=== PATIENT | female | born 1985 | race Caucasian/White ===

== ENCOUNTER → 2019-04-14 | Outpatient (CLI) | payer OTHER ==
[~2019-04-14] VITALS: Ht 162.6 cm; Wt 75.0 kg
[~2019-04-14] MED LIST: LIDOCAINE 1% INJ 20 ML 20 ML VIAL INJ ONE
--- NOTE | 2019-04-14 11:23 | Diagnostic Imaging Report ---
INDICATION: Left thyroid nodule. TECHNIQUE AND FINDINGS: After explaining the risks, benefits and alternatives of the procedure to the patient written consent was obtained. A preliminary ultrasound was obtained for localization purposes. Patient's neck was prepped and draped utilizing maximal sterile barrier technique. Local anesthesia was obtained with 2% lidocaine. 4 fine-needle aspirates were obtained of the left thyroid nodule. Following the procedure the needle was removed and adequate hemostasis was obtained. Patient tolerated the procedure well and left the department in stable condition. IMPRESSION: Successful left thyroid biopsy as described. Dictated by: Dictated on workstation # [id number]
--- NOTE | 2019-04-14 11:25 | Diagnostic Imaging Report ---
INDICATION: Right thyroid nodule. TECHNIQUE AND FINDINGS: A preliminary ultrasound was obtained for localization purposes. Patients neck was prepped and draped utilizing maximal sterile barrier technique. Local anesthesia was obtained with 2% lidocaine. 3 fine-needle aspirates were obtained of the right thyroid nodule. Following the procedure the needle was removed and adequate hemostasis was obtained. Patient tolerated the procedure well and left the department in stable condition. IMPRESSION: Successful ultrasound-guided thyroid biopsy of right thyroid nodule as described. Dictated by: Dictated on workstation # [id number]
== END ==
LOC: RAD 08:28
PROVIDERS: ATTEND Otolaryngology Otolaryngology/Facial Plastic Surgery
DX: E04.2 Nontoxic multinodular goiter (principal)

== ENCOUNTER → 2020-10-19 | Day surgery (SDC) | payer OTHER ==
--- OUTSIDE RECORDS SUMMARY | 2020-10-19 10:43 | XMS REPORT | Clinical Summary ---
Author Author Admin, Isabeal Mancera Organization [facility] [place] Address Unknown Phone Unavailable Allergies, Adverse Reactions, Alerts Allergy Name Reaction Description Start Date Severity Status Pr ovider No Known Allergies Lubnamaricruz Vizcaino PMHNP-BC Conditions or Problems Problem Name Problem Code Onset Date Status Entry Date Provider Comment Standard Description Annotate ANXIETY DISORDER 300.00 Resolved Romario Alan MD Anxiety state, unspecified DEPRESSION 311 Resolved Romario Alan MD Depressive disorder, not elsewhere classified FH DIABETES V18.0 Resolved Romario Alan MD Family history of diabetes mellitus FH BREAST CANCER V16.3 Resolved Romario Alan MD Family history of malignant neoplasm of breast KNEE PAIN, LEFT 719.46 Resolved Romario Jorge Pain in joint involving lower leg KNEE PAIN, LEFT 719.46 Resolved Romario Jorge Pain in joint involving lower leg WELL WOMAN EXAMINATION V72.31 Active Lori leyva MD Routine gynecological examination Procreative counseling and advice using natural family plann ing V26.41 Resolved Romario Alan MD Procreati ve counseling and advice using natural family planning CONTRACEPTIVE MANAGEMENT V25.09 Active Kadeem Wall MD Encounter for other general counseling a nd advice on contraceptive management Fourth degree hemorrhoids Resolved Romario Alan MD Fatigue and malaise 780.79 Resolved Romario sanchez MD Other malaise and fatigue Generalized anxiety disorder 300.02 Active Mari Monroy EQUITY DIRECTOR-C Generalized anxiety disorder 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 Resolved Allison Alan MD Insomnia, unspecified Therapeutic drug monitoring V58.83 Resolved Romario Alan MD Encounter for therapeutic drug monitorin g Diet problems V69.1 Resolved Romario Alan MD Inappropriate diet and eating habits Wellness examination, routine medical V70.0 Active Mari Monroy APRN-C Routine general medical examination at a health care facility Medication refill V68.1 Resolved Romario Alan MD Issue of repeat prescriptions Migraine, common w/o intractable migraine 346.10 Activ e Mari Monroy EQUITY DIRECTOR-C Migraine without aura, witho ut mention of intractable migraine, without mention of status migrainosus BMI 29-29.9 Refinement Mari Monroy EQUITY DIRECTOR-C Body Mass Index 29.0-29.9, adult BMI 26-26.9 Refinement Romario Alan MD Body Mass Index 29.0-29.9, adult BMI 29-29.9 Refinement Mari Porfirio EQUITY DIRECTOR-C Body Mass Index 29.0-29.9, adult BMI 30-30.9 Refinement Mari Porfirio EQUITY DIRECTOR-C Body Mass Index 29.0-29.9, adult BMI 29-29.9 Refinement Mari Monroy EQUITY DIRECTOR-C Body Mass Index 29.0-29.9, adult BMI 30-30.9 Active Mari Porfirio EQUITY DIRECTOR-C Body Mass Index 29.0-29.9, adult Overweight (BMI 25-29.9) Refinement Mari Porfirio EQUITY DIRECTOR-C Overweight Obesity Class I (BMI 30-34.9) Refinement 06/26 Mari Monroy EQUITY DIRECTOR-C Overweight Overweight (BMI 25-29.9) Refinement Mari Monroy EQUITY DIRECTOR-C Overweight Obesity Class I (BMI 30-34.9) Active 5 Mari Monroy APRN-C Overweight Enlarged thyroid 240.9 Resolved Romario Alan MD Goiter, unspecified Thyroid nodule 241.0 Resolved Romario Alan MD Nontoxic uninodular goiter Fatigue, chronic 780.79 Active Mari Monroy APRN-C Other malaise and fatigue Multinodular thyroid goiter 241.1 Resolved Romario Alan MD Nontoxic multinodular goiter Vitamin B12 deficiency 266.2 Active Mari Monroy APRN-C Other B-complex deficiencies Contact dermatitis 692.9 Resolved Romario nieves MD Contact dermatitis and other eczema, unspecified cause Complete thyroidectomy V45.89 Active Tita mancera MA Other postsurgical status Family history of breast ca V16.3 Active Mari Monroy APRN-C Family history of malignant neoplasm of breast Screening exam for breast cancer V76.10 Resolved 202 Romario Alan MD Breast screening, unspecified Lymphadenopathy 785.6 Resolved Romario Jorge Enlargement of lymph nodes Hypocalcemia 275.41 Active Mari Monroy APRN-C Hypocalcemia Abdominal pain, right lower quadrant 789.03 Active Romario Alan MD Abdominal pain, right lower quadrant Other fdc (current) drug therapy V58.69 Active Mari Monroy APRN-C Long-term (current) use of other medicat ions Exposure to COVID-19 coronavirus V01.79 Active 202 Betsy Willard LPN Contact with or exposure to other viral diseases Polycystic ovary syndrome Active Raquel Estrada ew LRT Other abnormal blood chemistry 790.6 Active 04/11 Mari Porfirio EQUITY DIRECTOR-C Other abnormal blood chemistry Hypocalcemia 275.41 Active Bakari Paz, FARIDEH Hypocalcemia Adenocarcinoma, thyroid gland 193 Active Eliane Zarcowell Malignant neoplasm of thyroid gland Pain in right arm 729.5 Active Marijudah Monroy EQUITY DIRECTOR- C Pain in limb Hyperglycemia 790.29 Active Marijudah Monroy EQUITY DIRECTOR-C Other abnormal glucose Contusion of right forearm, initial encounter 923.10 Active Mari Monroy EQUITY DIRECTOR-C Contusion of forearm Chest pain, acute 786.50 Active Mari Monroy APRN- C Unspecified chest pain Headache, mixed 784.0 Active Mari Monroy EQUITY DIRECTOR-C Headache Cervicalgia 723.1 Active Marijudah Monroy APRN-C Cervicalgia Scapulalgia, left 733.90 Active Mari Monroy APRN- C Disorder of bone and cartilage, unspecified Dyspnea 786.09 Active Mari Monroy APRN-C Other dyspnea and respiratory abnormality Cervical radiculopathy 723.4 Active Mari Monroy APRN-C Brachial neuritis or radiculitis NOS Hx of migraines V13.8 Active Mari Monroy EQUITY DIRECTOR-C Personal history of other specified diseases Foot pain, right 729.5 Active Shona Gorman, RMA Pain in limb Unspecified injury of right foot, initial encounter 20 14/08/06 Active Kadeem Wall MD Major depressive disorder, recurrent, mild 296.30 Acti ve Mari Monroy APRN-C Major depressive disorder, r ecurrent episode, unspecified degree OTHER MIXED ANXIETY DISORDERS 300.02 Active 08/07 Mari Monroy EQUITY DIRECTOR-C Generalized anxiety disorder Major depressive disorder, recurrent episode, moderate 296.32 Active Lubna Vizcaino PMHNP-BC Major depressive disorder, recurrent episode, moderate degree Generalized anxiety disorder 300.02 Active Lubna Vizcaino PMHNP-BC Generalized anxiety disorder Elevated Blood Pressure Active Lubna villa PMHNP-BC Elevated blood pressure reading without diagnosis of hypertension Cervical lymphadenopathy, anterior, right 785.6 Activ e Mari Monroy EQUITY DIRECTOR-C Enlargement of lymph nodes Lymphadenopathy 785.6 Active Mari Monroy EQUITY DIRECTOR-C Enlargement of lymph nodes ANXIETY DISORDER ICD-300.00 Inactive Romario Alan MD DEPRESSION ICD-311 Inactive Romario Alan MD FH DIABETES ICD-V18.0 Inactive Romario Alan MD 202 FH BREAST CANCER ICD-V16.3 Inactive Romario Jorge KNEE PAIN, LEFT ICD-719.46 Inactive Romario Eastman MD KNEE PAIN, LEFT ICD-719.46 Inactive Romario Eastman MD Procreative counseling and advice using natural family plann ing ICD-V26.41 Inactive Romario Alan MD Fourth degree hemorrhoids Inactive Weston Alan MD Fatigue and malaise ICD-780.79 Inactive Allison Alan MD Other organic insomnia ICD-780.52 Inactive Weston Alan MD Therapeutic drug monitoring ICD-V58.83 Inactive Romario Alan MD Diet problems ICD-V69.1 Inactive Romario nieves MD Medication refill ICD-V68.1 Inactive Romario marie MD Enlarged thyroid ICD-240.9 Inactive Romario Eastman MD Thyroid nodule ICD-241.0 Inactive Romario sanchez MD Multinodular thyroid goiter ICD-241.1 Inactive Romario Alan MD Contact dermatitis ICD-692.9 Inactive Romario Alan MD Screening exam for breast cancer ICD-V76.10 [place] ctive Romario Alan MD Lymphadenopathy ICD-785.6 Inactive Romario patel MD Medication List Medication Instructions Start Date Stop Date Generic Name NDC Status Provider Patient Instruction CEFUROXIME AXETIL 250 MG ORAL TABLET 1 po BID x 10 days CEFUROXIME AXETIL 64672694414 Active Mari Monroy APRN-C Active MEDROL 4 MG ORAL TABLET THERAPY PACK take as directed METHYLPREDNISOLONE 95474023944 No Longer Active Mrai Monroy APRN-C Active METHOCARBAMOL 500 MG ORAL TABLET 0.5-1 tab every 8 luis rs as needed for tension headaches METHOCARBAMOL 73197239134 Active Mari Monroy EQUITY DIRECTOR-C Active ZOFRAN 4 MG ORAL TABLET 1 every 6 hours PRN nausea ( MAY CAUSE CONSTIPATION) use sparingly ONDANSETRON HCL 27222041088 Active Mari Monroy EQUITY DIRECTOR -C Active BUSPIRONE HCL 5 MG ORAL TABLET Take 1 tab PO BID for anxiety 08/29 BUSPIRONE HCL 09250169096 Active Lubna Vizcaino PMHNP-BC Acti ve CYANOCOBALAMIN 1000MCG/ML INJECTION SOLUTION INJECT 1M L SUBCUTANEOUSLY EVERY WEEK FOR 4 DOSES THEN EVERY 2 WEEKS CYANOCOBALAMIN 001 96454164 Active Mari Monroy APRN-C Active WELLBUTRIN XL 150 MG ORAL TABLET EXTENDED RELEASE 24 H OUR 1 po daily for depression/anxiety BUPROPION HCL 99100009511 Active Er judah Monroy APRN-C Active TOPAMAX 25 MG ORAL TABLET 1 po BID for migraine prevention TOPIRAMATE 02833234576 Active Mari Monroy APRN-C Active AMITRIPTYLINE HCL 25 MG ORAL TABLET 1 PO at HS for migraines AMITRIPTYLINE HCL 90796857065 No Longer Active Bakari Paz RN Active IMITREX 6 MG/0.5ML SUBCUTANEOUS SOLUTION with onset of POWELL may repeat in 1 hour if needed, do not exceed 12mg in 1 day S UMATRIPTAN SUCCINATE 42474301149 No Longer Active Bakari Paz RN Active FIORICET 50-300-40 MG ORAL CAPSULE 1-2 tabs po every 6 hours as needed for headaches, max 6 tabs per day [id number] 03879271998 Active Mari Monroy APRN-C Active TIZANIDINE HCL 4 MG ORAL TABLET 1/2-1 tab every 8 hour s as needed for muscle spasms TIZANIDINE HCL 85790738721 Active Mari Monroy APRN-C Active VITAMIN D (ERGOCALCIFEROL) 1.25 MG (69791 UT) ORAL CAPSULE ERGOCALCIFEROL 06389632823 No Longer Active Mari Monroy APRN-C Active LEVOTHYROXINE SODIUM 112MCG ORAL TABLET TAKE ONE TABLE T BY MOUTH ONE TIME DAILY 30 MINUTES BEFORE BREAKFAST LEVOTHYROXINE SODIUM 01812 145817 Active Cyrus Neumann APRN Active VITAMIN D (ERGOCALCIFEROL) 1.25 MG(18422 UT) ORAL CAPS ULE TAKE ONE CAPSULE BY MOUTH EVERY WEEK ERGOCALCIFEROL 56399849910 Active Miriam Monroy APRN-C Active CYANOCOBALAMIN 1000 MCG/ML INJECTION SOLUTION 1ml week IM every 2 weeks x4 doses then back to monthly CYANOCOBALAMIN 76315977823 No Lo nger Active Romario Alan MD Active VYVANSE 50 MG ORAL CAPSULE 1 po daily L ISDEXAMFETAMINE DIMESYLATE 05173469358 No Longer Active Romario Alan MD Activ e DIFLUCAN 100 MG ORAL TABLET 1 tablet by mouth daily re peat in 3 days if no improvement FLUCONAZOLE 56133997090 No Longer Active Mari Monroy EQUITY DIRECTOR-C Active ALPRAZOLAM 0.5 MG ORAL TABLET 1 tab by mouth 3 times daily PRN 2018 ALPRAZOLAM 28768028792 Active Marijudah Monroy APRN-C Active CIPRO 500 MG ORAL TABLET 1 tab BID CIPROFLOXAC IN HCL 06094910603 No Longer Active Mari Monroy EQUITY DIRECTOR-C Active AMOXICILLIN 500 MG ORAL TABLET 1 po BID x10 days 12/03 AMOXICILLIN 12899569176 No Longer Active Marijudah Monroy APRN-C Active ZOLOFT 100 MG ORAL TABLET SERTRALINE H CL 26965074692 No Longer Active Ayaan Castellanos MD Active 1 30-0.975-200 MG ORAL CAPSULE 1 qDay 2 MV-MIN-FE FUM-FA-DHA 46208119929 No Longer Active Ayaan Castellanos MD Active ALPRAZOLAM 0.25 MG ORAL TABLET 1 TAB PO Q 6 HRS PRN 08/19 ALPRAZOLAM 24814633490 No Longer Active Kadeem Wall MD Active ALPRAZOLAM 0.25 MG ORAL TABLET 1 TAB PO Q 6 HRS PRN 20 10/08/25 ALPRAZOLAM 0.25 MG ORAL TABLET 316130 ALPRAZOLAM Inactive 1 30-0.975-200 MG ORAL CAPSULE 1 qDay 2 1 30-0.975-200 MG ORAL CAPSULE MV-MIN-FE FUM-FA-DHA I nactive ZOLOFT 100 MG ORAL TABLET ZOLOFT 100 MG ORAL TABLET 805735 SERTRALINE HCL Inactive AMOXICILLIN 500 MG ORAL TABLET 1 po BID x10 days 12/03 AMOXICILLIN 500 MG ORAL TABLET 334146 AMOXICILLIN Inactive CIPRO 500 MG ORAL TABLET 1 tab BID CIP RO 500 MG ORAL TABLET 081783 CIPROFLOXACIN HCL Inactive DIFLUCAN 100 MG ORAL TABLET 1 tablet by mouth daily re peat in 3 days if no improvement DIFLUCAN 100 MG ORAL TABLET 525812 FLUCONAZOLE Inactive VYVANSE 50 MG ORAL CAPSULE 1 po daily V YVANSE 50 MG ORAL CAPSULE LISDEXAMFETAMINE DIMESYLATE Inactive CYANOCOBALAMIN 1000 MCG/ML INJECTION SOLUTION 1ml week IM every 2 weeks x4 doses then back to monthly CYANOCOBALAMIN 1000 MCG/ML INJECTION SOLUTION 411144 CYANOCOBALAMIN Inactive VITAMIN D (ERGOCALCIFEROL) 1.25 MG (11264 UT) ORAL CAPSULE VITAMIN D (ERGOCALCIFEROL) 1.25 MG (31067 UT) ORAL CAPSULE 1 688718 ERGOCALCIFEROL Inactive IMITREX 6 MG/0.5ML SUBCUTANEOUS SOLUTION with onset of POWELL may repeat in 1 hour if needed, do not exceed 12mg in 1 day I MITREX 6 MG/0.5ML SUBCUTANEOUS SOLUTION 742234 SUMATRIPTAN SUCCINATE Inactive AMITRIPTYLINE HCL 25 MG ORAL TABLET 1 PO at HS for migraines AMITRIPTYLINE HCL 25 MG ORAL TABLET 519341 AMITRIPTYLIN E HCL Inactive MEDROL 4 MG ORAL TABLET THERAPY PACK take as directed MEDROL 4 MG ORAL TABLET THERAPY PACK 496457 METHYLPREDNISOLONE Rox ctive Advance Directives Directive Description Start Date PERMISSION TO SHARE Immunizations Vaccine Administration Date Value Standard Shawn cription influenza immunization (Flu Vax) has been administered 12/15 Flulaval Quadrivalent (Flu) 10Pk Syringe IM influenza virus vaccine, unspecified formulation influenza immunization (Flu Vax) has been administered 11/26 Flulaval Quadrivalent (Flu) 10Pk Syringe IM influenza virus vaccine, unspecified formulation TB-PPD (tuberculin purified protein derivative), intra dermal administration Tubersol TB-PPD (tuberculin purified protein derivative), intra dermal administration Tubersol Seasonal influenza vaccine, injectable, containing preservative, for > 3 years old (Afluria, FluLaval, Fluzone, Fluvirin, Fluarix, Agriflu(>= 18 yo)) Fluzone (>3 yrs.) [[id number]] Influenza, seasonal, inject able Vital Signs Date Name Value Unit Range Description blood pressure, diastolic, repeated by physician 85 BP martin blood pressure, diastolic 85 mm[Hg] BP martin blood pressure, systolic, repeated by physician 142 BP sys blood pressure, systolic 142 mm[Hg] BP sys pulse rate 77 /min Heart rate blood pressure, diastolic, repeated by physician 83 BP martin blood pressure, diastolic 83 mm[Hg] BP martin blood pressure, systolic, repeated by physician 124 BP sys blood pressure, systolic 124 mm[Hg] BP sys height E&M 64 [in_us] Bdy height pulse rate 70 /min Heart rate temperature E&M 99.6 [degF] Body temp erature blood pressure, diastolic, repeated by physician 60 BP martin blood pressure, diastolic 60 mm[Hg] BP martin blood pressure, systolic, repeated by physician 108 BP sys blood pressure, systolic 108 mm[Hg] BP sys height E&M 64 [in_us] Bdy height pulse rate 60 /min Heart rate respiratory rate E&M 16 /min Resp rate weight E&M 174 [lb_av] Weight Measure d blood pressure, diastolic, repeated by physician 88 BP martin blood pressure, diastolic 88 mm[Hg] BP martin blood pressure, systolic, repeated by physician 119 BP sys blood pressure, systolic 119 mm[Hg] BP sys pulse rate 81 /min Heart rate temperature E&M 98.3 [degF] Body temp erature weight E&M 178 [lb_av] Weight Measure d blood pressure, diastolic, repeated by physician 83 BP martin blood pressure, diastolic 83 mm[Hg] BP martin blood pressure, systolic, repeated by physician 129 BP sys blood pressure, systolic 129 mm[Hg] BP sys height E&M 64 [in_us] Bdy height pulse rate 73 /min Heart rate temperature E&M 98.3 [degF] Body temp erature weight E&M 170 [lb_av] Weight Measure d height E&M 64 [in_us] Bdy height weight E&M 155 [lb_av] Weight Measure d blood pressure, diastolic, repeated by physician 85 BP martin blood pressure, diastolic 85 mm[Hg] BP martin blood pressure, systolic, repeated by physician 125 BP sys blood pressure, systolic 125 mm[Hg] BP sys height E&M 64 [in_us] Bdy height pulse rate 90 /min Heart rate temperature E&M 99.4 [degF] Body temp erature weight E&M 155 [lb_av] Weight Measure d Diagnostic Results Date Name Value Unit Range Description Lab Report: CBC W/DIFF, Comp. Metabolic Panel, Erythrocyte Sed Rate, Thy ... - Chemistry sodium, serum 140 mmol/L 069-037 2816/08/05 carbon dioxide, venous blood 23.8 mmol/L 21.0-32 .0 potassium, serum 4.1 mmol/L 3.5-5.2 chloride, serum 104 mmol/L 98-107 blood glucose 114 mg/dL 65-95 urea nitrogen, blood 15 mg/dL 7-18 creatinine, serum 0.88 mg/dL 0.60-1.30 Estimated Glomerular Filtration Rate (calc) 77 (?) mL/min/1.73m2 = OR > 60 mL/min alanine aminotransferase (SGPT), serum 11 U/L 12-78 aspartate aminotransferase (SGOT), serum 19 U/L 19-43 calcium, serum 8.7 mg/dL 8.5-10.1 bilirubin, serum, total 0.50 mg/dL 0.00-1.00 TSH 4.01 m[iU]/mL 0.36-3.74 thyroxine, serum, free 1.29 ng/dL 0.59-1.17 Lab Report: CBC W/DIFF, Comp. Metabolic Panel, Erythrocyte Sed Rate, Thy ... - Hematology leukocyte count, blood 6.4 10^3/MM^3 10*3/mm3 4.6-10.2 neutrophils as percent of blood leukocytes 54.1 % 42.2-75.2 monocytes as percent of blood leukocytes 6.7 % 1.7-9.3 lymphocytes as percent of blood leukocytes 35.4 % 20.5-51.1 erythrocyte (RBC) count 5.35 10^6/MM^3 10*6/mm3 3.80-5.8 0 hemoglobin, blood 15.4 g/dL 12.0-16.0 hematocrit, blood 46.1 % 37.0-47.0 mean corpuscular volume, RBC 86 fL 80-97 mean corpuscular hemoglobin, RBC 28.7 pg 27. 0-31.2 mean corpuscular hemoglobin concentration, RBC 33.3 G/DL % 31.8-35.4 red blood cell distribution width 10.5 % 11 .6-14.8 platelet count 279 10^3/MM^3 10*3/mm3 142-424 Lab Report: CBC W/DIFF, Comp. Metabolic Panel, Erythrocyte Sed Rate, Thy ... - Lab Alkaline phosphatase 56 50-136 Lab Report: CBC W/DIFF, Comp. Metabolic Panel, Magnesium - Chemistry sodium, serum 141 mmol/L 711-150 1951/05/03 carbon dioxide, venous blood 25.1 mmol/L 21.0-32 .0 potassium, serum 4.1 mmol/L 3.5-5.2 chloride, serum 106 mmol/L 98-107 blood glucose 123 mg/dL 65-95 urea nitrogen, blood 16 mg/dL 7-18 creatinine, serum 0.77 mg/dL 0.60-1.30 Estimated Glomerular Filtration Rate (calc) 90 (?) mL/min/1.73m2 = OR > 60 mL/min alanine aminotransferase (SGPT), serum 12 U/L 12-78 aspartate aminotransferase (SGOT), serum 19 U/L 19-43 calcium, serum 8.7 mg/dL 8.5-10.1 bilirubin, serum, total 0.30 mg/dL 0.00-1.00 Lab Report: CBC W/DIFF, Comp. Metabolic Panel, Magnesium - Hematology leukocyte count, blood 6.4 10^3/MM^3 10*3/mm3 4.6-10.2 neutrophils as percent of blood leukocytes 46.4 % 42.2-75.2 monocytes as percent of blood leukocytes 7.7 % 1.7-9.3 lymphocytes as percent of blood leukocytes 42.5 % 20.5-51.1 erythrocyte (RBC) count 5.40 10^6/MM^3 10*6/mm3 3.80-5.8 0 hemoglobin, blood 15.7 g/dL 12.0-16.0 hematocrit, blood 47.5 % 37.0-47.0 mean corpuscular volume, RBC 88 fL 80-97 mean corpuscular hemoglobin, RBC 29.1 pg 27. 0-31.2 mean corpuscular hemoglobin concentration, RBC 33.1 G/DL % 31.8-35.4 red blood cell distribution width 11.0 % 11 .6-14.8 platelet count 275 10^3/MM^3 10*3/mm3 142-424 Lab Report: CBC W/DIFF, Comp. Metabolic Panel, Magnesium - Lab Alkaline phosphatase 62 50-136 Lab Report: CBC W/DIFF, Comp. Metabolic Panel, UADIP W/MICRO, AUTO, [facility] - Chemistry sodium, serum 140 mmol/L 313-137 5544/10/14 carbon dioxide, venous blood 24.7 mmol/L 21.0-32 .0 potassium, serum 4.3 mmol/L 3.5-5.2 chloride, serum 107 mmol/L 98-107 blood glucose 104 mg/dL 65-95 urea nitrogen, blood 14 mg/dL 7-18 creatinine, serum 0.82 mg/dL 0.60-1.30 Estimated Glomerular Filtration Rate (calc) 84 (?) mL/min/1.73m2 = OR > 60 mL/min alanine aminotransferase (SGPT), serum 10 U/L 12-78 aspartate aminotransferase (SGOT), serum 24 U/L 19-43 calcium, serum 8.5 mg/dL 8.5-10.1 bilirubin, serum, total 1.00 mg/dL 0.00-1.00 protein, total urine random Negative mg/dL Negative RBC, urine, dipstick Negative Negative human chorionic gonadotropin , urine, qualitative (urine test) Negative Negative Lab Report: CBC W/DIFF, Comp. Metabolic Panel, UADIP W/MICRO, AUTO, [facility] - Hematology leukocyte count, blood 14.8 10^3/MM^3 10*3/mm3 4.6-10.2 neutrophils as percent of blood leukocytes 77.1 % 42.2-75.2 monocytes as percent of blood leukocytes 6.3 % 1.7-9.3 lymphocytes as percent of blood leukocytes 14.3 % 20.5-51.1 erythrocyte (RBC) count 5.38 10^6/MM^3 10*6/mm3 3.80-5.8 0 hemoglobin, blood 15.8 g/dL 12.0-16.0 hematocrit, blood 47.3 % 37.0-47.0 mean corpuscular volume, RBC 88 fL 80-97 mean corpuscular hemoglobin, RBC 29.4 pg 27. 0-31.2 mean corpuscular hemoglobin concentration, RBC 33.4 G/DL % 31.8-35.4 red blood cell distribution width 10.8 % 11 .6-14.8 platelet count 306 10^3/MM^3 10*3/mm3 142-424 Lab Report: CBC W/DIFF, Comp. Metabolic Panel, UADIP W/MICRO, AUTO, [facility] - Lab Alkaline phosphatase 67 50-136 Lab Report: CBC W/DIFF, Comp. Metabolic Panel, UADIP W/MICRO, AUTO, [facility] - Urinalysis urobilinogen, urine, semiquantitative (dipstick) 0.2 E .U./dL Normal leukocyte esterase, urine, by dipstick Negative Negative nitrite, urine, semiquantitative Negative Neg ative glucose, urine, semiquantitative Negative Neg ative ketones, urine, by test strip Negative Negati ve bilirubin, urine Negative Negative urine color Yellow Colorless;Lightyellow;St raw;Yellow appearance, urine Clear Clear specific gravity, urine >=1.030 1.000-1.030 pH, urine, semiquantitative 7.0 5.0-8.5 Lab Report: Comp. Metabolic Panel - Chem istry calcium, serum 8.4 mg/dL 8.5-10.1 bilirubin, serum, total 0.40 mg/dL 0.00-1.00 sodium, serum 140 mmol/L 852-586 5160/02/22 carbon dioxide, venous blood 27.1 mmol/L 21.0-32 .0 potassium, serum 4.5 mmol/L 3.5-5.2 chloride, serum 105 mmol/L 98-107 blood glucose 94 mg/dL 65-95 urea nitrogen, blood 11 mg/dL 7-18 creatinine, serum 0.77 mg/dL 0.60-1.30 Estimated Glomerular Filtration Rate (calc) 90 (?) mL/min/1.73m2 = OR > 60 mL/min alanine aminotransferase (SGPT), serum 11 U/L 12-78 aspartate aminotransferase (SGOT), serum 20 U/L 19-43 Lab Report: Comp. Metabolic Panel - Lab Alkaline phosphatase 56 50-136 Lab Report: Comp. Metabolic Panel, HGBA1 C - Chemistry calcium, serum 8.8 mg/dL 8.5-10.1 bilirubin, serum, total 0.50 mg/dL 0.00-1.00 hemoglobin A1C, blood, as % of total hemoglobin 5.3 % 4.3-6.0 sodium, serum 140 mmol/L 121-392 6507/04/12 carbon dioxide, venous blood 27.5 mmol/L 21.0-32 .0 potassium, serum 4.0 mmol/L 3.5-5.2 chloride, serum 104 mmol/L 98-107 blood glucose 98 mg/dL 65-95 urea nitrogen, blood 14 mg/dL 7-18 creatinine, serum 0.80 mg/dL 0.60-1.30 Estimated Glomerular Filtration Rate (calc) 86 (?) mL/min/1.73m2 = OR > 60 mL/min alanine aminotransferase (SGPT), serum 13 U/L 12-78 aspartate aminotransferase (SGOT), serum 20 U/L 19-43 Lab Report: Comp. Metabolic Panel, HGBA1 C - Lab Alkaline phosphatase 63 50-136 Lab Report: Erythrocyte Sed Rate, Thyroi d Stimulating Hormone (L) - Chemistry TSH 2.11 m[iU]/mL 0.36-3.74 Lab Report: Free Thyroxine (L) - [employer] Consultant ry thyroxine, serum, free 1.20 ng/dL 0.59-1.17 thyroxine, serum, free 1.37 ng/dL 0.59-1.17 Lab Report: Free Thyroxine (L), Isabela simon Vitamin B12 - Chemistry thyroxine, serum, free 1.44 ng/dL 0.59-1.17 Lab Report: Free Thyroxine (L), CBC - Ch emistry thyroxine, serum, free 1.13 ng/dL 0.59-1.17 Lab Report: Free Thyroxine (L), CBC - He matology leukocyte count, blood 5.0 10^3/MM^3 10*3/mm3 4.6-10.2 erythrocyte (RBC) count 5.10 10^6/MM^3 10*6/mm3 3.80-5.8 0 hemoglobin, blood 14.7 g/dL 12.0-16.0 hematocrit, blood 43.1 % 37.0-47.0 mean corpuscular volume, RBC 85 fL 80-97 mean corpuscular hemoglobin, RBC 28.9 pg 27. 0-31.2 mean corpuscular hemoglobin concentration, RBC 34.2 G/DL % 31.8-35.4 red blood cell distribution width 11.4 % 11 .6-14.8 platelet count 272 10^3/MM^3 10*3/mm3 142-424 Lab Report: Thyroid Stimulating Hormone (L) - Chemistry TSH 2.66 m[iU]/mL 0.36-3.74 TSH 3.80 m[iU]/mL 0.36-3.74 Lab Report: Thyroid Stimulating Hormone (L), Free Thyroxine (L) - Chemistry TSH 1.68 m[iU]/mL 0.36-3.74 thyroxine, serum, free 1.35 ng/dL 0.59-1.17 TSH 0.23 m[iU]/mL 0.36-3.74 thyroxine, serum, free 1.44 ng/dL 0.59-1.17 Office Visit: diana pain RM 302 - Basic LDL target level 160 mg/dL Office Visit: diana pain RM 302 - Chemistr y HDL cholesterol, serum, target level 40 mg/dL cholesterol, target level 200 mg/dL triglyceride, target level 150 mg/dL Encounters Code Encounter Date Provider Facility CPT-65498 Level 5 Est. Patient 14:22:47 CDT Lubna Huerta PMHNP-[facility] CPT-15035 [id number] Vst-Est Level III 16:54:40 CDT Kadeem Wall MD [facility] CPT-98452 13447-Clv Vst-Est Level IV 06:01:21 CDT Miriam Monroy APRN-C [facility] CPT-95216 [id number] Vst-Est Level III 16:13:06 CDT Dariel Monroy APRN-C [facility] CPT-38915 Level 3 New Patient 16:14:48 CDT Ayaan Castellanos MD [facility] CPT-76461 Level 4 Est. Patient 08:48:05 CDT Romario Alan MD [facility] CPT-46068 Level 3 Est. Patient 07:30:03 DOUGH MOLDER [facility] CPT-71266 Level 4 Est. Patient 08:02:04 DOUGH MOLDER [facility] CPT-70433 Level 3 Est. Patient 09:56:14 CDT Kadeem jenkins MD [facility] CPT-63805 Level 3 Est. Patient 11:07:45 CDT Ang HILLIARD [facility] Procedures Code Procedure Name Date Entry Date Standard Desc ription CPT-56519 MOD COVID19 mRNA 100mcg/0.5mL 1st Dose 2 18:35:21 CDT CPT-29103 Sono Soft Tissue Head and Neck - XRAY US E ONLY 10:50:20 CDT CPT-38720 Venipuncture Draw Fee 10:24:46 CDT CPT-TMV TMV 05:09:41 CDT CPT-66282 Foot, right, comp min 3V - XRAY USE ONLY 16:15:36 CDT CPT-J1885 Toradol 30 mg (Ketorolac) 06:01:21 CDT 2020 CPT-94838 EKG Trac and Interp - XRAY USE ONLY 1 8:04:25 CDT CPT-99407 Chest, 2 views 17:02:15 CDT CPT-J1885 Toradol 30 mg (Ketorolac) 16:44:24 CDT 2020 CPT-08469 Abx/Therapy Injection 16:44:24 CDT CPT-60768 Venipuncture Draw Fee 16:11:55 CDT CPT-L3908 Cockup Splint 16:13:07 CDT CPT-87536 Venipuncture Draw Fee 12:12:02 CDT CPT-50243 Forearm, right, AP and Lat - XRAY USE ONLY 05/26 14:27:36 CDT CPT-17423 Elbow, right, Comp Min 3V - XRAY USE ONLY 05/26 14:27:35 CDT CPT-44934 Venipuncture Draw Fee 11:28:13 CDT CPT-65929 Venipuncture Draw Fee 08:03:55 DOUGH MOLDER CPT-57232 Venipuncture Draw Fee 16:21:43 DOUGH MOLDER CPT-65282 61131 - Immun Admin 1 vac 13:37:32 CDT 2019 CPT-84901 Flulaval (Flu) 10PK Syringe IM 13:37:32 CDT CPT-02971 Venipuncture Draw Fee 10:41:23 CDT CPT-70529 Venipuncture Draw Fee 08:57:35 CDT CPT-J1885 Toradol 30 mg (Ketorolac) 18:38:26 CDT 2019 CPT-J2550 Phenergan 25 mg (Promethazine) 18:38:26 CDT CPT-J1020 Depo Medrol 60 mg (Methyl Prednisolone A cetate) 18:38:26 CDT CPT-J1100 Decadron 6mg (Dexamethasone) 18:38:26 CDT 2 CPT-99933 Abx/Therapy Injection 18:38:25 CDT CPT-40382 Venipuncture Draw Fee 08:18:31 CDT CPT-49026 Venipuncture Draw Fee 09:11:08 CDT CPT-42513 Venipuncture Draw Fee 15:19:08 CDT CPT-98826 IM or SQ Injection 13:11:03 CDT CPT-J1100 Decadron 4mg (Dexamethasone) 13:11:03 CDT 2 CPT-J1030 Depo Medrol 40 mg (Methyl Prednisolone A cetate) 13:11:02 CDT CPT-76024 Venipuncture Draw Fee 10:49:05 CDT CPT-25103 Sono Soft Tissue Head and Neck - XRAY US E ONLY 14:27:21 DOUGH MOLDER CPT-CB9199B (4274F) Influenza immunization administe red or previously received 13:43:59 DOUGH MOLDER CPT-J2550 Phenergan 25 mg (Promethazine) 17:57:23 DOUGH MOLDER CPT-J1885 Toradol 30 mg (Ketorolac) 17:57:23 DOUGH MOLDER 2018 CPT-07433 Prv Med Est Pt 18-39yrs 08:02:04 DOUGH MOLDER 0/10 CPT-89497 75358 - Immun Admin 1 vac 09:24:27 CDT 2018 CPT-83355 Flulaval Quadrivalent (Flu) 10Pk Syringe IM 2018 09:24:27 CDT CPT-46673 First Vx - Ix admin via ID I M or jet injects without counseling by physician 16:30:31 CDT CPT-43166 Fluzone Quadrivalent Intramuscular Suspe nsion 0.5 ML 16:30:31 CDT CPT-42841 Nexplanon Removal 09:56:14 CDT CPT-OV Office Visit 10:17:55 CDT CPT-64026 TB Tubersol 16:11:35 DOUGH MOLDER CPT-85788 Administration single or combination vac cine inc oral 14:18:51 DOUGH MOLDER CPT-22025 TB Tubersol 14:18:51 DOUGH MOLDER CPT-54735 Influenza split virus > age 3 14:18:51 DOUGH MOLDER CPT-69566 Knee 3V 11:04:40 CDT
--- OUTSIDE RECORDS SUMMARY | 2020-10-19 10:43 | XMS REPORT | Clinical Summary ---
Author Author [facility] Organization [facility] Address Unknown Phone Unavailable Care Team Providers Care Repairer Maintenance Building Name Role Phone Mari Monroy VASCULAR ULTRASOUND TECHNOLOGIST PCP Source Comments Some departments are not documenting in the electronic medical record. If you d o not see the information that you expected, contact Release of Information in [facility] Information Management department at [phone] for further assistan ce in locating additional records.[facility] Allergies No Known Active Allergies Medications End Date Status Medication Sig Dispensed Refills Start Date Active ALPRAZolam (XANAX) 0.25 0.5 mg. 0 mg tablet 1 Active acetaminophen (TYLENOL 8 Take by 0 HOUR PO) mouth as Needed. Active levothyroxine (SYNTHROID) Take one 90 tablet 1 112 mcg tablet tablet by 0 mouth daily 30 minutes before breakfast. Active ergocalciferol (VITAMIN Take 1 0 D-2) 1,250 mcg (50,000 capsule by unit) capsule mouth every 7 days. Active cyanocobalamin(DIL) Inject into 0 (VITAMIN B-12) 100 mcg/mL the muscle. Active cyanocobalamin (RUBRAMIN) Inject 1 mL 0 1,000 mcg/mL injection into the muscle every 14 days. Active CALCIUM PO Take 650 mg 0 by mouth daily. chewable Active vitamins, w/iron Take 1 tablet 0 & folate 27-1 mg tablet by mouth daily. Has 150mg calcium Active Problems Problem Noted Date Postoperative hypothyroidism 04/25/2020 H/O thyroidectomy 02/10/2020 Papillary thyroid carcinoma 07/29/2019 Neck tightness 06/17/2019 Thyroid mass 06/10/2019 Surgical History Surgery Date Site/Laterality Comments BUNIONECTOMY 02/25/2012 - Left 02/23/2013 HEMORRHOIDECTOMY 02/24/2017 - 02/23/2018 THYROIDECTOMY 07/21/2019 Neck/N/A THYROIDECTOMY T OTAL performed by Rigoberto Colon MD at [facility] OR ELECTROMYOGRAPHY 07/21/2019 Neck/Bilateral NEEDLE ELECTR OMYOGRAPHY - LARYNX performed by Rigoberto Colon MD at [facility] OR LARYNGOSCOPY 07/21/2019 Throat/N/A DIRECT LARYNGOS COPY DIAGNOSTIC performed by Rigoberto Colon MD at [facility] OR LARYNGOSCOPY 07/21/2019 Throat/N/A FLEXIBLE LARYNG OSCOPY DIAGNOSTIC performed by Rigoberto Colon MD at [facility] OR HX APPENDECTOMY Medical History Medical History Date Comments Vitamin D deficiency Vitamin B 12 deficiency Hypothyroid postoperative Thyroid cancer (HCC) Social History Date Tobacco Use Types Packs/Day Years Used Never Smoker Smokeless Tobacco: Never Used Comments Alcohol Use Standard Drinks/Week Yes 0 (1 standard drink = 0.6 o z pure alcohol) Sex Assigned at Date Recorded Female 05/31/2019 4:25 PM CDT Last Filed Vital Signs Reading Time Taken Comments Vital Sign 115/70 07/26/2019 4:12 PM CDT unable to obtain Blood Pressure 86 07/26/2019 4:12 PM CDT Pulse 36.5 C (97.7 F) 07/26/2019 4:12 PM CDT Unable to obtain Temperature - - Respiratory Rate 98% 07/26/2019 4:12 PM CDT Oxygen Saturation - - Inhaled Oxygen Concentration 72.6 kg (160 lb) 02/10/2020 9:13 AM DIVIDEND CLERK Weight 162.6 cm (5' 4") 02/10/2020 9:13 AM DIVIDEND CLERK Height 27.46 02/10/2020 9:13 AM DIVIDEND CLERK Body Mass Index Plan of Treatment Health Maintenance Due Date Last Done Comments HIV SCREENING 08/08/1999 DTAP/TDAP VACCINES (1 - 2002 Tdap) HEPATITIS C SCREENING 2002 PHYSICAL (COMPREHENSIVE) 2002 EXAM CERVICAL CANCER SCREENING 2005 INFLUENZA VACCINE 11/24/2020 Implants Device Identifier Shelf Expiration Date Model / Serial / L ot Implanted Type Area Manufactur er Other Other Left: Foot Results Not on filefrom Last 3 Months Insurance Type Payer Benefit Subscriber ID Effective Phone Address Plan / Dates [facility] [id number] 2017-P SERVICES resent [id number] Advance Directives 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 necessary based on Dx
--- OUTSIDE RECORDS SUMMARY | 2020-10-19 10:44 | XMS REPORT | Clinical Summary ---
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 [...] intractable migraine 346.10 Activ e Mari Monroy APRN-C Migraine without aura, witho ut mention of intractable migraine, without mention of status migrainosus BMI 29-29.9 Refinement Mari Monroy PHOTOGRAPHIC INTELLIGENCE OFFICER-C Body Mass Index 29.0-29.9, adult BMI 26-26.9 Refinement Romario Alan MD Body Mass Index 29.0-29.9, adult BMI 29-29.9 Refinement Mari Porfirio PHOTOGRAPHIC INTELLIGENCE OFFICER-C Body Mass Index 29.0-29.9, adult BMI 30-30.9 Refinement Mari Porfirio PHOTOGRAPHIC INTELLIGENCE OFFICER-C Body Mass Index 29.0-29.9, adult BMI 29-29.9 Refinement Mari Monroy PHOTOGRAPHIC INTELLIGENCE OFFICER-C Body Mass Index 29.0-29.9, adult BMI 30-30.9 Active Mari Porfirio PHOTOGRAPHIC INTELLIGENCE OFFICER-C Body Mass Index 29.0-29.9, adult Overweight (BMI 25-29.9) Refinement Mari Monroy PHOTOGRAPHIC INTELLIGENCE OFFICER-C Overweight Obesity Class I (BMI 30-34.9) Refinement 06/26 Mari Monroy PHOTOGRAPHIC INTELLIGENCE OFFICER-C Overweight Overweight (BMI 25-29.9) Refinement Mari Monroy PHOTOGRAPHIC INTELLIGENCE OFFICER-C Overweight Obesity Class I (BMI 30-34.9) Active 5 Mari Monroy APRN-C Overweight Enlarged thyroid 240.9 Resolved Romario Alan MD Goiter, unspecified Thyroid nodule 241.0 Resolved Romario Alan MD Nontoxic uninodular goiter Fatigue, chronic 780.79 Active Mari GOMEZC Other malaise and fatigue Multinodular thyroid goiter [...] MD Abdominal pain, right lower quadrant Other fci (current) drug therapy V58.69 Active Mari Monroy APRN-C Long-term (current) use of other medicat ions Exposure to COVID-19 coronavirus V01.79 Active 202 Betsy Willard LPN Contact with or exposure to other viral diseases Polycystic ovary syndrome Active Raquel Estrada ew LRT Other abnormal blood chemistry 790.6 Active 04/11 Mari Porfirio PHOTOGRAPHIC INTELLIGENCE OFFICER-C Other abnormal blood chemistry Hypocalcemia 275.41 Active Bakari Paz, RN Hypocalcemia Adenocarcinoma, thyroid gland 193 Active Eliane Morales Malignant neoplasm of thyroid gland Pain in right arm 729.5 Active Marijudah Monroy PHOTOGRAPHIC INTELLIGENCE OFFICER- C Pain in limb Hyperglycemia 790.29 Active Mari Porfirio PHOTOGRAPHIC INTELLIGENCE OFFICER-C Other abnormal glucose Contusion of right forearm, initial encounter 923.10 Active Marijudah Monroy PHOTOGRAPHIC INTELLIGENCE OFFICER-C Contusion of forearm Chest pain, acute 786.50 Active Marijudah Monroy APRN- C Unspecified chest pain Headache, mixed 784.0 Active Mari Monroy PHOTOGRAPHIC INTELLIGENCE OFFICER-C Headache Cervicalgia 723.1 Active Marijudah Monroy PHOTOGRAPHIC INTELLIGENCE OFFICER-C Cervicalgia Scapulalgia, left 733.90 Active Mari Monroy APRN- C Disorder of bone and cartilage, unspecified Dyspnea 786.09 Active Mari Monroy PHOTOGRAPHIC INTELLIGENCE OFFICER-C Other dyspnea and respiratory abnormality Cervical radiculopathy 723.4 Active Mari Monroy APRN-C Brachial neuritis or radiculitis NOS Hx of migraines V13.8 Active Mair Monroy PHOTOGRAPHIC INTELLIGENCE OFFICER-C Personal history of other specified diseases Foot pain, right 729.5 Active Shona Gorman, RMA Pain in limb Unspecified injury of right foot, initial encounter 20 14/08/06 Active Kadeem Wall MD Major depressive disorder, recurrent, mild 296.30 Acti ve Marijudah Monroy PHOTOGRAPHIC INTELLIGENCE OFFICER-C Major depressive disorder, r ecurrent episode, unspecified degree OTHER MIXED ANXIETY DISORDERS 300.02 Active 0 08/07 Mari Monroy PHOTOGRAPHIC INTELLIGENCE OFFICER-C Generalized anxiety disorder Major depressive disorder, recurrent episode, moderate 296.32 Active Lubna Vizcaino PMHNP-BC Major depressive disorder, recurrent episode, moderate degree Generalized anxiety disorder 300.02 Active Lubna Vizcaino PMHNP-BC Generalized anxiety disorder Elevated Blood Pressure Active Lubna bermeoo PMHNP-BC Elevated blood pressure reading without diagnosis of hypertension Cervical lymphadenopathy, anterior, right 785.6 Activ e Mari Monroy PHOTOGRAPHIC INTELLIGENCE OFFICER-C Enlargement of lymph nodes Lymphadenopathy 785.6 Active Mari Monroy PHOTOGRAPHIC INTELLIGENCE OFFICER-C Enlargement of lymph nodes ANXIETY DISORDER ICD-300.00 [...] MD Screening exam for breast cancer ICD-V76.10 Ovid ctive Romario Alan MD Lymphadenopathy ICD-785.6 Inactive Romario patel MD Medication List Medication Instructions Start Date Stop Date Generic Name NDC Status Provider Patient Instruction CEFUROXIME AXETIL 250 MG ORAL TABLET 1 po BID x 10 days CEFUROXIME AXETIL 59009337777 Active Mari Monroy APRN-C Active MEDROL 4 MG ORAL TABLET THERAPY PACK take as directed METHYLPREDNISOLONE 74508259351 No Longer Active Mari Monroy APRN-C Active METHOCARBAMOL 500 MG ORAL TABLET 0.5-1 tab every 8 luis rs as needed for tension headaches METHOCARBAMOL 16658507081 Active Mari Monroy PHOTOGRAPHIC INTELLIGENCE OFFICER-C Active ZOFRAN 4 MG ORAL TABLET 1 every 6 hours PRN nausea ( MAY CAUSE CONSTIPATION) use sparingly ONDANSETRON HCL 72433178357 Active Mari Monroy PHOTOGRAPHIC INTELLIGENCE OFFICER -C Active BUSPIRONE HCL 5 MG ORAL TABLET Take 1 tab PO BID for anxiety 08/29 BUSPIRONE HCL 62816147409 Active Lubna Vizcaino PMHNP-BC Acti ve CYANOCOBALAMIN 1000MCG/ML INJECTION SOLUTION INJECT 1M L SUBCUTANEOUSLY EVERY WEEK FOR 4 DOSES THEN EVERY 2 WEEKS CYANOCOBALAMIN 001 05633458 Active Mari Monroy APRN-C Active WELLBUTRIN XL 150 MG ORAL TABLET EXTENDED RELEASE 24 H OUR 1 po daily for depression/anxiety BUPROPION HCL 03758048374 Active Er judah Monroy APRN-C Active TOPAMAX 25 MG ORAL TABLET 1 po BID for migraine prevention TOPIRAMATE 00747928458 Active Mari Monroy APRN-C Active AMITRIPTYLINE HCL 25 MG ORAL TABLET 1 PO at HS for migraines AMITRIPTYLINE HCL 18291129449 No Longer Active Bakari Paz RN Active IMITREX 6 MG/0.5ML SUBCUTANEOUS SOLUTION with onset of POWELL may repeat in 1 hour if needed, do not exceed 12mg in 1 day S UMATRIPTAN SUCCINATE 70383249568 No Longer Active Bakari Paz RN Active FIORICET 50-300-40 MG ORAL CAPSULE 1-2 tabs po every 6 hours as needed for headaches, max 6 tabs per day [id number] 39693911936 Active Mari Monroy APRN-C Active TIZANIDINE HCL 4 MG ORAL TABLET 1/2-1 tab every 8 hour s as needed for muscle spasms TIZANIDINE HCL 09475339624 Active Mari Monroy APRN-C Active VITAMIN D (ERGOCALCIFEROL) 1.25 MG (98221 UT) ORAL CAPSULE ERGOCALCIFEROL 39177230947 No Longer Active Mari Monroy APRN-C Active LEVOTHYROXINE SODIUM 112MCG ORAL TABLET TAKE ONE TABLE T BY MOUTH ONE TIME DAILY 30 MINUTES BEFORE BREAKFAST LEVOTHYROXINE SODIUM 34461 285098 Active Cyrus Neumann APRN Active VITAMIN D (ERGOCALCIFEROL) 1.25 MG(95519 UT) ORAL CAPS ULE TAKE ONE CAPSULE BY MOUTH EVERY WEEK ERGOCALCIFEROL 33736558942 Active Miriam Monroy APRN-C Active CYANOCOBALAMIN 1000 MCG/ML INJECTION SOLUTION 1ml week IM every 2 weeks x4 doses then back to monthly CYANOCOBALAMIN 87218756076 No Lo nger Active Romario Alan MD Active VYVANSE 50 MG ORAL CAPSULE 1 po daily L ISDEXAMFETAMINE DIMESYLATE 02622529515 No Longer Active Romario Alan MD Activ e DIFLUCAN 100 MG ORAL TABLET 1 tablet by mouth daily re peat in 3 days if no improvement FLUCONAZOLE 85270970959 No Longer Active Mari Monroy PHOTOGRAPHIC INTELLIGENCE OFFICER-C Active ALPRAZOLAM 0.5 MG ORAL TABLET 1 tab by mouth 3 times daily PRN 2018 ALPRAZOLAM 75180963471 Active Marijudah Monroy APRN-C Active CIPRO 500 MG ORAL TABLET 1 tab BID CIPROFLOXAC IN HCL 28332588736 No Longer Active Marijudah Monroy APRN-C Active AMOXICILLIN 500 MG ORAL TABLET 1 po BID x10 days 12/03 AMOXICILLIN 81395471390 No Longer Active Marijudah Monroy APRN-C Active ZOLOFT 100 MG ORAL TABLET SERTRALINE H CL 18253782077 No Longer Active Ayaan Castellanos MD Active 1 30-0.975-200 MG ORAL CAPSULE 1 qDay 2 MV-MIN-FE FUM-FA-DHA 47786104151 No Longer Active Ayaan Castellanos MD Active ALPRAZOLAM 0.25 MG ORAL TABLET 1 TAB PO Q 6 HRS PRN 08/19 ALPRAZOLAM 81747046891 No Longer Active Kadeem Wall MD Active ALPRAZOLAM 0.25 MG ORAL TABLET 1 TAB PO Q 6 HRS PRN 20 10/08/25 ALPRAZOLAM 0.25 MG ORAL TABLET 802281 ALPRAZOLAM Inactive 1 30-0.975-200 MG ORAL CAPSULE 1 qDay 2 1 30-0.975-200 MG ORAL CAPSULE MV-MIN-FE FUM-FA-DHA I nactive ZOLOFT 100 MG ORAL TABLET ZOLOFT 100 MG ORAL TABLET 661393 SERTRALINE HCL Inactive AMOXICILLIN 500 MG ORAL TABLET 1 po BID x10 days 12/03 AMOXICILLIN 500 MG ORAL TABLET 950558 AMOXICILLIN Inactive CIPRO 500 MG ORAL TABLET 1 tab BID CIP RO 500 MG ORAL TABLET 739821 CIPROFLOXACIN HCL Inactive DIFLUCAN 100 MG ORAL TABLET 1 tablet by mouth daily re peat in 3 days if no improvement DIFLUCAN 100 MG ORAL TABLET 703674 FLUCONAZOLE Inactive VYVANSE 50 MG ORAL CAPSULE 1 po daily V YVANSE 50 MG ORAL CAPSULE LISDEXAMFETAMINE DIMESYLATE Inactive CYANOCOBALAMIN 1000 MCG/ML INJECTION SOLUTION 1ml week IM every 2 weeks x4 doses then back to monthly CYANOCOBALAMIN 1000 MCG/ML INJECTION SOLUTION 543900 CYANOCOBALAMIN Inactive VITAMIN D (ERGOCALCIFEROL) 1.25 MG (23052 UT) ORAL CAPSULE VITAMIN D (ERGOCALCIFEROL) 1.25 MG (72832 UT) ORAL CAPSULE 1 814169 ERGOCALCIFEROL Inactive IMITREX 6 MG/0.5ML SUBCUTANEOUS SOLUTION with onset of POWELL may repeat in 1 hour if needed, do not exceed 12mg in 1 day I MITREX 6 MG/0.5ML SUBCUTANEOUS SOLUTION 666118 SUMATRIPTAN SUCCINATE Inactive AMITRIPTYLINE HCL 25 MG ORAL TABLET 1 PO at HS for migraines AMITRIPTYLINE HCL 25 MG ORAL TABLET 972129 AMITRIPTYLIN E HCL Inactive MEDROL 4 MG ORAL TABLET THERAPY PACK take as directed MEDROL 4 MG ORAL TABLET THERAPY PACK 450439 METHYLPREDNISOLONE Rox ctive Advance Directives Directive Description Start Date PERMISSION TO SHARE Immunizations Vaccine Administration Date Value Standard Shawn cription influenza immunization (Flu Vax) has been administered 12/15 Flulaval Quadrivalent (Flu) 10Pk Syringe IM influenza immunization (Flu Vax) has been administered 11/26 Flulaval Quadrivalent (Flu) 10Pk Syringe IM TB-PPD (tuberculin purified protein derivative), intra dermal administration Tubersol TB-PPD (tuberculin purified protein derivative), intra dermal administration Tubersol Seasonal influenza vaccine, injectable, containing preservative, for > 3 years old (Afluria, FluLaval, Fluzone, Fluvirin, Fluarix, Agriflu(>= 18 yo)) Fluzone (>3 yrs.) [[id number]] Diagnostic Results Date Name Value Unit Range Description Lab Report: CBC W/DIFF, Comp. Metabolic Panel, Erythrocyte Sed Rate, Thy ... - Chemistry sodium, serum 140 mmol/L 128-802 9478/08/05 carbon dioxide, venous blood 23.8 mmol/L 21.0-32 [...] W/DIFF, Comp. Metabolic Panel, Magnesium - Chemistry calcium, serum 8.7 mg/dL 8.5-10.1 bilirubin, serum, total 0.30 mg/dL 0.00-1.00 sodium, serum 141 mmol/L 106-490 1152/05/03 carbon dioxide, venous blood 25.1 mmol/L 21.0-32 .0 potassium, serum 4.1 mmol/L 3.5-5.2 chloride, serum 106 mmol/L 98-107 blood glucose 123 mg/dL 65-95 urea nitrogen, blood 16 mg/dL 7-18 creatinine, serum 0.77 mg/dL 0.60-1.30 Estimated Glomerular Filtration Rate (calc) 90 (?) mL/min/1.73m2 = OR > 60 mL/min alanine aminotransferase (SGPT), serum 12 U/L 12-78 aspartate aminotransferase (SGOT), serum 19 U/L 19-43 Lab Report: CBC W/DIFF, Comp. Metabolic Panel, [...] W/DIFF, Comp. Metabolic Panel, UADIP W/MICRO, AUTO, UHCG - Chemistry human chorionic gonadotropin , urine, qualitative (urine test) Negative Negative sodium, serum 140 mmol/L 191-630 4723/10/14 carbon dioxide, venous blood 24.7 mmol/L 21.0-32 [...] mg/dL Negative RBC, urine, dipstick Negative Negative Lab Report: CBC W/DIFF, Comp. Metabolic Panel, UADIP W/MICRO, AUTO, UHCG - Hematology leukocyte count, blood 14.8 10^3/MM^3 [...] W/DIFF, Comp. Metabolic Panel, UADIP W/MICRO, AUTO, UHCG - Lab Alkaline phosphatase 67 50-136 Lab Report: CBC W/DIFF, Comp. Metabolic Panel, UADIP W/MICRO, AUTO, UHCG - Urinalysis urobilinogen, urine, semiquantitative (dipstick) 0.2 [...] Report: Comp. Metabolic Panel - Chem istry sodium, serum 140 mmol/L 492-958 8632/02/22 carbon dioxide, venous blood 27.1 mmol/L 21.0-32 .0 potassium, serum 4.5 mmol/L 3.5-5.2 chloride, serum 105 mmol/L 98-107 blood glucose 94 mg/dL 65-95 urea nitrogen, blood 11 mg/dL 7-18 creatinine, serum 0.77 mg/dL 0.60-1.30 Estimated Glomerular Filtration Rate (calc) 90 (?) mL/min/1.73m2 = OR > 60 mL/min alanine aminotransferase (SGPT), serum 11 U/L 12-78 aspartate aminotransferase (SGOT), serum 20 U/L 19-43 calcium, serum 8.4 mg/dL 8.5-10.1 bilirubin, serum, total 0.40 mg/dL 0.00-1.00 Lab Report: Comp. Metabolic Panel - Lab Alkaline phosphatase 56 50-136 Lab Report: Comp. Metabolic Panel, HGBA1 C - Chemistry sodium, serum 140 mmol/L 209-032 8862/04/12 carbon dioxide, venous blood 27.5 mmol/L 21.0-32 .0 potassium, serum 4.0 mmol/L 3.5-5.2 chloride, serum 104 mmol/L 98-107 blood glucose 98 mg/dL 65-95 urea nitrogen, blood 14 mg/dL 7-18 creatinine, serum 0.80 mg/dL 0.60-1.30 Estimated Glomerular Filtration Rate (calc) 86 (?) mL/min/1.73m2 = OR > 60 mL/min alanine aminotransferase (SGPT), serum 13 U/L 12-78 aspartate aminotransferase (SGOT), serum 20 U/L 19-43 calcium, serum 8.8 mg/dL 8.5-10.1 bilirubin, serum, total 0.50 mg/dL 0.00-1.00 hemoglobin A1C, blood, as % of total hemoglobin 5.3 % 4.3-6.0 Lab Report: Comp. Metabolic Panel, HGBA1 C - Lab Alkaline phosphatase 63 50-136 Lab Report: Erythrocyte Sed Rate, Thyroi d Stimulating Hormone (L) - Chemistry TSH 2.11 m[iU]/mL 0.36-3.74 Lab Report: Free Thyroxine (L) - [place] ry thyroxine, serum, free 1.20 ng/dL 0.59-1.17 thyroxine, serum, free 1.37 ng/dL 0.59-1.17 Lab Report: Free Thyroxine (L), Tino simon Vitamin B12 - Chemistry thyroxine, serum, [...] count 272 10^3/MM^3 10*3/mm3 142-424 Lab Report: Free Thyroxine (L), CBC W/DI FF, Comp. Metabolic Panel - Chemistry thyroxine, serum, free 0.95 ng/dL 0.59-1.17 sodium, serum 138 mmol/L 328-165 9225/08/19 carbon dioxide, venous blood 24.9 mmol/L 21.0-32 .0 potassium, serum 3.8 mmol/L 3.5-5.2 chloride, serum 102 mmol/L 98-107 blood glucose 95 mg/dL 65-95 urea nitrogen, blood 13 mg/dL 7-18 creatinine, serum 0.76 mg/dL 0.60-1.30 Estimated Glomerular Filtration Rate (calc) 92 (?) mL/min/1.73m2 = OR > 60 mL/min alanine aminotransferase (SGPT), serum 8 U/L 12-78 aspartate aminotransferase (SGOT), serum 18 U/L 19-43 calcium, serum 7.9 mg/dL 8.5-10.1 bilirubin, serum, total 0.20 mg/dL 0.00-1.00 Lab Report: Free Thyroxine (L), CBC W/DI FF, Comp. Metabolic Panel - Hematology leukocyte count, blood 6.4 10^3/MM^3 10*3/mm3 4.6-10.2 neutrophils as percent of blood leukocytes 45.5 % 42.2-75.2 monocytes as percent of blood leukocytes 9.1 % 1.7-9.3 lymphocytes as percent of blood leukocytes 40.3 % 20.5-51.1 erythrocyte (RBC) count 4.97 10^6/MM^3 10*6/mm3 3.80-5.8 0 hemoglobin, blood 14.6 g/dL 12.0-16.0 hematocrit, blood 44.0 % 37.0-47.0 mean corpuscular volume, RBC 89 fL 80-97 mean corpuscular hemoglobin, RBC 29.5 pg 27. 0-31.2 mean corpuscular hemoglobin concentration, RBC 33.3 G/DL % 31.8-35.4 red blood cell distribution width 10.9 % 11 .6-14.8 platelet count 262 10^3/MM^3 10*3/mm3 142-424 Lab Report: Free Thyroxine (L), CBC W/DI FF, Comp. Metabolic Panel - Lab Alkaline phosphatase 51 50-136 Lab Report: Thyroid Stimulating Hormone (L) - Chemistry TSH 3.80 m[iU]/mL 0.36-3.74 TSH 2.66 m[iU]/mL 0.36-3.74 Lab Report: Thyroid Stimulating Hormone (L), Free Thyroxine (L) - Chemistry TSH 1.68 m[iU]/mL 0.36-3.74 thyroxine, serum, free 1.35 ng/dL 0.59-1.17 TSH 0.23 m[iU]/mL 0.36-3.74 thyroxine, serum, free 1.44 ng/dL 0.59-1.17 Office Visit: abd pain RM 302 - Basic LDL target level 160 mg/dL Office Visit: abd pain RM 302 - Chemistr y HDL cholesterol, serum, target level 40 mg/dL cholesterol, target level 200 mg/dL triglyceride, target level 150 mg/dL Encounters Code Encounter Date Provider Facility CPT-42941 Level 5 Est. Patient 14:22:47 CDT Lubna Huerta PMHNP-[facility] CPT-43920 [id number] Vst-Est Level III 16:54:40 CDT Kadeem Wall MD [facility] CPT-58224 [id number] Vst-Est Level IV 06:01:21 CDT Miriamflorencio Monroy [facility] CPT-94919 [id number]-Dan Vst-Est Level III 16:13:06 CDT Er judah Monroy [facility] CPT-97091 Level 3 New Patient 16:14:48 CDT Ayaan Castellanos MD [facility] CPT-67776 Level 4 Est. Patient 08:48:05 CDT Romario Alan MD [facility] CPT-47486 Level 3 Est. Patient 07:30:03 ALLIED HEALTH PROFESSIONAL Mari christina [facility] CPT-35497 Level 4 Est. Patient 08:02:04 ALLIED HEALTH PROFESSIONAL Mari christina PHOTOGRAPHIC INTELLIGENCE OFFICER-C [facility] CPT-73304 Level 3 Est. Patient 09:56:14 CDT Kadeem jenkins MD [facility] CPT-11892 Level 3 Est. Patient 11:07:45 CDT Ang HILLIARD [facility] Procedures Code Procedure Name Date Entry Date Standard Desc ription CPT-17972 Sono Soft Tissue Head and Neck - XRAY US E ONLY 10:50:20 CDT CPT-00443 Venipuncture Draw Fee 10:24:46 CDT CPT-TMV TMV 05:09:41 CDT CPT-70070 Foot, right, comp min 3V - XRAY USE ONLY 16:15:36 CDT CPT-J1885 Toradol 30 mg (Ketorolac) 06:01:21 CDT 2020 CPT-34170 EKG Trac and Interp - XRAY USE ONLY 1 8:04:25 CDT CPT-45774 Chest, 2 views 17:02:15 CDT CPT-J1885 Toradol 30 mg (Ketorolac) 16:44:24 CDT 2020 CPT-45214 Abx/Therapy Injection 16:44:24 CDT CPT-13972 Venipuncture Draw Fee 16:11:55 CDT CPT-L3908 Cockup Splint 16:13:07 CDT CPT-69886 Venipuncture Draw Fee 12:12:02 CDT CPT-78174 Forearm, right, AP and Lat - XRAY USE ONLY 05/26 14:27:36 CDT CPT-85406 Elbow, right, Comp Min 3V - XRAY USE ONLY 05/26 14:27:35 CDT CPT-27684 Venipuncture Draw Fee 11:28:13 CDT CPT-64876 Venipuncture Draw Fee 08:03:55 ALLIED HEALTH PROFESSIONAL CPT-19482 Venipuncture Draw Fee 16:21:43 ALLIED HEALTH PROFESSIONAL CPT-05662 54534 - Immun Admin 1 vac 13:37:32 CDT 2019 CPT-11903 Flulaval (Flu) 10PK Syringe IM 13:37:32 CDT CPT-69051 Venipuncture Draw Fee 10:41:23 CDT CPT-37789 Venipuncture Draw Fee 08:57:35 CDT CPT-J1885 Toradol 30 mg (Ketorolac) 18:38:26 CDT 2019 CPT-J2550 Phenergan 25 mg (Promethazine) 18:38:26 CDT CPT-J1020 Depo Medrol 60 mg (Methyl Prednisolone A cetate) 18:38:26 CDT CPT-J1100 Decadron 6mg (Dexamethasone) 18:38:26 CDT 2 CPT-63773 Abx/Therapy Injection 18:38:25 CDT CPT-49122 Venipuncture Draw Fee 08:18:31 CDT CPT-27196 Venipuncture Draw Fee 09:11:08 CDT CPT-31285 Venipuncture Draw Fee 15:19:08 CDT CPT-15474 IM or SQ Injection 13:11:03 CDT CPT-J1100 Decadron 4mg (Dexamethasone) 13:11:03 CDT 2 CPT-J1030 Depo Medrol 40 mg (Methyl Prednisolone A cetate) 13:11:02 CDT CPT-23197 Venipuncture Draw Fee 10:49:05 CDT CPT-83593 Sono Soft Tissue Head and Neck - XRAY US E ONLY 14:27:21 ALLIED HEALTH PROFESSIONAL CPT-ES3783J (4274F) Influenza immunization administe red or previously received 13:43:59 ALLIED HEALTH PROFESSIONAL CPT-J2550 Phenergan 25 mg (Promethazine) 17:57:23 ALLIED HEALTH PROFESSIONAL CPT-J1885 Toradol 30 mg (Ketorolac) 17:57:23 ALLIED HEALTH PROFESSIONAL 2018 CPT-04915 Prv Med Est Pt 18-39yrs 08:02:04 ALLIED HEALTH PROFESSIONAL CPT-79356 45750 - Immun Admin 1 vac 09:24:27 CDT 2018 CPT-09784 Flulaval Quadrivalent (Flu) 10Pk Syringe IM 2018 09:24:27 CDT CPT-47138 First Vx - Ix admin via ID I M or jet injects without counseling by physician 16:30:31 CDT CPT-70815 Fluzone Quadrivalent Intramuscular Suspe nsion 0.5 ML 16:30:31 CDT CPT-19383 Nexplanon Removal 09:56:14 CDT CPT-OV Office Visit 10:17:55 CDT CPT-02989 TB Tubersol 16:11:35 ALLIED HEALTH PROFESSIONAL CPT-01877 Administration single or combination vac cine inc oral 14:18:51 ALLIED HEALTH PROFESSIONAL CPT-37673 TB Tubersol 14:18:51 ALLIED HEALTH PROFESSIONAL CPT-68629 Influenza split virus > age 3 14:18:51 ALLIED HEALTH PROFESSIONAL CPT-07019 Knee 3V 11:04:40 CDT
--- OUTSIDE RECORDS SUMMARY | 2020-10-19 10:44 | XMS REPORT | Clinical Summary ---
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 [...] intractable migraine 346.10 Activ e Mari Monroy [employer]NER BEAD OPERATOR-C Migraine without aura, witho ut mention of intractable migraine, without mention of status migrainosus BMI 29-29.9 Refinement Mari Monroy CORNER BEAD OPERATOR-C Body Mass Index 29.0-29.9, adult BMI 26-26.9 Refinement Romario Alan MD Body Mass Index 29.0-29.9, adult BMI 29-29.9 Refinement Mari Porfirio [employer]NER BEAD OPERATOR-C Body Mass Index 29.0-29.9, adult BMI 30-30.9 Refinement Mari Porfirio CORNER BEAD OPERATOR-C Body Mass Index 29.0-29.9, adult BMI 29-29.9 Refinement Mari Monroy CORNER BEAD OPERATOR-C Body Mass Index 29.0-29.9, adult BMI 30-30.9 Active Mari Porfirio CORNER BEAD OPERATOR-C Body Mass Index 29.0-29.9, adult Overweight (BMI 25-29.9) Refinement Mari Porfirio [employer]NER BEAD OPERATOR-C Overweight Obesity Class I (BMI 30-34.9) Refinement 06/26 Mari Monroy CORNER BEAD OPERATOR-C Overweight Overweight (BMI 25-29.9) Refinement Mari Monroy CORNER BEAD OPERATOR-C Overweight Obesity Class I (BMI 30-34.9) Active [...] MD Abdominal pain, right lower quadrant Other group home (current) drug therapy V58.69 Active Mari Monroy APRN-C Long-term (current) use of other medicat ions Exposure to COVID-19 coronavirus V01.79 Active 202 Betsy Willard LPN Contact with or exposure to other viral diseases Polycystic ovary syndrome Active Raquel Estrada ew LRT Other abnormal blood chemistry 790.6 Active 04/11 Mari Porfirio [employer]NER BEAD OPERATOR-C Other abnormal blood chemistry Hypocalcemia 275.41 Active Bakari Paz, FARIDEH Hypocalcemia Adenocarcinoma, thyroid gland 193 Active Eliane Zarcowell Malignant neoplasm of thyroid gland Pain in right arm 729.5 Active Marijudah Monroy CORNER BEAD OPERATOR- C Pain in limb Hyperglycemia 790.29 Active Marijudah Monroy CORNER BEAD OPERATOR-C Other abnormal glucose Contusion of right forearm, initial encounter 923.10 Active Mari Monroy CORNER BEAD OPERATOR-C Contusion of forearm Chest pain, acute 786.50 Active Mari Monroy APRN- C Unspecified chest pain Headache, mixed 784.0 Active Mari Monroy [employer]NER BEAD OPERATOR-C Headache Cervicalgia 723.1 Active Marijudah Monroy APRN-C Cervicalgia Scapulalgia, left 733.90 Active Mari Monroy APRN- C Disorder of bone and cartilage, unspecified Dyspnea 786.09 Active Mari Monroy APRN-C Other dyspnea and respiratory abnormality Cervical radiculopathy 723.4 Active Mari Monroy APRN-C Brachial neuritis or radiculitis NOS Hx of migraines V13.8 Active Mari Monroy CORNER BEAD OPERATOR-C Personal history of other specified diseases Foot pain, right 729.5 Active Shona Gorman, RMA Pain in limb Unspecified injury of right foot, initial encounter 20 14/08/06 Active Kadeem Wall MD Major depressive disorder, recurrent, mild 296.30 Acti ve Mari Monroy APRN-C Major depressive disorder, r ecurrent episode, unspecified degree OTHER MIXED ANXIETY DISORDERS 300.02 Active 08/07 Mari Monroy [employer]NER BEAD OPERATOR-C Generalized anxiety disorder Major depressive disorder, recurrent episode, moderate 296.32 Active Lubna Vizcaino PMHNP-BC Major depressive disorder, recurrent episode, moderate degree Generalized anxiety disorder 300.02 Active Lubna Vizcaino PMHNP-BC Generalized anxiety disorder Elevated Blood Pressure Active Lubna villa PMHNP-BC Elevated blood pressure reading without diagnosis of hypertension Cervical lymphadenopathy, anterior, right 785.6 Activ e Mari Monroy [employer]NER BEAD OPERATOR-C Enlargement of lymph nodes Lymphadenopathy 785.6 Active Mari Monroy CORNER BEAD OPERATOR-C Enlargement of lymph nodes DEPRESSION ICD-311 Inactive Romario Alan MD DIABETES ICD-V18.0 Inactive Romario Alan MD FH BREAST CANCER ICD-V16.3 Inactive Romario Jorge [...] Medication refill ICD-V68.1 Inactive Romario marie MD ANXIETY DISORDER ICD-300.00 Inactive Romario Alan MD Enlarged thyroid ICD-240.9 Inactive Romario Eastman MD Thyroid nodule ICD-241.0 Inactive Romario sanchez MD Multinodular thyroid goiter ICD-241.1 Inactive Romario Alan MD Contact dermatitis ICD-692.9 Inactive Romario Alan MD Screening exam for breast cancer ICD-V76.10 [place] ctive Romario Alan MD Lymphadenopathy ICD-785.6 Inactive Romario patel MD Medication List Medication Instructions Start Date Stop Date Generic Name NDC Status Provider Patient Instruction CEFUROXIME AXETIL 250 MG ORAL TABLET 1 po BID x 10 days CEFUROXIME AXETIL 58779399580 Active Mari Monroy [employer]NER BEAD OPERATOR-C Active MEDROL 4 MG ORAL TABLET THERAPY PACK take as directed METHYLPREDNISOLONE 51462036379 No Longer Active Mari Monroy CORNER BEAD OPERATOR-C Active METHOCARBAMOL 500 MG ORAL TABLET 0.5-1 tab every 8 luis rs as needed for tension headaches METHOCARBAMOL 47135485007 Active Mari Monroy CORNER BEAD OPERATOR-C Active ZOFRAN 4 MG ORAL TABLET 1 every 6 hours PRN nausea ( MAY CAUSE CONSTIPATION) use sparingly ONDANSETRON HCL 06961589288 Active Mari Monroy CORNER BEAD OPERATOR -C Active BUSPIRONE HCL 5 MG ORAL TABLET Take 1 tab PO BID for anxiety 08/29 BUSPIRONE HCL 45861588421 Active Lubna Vizcaino PMHNP-BC Acti ve CYANOCOBALAMIN 1000MCG/ML INJECTION SOLUTION INJECT 1M L SUBCUTANEOUSLY EVERY WEEK FOR 4 DOSES THEN EVERY 2 WEEKS CYANOCOBALAMIN 001 44252786 Active Mari Monroy APRN-C Active WELLBUTRIN XL 150 MG ORAL TABLET EXTENDED RELEASE 24 H OUR 1 po daily for depression/anxiety BUPROPION HCL 29548187016 Active Er judah Monroy APRN-C Active TOPAMAX 25 MG ORAL TABLET 1 po BID for migraine prevention TOPIRAMATE 50431692393 Active Mari Monroy APRN-C Active AMITRIPTYLINE HCL 25 MG ORAL TABLET 1 PO at HS for migraines AMITRIPTYLINE HCL 13346657944 No Longer Active Bakari Paz RN Active IMITREX 6 MG/0.5ML SUBCUTANEOUS SOLUTION with onset of POWELL may repeat in 1 hour if needed, do not exceed 12mg in 1 day S UMATRIPTAN SUCCINATE 74697826390 No Longer Active Bakari Paz RN Active FIORICET 50-300-40 MG ORAL CAPSULE 1-2 tabs po every 6 hours as needed for headaches, max 6 tabs per day [id number] 24262843598 Active Mari Monroy APRN-C Active TIZANIDINE HCL 4 MG ORAL TABLET 1/2-1 tab every 8 hour s as needed for muscle spasms TIZANIDINE HCL 71664630186 Active Mari Monroy APRN-C Active VITAMIN D (ERGOCALCIFEROL) 1.25 MG (59321 UT) ORAL CAPSULE ERGOCALCIFEROL 18688407393 No Longer Active Mari Monroy APRN-C Active LEVOTHYROXINE SODIUM 112MCG ORAL TABLET TAKE ONE TABLE T BY MOUTH ONE TIME DAILY 30 MINUTES BEFORE BREAKFAST LEVOTHYROXINE SODIUM 69970 185192 Active Cyrus Neumann APRN Active VITAMIN D (ERGOCALCIFEROL) 1.25 MG(77797 UT) ORAL CAPS ULE TAKE ONE CAPSULE BY MOUTH EVERY WEEK ERGOCALCIFEROL 58509454336 Active Miriam Monroy APRN-C Active CYANOCOBALAMIN 1000 MCG/ML INJECTION SOLUTION 1ml week IM every 2 weeks x4 doses then back to monthly CYANOCOBALAMIN 02264893204 No Lo nger Active Romario Alan MD Active VYVANSE 50 MG ORAL CAPSULE 1 po daily L ISDEXAMFETAMINE DIMESYLATE 59113400799 No Longer Active Romario Alan MD Activ e DIFLUCAN 100 MG ORAL TABLET 1 tablet by mouth daily re peat in 3 days if no improvement FLUCONAZOLE 68694700853 No Longer Active Mari Monroy CORNER BEAD OPERATOR-C Active ALPRAZOLAM 0.5 MG ORAL TABLET 1 tab by mouth 3 times daily PRN 2018 ALPRAZOLAM 05745677201 Active Marijudah Monroy APRN-C Active CIPRO 500 MG ORAL TABLET 1 tab BID CIPROFLOXAC IN HCL 50994701361 No Longer Active Mari Monroy CORNER BEAD OPERATOR-C Active AMOXICILLIN 500 MG ORAL TABLET 1 po BID x10 days 12/03 AMOXICILLIN 23281397359 No Longer Active Marijudah Monroy APRN-C Active ZOLOFT 100 MG ORAL TABLET SERTRALINE H CL 06062894176 No Longer Active Ayaan Castellanos MD Active 1 30-0.975-200 MG ORAL CAPSULE 1 qDay 2 MV-MIN-FE FUM-FA-DHA 22401375164 No Longer Active Ayaan Castellanos MD Active ALPRAZOLAM 0.25 MG ORAL TABLET 1 TAB PO Q 6 HRS PRN 08/19 ALPRAZOLAM 66041451644 No Longer Active Kadeem Wall MD Active ALPRAZOLAM 0.25 MG ORAL TABLET 1 TAB PO Q 6 HRS PRN 20 10/08/25 ALPRAZOLAM 0.25 MG ORAL TABLET 720213 ALPRAZOLAM Inactive 1 30-0.975-200 MG ORAL CAPSULE 1 qDay 2 1 30-0.975-200 MG ORAL CAPSULE MV-MIN-FE FUM-FA-DHA I nactive ZOLOFT 100 MG ORAL TABLET ZOLOFT 100 MG ORAL TABLET 900171 SERTRALINE HCL Inactive AMOXICILLIN 500 MG ORAL TABLET 1 po BID x10 days 12/03 AMOXICILLIN 500 MG ORAL TABLET 304213 AMOXICILLIN Inactive CIPRO 500 MG ORAL TABLET 1 tab BID CIP RO 500 MG ORAL TABLET 844449 CIPROFLOXACIN HCL Inactive DIFLUCAN 100 MG ORAL TABLET 1 tablet by mouth daily re peat in 3 days if no improvement DIFLUCAN 100 MG ORAL TABLET 230872 FLUCONAZOLE Inactive VYVANSE 50 MG ORAL CAPSULE 1 po daily V YVANSE 50 MG ORAL CAPSULE LISDEXAMFETAMINE DIMESYLATE Inactive CYANOCOBALAMIN 1000 MCG/ML INJECTION SOLUTION 1ml week IM every 2 weeks x4 doses then back to monthly CYANOCOBALAMIN 1000 MCG/ML INJECTION SOLUTION 453798 CYANOCOBALAMIN Inactive VITAMIN D (ERGOCALCIFEROL) 1.25 MG (95448 UT) ORAL CAPSULE VITAMIN D (ERGOCALCIFEROL) 1.25 MG (16607 UT) ORAL CAPSULE 1 348883 ERGOCALCIFEROL Inactive IMITREX 6 MG/0.5ML SUBCUTANEOUS SOLUTION with onset of POWELL may repeat in 1 hour if needed, do not exceed 12mg in 1 day I MITREX 6 MG/0.5ML SUBCUTANEOUS SOLUTION 104589 SUMATRIPTAN SUCCINATE Inactive AMITRIPTYLINE HCL 25 MG ORAL TABLET 1 PO at HS for migraines AMITRIPTYLINE HCL 25 MG ORAL TABLET 114459 AMITRIPTYLIN E HCL Inactive MEDROL 4 MG ORAL TABLET THERAPY PACK take as directed MEDROL 4 MG ORAL TABLET THERAPY PACK 993571 METHYLPREDNISOLONE Rox ctive Advance Directives Directive Description [...] Fluarix, Agriflu(>= 18 yo)) Fluzone (>3 yrs.) [[id number]] Influenza, seasonal, inject able TB-PPD (tuberculin purified protein derivative), intra dermal administration Tubersol Vital Signs Date Name Value Unit Range [...] ... - Chemistry sodium, serum 140 mmol/L 632-875 9303/08/05 carbon dioxide, venous blood 23.8 mmol/L 21.0-32 [...] 0.30 mg/dL 0.00-1.00 sodium, serum 141 mmol/L 757-153 0567/05/03 carbon dioxide, venous blood 25.1 mmol/L 21.0-32 [...] W/DIFF, Comp. Metabolic Panel, UADIP W/MICRO, AUTO, [facility] - Chemistry human chorionic gonadotropin , urine, qualitative (urine test) Negative Negative sodium, serum 140 mmol/L 094-848 6496/10/14 carbon dioxide, venous blood 24.7 mmol/L 21.0-32 [...] W/DIFF, Comp. Metabolic Panel, UADIP W/MICRO, AUTO, [facility] - Hematology leukocyte count, blood 14.8 10^3/MM^3 [...] W/DIFF, Comp. Metabolic Panel, UADIP W/MICRO, AUTO, [facility] - Lab Alkaline phosphatase 67 50-136 Lab Report: CBC W/DIFF, Comp. Metabolic Panel, UADIP W/MICRO, AUTO, [facility] - Urinalysis urobilinogen, urine, semiquantitative (dipstick) 0.2 [...] 0.40 mg/dL 0.00-1.00 sodium, serum 140 mmol/L 527-383 0677/02/22 carbon dioxide, venous blood 27.1 mmol/L 21.0-32 [...] 5.3 % 4.3-6.0 sodium, serum 140 mmol/L 499-559 7927/04/12 carbon dioxide, venous blood 27.5 mmol/L 21.0-32 [...] 0.36-3.74 Lab Report: Free Thyroxine (L) - Vp Site ry thyroxine, serum, free 1.20 ng/dL 0.59-1.17 [...] W/DI FF, Comp. Metabolic Panel - Chemistry calcium, serum 7.9 mg/dL 8.5-10.1 bilirubin, serum, total 0.20 mg/dL 0.00-1.00 thyroxine, serum, free 0.95 ng/dL 0.59-1.17 sodium, serum 138 mmol/L 996-218 3284/08/19 carbon dioxide, venous blood 24.9 mmol/L 21.0-32 .0 potassium, serum 3.8 mmol/L 3.5-5.2 chloride, serum 102 mmol/L 98-107 blood glucose 95 mg/dL 65-95 urea nitrogen, blood 13 mg/dL 7-18 creatinine, serum 0.76 mg/dL 0.60-1.30 Estimated Glomerular Filtration Rate (calc) 92 (?) mL/min/1.73m2 = OR > 60 mL/min alanine aminotransferase (SGPT), serum 8 U/L 12-78 aspartate aminotransferase (SGOT), serum 18 U/L 19-43 Lab Report: Free Thyroxine (L), CBC W/DI [...] mg/dL Encounters Code Encounter Date Provider Facility CPT-47245 Level 5 Est. Patient 14:22:47 CDT Lubna Huerta PMHNP-BC [facility] CPT-06354 [id number] Vst-Est Level III 16:54:40 CDT Kadeem Wall MD [facility] CPT-60438 23728-Deq Vst-Est Level IV 06:01:21 CDT Miriam Monroy [facility] CPT-37819 41208-Ujz Vst-Est Level III 16:13:06 CDT Er judah Porfirio [facility] CPT-34518 Level 3 New Patient 16:14:48 CDT Ayaan Castellanos MD [facility] CPT-30782 Level 4 Est. Patient 08:48:05 CDT Romario Alan MD [facility] CPT-59284 Level 3 Est. Patient 07:30:03 FOREPART REDUCER Mari Dic sanford [facility] CPT-90582 Level 4 Est. Patient 08:02:04 FOREPART REDUCER Mari Dic sanford [facility] CPT-51679 Level 3 Est. Patient 09:56:14 CDT Kadeem jenkins MD [facility] CPT-68560 Level 3 Est. Patient 11:07:45 CDT Ang HILLIARD [facility] Procedures Code Procedure Name Date Entry Date Standard Desc ription CPT-83744 Sono Soft Tissue Head and Neck - XRAY US E ONLY 10:50:20 CDT CPT-58824 Venipuncture Draw Fee 10:24:46 CDT CPT-TMV TMV 05:09:41 CDT CPT-85804 Foot, right, comp min 3V - XRAY USE ONLY 16:15:36 CDT CPT-J1885 Toradol 30 mg (Ketorolac) 06:01:21 CDT 2020 CPT-31740 EKG Trac and Interp - XRAY USE ONLY 1 8:04:25 CDT CPT-36979 Chest, 2 views 17:02:15 CDT CPT-J1885 Toradol 30 mg (Ketorolac) 16:44:24 CDT 2020 CPT-15492 Abx/Therapy Injection 16:44:24 CDT CPT-84501 Venipuncture Draw Fee 16:11:55 CDT CPT-L3908 Cockup Splint 16:13:07 CDT CPT-01689 Venipuncture Draw Fee 12:12:02 CDT CPT-99336 Forearm, right, AP and Lat - XRAY USE ONLY 05/26 14:27:36 CDT CPT-34193 Elbow, right, Comp Min 3V - XRAY USE ONLY 05/26 14:27:35 CDT CPT-19248 Venipuncture Draw Fee 11:28:13 CDT CPT-79150 Venipuncture Draw Fee 08:03:55 FOREPART REDUCER CPT-67491 Venipuncture Draw Fee 16:21:43 FOREPART REDUCER CPT-19643 82297 - Immun Admin 1 vac 13:37:32 CDT 2019 CPT-07973 Flulaval (Flu) 10PK Syringe IM 13:37:32 CDT CPT-40965 Venipuncture Draw Fee 10:41:23 CDT CPT-04324 Venipuncture Draw Fee 08:57:35 CDT CPT-J1885 Toradol 30 mg (Ketorolac) 18:38:26 CDT 2019 CPT-J2550 Phenergan 25 mg (Promethazine) 18:38:26 CDT CPT-J1020 Depo Medrol 60 mg (Methyl Prednisolone A cetate) 18:38:26 CDT CPT-J1100 Decadron 6mg (Dexamethasone) 18:38:26 CDT 2 CPT-49619 Abx/Therapy Injection 18:38:25 CDT CPT-83096 Venipuncture Draw Fee 08:18:31 CDT CPT-33100 Venipuncture Draw Fee 09:11:08 CDT CPT-57439 Venipuncture Draw Fee 15:19:08 CDT CPT-40443 IM or SQ Injection 13:11:03 CDT CPT-J1100 Decadron 4mg (Dexamethasone) 13:11:03 CDT 2 CPT-J1030 Depo Medrol 40 mg (Methyl Prednisolone A cetate) 13:11:02 CDT CPT-03923 Venipuncture Draw Fee 10:49:05 CDT CPT-20544 Sono Soft Tissue Head and Neck - XRAY US E ONLY 14:27:21 FOREPART REDUCER CPT-TV3055K (4274F) Influenza immunization administe red or previously received 13:43:59 FOREPART REDUCER CPT-J2550 Phenergan 25 mg (Promethazine) 17:57:23 FOREPART REDUCER CPT-J1885 Toradol 30 mg (Ketorolac) 17:57:23 FOREPART REDUCER 2018 CPT-53368 Prv Med Est Pt 18-39yrs 08:02:04 FOREPART REDUCER 010 CPT-91430 26734 - Immun Admin 1 vac 09:24:27 CDT 2018 CPT-82760 Flulaval Quadrivalent (Flu) 10Pk Syringe IM 2018 09:24:27 CDT CPT-23587 First Vx - Ix admin via ID I M or jet injects without counseling by physician 16:30:31 CDT CPT-91487 Fluzone Quadrivalent Intramuscular Suspe nsion 0.5 ML 16:30:31 CDT CPT-68006 Nexplanon Removal 09:56:14 CDT CPT-OV Office Visit 10:17:55 CDT CPT-66059 TB Tubersol 16:11:35 FOREPART REDUCER CPT-08893 Administration single or combination vac cine inc oral 14:18:51 FOREPART REDUCER CPT-23793 TB Tubersol 14:18:51 FOREPART REDUCER CPT-89615 Influenza split virus > age 3 14:18:51 FOREPART REDUCER CPT-61143 Knee 3V 11:04:40 CDT
--- OUTSIDE RECORDS SUMMARY | 2020-10-19 10:44 | XMS REPORT | Clinical Summary ---
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 [...] intractable migraine 346.10 Activ e Mari Monroy COMMERCIAL DESIGNER-C Migraine without aura, witho ut mention of intractable migraine, without mention of status migrainosus BMI 29-29.9 Refinement Mari Monroy COMMERCIAL DESIGNER-C Body Mass Index 29.0-29.9, adult BMI 26-26.9 Refinement Romario Alan MD Body Mass Index 29.0-29.9, adult BMI 29-29.9 Refinement Mari Porfirio COMMERCIAL DESIGNER-C Body Mass Index 29.0-29.9, adult BMI 30-30.9 Refinement Mari Porfirio COMMERCIAL DESIGNER-C Body Mass Index 29.0-29.9, adult BMI 29-29.9 Refinement Mari Monroy COMMERCIAL DESIGNER-C Body Mass Index 29.0-29.9, adult BMI 30-30.9 Active Mari Porfirio COMMERCIAL DESIGNER-C Body Mass Index 29.0-29.9, adult Overweight (BMI 25-29.9) Refinement Mari Porfirio COMMERCIAL DESIGNER-C Overweight Obesity Class I (BMI 30-34.9) Refinement 06/26 Mari Monroy COMMERCIAL DESIGNER-C Overweight Overweight (BMI 25-29.9) Refinement Mari Monroy COMMERCIAL DESIGNER-C Overweight Obesity Class I (BMI 30-34.9) Active [...] MD Abdominal pain, right lower quadrant Other skilled nursing (current) drug therapy V58.69 Active Mari Monroy APRN-C Long-term (current) use of other medicat ions Exposure to COVID-19 coronavirus V01.79 Active 202 Betsy Willard LPN Contact with or exposure to other viral diseases Polycystic ovary syndrome Active Raquel Estrada ew LRT Other abnormal blood chemistry 790.6 Active 04/11 Mari Porfirio COMMERCIAL DESIGNER-C Other abnormal blood chemistry Hypocalcemia 275.41 Active Bakari Paz, FARIDEH Hypocalcemia Adenocarcinoma, thyroid gland 193 Active Eliane Zarcowell Malignant neoplasm of thyroid gland Pain in right arm 729.5 Active Amrijudah Monroy COMMERCIAL DESIGNER- C Pain in limb Hyperglycemia 790.29 Active Marijudha Monroy COMMERCIAL DESIGNER-C Other abnormal glucose Contusion of right forearm, initial encounter 923.10 Active Mari Monroy COMMERCIAL DESIGNER-C Contusion of forearm Chest pain, acute 786.50 Active Mari Monroy APRN- C Unspecified chest pain Headache, mixed 784.0 Active Mari Monroy COMMERCIAL DESIGNER-C Headache Cervicalgia 723.1 Active Marijudah Monroy APRN-C Cervicalgia Scapulalgia, left 733.90 Active Mari Monroy APRN- C Disorder of bone and cartilage, unspecified Dyspnea 786.09 Active Mari Monroy APRN-C Other dyspnea and respiratory abnormality Cervical radiculopathy 723.4 Active Mari Monroy APRN-C Brachial neuritis or radiculitis NOS Hx of migraines V13.8 Active Mari Monroy COMMERCIAL DESIGNER-C Personal history of other specified diseases Foot pain, right 729.5 Active Shona Gorman, RMA Pain in limb Unspecified injury of right foot, initial encounter 20 14/08/06 Active Kadeem Wall MD Major depressive disorder, recurrent, mild 296.30 Acti ve Mari Monroy APRN-C Major depressive disorder, r ecurrent episode, unspecified degree OTHER MIXED ANXIETY DISORDERS 300.02 Active 08/07 Mari Monroy COMMERCIAL DESIGNER-C Generalized anxiety disorder Major depressive disorder, recurrent episode, moderate 296.32 Active Lubna Vizcaino PMHNP-BC Major depressive disorder, recurrent episode, moderate degree Generalized anxiety disorder 300.02 Active Lubna Vizcaino PMHNP-BC Generalized anxiety disorder Elevated Blood Pressure Active Lubna villa PMHNP-BC Elevated blood pressure reading without diagnosis of hypertension Cervical lymphadenopathy, anterior, right 785.6 Activ e Mari Monroy COMMERCIAL DESIGNER-C Enlargement of lymph nodes Lymphadenopathy 785.6 Active Mari Monroy COMMERCIAL DESIGNER-C Enlargement of lymph nodes ANXIETY DISORDER ICD-300.00 [...] MD Screening exam for breast cancer ICD-V76.10 [place] ctive Romario Alan MD Lymphadenopathy ICD-785.6 Inactive Romario patel MD Medication List Medication Instructions Start Date Stop Date Generic Name NDC Status Provider Patient Instruction CEFUROXIME AXETIL 250 MG ORAL TABLET 1 po BID x 10 days CEFUROXIME AXETIL 25399556848 Active Mari Monroy APRN-C Active MEDROL 4 MG ORAL TABLET THERAPY PACK take as directed METHYLPREDNISOLONE 20345038796 No Longer Active Mari Monroy APRN-C Active METHOCARBAMOL 500 MG ORAL TABLET 0.5-1 tab every 8 luis rs as needed for tension headaches METHOCARBAMOL 54668781560 Active Mari Monroy COMMERCIAL DESIGNER-C Active ZOFRAN 4 MG ORAL TABLET 1 every 6 hours PRN nausea ( MAY CAUSE CONSTIPATION) use sparingly ONDANSETRON HCL 65521568358 Active Mari Monroy COMMERCIAL DESIGNER -C Active BUSPIRONE HCL 5 MG ORAL TABLET Take 1 tab PO BID for anxiety 08/29 BUSPIRONE HCL 87395779630 Active Lubna Vizcaino PMHNP-BC Acti ve CYANOCOBALAMIN 1000MCG/ML INJECTION SOLUTION INJECT 1M L SUBCUTANEOUSLY EVERY WEEK FOR 4 DOSES THEN EVERY 2 WEEKS CYANOCOBALAMIN 001 50565010 Active Mari Monroy APRN-C Active WELLBUTRIN XL 150 MG ORAL TABLET EXTENDED RELEASE 24 H OUR 1 po daily for depression/anxiety BUPROPION HCL 17111875301 Active Er judah Monroy APRN-C Active TOPAMAX 25 MG ORAL TABLET 1 po BID for migraine prevention TOPIRAMATE 44332208175 Active Mari Monroy APRN-C Active AMITRIPTYLINE HCL 25 MG ORAL TABLET 1 PO at HS for migraines AMITRIPTYLINE HCL 34510432449 No Longer Active Bakari Paz RN Active IMITREX 6 MG/0.5ML SUBCUTANEOUS SOLUTION with onset of POWELL may repeat in 1 hour if needed, do not exceed 12mg in 1 day S UMATRIPTAN SUCCINATE 80452917001 No Longer Active Bakari Paz RN Active FIORICET 50-300-40 MG ORAL CAPSULE 1-2 tabs po every 6 hours as needed for headaches, max 6 tabs per day [id number] 59812874022 Active Mari Monroy APRN-C Active TIZANIDINE HCL 4 MG ORAL TABLET 1/2-1 tab every 8 hour s as needed for muscle spasms TIZANIDINE HCL 45004688844 Active Mari Monroy APRN-C Active VITAMIN D (ERGOCALCIFEROL) 1.25 MG (74932 UT) ORAL CAPSULE ERGOCALCIFEROL 79490227394 No Longer Active Mari Monroy APRN-C Active LEVOTHYROXINE SODIUM 112MCG ORAL TABLET TAKE ONE TABLE T BY MOUTH ONE TIME DAILY 30 MINUTES BEFORE BREAKFAST LEVOTHYROXINE SODIUM 54785 282417 Active Cyrus Neumann APRN Active VITAMIN D (ERGOCALCIFEROL) 1.25 MG(04063 UT) ORAL CAPS ULE TAKE ONE CAPSULE BY MOUTH EVERY WEEK ERGOCALCIFEROL 78599141577 Active Miriam Monroy APRN-C Active CYANOCOBALAMIN 1000 MCG/ML INJECTION SOLUTION 1ml week IM every 2 weeks x4 doses then back to monthly CYANOCOBALAMIN 78612897403 No Lo nger Active Romario Alan MD Active VYVANSE 50 MG ORAL CAPSULE 1 po daily L ISDEXAMFETAMINE DIMESYLATE 23312706066 No Longer Active Romario Alan MD Activ e DIFLUCAN 100 MG ORAL TABLET 1 tablet by mouth daily re peat in 3 days if no improvement FLUCONAZOLE 90608077585 No Longer Active Mari Monroy COMMERCIAL DESIGNER-C Active ALPRAZOLAM 0.5 MG ORAL TABLET 1 tab by mouth 3 times daily PRN 2018 ALPRAZOLAM 81494019813 Active Marijudah Monroy APRN-C Active CIPRO 500 MG ORAL TABLET 1 tab BID CIPROFLOXAC IN HCL 85105575796 No Longer Active Mari Monroy COMMERCIAL DESIGNER-C Active AMOXICILLIN 500 MG ORAL TABLET 1 po BID x10 days 12/03 AMOXICILLIN 62581228650 No Longer Active Marijudah Monroy APRN-C Active ZOLOFT 100 MG ORAL TABLET SERTRALINE H CL 47904829048 No Longer Active Ayaan Castellanos MD Active 1 30-0.975-200 MG ORAL CAPSULE 1 qDay 2 MV-MIN-FE FUM-FA-DHA 84529002158 No Longer Active Ayaan Castellanos MD Active ALPRAZOLAM 0.25 MG ORAL TABLET 1 TAB PO Q 6 HRS PRN 08/19 ALPRAZOLAM 59049294342 No Longer Active Kadeem Wall MD Active ALPRAZOLAM 0.25 MG ORAL TABLET 1 TAB PO Q 6 HRS PRN 20 10/08/25 ALPRAZOLAM 0.25 MG ORAL TABLET 967974 ALPRAZOLAM Inactive 1 30-0.975-200 MG ORAL CAPSULE 1 qDay 2 1 30-0.975-200 MG ORAL CAPSULE MV-MIN-FE FUM-FA-DHA I nactive ZOLOFT 100 MG ORAL TABLET ZOLOFT 100 MG ORAL TABLET 884298 SERTRALINE HCL Inactive AMOXICILLIN 500 MG ORAL TABLET 1 po BID x10 days 12/03 AMOXICILLIN 500 MG ORAL TABLET 942148 AMOXICILLIN Inactive CIPRO 500 MG ORAL TABLET 1 tab BID CIP RO 500 MG ORAL TABLET 419802 CIPROFLOXACIN HCL Inactive DIFLUCAN 100 MG ORAL TABLET 1 tablet by mouth daily re peat in 3 days if no improvement DIFLUCAN 100 MG ORAL TABLET 700229 FLUCONAZOLE Inactive VYVANSE 50 MG ORAL CAPSULE 1 po daily V YVANSE 50 MG ORAL CAPSULE LISDEXAMFETAMINE DIMESYLATE Inactive CYANOCOBALAMIN 1000 MCG/ML INJECTION SOLUTION 1ml week IM every 2 weeks x4 doses then back to monthly CYANOCOBALAMIN 1000 MCG/ML INJECTION SOLUTION 929823 CYANOCOBALAMIN Inactive VITAMIN D (ERGOCALCIFEROL) 1.25 MG (31903 UT) ORAL CAPSULE VITAMIN D (ERGOCALCIFEROL) 1.25 MG (07158 UT) ORAL CAPSULE 1 937475 ERGOCALCIFEROL Inactive IMITREX 6 MG/0.5ML SUBCUTANEOUS SOLUTION with onset of POWELL may repeat in 1 hour if needed, do not exceed 12mg in 1 day I MITREX 6 MG/0.5ML SUBCUTANEOUS SOLUTION 390466 SUMATRIPTAN SUCCINATE Inactive AMITRIPTYLINE HCL 25 MG ORAL TABLET 1 PO at HS for migraines AMITRIPTYLINE HCL 25 MG ORAL TABLET 689908 AMITRIPTYLIN E HCL Inactive MEDROL 4 MG ORAL TABLET THERAPY PACK take as directed MEDROL 4 MG ORAL TABLET THERAPY PACK 739948 METHYLPREDNISOLONE Rox ctive Advance Directives Directive Description [...] Fluarix, Agriflu(>= 18 yo)) Fluzone (>3 yrs.) [[id number]] TB-PPD (tuberculin purified protein derivative), intra dermal administration Tubersol Diagnostic Results Date Name Value Unit Range Description Lab Report: CBC W/DIFF, Comp. Metabolic Panel, Erythrocyte Sed Rate, Thy ... - Chemistry sodium, serum 140 mmol/L 217-330 5533/08/05 carbon dioxide, venous blood 23.8 mmol/L 21.0-32 [...] 0.30 mg/dL 0.00-1.00 sodium, serum 141 mmol/L 564-346 3003/05/03 carbon dioxide, venous blood 25.1 mmol/L 21.0-32 [...] test) Negative Negative sodium, serum 140 mmol/L 936-008 3494/10/14 carbon dioxide, venous blood 24.7 mmol/L 21.0-32 [...] - Chem istry sodium, serum 140 mmol/L 914-196 4033/02/22 carbon dioxide, venous blood 27.1 mmol/L 21.0-32 [...] 56 50-136 Lab Report: Comp. Metabolic Panel, BA1 C - Chemistry sodium, serum 140 mmol/L 586-085 5197/04/12 carbon dioxide, venous blood 27.5 mmol/L 21.0-32 [...] % 4.3-6.0 Lab Report: Comp. Metabolic Panel, BA1 C - Lab Alkaline phosphatase 63 50-136 Lab Report: Erythrocyte Sed Rate, Thyroi d Stimulating Hormone (L) - Chemistry TSH 2.11 m[iU]/mL 0.36-3.74 Lab Report: Free Thyroxine (L) - Cloth Inspector ry thyroxine, serum, free 1.20 ng/dL 0.59-1.17 [...] 0.95 ng/dL 0.59-1.17 sodium, serum 138 mmol/L 448-959 5289/08/19 carbon dioxide, venous blood 24.9 mmol/L 21.0-32 [...] mg/dL Encounters Code Encounter Date Provider Facility CPT-32753 Level 5 Est. Patient 14:22:47 CDT Lubna Huerta PMHNP-[facility] CPT-90464 90207-Ymh Vst-Est Level III 16:54:40 CDT Kadeem Wall MD [facility] CPT-85538 35257-Bfx Vst-Est Level IV 06:01:21 CDT Miriamflorencio Monroy [facility] CPT-03851 91655-Ixc Vst-Est Level III 16:13:06 CDT Er judah Monroy [facility] CPT-96082 Level 3 New Patient 16:14:48 CDT Ayaan Castellanos MD [facility] CPT-58039 Level 4 Est. Patient 08:48:05 CDT Romario Alan MD [facility] CPT-79147 Level 3 Est. Patient 07:30:03 RESEARCH ASSOCIATE PROFESSOR Mari christina COMMERCIAL DESIGNER-[facility] CPT-04274 Level 4 Est. Patient 08:02:04 RESEARCH ASSOCIATE PROFESSOR Mari christina COMMERCIAL DESIGNER-C [facility] CPT-13778 Level 3 Est. Patient 09:56:14 CDT Kadeem jenkins MD [facility] CPT-33305 Level 3 Est. Patient 11:07:45 CDT Ang HILLIARD [facility] Procedures Code Procedure Name Date Entry Date Standard Desc ription CPT-65430 Sono Soft Tissue Head and Neck - XRAY US E ONLY 10:50:20 CDT CPT-60104 Venipuncture Draw Fee 10:24:46 CDT CPT-TMV TMV 05:09:41 CDT CPT-58143 Foot, right, comp min 3V - XRAY USE ONLY 16:15:36 CDT CPT-J1885 Toradol 30 mg (Ketorolac) 06:01:21 CDT 2020 CPT-28874 EKG Trac and Interp - XRAY USE ONLY 1 8:04:25 CDT CPT-15697 Chest, 2 views 17:02:15 CDT CPT-J1885 Toradol 30 mg (Ketorolac) 16:44:24 CDT 2020 CPT-40692 Abx/Therapy Injection 16:44:24 CDT CPT-18407 Venipuncture Draw Fee 16:11:55 CDT CPT-L3908 Cockup Splint 16:13:07 CDT CPT-12659 Venipuncture Draw Fee 12:12:02 CDT CPT-93600 Forearm, right, AP and Lat - XRAY USE ONLY 05/26 14:27:36 CDT CPT-66389 Elbow, right, Comp Min 3V - XRAY USE ONLY 05/26 14:27:35 CDT CPT-70306 Venipuncture Draw Fee 11:28:13 CDT CPT-33316 Venipuncture Draw Fee 08:03:55 RESEARCH ASSOCIATE PROFESSOR CPT-85945 Venipuncture Draw Fee 16:21:43 RESEARCH ASSOCIATE PROFESSOR CPT-16783 07396 - Immun Admin 1 vac 13:37:32 CDT 2019 CPT-90854 Flulaval (Flu) 10PK Syringe IM 13:37:32 CDT CPT-94653 Venipuncture Draw Fee 10:41:23 CDT CPT-62366 Venipuncture Draw Fee 08:57:35 CDT CPT-J1885 Toradol 30 mg (Ketorolac) 18:38:26 CDT 2019 CPT-J2550 Phenergan 25 mg (Promethazine) 18:38:26 CDT CPT-J1020 Depo Medrol 60 mg (Methyl Prednisolone A cetate) 18:38:26 CDT CPT-J1100 Decadron 6mg (Dexamethasone) 18:38:26 CDT 2 CPT-67906 Abx/Therapy Injection 18:38:25 CDT CPT-42737 Venipuncture Draw Fee 08:18:31 CDT CPT-60350 Venipuncture Draw Fee 09:11:08 CDT CPT-39010 Venipuncture Draw Fee 15:19:08 CDT CPT-63011 IM or SQ Injection 13:11:03 CDT CPT-J1100 Decadron 4mg (Dexamethasone) 13:11:03 CDT 2 CPT-J1030 Depo Medrol 40 mg (Methyl Prednisolone A cetate) 13:11:02 CDT CPT-18893 Venipuncture Draw Fee 10:49:05 CDT CPT-46939 Sono Soft Tissue Head and Neck - XRAY US E ONLY 14:27:21 RESEARCH ASSOCIATE PROFESSOR CPT-PU6793G (4274F) Influenza immunization administe red or previously received 13:43:59 RESEARCH ASSOCIATE PROFESSOR CPT-J2550 Phenergan 25 mg (Promethazine) 17:57:23 RESEARCH ASSOCIATE PROFESSOR CPT-J1885 Toradol 30 mg (Ketorolac) 17:57:23 RESEARCH ASSOCIATE PROFESSOR 2018 CPT-20517 Prv Med Est Pt 18-39yrs 08:02:04 RESEARCH ASSOCIATE PROFESSOR CPT-43691 60823 - Immun Admin 1 vac 09:24:27 CDT 2018 CPT-84249 Flulaval Quadrivalent (Flu) 10Pk Syringe IM 2018 09:24:27 CDT CPT-67595 First Vx - Ix admin via ID I M or jet injects without counseling by physician 16:30:31 CDT CPT-67438 Fluzone Quadrivalent Intramuscular Suspe nsion 0.5 ML 16:30:31 CDT CPT-03982 Nexplanon Removal 09:56:14 CDT CPT-OV Office Visit 10:17:55 CDT CPT-94373 TB Tubersol 16:11:35 RESEARCH ASSOCIATE PROFESSOR CPT-00775 Administration single or combination vac cine inc oral 14:18:51 RESEARCH ASSOCIATE PROFESSOR CPT-94818 TB Tubersol 14:18:51 RESEARCH ASSOCIATE PROFESSOR CPT-94934 Influenza split virus > age 3 14:18:51 RESEARCH ASSOCIATE PROFESSOR CPT-21480 Knee 3V 11:04:40 CDT
--- OUTSIDE RECORDS SUMMARY | 2020-10-19 10:44 | XMS REPORT | Clinical Summary ---
Author Author Admin, Isabela Mancera Organization 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 [...] intractable migraine 346.10 Activ e Mari Monroy CELL POURER-C Migraine without aura, witho ut mention of intractable migraine, without mention of status migrainosus BMI 29-29.9 Refinement Mari Monroy CELL POURER-C Body Mass Index 29.0-29.9, adult BMI 26-26.9 Refinement Romario Alan MD Body Mass Index 29.0-29.9, adult BMI 29-29.9 Refinement Mari Porfirio CELL POURER-C Body Mass Index 29.0-29.9, adult BMI 30-30.9 Refinement Mari Porfirio CELL POURER-C Body Mass Index 29.0-29.9, adult BMI 29-29.9 Refinement Mari Monroy CELL POURER-C Body Mass Index 29.0-29.9, adult BMI 30-30.9 Active Mari Porfirio CELL POURER-C Body Mass Index 29.0-29.9, adult Overweight (BMI 25-29.9) Refinement Mari Porfirio CELL POURER-C Overweight Obesity Class I (BMI 30-34.9) Refinement 06/26 Mari Monroy CELL POURER-C Overweight Overweight (BMI 25-29.9) Refinement Mari Monroy CELL POURER-C Overweight Obesity Class I (BMI 30-34.9) Active [...] MD Abdominal pain, right lower quadrant Other prison (current) drug therapy V58.69 Active Mari Monroy APRN-C Long-term (current) use of other medicat ions Exposure to COVID-19 coronavirus V01.79 Active 202 Betsy Willard LPN Contact with or exposure to other viral diseases Polycystic ovary syndrome Active Raquel Estrada ew LRT Other abnormal blood chemistry 790.6 Active 04/11 Mari Porfirio CELL POURER-C Other abnormal blood chemistry Hypocalcemia 275.41 Active Bakari Paz, FARIDEH Hypocalcemia Adenocarcinoma, thyroid gland 193 Active Eliane Zarcowell Malignant neoplasm of thyroid gland Pain in right arm 729.5 Active Marijudah Monroy CELL POURER- C Pain in limb Hyperglycemia 790.29 Active Marijudah Monroy CELL POURER-C Other abnormal glucose Contusion of right forearm, initial encounter 923.10 Active Mari Monroy CELL POURER-C Contusion of forearm Chest pain, acute 786.50 Active Mari Monroy APRN- C Unspecified chest pain Headache, mixed 784.0 Active Mari Monroy CELL POURER-C Headache Cervicalgia 723.1 Active Marijudah Monroy APRN-C Cervicalgia Scapulalgia, left 733.90 Active Mari Monroy APRN- C Disorder of bone and cartilage, unspecified Dyspnea 786.09 Active Mari Monroy APRN-C Other dyspnea and respiratory abnormality Cervical radiculopathy 723.4 Active Mari Monroy APRN-C Brachial neuritis or radiculitis NOS Hx of migraines V13.8 Active Mari Monroy CELL POURER-C Personal history of other specified diseases Foot pain, right 729.5 Active Shona Gorman, RMA Pain in limb Unspecified injury of right foot, initial encounter 20 14/08/06 Active Kadeem Wall MD Major depressive disorder, recurrent, mild 296.30 Acti ve Mari Monroy APRN-C Major depressive disorder, r ecurrent episode, unspecified degree OTHER MIXED ANXIETY DISORDERS 300.02 Active 08/07 Mari Monroy CELL POURER-C Generalized anxiety disorder Major depressive disorder, recurrent episode, moderate 296.32 Active Lubna Vizcaino PMHNP-BC Major depressive disorder, recurrent episode, moderate degree Generalized anxiety disorder 300.02 Active Lubna Vizcaino PMHNP-BC Generalized anxiety disorder Elevated Blood Pressure Active Lubna villa PMHNP-BC Elevated blood pressure reading without diagnosis of hypertension Cervical lymphadenopathy, anterior, right 785.6 Activ e Mari Monroy CELL POURER-C Enlargement of lymph nodes Lymphadenopathy 785.6 Active Mari Monroy CELL POURER-C Enlargement of lymph nodes ANXIETY DISORDER ICD-300.00 [...] MD Screening exam for breast cancer ICD-V76.10 [place] ctive Romario Alan MD Lymphadenopathy ICD-785.6 Inactive Romario patel MD Medication List Medication Instructions Start Date Stop Date Generic Name NDC Status Provider Patient Instruction CEFUROXIME AXETIL 250 MG ORAL TABLET 1 po BID x 10 days CEFUROXIME AXETIL 81870641940 Active Mari Monroy APRN-C Active MEDROL 4 MG ORAL TABLET THERAPY PACK take as directed METHYLPREDNISOLONE 59282852581 No Longer Active Mari Monroy APRN-C Active METHOCARBAMOL 500 MG ORAL TABLET 0.5-1 tab every 8 luis rs as needed for tension headaches METHOCARBAMOL 93565801208 Active Mari Monroy CELL POURER-C Active ZOFRAN 4 MG ORAL TABLET 1 every 6 hours PRN nausea ( MAY CAUSE CONSTIPATION) use sparingly ONDANSETRON HCL 64474606422 Active Mari Monroy CELL POURER -C Active BUSPIRONE HCL 5 MG ORAL TABLET Take 1 tab PO BID for anxiety 08/29 BUSPIRONE HCL 91523419507 Active Lubna Vizcaino PMHNP-BC Acti ve CYANOCOBALAMIN 1000MCG/ML INJECTION SOLUTION INJECT 1M L SUBCUTANEOUSLY EVERY WEEK FOR 4 DOSES THEN EVERY 2 WEEKS CYANOCOBALAMIN 001 22485799 Active Mari Monroy APRN-C Active WELLBUTRIN XL 150 MG ORAL TABLET EXTENDED RELEASE 24 H OUR 1 po daily for depression/anxiety BUPROPION HCL 81331922488 Active Er judah Monroy APRN-C Active TOPAMAX 25 MG ORAL TABLET 1 po BID for migraine prevention TOPIRAMATE 44760942034 Active Mari Monroy APRN-C Active AMITRIPTYLINE HCL 25 MG ORAL TABLET 1 PO at HS for migraines AMITRIPTYLINE HCL 68923857096 No Longer Active Bakari Paz RN Active IMITREX 6 MG/0.5ML SUBCUTANEOUS SOLUTION with onset of POWELL may repeat in 1 hour if needed, do not exceed 12mg in 1 day S UMATRIPTAN SUCCINATE 00941991061 No Longer Active Bakari Paz RN Active FIORICET 50-300-40 MG ORAL CAPSULE 1-2 tabs po every 6 hours as needed for headaches, max 6 tabs per day [id number] 22410007751 Active Mari Monroy APRN-C Active TIZANIDINE HCL 4 MG ORAL TABLET 1/2-1 tab every 8 hour s as needed for muscle spasms TIZANIDINE HCL 67085936582 Active Mari Monroy APRN-C Active VITAMIN D (ERGOCALCIFEROL) 1.25 MG (11873 UT) ORAL CAPSULE ERGOCALCIFEROL 55691221804 No Longer Active Mari Monroy APRN-C Active LEVOTHYROXINE SODIUM 112MCG ORAL TABLET TAKE ONE TABLE T BY MOUTH ONE TIME DAILY 30 MINUTES BEFORE BREAKFAST LEVOTHYROXINE SODIUM 94330 423046 Active Cyrus Neumann APRN Active VITAMIN D (ERGOCALCIFEROL) 1.25 MG(49774 UT) ORAL CAPS ULE TAKE ONE CAPSULE BY MOUTH EVERY WEEK ERGOCALCIFEROL 77775239856 Active Miriam Monroy APRN-C Active CYANOCOBALAMIN 1000 MCG/ML INJECTION SOLUTION 1ml week IM every 2 weeks x4 doses then back to monthly CYANOCOBALAMIN 74312496110 No Lo nger Active Romario Alan MD Active VYVANSE 50 MG ORAL CAPSULE 1 po daily L ISDEXAMFETAMINE DIMESYLATE 27145900170 No Longer Active Romario Alan MD Activ e DIFLUCAN 100 MG ORAL TABLET 1 tablet by mouth daily re peat in 3 days if no improvement FLUCONAZOLE 39747828179 No Longer Active Mari Monroy CELL POURER-C Active ALPRAZOLAM 0.5 MG ORAL TABLET 1 tab by mouth 3 times daily PRN 2018 ALPRAZOLAM 78047888574 Active Marijudah Monroy APRN-C Active CIPRO 500 MG ORAL TABLET 1 tab BID CIPROFLOXAC IN HCL 86384295512 No Longer Active Mari Monroy CELL POURER-C Active AMOXICILLIN 500 MG ORAL TABLET 1 po BID x10 days 12/03 AMOXICILLIN 85331954976 No Longer Active Marijudah Monroy APRN-C Active ZOLOFT 100 MG ORAL TABLET SERTRALINE H CL 35199839467 No Longer Active Ayaan Castellanos MD Active 1 30-0.975-200 MG ORAL CAPSULE 1 qDay 2 MV-MIN-FE FUM-FA-DHA 16112556176 No Longer Active Ayaan Castellanos MD Active ALPRAZOLAM 0.25 MG ORAL TABLET 1 TAB PO Q 6 HRS PRN 08/19 ALPRAZOLAM 23150586850 No Longer Active Kadeem Wall MD Active ALPRAZOLAM 0.25 MG ORAL TABLET 1 TAB PO Q 6 HRS PRN 20 10/08/25 ALPRAZOLAM 0.25 MG ORAL TABLET 939978 ALPRAZOLAM Inactive 1 30-0.975-200 MG ORAL CAPSULE 1 qDay 2 1 30-0.975-200 MG ORAL CAPSULE MV-MIN-FE FUM-FA-DHA I nactive ZOLOFT 100 MG ORAL TABLET ZOLOFT 100 MG ORAL TABLET 627796 SERTRALINE HCL Inactive AMOXICILLIN 500 MG ORAL TABLET 1 po BID x10 days 12/03 AMOXICILLIN 500 MG ORAL TABLET 268435 AMOXICILLIN Inactive CIPRO 500 MG ORAL TABLET 1 tab BID CIP RO 500 MG ORAL TABLET 358039 CIPROFLOXACIN HCL Inactive DIFLUCAN 100 MG ORAL TABLET 1 tablet by mouth daily re peat in 3 days if no improvement DIFLUCAN 100 MG ORAL TABLET 533778 FLUCONAZOLE Inactive VYVANSE 50 MG ORAL CAPSULE 1 po daily V YVANSE 50 MG ORAL CAPSULE LISDEXAMFETAMINE DIMESYLATE Inactive CYANOCOBALAMIN 1000 MCG/ML INJECTION SOLUTION 1ml week IM every 2 weeks x4 doses then back to monthly CYANOCOBALAMIN 1000 MCG/ML INJECTION SOLUTION 954481 CYANOCOBALAMIN Inactive VITAMIN D (ERGOCALCIFEROL) 1.25 MG (87634 UT) ORAL CAPSULE VITAMIN D (ERGOCALCIFEROL) 1.25 MG (55577 UT) ORAL CAPSULE 1 852026 ERGOCALCIFEROL Inactive IMITREX 6 MG/0.5ML SUBCUTANEOUS SOLUTION with onset of POWELL may repeat in 1 hour if needed, do not exceed 12mg in 1 day I MITREX 6 MG/0.5ML SUBCUTANEOUS SOLUTION 396674 SUMATRIPTAN SUCCINATE Inactive AMITRIPTYLINE HCL 25 MG ORAL TABLET 1 PO at HS for migraines AMITRIPTYLINE HCL 25 MG ORAL TABLET 196062 AMITRIPTYLIN E HCL Inactive MEDROL 4 MG ORAL TABLET THERAPY PACK take as directed MEDROL 4 MG ORAL TABLET THERAPY PACK 877785 METHYLPREDNISOLONE Rox ctive Advance Directives Directive Description [...] Fluarix, Agriflu(>= 18 yo)) Fluzone (>3 yrs.) [[id number]] Influenza, seasonal, inject able TB-PPD (tuberculin purified [...] ... - Chemistry sodium, serum 140 mmol/L 325-322 1652/08/05 carbon dioxide, venous blood 23.8 mmol/L 21.0-32 [...] 0.30 mg/dL 0.00-1.00 sodium, serum 141 mmol/L 497-715 6739/05/03 carbon dioxide, venous blood 25.1 mmol/L 21.0-32 [...] Comp. Metabolic Panel, UADIP W/MICRO, AUTO, [facility] [place] - Chemistry human chorionic gonadotropin , urine, qualitative (urine test) Negative Negative sodium, serum 140 mmol/L 742-798 5459/10/14 carbon dioxide, venous blood 24.7 mmol/L 21.0-32 [...] Comp. Metabolic Panel, UADIP W/MICRO, AUTO, [facility] [place] - Hematology leukocyte count, blood 14.8 10^3/MM^3 [...] Comp. Metabolic Panel, UADIP W/MICRO, AUTO, [facility] [place] - Lab Alkaline phosphatase 67 50-136 Lab Report: CBC W/DIFF, Comp. Metabolic Panel, UADIP W/MICRO, AUTO, [facility] [place] - Urinalysis urobilinogen, urine, semiquantitative (dipstick) 0.2 [...] - Chem istry sodium, serum 140 mmol/L 287-552 4829/02/22 carbon dioxide, venous blood 27.1 mmol/L 21.0-32 [...] C - Chemistry sodium, serum 140 mmol/L 083-385 8167/04/12 carbon dioxide, venous blood 27.5 mmol/L 21.0-32 [...] 0.36-3.74 Lab Report: Free Thyroxine (L) - Clinical Trial Assistant ry thyroxine, serum, free 1.20 ng/dL 0.59-1.17 [...] 0.95 ng/dL 0.59-1.17 sodium, serum 138 mmol/L 641-008 9199/08/19 carbon dioxide, venous blood 24.9 mmol/L 21.0-32 [...] mg/dL Encounters Code Encounter Date Provider Facility CPT-91072 Level 5 Est. Patient 14:22:47 CDT Lubna Huerta PMHNP-BC [facility] CPT-40884 96776-Mon Vst-Est Level III 16:54:40 CDT Kadeem Wall MD [facility] CPT-81941 40544-Wlg Vst-Est Level IV 06:01:21 CDT Miriam Monroy [facility] CPT-67095 76697-Rdv Vst-Est Level III 16:13:06 CDT Er judah Porfiiro [facility] CPT-32367 Level 3 New Patient 16:14:48 CDT Ayaan Castellanos MD [facility] CPT-46432 Level 4 Est. Patient 08:48:05 CDT Romario Alan MD [facility] CPT-89432 Level 3 Est. Patient 07:30:03 LEASING COORDINATOR Mari Dic sanford [facility] CPT-57554 Level 4 Est. Patient 08:02:04 LEASING COORDINATOR Mari Dic sanford [facility] CPT-96083 Level 3 Est. Patient 09:56:14 CDT Kadeem jenkins MD [facility] CPT-13118 Level 3 Est. Patient 11:07:45 CDT Ang HILLIARD [facility] Procedures Code Procedure Name Date Entry Date Standard Desc ription CPT-96668 MOD COVID19 mRNA 100mcg/0.5mL 1st Dose 2 18:35:21 CDT CPT-98357 Sono Soft Tissue Head and Neck - XRAY US E ONLY 10:50:20 CDT CPT-06169 Venipuncture Draw Fee 10:24:46 CDT CPT-TMV TMV 05:09:41 CDT CPT-36762 Foot, right, comp min 3V - XRAY USE ONLY 16:15:36 CDT CPT-J1885 Toradol 30 mg (Ketorolac) 06:01:21 CDT 2020 CPT-02269 EKG Trac and Interp - XRAY USE ONLY 1 8:04:25 CDT CPT-47587 Chest, 2 views 17:02:15 CDT CPT-J1885 Toradol 30 mg (Ketorolac) 16:44:24 CDT 2020 CPT-10742 Abx/Therapy Injection 16:44:24 CDT CPT-23616 Venipuncture Draw Fee 16:11:55 CDT CPT-L3908 Cockup Splint 16:13:07 CDT CPT-25602 Venipuncture Draw Fee 12:12:02 CDT CPT-38868 Forearm, right, AP and Lat - XRAY USE ONLY 05/26 14:27:36 CDT CPT-44973 Elbow, right, Comp Min 3V - XRAY USE ONLY 05/26 14:27:35 CDT CPT-73650 Venipuncture Draw Fee 11:28:13 CDT CPT-63769 Venipuncture Draw Fee 08:03:55 LEASING COORDINATOR CPT-83186 Venipuncture Draw Fee 16:21:43 LEASING COORDINATOR CPT-26568 95968 - Immun Admin 1 vac 13:37:32 CDT 2019 CPT-23037 Flulaval (Flu) 10PK Syringe IM 13:37:32 CDT CPT-54928 Venipuncture Draw Fee 10:41:23 CDT CPT-59974 Venipuncture Draw Fee 08:57:35 CDT CPT-J1885 Toradol 30 mg (Ketorolac) 18:38:26 CDT 2019 CPT-J2550 Phenergan 25 mg (Promethazine) 18:38:26 CDT CPT-J1020 Depo Medrol 60 mg (Methyl Prednisolone A cetate) 18:38:26 CDT CPT-J1100 Decadron 6mg (Dexamethasone) 18:38:26 CDT 2 CPT-65934 Abx/Therapy Injection 18:38:25 CDT CPT-99379 Venipuncture Draw Fee 08:18:31 CDT CPT-70212 Venipuncture Draw Fee 09:11:08 CDT CPT-61910 Venipuncture Draw Fee 15:19:08 CDT CPT-62954 IM or SQ Injection 13:11:03 CDT CPT-J1100 Decadron 4mg (Dexamethasone) 13:11:03 CDT 2 CPT-J1030 Depo Medrol 40 mg (Methyl Prednisolone A cetate) 13:11:02 CDT CPT-60076 Venipuncture Draw Fee 10:49:05 CDT CPT-13349 Sono Soft Tissue Head and Neck - XRAY US E ONLY 14:27:21 LEASING COORDINATOR CPT-MF3841F (4274F) Influenza immunization administe red or previously received 13:43:59 LEASING COORDINATOR CPT-J2550 Phenergan 25 mg (Promethazine) 17:57:23 LEASING COORDINATOR CPT-J1885 Toradol 30 mg (Ketorolac) 17:57:23 LEASING COORDINATOR 2018 CPT-91527 Prv Med Est Pt 18-39yrs 08:02:04 LEASING COORDINATOR 0/10 CPT-84661 81389 - Immun Admin 1 vac 09:24:27 CDT 2018 CPT-19874 Flulaval Quadrivalent (Flu) 10Pk Syringe IM 2018 09:24:27 CDT CPT-51247 First Vx - Ix admin via ID I M or jet injects without counseling by physician 16:30:31 CDT CPT-51542 Fluzone Quadrivalent Intramuscular Suspe nsion 0.5 ML 16:30:31 CDT CPT-48568 Nexplanon Removal 09:56:14 CDT CPT-OV Office Visit 10:17:55 CDT CPT-54805 TB Tubersol 16:11:35 LEASING COORDINATOR CPT-36465 Administration single or combination vac cine inc oral 14:18:51 LEASING COORDINATOR CPT-17681 TB Tubersol 14:18:51 LEASING COORDINATOR CPT-36024 Influenza split virus > age 3 14:18:51 LEASING COORDINATOR CPT-52427 Knee 3V 11:04:40 CDT
--- OUTSIDE RECORDS SUMMARY | 2020-10-19 10:44 | XMS REPORT | Clinical Summary ---
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 [...] intractable migraine 346.10 Activ e Mari Monroy [employer]-C Migraine without aura, witho ut mention of intractable migraine, without mention of status migrainosus BMI 29-29.9 Refinement Mari Monroy [employer]-C Body Mass Index 29.0-29.9, adult BMI 26-26.9 Refinement Romario Alan MD Body Mass Index 29.0-29.9, adult BMI 29-29.9 Refinement Mari Porfirio [employer]-C Body Mass Index 29.0-29.9, adult BMI 30-30.9 Refinement Mari Porfirio [employer]-C Body Mass Index 29.0-29.9, adult BMI 29-29.9 Refinement Mari Monroy [employer]ACHINE [employer]-C Body Mass Index 29.0-29.9, adult BMI 30-30.9 Active Mari Porfirio [employer]-C Body Mass Index 29.0-29.9, adult Overweight (BMI 25-29.9) Refinement Mari Porfirio [employer]-C Overweight Obesity Class I (BMI 30-34.9) Refinement 06/26 Mari Monroy [employer]ACH[employer]-C Overweight Overweight (BMI 25-29.9) Refinement Mari Monroy [employer]ACHINE [employer]-C Overweight Obesity Class I (BMI 30-34.9) Active [...] MD Abdominal pain, right lower quadrant Other alf (current) drug therapy V58.69 Active Mari Monroy APRN-C Long-term (current) use of other medicat ions Exposure to COVID-19 coronavirus V01.79 Active 202 Betsy Willard LPN Contact with or exposure to other viral diseases Polycystic ovary syndrome Active Raquel Estrada ew LRT Other abnormal blood chemistry 790.6 Active 04/11 Mari Porfirio [employer]-C Other abnormal blood chemistry Hypocalcemia 275.41 Active Bakari Paz, FARIDEH Hypocalcemia Adenocarcinoma, thyroid gland 193 Active Eliane Zarcowell Malignant neoplasm of thyroid gland Pain in right arm 729.5 Active Marijudah Monroy MACHINE [employer]- C Pain in limb Hyperglycemia 790.29 Active Marijudah Monroy [employer]ACH[employer]-C Other abnormal glucose Contusion of right forearm, initial encounter 923.10 Active Mari Monroy MACH[employer]-C Contusion of forearm Chest pain, acute 786.50 Active Mari Monroy APRN- C Unspecified chest pain Headache, mixed 784.0 Active Mari Monroy [employer]ACH[employer]-C Headache Cervicalgia 723.1 Active Marijudah Monroy APRN-C Cervicalgia Scapulalgia, left 733.90 Active Mari Monroy APRN- C Disorder of bone and cartilage, unspecified Dyspnea 786.09 Active Mari Monroy APRN-C Other dyspnea and respiratory abnormality Cervical radiculopathy 723.4 Active Mari Monroy APRN-C Brachial neuritis or radiculitis NOS Hx of migraines V13.8 Active Mari Monroy [employer]-C Personal history of other specified diseases Foot pain, right 729.5 Active Shona Gorman, RMA Pain in limb Unspecified injury of right foot, initial encounter 20 14/08/06 Active Kadeem Wall MD Major depressive disorder, recurrent, mild 296.30 Acti ve Mari Monroy APRN-C Major depressive disorder, r ecurrent episode, unspecified degree OTHER MIXED ANXIETY DISORDERS 300.02 Active 08/07 Mari Monroy [employer]-C Generalized anxiety disorder Major depressive disorder, recurrent episode, moderate 296.32 Active Lubna Vizcaino PMHNP-BC Major depressive disorder, recurrent episode, moderate degree Generalized anxiety disorder 300.02 Active Lubna Vizcaino PMHNP-BC Generalized anxiety disorder Elevated Blood Pressure Active Lubna villa PMHNP-BC Elevated blood pressure reading without diagnosis of hypertension Cervical lymphadenopathy, anterior, right 785.6 Activ e Mari Monroy [employer]ACH[employer]-C Enlargement of lymph nodes Lymphadenopathy 785.6 Active Mari Monroy [employer]ACHINE [employer]-C Enlargement of lymph nodes ANXIETY DISORDER ICD-300.00 [...] MD Screening exam for breast cancer ICD-V76.10 [place] ctive Romario Alan MD Lymphadenopathy ICD-785.6 Inactive Romario patel MD Medication List Medication Instructions Start Date Stop Date Generic Name NDC Status Provider Patient Instruction CEFUROXIME AXETIL 250 MG ORAL TABLET 1 po BID x 10 days CEFUROXIME AXETIL 98955310038 Active Mari Monroy APRN-C Active MEDROL 4 MG ORAL TABLET THERAPY PACK take as directed METHYLPREDNISOLONE 96585980914 No Longer Active Mari Monroy APRN-C Active METHOCARBAMOL 500 MG ORAL TABLET 0.5-1 tab every 8 luis rs as needed for tension headaches METHOCARBAMOL 43222548220 Active Mari Monroy [employer]-C Active ZOFRAN 4 MG ORAL TABLET 1 every 6 hours PRN nausea ( MAY CAUSE CONSTIPATION) use sparingly ONDANSETRON HCL 27704170132 Active Mari Monroy [employer] -C Active BUSPIRONE HCL 5 MG ORAL TABLET Take 1 tab PO BID for anxiety 08/29 BUSPIRONE HCL 17562119582 Active Lubna Vizcaino PMHNP-BC Acti ve CYANOCOBALAMIN 1000MCG/ML INJECTION SOLUTION INJECT 1M L SUBCUTANEOUSLY EVERY WEEK FOR 4 DOSES THEN EVERY 2 WEEKS CYANOCOBALAMIN 001 13124154 Active Mari Monroy APRN-C Active WELLBUTRIN XL 150 MG ORAL TABLET EXTENDED RELEASE 24 H OUR 1 po daily for depression/anxiety BUPROPION HCL 88121507655 Active Er judah Monroy APRN-C Active TOPAMAX 25 MG ORAL TABLET 1 po BID for migraine prevention TOPIRAMATE 32692932253 Active Mari Monroy APRN-C Active AMITRIPTYLINE HCL 25 MG ORAL TABLET 1 PO at HS for migraines AMITRIPTYLINE HCL 23124279017 No Longer Active Bakari Paz RN Active IMITREX 6 MG/0.5ML SUBCUTANEOUS SOLUTION with onset of POWELL may repeat in 1 hour if needed, do not exceed 12mg in 1 day S UMATRIPTAN SUCCINATE 44599131114 No Longer Active Bakari Paz RN Active FIORICET 50-300-40 MG ORAL CAPSULE 1-2 tabs po every 6 hours as needed for headaches, max 6 tabs per day [id number] 05228543768 Active Mari Monroy APRN-C Active TIZANIDINE HCL 4 MG ORAL TABLET 1/2-1 tab every 8 hour s as needed for muscle spasms TIZANIDINE HCL 75504758196 Active Mari Monroy APRN-C Active VITAMIN D (ERGOCALCIFEROL) 1.25 MG (22566 UT) ORAL CAPSULE ERGOCALCIFEROL 53208366947 No Longer Active Mari Monroy APRN-C Active LEVOTHYROXINE SODIUM 112MCG ORAL TABLET TAKE ONE TABLE T BY MOUTH ONE TIME DAILY 30 MINUTES BEFORE BREAKFAST LEVOTHYROXINE SODIUM 56044 332415 Active Cyrus Neumann APRN Active VITAMIN D (ERGOCALCIFEROL) 1.25 MG(59746 UT) ORAL CAPS ULE TAKE ONE CAPSULE BY MOUTH EVERY WEEK ERGOCALCIFEROL 93153448308 Active Miriam Monroy APRN-C Active CYANOCOBALAMIN 1000 MCG/ML INJECTION SOLUTION 1ml week IM every 2 weeks x4 doses then back to monthly CYANOCOBALAMIN 86570847321 No Lo nger Active Romario Alan MD Active VYVANSE 50 MG ORAL CAPSULE 1 po daily L ISDEXAMFETAMINE DIMESYLATE 53871300009 No Longer Active Romario Alan MD Activ e DIFLUCAN 100 MG ORAL TABLET 1 tablet by mouth daily re peat in 3 days if no improvement FLUCONAZOLE 39280397488 No Longer Active Mari Monroy [employer]-C Active ALPRAZOLAM 0.5 MG ORAL TABLET 1 tab by mouth 3 times daily PRN 2018 ALPRAZOLAM 90256173339 Active Marijudah Monroy APRN-C Active CIPRO 500 MG ORAL TABLET 1 tab BID CIPROFLOXAC IN HCL 28652823281 No Longer Active Mari Monroy [employer]ACHINE [employer]-C Active AMOXICILLIN 500 MG ORAL TABLET 1 po BID x10 days 12/03 AMOXICILLIN 61570598922 No Longer Active Marijudah Monroy APRN-C Active ZOLOFT 100 MG ORAL TABLET SERTRALINE H CL 84247400967 No Longer Active Ayaan Castellanos MD Active 1 30-0.975-200 MG ORAL CAPSULE 1 qDay 2 MV-MIN-FE FUM-FA-DHA 94819109967 No Longer Active Ayaan Castellanos MD Active ALPRAZOLAM 0.25 MG ORAL TABLET 1 TAB PO Q 6 HRS PRN 08/19 ALPRAZOLAM 80211302977 No Longer Active Kadeem Wall MD Active ALPRAZOLAM 0.25 MG ORAL TABLET 1 TAB PO Q 6 HRS PRN 20 10/08/25 ALPRAZOLAM 0.25 MG ORAL TABLET 793853 ALPRAZOLAM Inactive 1 30-0.975-200 MG ORAL CAPSULE 1 qDay 2 1 30-0.975-200 MG ORAL CAPSULE MV-MIN-FE FUM-FA-DHA I nactive ZOLOFT 100 MG ORAL TABLET ZOLOFT 100 MG ORAL TABLET 147217 SERTRALINE HCL Inactive AMOXICILLIN 500 MG ORAL TABLET 1 po BID x10 days 12/03 AMOXICILLIN 500 MG ORAL TABLET 884607 AMOXICILLIN Inactive CIPRO 500 MG ORAL TABLET 1 tab BID CIP RO 500 MG ORAL TABLET 916280 CIPROFLOXACIN HCL Inactive DIFLUCAN 100 MG ORAL TABLET 1 tablet by mouth daily re peat in 3 days if no improvement DIFLUCAN 100 MG ORAL TABLET 961742 FLUCONAZOLE Inactive VYVANSE 50 MG ORAL CAPSULE 1 po daily V YVANSE 50 MG ORAL CAPSULE LISDEXAMFETAMINE DIMESYLATE Inactive CYANOCOBALAMIN 1000 MCG/ML INJECTION SOLUTION 1ml week IM every 2 weeks x4 doses then back to monthly CYANOCOBALAMIN 1000 MCG/ML INJECTION SOLUTION 642876 CYANOCOBALAMIN Inactive VITAMIN D (ERGOCALCIFEROL) 1.25 MG (12283 UT) ORAL CAPSULE VITAMIN D (ERGOCALCIFEROL) 1.25 MG (77253 UT) ORAL CAPSULE 1 788081 ERGOCALCIFEROL Inactive IMITREX 6 MG/0.5ML SUBCUTANEOUS SOLUTION with onset of POWELL may repeat in 1 hour if needed, do not exceed 12mg in 1 day I MITREX 6 MG/0.5ML SUBCUTANEOUS SOLUTION 366417 SUMATRIPTAN SUCCINATE Inactive AMITRIPTYLINE HCL 25 MG ORAL TABLET 1 PO at HS for migraines AMITRIPTYLINE HCL 25 MG ORAL TABLET 847331 AMITRIPTYLIN E HCL Inactive MEDROL 4 MG ORAL TABLET THERAPY PACK take as directed MEDROL 4 MG ORAL TABLET THERAPY PACK 022554 METHYLPREDNISOLONE Rox ctive Advance Directives Directive Description [...] Fluarix, Agriflu(>= 18 yo)) Fluzone (>3 yrs.) [[id number]] Influenza, seasonal, inject able Vital Signs Date [...] ... - Chemistry sodium, serum 140 mmol/L 775-852 0922/08/05 carbon dioxide, venous blood 23.8 mmol/L 21.0-32 [...] 0.30 mg/dL 0.00-1.00 sodium, serum 141 mmol/L 668-908 5443/05/03 carbon dioxide, venous blood 25.1 mmol/L 21.0-32 [...] W/DIFF, Comp. Metabolic Panel, UADIP W/MICRO, AUTO, [facility] [place] - Chemistry human chorionic gonadotropin , urine, qualitative (urine test) Negative Negative sodium, serum 140 mmol/L 351-545 4924/10/14 carbon dioxide, venous blood 24.7 mmol/L 21.0-32 [...] W/DIFF, Comp. Metabolic Panel, UADIP W/MICRO, AUTO, [facility] [place] - Hematology leukocyte [...] W/DIFF, Comp. Metabolic Panel, UADIP W/MICRO, AUTO, [facility] [place] - Lab Alkaline phosphatase 67 50-136 Lab Report: CBC W/DIFF, Comp. Metabolic Panel, UADIP W/MICRO, AUTO, [facility] [place] - Urinalysis urobilinogen, [...] - Chem istry sodium, serum 140 mmol/L 022-472 4706/02/22 carbon dioxide, venous blood 27.1 mmol/L 21.0-32 [...] C - Chemistry sodium, serum 140 mmol/L 149-514 0518/04/12 carbon dioxide, venous blood 27.5 mmol/L 21.0-32 [...] 0.36-3.74 Lab Report: Free Thyroxine (L) - Disability Benefits Specialist ry thyroxine, serum, free 1.20 ng/dL 0.59-1.17 [...] 0.95 ng/dL 0.59-1.17 sodium, serum 138 mmol/L 962-171 1239/08/19 carbon dioxide, venous blood 24.9 mmol/L 21.0-32 [...] mg/dL Encounters Code Encounter Date Provider Facility CPT-29294 Level 5 Est. Patient 14:22:47 CDT Lubna Huerta PMHNP-BC [facility] CPT-57953 [id number] Vst-Est Level III 16:54:40 CDT Kadeem Wall MD [facility] CPT-19888 57507-Hmy Vst-Est Level IV 06:01:21 CDT Miriam Monroy [facility] CPT-34618 85467-Vmz Vst-Est Level III 16:13:06 CDT Er judah Porfirio [facility] CPT-53788 Level 3 New Patient 16:14:48 CDT Ayaan Castellanos MD [facility] CPT-38389 Level 4 Est. Patient 08:48:05 CDT Romario Alan MD [facility] CPT-47421 Level 3 Est. Patient 07:30:03 AMBULATORY CARE Mari Dic sanford [facility] CPT-44947 Level 4 Est. Patient 08:02:04 AMBULATORY CARE Mari Dic sanford [facility] CPT-15862 Level 3 Est. Patient 09:56:14 CDT Kadeem jenkins MD [facility] CPT-22056 Level 3 Est. Patient 11:07:45 CDT Ang HILLIARD [facility] Procedures Code Procedure Name Date Entry Date Standard Desc ription CPT-13379 MOD COVID19 mRNA 100mcg/0.5mL 1st Dose 2 18:35:21 CDT CPT-12458 Sono Soft Tissue Head and Neck - XRAY US E ONLY 10:50:20 CDT CPT-96099 Venipuncture Draw Fee 10:24:46 CDT CPT-TMV TMV 05:09:41 CDT CPT-79852 Foot, right, comp min 3V - XRAY USE ONLY 16:15:36 CDT CPT-J1885 Toradol 30 mg (Ketorolac) 06:01:21 CDT 2020 CPT-27765 EKG Trac and Interp - XRAY USE ONLY 1 8:04:25 CDT CPT-32057 Chest, 2 views 17:02:15 CDT CPT-J1885 Toradol 30 mg (Ketorolac) 16:44:24 CDT 2020 CPT-97785 Abx/Therapy Injection 16:44:24 CDT CPT-48406 Venipuncture Draw Fee 16:11:55 CDT CPT-L3908 Cockup Splint 16:13:07 CDT CPT-26812 Venipuncture Draw Fee 12:12:02 CDT CPT-80640 Forearm, right, AP and Lat - XRAY USE ONLY 05/26 14:27:36 CDT CPT-33502 Elbow, right, Comp Min 3V - XRAY USE ONLY 05/26 14:27:35 CDT CPT-98611 Venipuncture Draw Fee 11:28:13 CDT CPT-61735 Venipuncture Draw Fee 08:03:55 AMBULATORY CARE CPT-68981 Venipuncture Draw Fee 16:21:43 AMBULATORY CARE CPT-01405 55747 - Immun Admin 1 vac 13:37:32 CDT 2019 CPT-27345 Flulaval (Flu) 10PK Syringe IM 13:37:32 CDT CPT-22742 Venipuncture Draw Fee 10:41:23 CDT CPT-23430 Venipuncture Draw Fee 08:57:35 CDT CPT-J1885 Toradol 30 mg (Ketorolac) 18:38:26 CDT 2019 CPT-J2550 Phenergan 25 mg (Promethazine) 18:38:26 CDT CPT-J1020 Depo Medrol 60 mg (Methyl Prednisolone A cetate) 18:38:26 CDT CPT-J1100 Decadron 6mg (Dexamethasone) 18:38:26 CDT 2 CPT-46729 Abx/Therapy Injection 18:38:25 CDT CPT-32597 Venipuncture Draw Fee 08:18:31 CDT CPT-19627 Venipuncture Draw Fee 09:11:08 CDT CPT-62973 Venipuncture Draw Fee 15:19:08 CDT CPT-60826 IM or SQ Injection 13:11:03 CDT CPT-J1100 Decadron 4mg (Dexamethasone) 13:11:03 CDT 2 CPT-J1030 Depo Medrol 40 mg (Methyl Prednisolone A cetate) 13:11:02 CDT CPT-46197 Venipuncture Draw Fee 10:49:05 CDT CPT-03604 Sono Soft Tissue Head and Neck - XRAY US E ONLY 14:27:21 AMBULATORY CARE CPT-VU9766Z (4274F) Influenza immunization administe red or previously received 13:43:59 AMBULATORY CARE CPT-J2550 Phenergan 25 mg (Promethazine) 17:57:23 AMBULATORY CARE CPT-J1885 Toradol 30 mg (Ketorolac) 17:57:23 AMBULATORY CARE 2018 CPT-45737 Prv Med Est Pt 18-39yrs 08:02:04 AMBULATORY CARE 0/10 CPT-49943 22322 - Immun Admin 1 vac 09:24:27 CDT 2018 CPT-51393 Flulaval Quadrivalent (Flu) 10Pk Syringe IM 2018 09:24:27 CDT CPT-65878 First Vx - Ix admin via ID I M or jet injects without counseling by physician 16:30:31 CDT CPT-83077 Fluzone Quadrivalent Intramuscular Suspe nsion 0.5 ML 16:30:31 CDT CPT-27711 Nexplanon Removal 09:56:14 CDT CPT-OV Office Visit 10:17:55 CDT CPT-33780 TB Tubersol 16:11:35 AMBULATORY CARE CPT-22155 Administration single or combination vac cine inc oral 14:18:51 AMBULATORY CARE CPT-06397 TB Tubersol 14:18:51 AMBULATORY CARE CPT-08037 Influenza split virus > age 3 14:18:51 AMBULATORY CARE CPT-03486 Knee 3V 11:04:40 CDT
--- OUTSIDE RECORDS SUMMARY | 2020-10-19 10:44 | XMS REPORT | Clinical Summary ---
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 [...] intractable migraine 346.10 Activ e Mari Monroy [employer] Migraine without aura, witho ut mention of intractable migraine, without mention of status migrainosus BMI 29-29.9 Refinement Mari Monroy [employer] Body Mass Index 29.0-29.9, adult BMI 26-26.9 Refinement Romario Alan MD Body Mass Index 29.0-29.9, adult BMI 29-29.9 Refinement Mari Porfirio [employer] Body Mass Index 29.0-29.9, adult BMI 30-30.9 Refinement Mari Porfirio [employer] Body Mass Index 29.0-29.9, adult BMI 29-29.9 Refinement Mari Monroy [employer] Body Mass Index 29.0-29.9, adult BMI 30-30.9 Active Mari Porfirio [employer] Body Mass Index 29.0-29.9, adult Overweight (BMI 25-29.9) Refinement Mari Porfirio [employer] Overweight Obesity Class I (BMI 30-34.9) Refinement 06/26 Mari Monroy [employer] Overweight Overweight (BMI 25-29.9) Refinement Mari Monroy [employer] Overweight Obesity Class I (BMI 30-34.9) Active [...] MD Abdominal pain, right lower quadrant Other half-way (current) drug therapy V58.69 Active Mari Monroy APRN-C Long-term (current) use of other medicat ions Exposure to COVID-19 coronavirus V01.79 Active 202 Betsy Willard LPN Contact with or exposure to other viral diseases Polycystic ovary syndrome Active Raquel Estrada ew LRT Other abnormal blood chemistry 790.6 Active 04/11 Mari Porfirio [employer] Other abnormal blood chemistry Hypocalcemia 275.41 Active Bakari Paz, FARIDEH Hypocalcemia Adenocarcinoma, thyroid gland 193 Active Eliane Zarcowell Malignant neoplasm of thyroid gland Pain in right arm 729.5 Active Marijudah Monroy [employer]- C Pain in limb Hyperglycemia 790.29 Active Marijudah Monroy [employer] Other abnormal glucose Contusion of right forearm, initial encounter 923.10 Active Mari Monroy [employer] Contusion of forearm Chest pain, acute 786.50 Active Mari Monroy APRN- C Unspecified chest pain Headache, mixed 784.0 Active Mari Monroy [employer] Headache Cervicalgia 723.1 Active Marijudah Monroy APRN-C Cervicalgia Scapulalgia, left 733.90 Active Mari Monroy APRN- C Disorder of bone and cartilage, unspecified Dyspnea 786.09 Active Mari Monroy APRN-C Other dyspnea and respiratory abnormality Cervical radiculopathy 723.4 Active Mari Monroy APRN-C Brachial neuritis or radiculitis NOS Hx of migraines V13.8 Active Mari Monroy [employer] Personal history of other specified diseases Foot pain, right 729.5 Active Shona Gorman, RMA Pain in limb Unspecified injury of right foot, initial encounter 20 14/08/06 Active Kadeem Wall MD Major depressive disorder, recurrent, mild 296.30 Acti ve Mari Monroy APRN-C Major depressive disorder, r ecurrent episode, unspecified degree OTHER MIXED ANXIETY DISORDERS 300.02 Active 08/07 Mari Monroy [employer] Generalized anxiety disorder Major depressive disorder, recurrent episode, moderate 296.32 Active Lubna Vizcaino PMHNP-BC Major depressive disorder, recurrent episode, moderate degree Generalized anxiety disorder 300.02 Active Lubna Vizcaino PMHNP-BC Generalized anxiety disorder Elevated Blood Pressure Active Lubna villa PMHNP-BC Elevated blood pressure reading without diagnosis of hypertension Cervical lymphadenopathy, anterior, right 785.6 Activ e Mari Monroy [employer] Enlargement of lymph nodes Lymphadenopathy 785.6 Active Mari Monroy [employer] Enlargement of lymph nodes ANXIETY DISORDER ICD-300.00 [...] Romario nieves MD Medication refill ICD-V68.1 Inactive oRmario marie MD Enlarged thyroid ICD-240.9 Inactive Romario Eastman MD Thyroid nodule ICD-241.0 Inactive Romario sanchez MD Multinodular thyroid goiter ICD-241.1 Inactive Romario Alan MD Contact dermatitis ICD-692.9 Inactive Romario Alan MD Screening exam for breast cancer ICD-V76.10 [place] ctive Romario Alan MD Lymphadenopathy ICD-785.6 Inactive Romario patel MD Medication List Medication Instructions Start Date Stop Date Generic Name NDC Status Provider Patient Instruction CEFUROXIME AXETIL 250 MG ORAL TABLET 1 po BID x 10 days CEFUROXIME AXETIL 73501462948 Active Mari Monroy APRN-C Active MEDROL 4 MG ORAL TABLET THERAPY PACK take as directed METHYLPREDNISOLONE 64590639999 No Longer Active Mari Monroy APRN-C Active METHOCARBAMOL 500 MG ORAL TABLET 0.5-1 tab every 8 luis rs as needed for tension headaches METHOCARBAMOL 25872809462 Active Mari Monroy [employer] Active ZOFRAN 4 MG ORAL TABLET 1 every 6 hours PRN nausea ( MAY CAUSE CONSTIPATION) use sparingly ONDANSETRON HCL 80188244049 Active Mari Monroy [employer] Active BUSPIRONE HCL 5 MG ORAL TABLET Take 1 tab PO BID for anxiety 08/29 BUSPIRONE HCL 08884744838 Active Lubna Vizcaino PMHNP-BC Acti ve CYANOCOBALAMIN 1000MCG/ML INJECTION SOLUTION INJECT 1M L SUBCUTANEOUSLY EVERY WEEK FOR 4 DOSES THEN EVERY 2 WEEKS CYANOCOBALAMIN 001 60497824 Active Mari Monroy APRN-C Active WELLBUTRIN XL 150 MG ORAL TABLET EXTENDED RELEASE 24 H OUR 1 po daily for depression/anxiety BUPROPION HCL 35282096253 Active Er judah Monroy APRN-C Active TOPAMAX 25 MG ORAL TABLET 1 po BID for migraine prevention TOPIRAMATE 37647641921 Active Mari Monroy APRN-C Active AMITRIPTYLINE HCL 25 MG ORAL TABLET 1 PO at HS for migraines AMITRIPTYLINE HCL 04128830072 No Longer Active Bakari Paz RN Active IMITREX 6 MG/0.5ML SUBCUTANEOUS SOLUTION with onset of POWELL may repeat in 1 hour if needed, do not exceed 12mg in 1 day S UMATRIPTAN SUCCINATE 91763539413 No Longer Active Bakari Paz RN Active FIORICET 50-300-40 MG ORAL CAPSULE 1-2 tabs po every 6 hours as needed for headaches, max 6 tabs per day [id number] 05162620037 Active Mari Monroy APRN-C Active TIZANIDINE HCL 4 MG ORAL TABLET 1/2-1 tab every 8 hour s as needed for muscle spasms TIZANIDINE HCL 53834881343 Active Mari Monroy APRN-C Active VITAMIN D (ERGOCALCIFEROL) 1.25 MG (14710 UT) ORAL CAPSULE ERGOCALCIFEROL 59812915728 No Longer Active Mari Monroy APRN-C Active LEVOTHYROXINE SODIUM 112MCG ORAL TABLET TAKE ONE TABLE T BY MOUTH ONE TIME DAILY 30 MINUTES BEFORE BREAKFAST LEVOTHYROXINE SODIUM 29715 356009 Active Cyrus Neumann APRN Active VITAMIN D (ERGOCALCIFEROL) 1.25 MG(44322 UT) ORAL CAPS ULE TAKE ONE CAPSULE BY MOUTH EVERY WEEK ERGOCALCIFEROL 42383709983 Active Miriam Monroy APRN-C Active CYANOCOBALAMIN 1000 MCG/ML INJECTION SOLUTION 1ml week IM every 2 weeks x4 doses then back to monthly CYANOCOBALAMIN 32467974401 No Lo nger Active Romario Alan MD Active VYVANSE 50 MG ORAL CAPSULE 1 po daily L ISDEXAMFETAMINE DIMESYLATE 87764268136 No Longer Active Romario Alan MD Activ e DIFLUCAN 100 MG ORAL TABLET 1 tablet by mouth daily re peat in 3 days if no improvement FLUCONAZOLE 20953748113 No Longer Active Mari Monroy [employer] Active ALPRAZOLAM 0.5 MG ORAL TABLET 1 tab by mouth 3 times daily PRN 2018 ALPRAZOLAM 52199805518 Active Marijudah Monroy APRN-C Active CIPRO 500 MG ORAL TABLET 1 tab BID CIPROFLOXAC IN HCL 16070600176 No Longer Active Mari Monroy [employer] Active AMOXICILLIN 500 MG ORAL TABLET 1 po BID x10 days 12/03 AMOXICILLIN 22930088292 No Longer Active Marijduah Monroy APRN-C Active ZOLOFT 100 MG ORAL TABLET SERTRALINE H CL 12304227948 No Longer Active Ayaan Castellanos MD Active 1 30-0.975-200 MG ORAL CAPSULE 1 qDay 2 MV-MIN-FE FUM-FA-DHA 45399959498 No Longer Active Ayaan Castellanos MD Active ALPRAZOLAM 0.25 MG ORAL TABLET 1 TAB PO Q 6 HRS PRN 08/19 ALPRAZOLAM 64410811286 No Longer Active Kadeem Wall MD Active ALPRAZOLAM 0.25 MG ORAL TABLET 1 TAB PO Q 6 HRS PRN 20 10/08/25 ALPRAZOLAM 0.25 MG ORAL TABLET 487229 ALPRAZOLAM Inactive 1 30-0.975-200 MG ORAL CAPSULE 1 qDay 2 1 30-0.975-200 MG ORAL CAPSULE MV-MIN-FE FUM-FA-DHA I nactive ZOLOFT 100 MG ORAL TABLET ZOLOFT 100 MG ORAL TABLET 761904 SERTRALINE HCL Inactive AMOXICILLIN 500 MG ORAL TABLET 1 po BID x10 days 12/03 AMOXICILLIN 500 MG ORAL TABLET 921520 AMOXICILLIN Inactive CIPRO 500 MG ORAL TABLET 1 tab BID CIP RO 500 MG ORAL TABLET 912617 CIPROFLOXACIN HCL Inactive DIFLUCAN 100 MG ORAL TABLET 1 tablet by mouth daily re peat in 3 days if no improvement DIFLUCAN 100 MG ORAL TABLET 741785 FLUCONAZOLE Inactive VYVANSE 50 MG ORAL CAPSULE 1 po daily V YVANSE 50 MG ORAL CAPSULE LISDEXAMFETAMINE DIMESYLATE Inactive CYANOCOBALAMIN 1000 MCG/ML INJECTION SOLUTION 1ml week IM every 2 weeks x4 doses then back to monthly CYANOCOBALAMIN 1000 MCG/ML INJECTION SOLUTION 611046 CYANOCOBALAMIN Inactive VITAMIN D (ERGOCALCIFEROL) 1.25 MG (82190 UT) ORAL CAPSULE VITAMIN D (ERGOCALCIFEROL) 1.25 MG (70304 UT) ORAL CAPSULE 1 105756 ERGOCALCIFEROL Inactive IMITREX 6 MG/0.5ML SUBCUTANEOUS SOLUTION with onset of POWELL may repeat in 1 hour if needed, do not exceed 12mg in 1 day I MITREX 6 MG/0.5ML SUBCUTANEOUS SOLUTION 486471 SUMATRIPTAN SUCCINATE Inactive AMITRIPTYLINE HCL 25 MG ORAL TABLET 1 PO at HS for migraines AMITRIPTYLINE HCL 25 MG ORAL TABLET 835264 AMITRIPTYLIN E HCL Inactive MEDROL 4 MG ORAL TABLET THERAPY PACK take as directed MEDROL 4 MG ORAL TABLET THERAPY PACK 400832 METHYLPREDNISOLONE Rox ctive Advance Directives Directive Description [...] Fluarix, Agriflu(>= 18 yo)) Fluzone (>3 yrs.) [[id number]] TB-PPD (tuberculin purified protein derivative), intra dermal administration Tubersol Diagnostic Results Date Name Value Unit Range Description Lab Report: CBC W/DIFF, Comp. Metabolic Panel, Magnesium - Chemistry sodium, serum 141 mmol/L 580-411 1164/05/03 carbon dioxide, venous blood 25.1 mmol/L 21.0-32 [...] W/DIFF, Comp. Metabolic Panel, UADIP W/MICRO, AUTO, [facility] [place] - Chemistry human chorionic gonadotropin , urine, qualitative (urine test) Negative Negative sodium, serum 140 mmol/L 805-507 7831/10/14 carbon dioxide, venous blood 24.7 mmol/L 21.0-32 [...] W/DIFF, Comp. Metabolic Panel, UADIP W/MICRO, AUTO, [facility] [place] - Hematology leukocyte count, blood 14.8 10^3/MM^3 [...] W/DIFF, Comp. Metabolic Panel, UADIP W/MICRO, AUTO, [facility] [place] - Lab Alkaline phosphatase 67 50-136 Lab Report: CBC W/DIFF, Comp. Metabolic Panel, UADIP W/MICRO, AUTO, [facility] [place] - Urinalysis urobilinogen, urine, semiquantitative (dipstick) 0.2 [...] - Chem istry sodium, serum 140 mmol/L 639-158 3870/02/22 carbon dioxide, venous blood 27.1 mmol/L 21.0-32 [...] C - Chemistry sodium, serum 140 mmol/L 031-145 2024/04/12 carbon dioxide, venous blood 27.5 mmol/L 21.0-32 [...] 0.36-3.74 Lab Report: Free Thyroxine (L) - Sewer Hand ry thyroxine, serum, free 1.20 ng/dL 0.59-1.17 [...] 0.95 ng/dL 0.59-1.17 sodium, serum 138 mmol/L 010-839 8276/08/19 carbon dioxide, venous blood 24.9 mmol/L 21.0-32 [...] mg/dL Encounters Code Encounter Date Provider Facility CPT-82359 Level 5 Est. Patient 14:22:47 CDT Lubna Huerta PMHNP-BC [facility] CPT-89341 [id number] Vst-Est Level III 16:54:40 CDT Kadeem Wall MD [facility] CPT-91390 88929-Dog Vst-Est Level IV 06:01:21 CDT Miriam Monroy [facility] CPT-57635 11336-Qey Vst-Est Level III 16:13:06 CDT Er judah Porfirio [facility] CPT-60261 Level 3 New Patient 16:14:48 CDT Ayaan Castellanos MD [facility] CPT-46985 Level 4 Est. Patient 08:48:05 CDT Romario Alan MD [facility] CPT-68490 Level 3 Est. Patient 07:30:03 RAG WILLOW OPERATOR Mari Dic sanford [facility] CPT-77560 Level 4 Est. Patient 08:02:04 RAG WILLOW OPERATOR Mari Dic sanford [facility] CPT-16119 Level 3 Est. Patient 09:56:14 CDT Kadeem jenkins MD [facility] CPT-27616 Level 3 Est. Patient 11:07:45 CDT Ang HILLIARD [facility] Procedures Code Procedure Name Date Entry Date Standard Desc ription CPT-19152 Sono Soft Tissue Head and Neck - XRAY US E ONLY 10:50:20 CDT CPT-83256 Venipuncture Draw Fee 10:24:46 CDT CPT-TMV TMV 05:09:41 CDT CPT-75749 Foot, right, comp min 3V - XRAY USE ONLY 16:15:36 CDT CPT-J1885 Toradol 30 mg (Ketorolac) 06:01:21 CDT 2020 CPT-27528 EKG Trac and Interp - XRAY USE ONLY 1 8:04:25 CDT CPT-14613 Chest, 2 views 17:02:15 CDT CPT-J1885 Toradol 30 mg (Ketorolac) 16:44:24 CDT 2020 CPT-39124 Abx/Therapy Injection 16:44:24 CDT CPT-81678 Venipuncture Draw Fee 16:11:55 CDT CPT-L3908 Cockup Splint 16:13:07 CDT CPT-73141 Venipuncture Draw Fee 12:12:02 CDT CPT-40773 Forearm, right, AP and Lat - XRAY USE ONLY 05/26 14:27:36 CDT CPT-97579 Elbow, right, Comp Min 3V - XRAY USE ONLY 05/26 14:27:35 CDT CPT-91178 Venipuncture Draw Fee 11:28:13 CDT CPT-70024 Venipuncture Draw Fee 08:03:55 RAG WILLOW OPERATOR CPT-04309 Venipuncture Draw Fee 16:21:43 RAG WILLOW OPERATOR CPT-01104 82122 - Immun Admin 1 vac 13:37:32 CDT 2019 CPT-21087 Flulaval (Flu) 10PK Syringe IM 13:37:32 CDT CPT-16771 Venipuncture Draw Fee 10:41:23 CDT CPT-59699 Venipuncture Draw Fee 08:57:35 CDT CPT-J1885 Toradol 30 mg (Ketorolac) 18:38:26 CDT 2019 CPT-J2550 Phenergan 25 mg (Promethazine) 18:38:26 CDT CPT-J1020 Depo Medrol 60 mg (Methyl Prednisolone A cetate) 18:38:26 CDT CPT-J1100 Decadron 6mg (Dexamethasone) 18:38:26 CDT 2 CPT-22218 Abx/Therapy Injection 18:38:25 CDT CPT-87761 Venipuncture Draw Fee 08:18:31 CDT CPT-44425 Venipuncture Draw Fee 09:11:08 CDT CPT-25953 Venipuncture Draw Fee 15:19:08 CDT CPT-89737 IM or SQ Injection 13:11:03 CDT CPT-J1100 Decadron 4mg (Dexamethasone) 13:11:03 CDT 2 CPT-J1030 Depo Medrol 40 mg (Methyl Prednisolone A cetate) 13:11:02 CDT CPT-43242 Venipuncture Draw Fee 10:49:05 CDT CPT-95935 Sono Soft Tissue Head and Neck - XRAY US E ONLY 14:27:21 RAG WILLOW OPERATOR CPT-BW7588I (4274F) Influenza immunization administe red or previously received 13:43:59 RAG WILLOW OPERATOR CPT-J2550 Phenergan 25 mg (Promethazine) 17:57:23 RAG WILLOW OPERATOR CPT-J1885 Toradol 30 mg (Ketorolac) 17:57:23 RAG WILLOW OPERATOR 2018 CPT-84515 Prv Med Est Pt 18-39yrs 08:02:04 RAG WILLOW OPERATOR 010 CPT-01195 06688 - Immun Admin 1 vac 09:24:27 CDT 2018 CPT-51165 Flulaval Quadrivalent (Flu) 10Pk Syringe IM 2018 09:24:27 CDT CPT-87437 First Vx - Ix admin via ID I M or jet injects without counseling by physician 16:30:31 CDT CPT-00135 Fluzone Quadrivalent Intramuscular Suspe nsion 0.5 ML 16:30:31 CDT CPT-25002 Nexplanon Removal 09:56:14 CDT CPT-OV Office Visit 10:17:55 CDT CPT-96418 TB Tubersol 16:11:35 RAG WILLOW OPERATOR CPT-53071 Administration single or combination vac cine inc oral 14:18:51 RAG WILLOW OPERATOR CPT-66295 TB Tubersol 14:18:51 RAG WILLOW OPERATOR CPT-72837 Influenza split virus > age 3 14:18:51 RAG WILLOW OPERATOR CPT-11316 Knee 3V 11:04:40 CDT
--- OUTSIDE RECORDS SUMMARY | 2020-10-19 10:45 | XMS REPORT | Clinical Summary ---
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 [...] common w/o intractable migraine 346.10 Activ e Mrai Monroy AUCTIONEER ART-C Migraine without aura, witho ut mention of intractable migraine, without mention of status migrainosus BMI 29-29.9 Refinement Mari Monroy AUCTIONEER ART-C Body Mass Index 29.0-29.9, adult BMI 26-26.9 Refinement Romario Alan MD Body Mass Index 29.0-29.9, adult BMI 29-29.9 Refinement Mari Porfirio AUCTIONEER ART-C Body Mass Index 29.0-29.9, adult BMI 30-30.9 Refinement Mari Porfirio AUCTIONEER ART-C Body Mass Index 29.0-29.9, adult BMI 29-29.9 Refinement Mari Monroy AUCTIONEER ART-C Body Mass Index 29.0-29.9, adult BMI 30-30.9 Active Mari Porfirio AUCTIONEER ART-C Body Mass Index 29.0-29.9, adult Overweight (BMI 25-29.9) Refinement Mari Porfirio AUCTIONEER ART-C Overweight Obesity Class I (BMI 30-34.9) Refinement 06/26 Mari Monroy AUCTIONEER ART-C Overweight Overweight (BMI 25-29.9) Refinement Mari Monroy AUCTIONEER ART-C Overweight Obesity Class I (BMI 30-34.9) Active [...] MD Abdominal pain, right lower quadrant Other senior living (current) drug therapy V58.69 Active Mari Monroy APRN-C Long-term (current) use of other medicat ions Exposure to COVID-19 coronavirus V01.79 Active 202 Betsy Willard LPN Contact with or exposure to other viral diseases Polycystic ovary syndrome Active Raquel Estrada ew LRT Other abnormal blood chemistry 790.6 Active 04/11 Mari Porfirio AUCTIONEER ART-C Other abnormal blood chemistry Hypocalcemia 275.41 Active Bakari Paz, FARIDEH Hypocalcemia Adenocarcinoma, thyroid gland 193 Active Eliane Zarcowell Malignant neoplasm of thyroid gland Pain in right arm 729.5 Active Marijudah Monroy AUCTIONEER ART- C Pain in limb Hyperglycemia 790.29 Active Marijudah Monroy AUCTIONEER ART-C Other abnormal glucose Contusion of right forearm, initial encounter 923.10 Active Mari Monroy AUCTIONEER ART-C Contusion of forearm Chest pain, acute 786.50 Active Mari Monroy APRN- C Unspecified chest pain Headache, mixed 784.0 Active Mari Monroy AUCTIONEER ART-C Headache Cervicalgia 723.1 Active Marijudah Monroy APRN-C Cervicalgia Scapulalgia, left 733.90 Active Mari Monroy APRN- C Disorder of bone and cartilage, unspecified Dyspnea 786.09 Active Mari Monroy APRN-C Other dyspnea and respiratory abnormality Cervical radiculopathy 723.4 Active Mari Monroy APRN-C Brachial neuritis or radiculitis NOS Hx of migraines V13.8 Active Mari Monroy AUCTIONEER ART-C Personal history of other specified diseases Foot pain, right 729.5 Active Shona Gorman, RMA Pain in limb Unspecified injury of right foot, initial encounter 20 14/08/06 Active Kadeem Wall MD Major depressive disorder, recurrent, mild 296.30 Acti ve Mari Monroy APRN-C Major depressive disorder, r ecurrent episode, unspecified degree OTHER MIXED ANXIETY DISORDERS 300.02 Active 08/07 Mari Monroy AUCTIONEER ART-C Generalized anxiety disorder Major depressive disorder, recurrent episode, moderate 296.32 Active Lubna Vizcaino PMHNP-BC Major depressive disorder, recurrent episode, moderate degree Generalized anxiety disorder 300.02 Active Lubna Vizcaino PMHNP-BC Generalized anxiety disorder Elevated Blood Pressure Active Lubna villa PMHNP-BC Elevated blood pressure reading without diagnosis of hypertension Cervical lymphadenopathy, anterior, right 785.6 Activ e Mari Monroy AUCTIONEER ART-C Enlargement of lymph nodes Lymphadenopathy 785.6 Active Mari Monroy AUCTIONEER ART-C Enlargement of lymph nodes ANXIETY DISORDER ICD-300.00 [...] MD Screening exam for breast cancer ICD-V76.10 [place] ctive Romario Alan MD Lymphadenopathy ICD-785.6 Inactive Romario patel MD Medication List Medication Instructions Start Date Stop Date Generic Name NDC Status Provider Patient Instruction CEFUROXIME AXETIL 250 MG ORAL TABLET 1 po BID x 10 days CEFUROXIME AXETIL 36682480303 Active Mari Monroy APRN-C Active MEDROL 4 MG ORAL TABLET THERAPY PACK take as directed METHYLPREDNISOLONE 34419786228 No Longer Active Mari Monroy APRN-C Active METHOCARBAMOL 500 MG ORAL TABLET 0.5-1 tab every 8 luis rs as needed for tension headaches METHOCARBAMOL 53089285913 Active Mari Monroy AUCTIONEER ART-C Active ZOFRAN 4 MG ORAL TABLET 1 every 6 hours PRN nausea ( MAY CAUSE CONSTIPATION) use sparingly ONDANSETRON HCL 11149037500 Active Mari Monroy AUCTIONEER ART -C Active BUSPIRONE HCL 5 MG ORAL TABLET Take 1 tab PO BID for anxiety 08/29 BUSPIRONE HCL 33720564963 Active Lubna Vizcaino PMHNP-BC Acti ve CYANOCOBALAMIN 1000MCG/ML INJECTION SOLUTION INJECT 1M L SUBCUTANEOUSLY EVERY WEEK FOR 4 DOSES THEN EVERY 2 WEEKS CYANOCOBALAMIN 001 90154953 Active Mari Monroy APRN-C Active WELLBUTRIN XL 150 MG ORAL TABLET EXTENDED RELEASE 24 H OUR 1 po daily for depression/anxiety BUPROPION HCL 51684264677 Active Er judah Monroy APRN-C Active TOPAMAX 25 MG ORAL TABLET 1 po BID for migraine prevention TOPIRAMATE 62248065872 Active Mari Monroy APRN-C Active AMITRIPTYLINE HCL 25 MG ORAL TABLET 1 PO at HS for migraines AMITRIPTYLINE HCL 13585419964 No Longer Active Bakari Paz RN Active IMITREX 6 MG/0.5ML SUBCUTANEOUS SOLUTION with onset of POWELL may repeat in 1 hour if needed, do not exceed 12mg in 1 day S UMATRIPTAN SUCCINATE 63232367311 No Longer Active Bakari Paz RN Active FIORICET 50-300-40 MG ORAL CAPSULE 1-2 tabs po every 6 hours as needed for headaches, max 6 tabs per day [id number] 85055328027 Active Mari Monroy APRN-C Active TIZANIDINE HCL 4 MG ORAL TABLET 1/2-1 tab every 8 hour s as needed for muscle spasms TIZANIDINE HCL 95040029782 Active Mari Monroy APRN-C Active VITAMIN D (ERGOCALCIFEROL) 1.25 MG (93837 UT) ORAL CAPSULE ERGOCALCIFEROL 70225955373 No Longer Active Mari Monroy APRN-C Active LEVOTHYROXINE SODIUM 112MCG ORAL TABLET TAKE ONE TABLE T BY MOUTH ONE TIME DAILY 30 MINUTES BEFORE BREAKFAST LEVOTHYROXINE SODIUM 91575 138944 Active Cyrus Neumann APRN Active VITAMIN D (ERGOCALCIFEROL) 1.25 MG(37186 UT) ORAL CAPS ULE TAKE ONE CAPSULE BY MOUTH EVERY WEEK ERGOCALCIFEROL 62828131247 Active Miriam Monroy APRN-C Active CYANOCOBALAMIN 1000 MCG/ML INJECTION SOLUTION 1ml week IM every 2 weeks x4 doses then back to monthly CYANOCOBALAMIN 97198983508 No Lo nger Active Romario Alan MD Active VYVANSE 50 MG ORAL CAPSULE 1 po daily L ISDEXAMFETAMINE DIMESYLATE 52984930388 No Longer Active Romario Alan MD Activ e DIFLUCAN 100 MG ORAL TABLET 1 tablet by mouth daily re peat in 3 days if no improvement FLUCONAZOLE 33834367140 No Longer Active Mari Monroy AUCTIONEER ART-C Active ALPRAZOLAM 0.5 MG ORAL TABLET 1 tab by mouth 3 times daily PRN 2018 ALPRAZOLAM 25904162904 Active Marijudah Monroy APRN-C Active CIPRO 500 MG ORAL TABLET 1 tab BID CIPROFLOXAC IN HCL 32320936838 No Longer Active Mari Monroy AUCTIONEER ART-C Active AMOXICILLIN 500 MG ORAL TABLET 1 po BID x10 days 12/03 AMOXICILLIN 02113846992 No Longer Active Marijudah Monroy APRN-C Active ZOLOFT 100 MG ORAL TABLET SERTRALINE H CL 65325015214 No Longer Active Ayaan Castellanos MD Active 1 30-0.975-200 MG ORAL CAPSULE 1 qDay 2 MV-MIN-FE FUM-FA-DHA 25018538378 No Longer Active Ayaan Castellanos MD Active ALPRAZOLAM 0.25 MG ORAL TABLET 1 TAB PO Q 6 HRS PRN 08/19 ALPRAZOLAM 34700627035 No Longer Active Kadeem Wall MD Active ALPRAZOLAM 0.25 MG ORAL TABLET 1 TAB PO Q 6 HRS PRN 20 10/08/25 ALPRAZOLAM 0.25 MG ORAL TABLET 277037 ALPRAZOLAM Inactive 1 30-0.975-200 MG ORAL CAPSULE 1 qDay 2 1 30-0.975-200 MG ORAL CAPSULE MV-MIN-FE FUM-FA-DHA I nactive ZOLOFT 100 MG ORAL TABLET ZOLOFT 100 MG ORAL TABLET 469753 SERTRALINE HCL Inactive AMOXICILLIN 500 MG ORAL TABLET 1 po BID x10 days 12/03 AMOXICILLIN 500 MG ORAL TABLET 839415 AMOXICILLIN Inactive CIPRO 500 MG ORAL TABLET 1 tab BID CIP RO 500 MG ORAL TABLET 234237 CIPROFLOXACIN HCL Inactive DIFLUCAN 100 MG ORAL TABLET 1 tablet by mouth daily re peat in 3 days if no improvement DIFLUCAN 100 MG ORAL TABLET 232978 FLUCONAZOLE Inactive VYVANSE 50 MG ORAL CAPSULE 1 po daily V YVANSE 50 MG ORAL CAPSULE LISDEXAMFETAMINE DIMESYLATE Inactive CYANOCOBALAMIN 1000 MCG/ML INJECTION SOLUTION 1ml week IM every 2 weeks x4 doses then back to monthly CYANOCOBALAMIN 1000 MCG/ML INJECTION SOLUTION 038266 CYANOCOBALAMIN Inactive VITAMIN D (ERGOCALCIFEROL) 1.25 MG (19160 UT) ORAL CAPSULE VITAMIN D (ERGOCALCIFEROL) 1.25 MG (58104 UT) ORAL CAPSULE 1 646197 ERGOCALCIFEROL Inactive IMITREX 6 MG/0.5ML SUBCUTANEOUS SOLUTION with onset of POWELL may repeat in 1 hour if needed, do not exceed 12mg in 1 day I MITREX 6 MG/0.5ML SUBCUTANEOUS SOLUTION 276829 SUMATRIPTAN SUCCINATE Inactive AMITRIPTYLINE HCL 25 MG ORAL TABLET 1 PO at HS for migraines AMITRIPTYLINE HCL 25 MG ORAL TABLET 867360 AMITRIPTYLIN E HCL Inactive MEDROL 4 MG ORAL TABLET THERAPY PACK take as directed MEDROL 4 MG ORAL TABLET THERAPY PACK 641326 METHYLPREDNISOLONE Rox ctive Advance Directives Directive Description [...] Fluarix, Agriflu(>= 18 yo)) Fluzone (>3 yrs.) [[id number]] TB-PPD (tuberculin purified protein derivative), intra dermal administration Tubersol Diagnostic Results Date Name Value Unit Range Description Lab Report: CBC W/DIFF, Comp. Metabolic Panel, Magnesium - Chemistry sodium, serum 141 mmol/L 226-781 0516/05/03 carbon dioxide, venous blood 25.1 mmol/L 21.0-32 [...] W/DIFF, Comp. Metabolic Panel, UADIP W/MICRO, AUTO, [facility] - Chemistry human chorionic gonadotropin , urine, qualitative (urine test) Negative Negative sodium, serum 140 mmol/L 674-617 8160/10/14 carbon dioxide, venous blood 24.7 mmol/L 21.0-32 [...] W/DIFF, Comp. Metabolic Panel, UADIP W/MICRO, AUTO, [facility] - Hematology leukocyte count, blood 14.8 10^3/MM^3 [...] W/DIFF, Comp. Metabolic Panel, UADIP W/MICRO, AUTO, [facility] - Lab Alkaline phosphatase 67 50-136 Lab Report: CBC W/DIFF, Comp. Metabolic Panel, UADIP W/MICRO, AUTO, [facility] - Urinalysis urobilinogen, urine, semiquantitative (dipstick) 0.2 [...] - Chem istry sodium, serum 140 mmol/L 009-269 5562/02/22 carbon dioxide, venous blood 27.1 mmol/L 21.0-32 [...] C - Chemistry sodium, serum 140 mmol/L 574-841 1293/04/12 carbon dioxide, venous blood 27.5 mmol/L 21.0-32 [...] 0.36-3.74 Lab Report: Free Thyroxine (L) - Cardiovascular Surgeon ry thyroxine, serum, free 1.20 ng/dL 0.59-1.17 [...] 0.95 ng/dL 0.59-1.17 sodium, serum 138 mmol/L 875-545 2631/08/19 carbon dioxide, venous blood 24.9 mmol/L 21.0-32 [...] mg/dL Encounters Code Encounter Date Provider Facility CPT-08720 Level 5 Est. Patient 14:22:47 CDT Lubna Huerta [facility]HNP[facility] CPT-89159 32878-Ukh Vst-Est Level III 16:54:40 CDT Kadeem Wall [facility] CPT-09683 44557-Aql Vst-Est Level IV 06:01:21 CDT Miriam Monroy [facility] CPT-37630 84114-Nmb Vst-Est Level III 16:13:06 CDT Er judah Porfirio [facility] CPT-24898 Level 3 New Patient 16:14:48 CDT Ayaan Castellanos [facility] CPT-29397 Level 4 Est. Patient 08:48:05 CDT Romario Alan MD [facility] CPT-96795 Level 3 Est. Patient 07:30:03 PRINCIPAL BIOSTATISTICIAN Mari Dic sanford [facility] CPT-19824 Level 4 Est. Patient 08:02:04 PRINCIPAL BIOSTATISTICIAN Mari Dic sanford [facility] CPT-66500 Level 3 Est. Patient 09:56:14 CDT Kadeem jenkins [facility] CPT-88659 Level 3 Est. Patient 11:07:45 CDT Ang HILLIARD [facility] Procedures Code Procedure Name Date Entry Date Standard Desc ription CPT-31924 Sono Soft Tissue Head and Neck - XRAY US E ONLY 10:50:20 CDT CPT-30325 Venipuncture Draw Fee 10:24:46 CDT CPT-TMV TMV 05:09:41 CDT CPT-05961 Foot, right, comp min 3V - XRAY USE ONLY 16:15:36 CDT CPT-J1885 Toradol 30 mg (Ketorolac) 06:01:21 CDT 2020 CPT-57935 EKG Trac and Interp - XRAY USE ONLY 1 8:04:25 CDT CPT-10162 Chest, 2 views 17:02:15 CDT CPT-J1885 Toradol 30 mg (Ketorolac) 16:44:24 CDT 2020 CPT-99627 Abx/Therapy Injection 16:44:24 CDT CPT-75212 Venipuncture Draw Fee 16:11:55 CDT CPT-L3908 Cockup Splint 16:13:07 CDT CPT-17481 Venipuncture Draw Fee 12:12:02 CDT CPT-81564 Forearm, right, AP and Lat - XRAY USE ONLY 05/26 14:27:36 CDT CPT-63131 Elbow, right, Comp Min 3V - XRAY USE ONLY 05/26 14:27:35 CDT CPT-85237 Venipuncture Draw Fee 11:28:13 CDT CPT-59473 Venipuncture Draw Fee 08:03:55 PRINCIPAL BIOSTATISTICIAN CPT-68784 Venipuncture Draw Fee 16:21:43 PRINCIPAL BIOSTATISTICIAN CPT-34153 76167 - Immun Admin 1 vac 13:37:32 CDT 2019 CPT-96832 Flulaval (Flu) 10PK Syringe IM 13:37:32 CDT CPT-88984 Venipuncture Draw Fee 10:41:23 CDT CPT-19419 Venipuncture Draw Fee 08:57:35 CDT CPT-J1885 Toradol 30 mg (Ketorolac) 18:38:26 CDT 2019 CPT-J2550 Phenergan 25 mg (Promethazine) 18:38:26 CDT CPT-J1020 Depo Medrol 60 mg (Methyl Prednisolone A cetate) 18:38:26 CDT CPT-J1100 Decadron 6mg (Dexamethasone) 18:38:26 CDT 2 CPT-36981 Abx/Therapy Injection 18:38:25 CDT CPT-28795 Venipuncture Draw Fee 08:18:31 CDT CPT-54033 Venipuncture Draw Fee 09:11:08 CDT CPT-68203 Venipuncture Draw Fee 15:19:08 CDT CPT-67058 IM or SQ Injection 13:11:03 CDT CPT-J1100 Decadron 4mg (Dexamethasone) 13:11:03 CDT 2 CPT-J1030 Depo Medrol 40 mg (Methyl Prednisolone A cetate) 13:11:02 CDT CPT-82375 Venipuncture Draw Fee 10:49:05 CDT CPT-69152 Sono Soft Tissue Head and Neck - XRAY US E ONLY 14:27:21 PRINCIPAL BIOSTATISTICIAN CPT-YZ5350D (4274F) Influenza immunization administe red or previously received 13:43:59 PRINCIPAL BIOSTATISTICIAN CPT-J2550 Phenergan 25 mg (Promethazine) 17:57:23 PRINCIPAL BIOSTATISTICIAN CPT-J1885 Toradol 30 mg (Ketorolac) 17:57:23 PRINCIPAL BIOSTATISTICIAN 2018 CPT-78286 Prv Med Est Pt 18-39yrs 08:02:04 PRINCIPAL BIOSTATISTICIAN 010 CPT-88031 86818 - Immun Admin 1 vac 09:24:27 CDT 2018 CPT-70557 Flulaval Quadrivalent (Flu) 10Pk Syringe IM 2018 09:24:27 CDT CPT-07509 First Vx - Ix admin via ID I M or jet injects without counseling by physician 16:30:31 CDT CPT-71563 Fluzone Quadrivalent Intramuscular Suspe nsion 0.5 ML 16:30:31 CDT CPT-56744 Nexplanon Removal 09:56:14 CDT CPT-OV Office Visit 10:17:55 CDT CPT-70206 TB Tubersol 16:11:35 PRINCIPAL BIOSTATISTICIAN CPT-81930 Administration single or combination vac cine inc oral 14:18:51 PRINCIPAL BIOSTATISTICIAN CPT-00217 TB Tubersol 14:18:51 PRINCIPAL BIOSTATISTICIAN CPT-90526 Influenza split virus > age 3 14:18:51 PRINCIPAL BIOSTATISTICIAN CPT-17042 Knee 3V 11:04:40 CDT
--- OUTSIDE RECORDS SUMMARY | 2020-10-19 10:45 | XMS REPORT | Clinical Summary ---
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 [...] intractable migraine 346.10 Activ e Mari Monroy [employer]OTYPE MECHANIC-C Migraine without aura, witho ut mention of intractable migraine, without mention of status migrainosus BMI 29-29.9 Refinement Mari Monroy LINOTYPE MECHANIC-C Body Mass Index 29.0-29.9, adult BMI 26-26.9 Refinement Romario Alan MD Body Mass Index 29.0-29.9, adult BMI 29-29.9 Refinement Mari Porfirio [employer]OTYPE MECHANIC-C Body Mass Index 29.0-29.9, adult BMI 30-30.9 Refinement Mari Porfirio LINOTYPE MECHANIC-C Body Mass Index 29.0-29.9, adult BMI 29-29.9 Refinement Mari Monroy LINOTYPE MECHANIC-C Body Mass Index 29.0-29.9, adult BMI 30-30.9 Active Mari Porfirio [employer]OTYPE MECHANIC-C Body Mass Index 29.0-29.9, adult Overweight (BMI 25-29.9) Refinement Mari Porfirio [employer]OTYPE MECHANIC-C Overweight Obesity Class I (BMI 30-34.9) Refinement 06/26 Mari Monroy LINOTYPE MECHANIC-C Overweight Overweight (BMI 25-29.9) Refinement Mari Monroy LINOTYPE MECHANIC-C Overweight Obesity Class I (BMI 30-34.9) Active [...] MD Abdominal pain, right lower quadrant Other care home (current) drug therapy V58.69 Active Mari Monroy APRN-C Long-term (current) use of other medicat ions Exposure to COVID-19 coronavirus V01.79 Active 202 Betsy Willard LPN Contact with or exposure to other viral diseases Polycystic ovary syndrome Active Raquel Estrada ew LRT Other abnormal blood chemistry 790.6 Active 04/11 Mari Porfirio [employer]OTYPE MECHANIC-C Other abnormal blood chemistry Hypocalcemia 275.41 Active Bakari Paz, FARIDEH Hypocalcemia Adenocarcinoma, thyroid gland 193 Active Elaine Zarcowell Malignant neoplasm of thyroid gland Pain in right arm 729.5 Active Marijudah Monroy LINOTYPE MECHANIC- C Pain in limb Hyperglycemia 790.29 Active Marijudah Monroy LINOTYPE MECHANIC-C Other abnormal glucose Contusion of right forearm, initial encounter 923.10 Active Mari Monroy LINOTYPE MECHANIC-C Contusion of forearm Chest pain, acute 786.50 Active Mari Monroy APRN- C Unspecified chest pain Headache, mixed 784.0 Active Mari Monroy [employer]OTYPE MECHANIC-C Headache Cervicalgia 723.1 Active Marijudah Monroy APRN-C Cervicalgia Scapulalgia, left 733.90 Active Mari Monroy APRN- C Disorder of bone and cartilage, unspecified Dyspnea 786.09 Active Mari Monroy APRN-C Other dyspnea and respiratory abnormality Cervical radiculopathy 723.4 Active Mari Monroy APRN-C Brachial neuritis or radiculitis NOS Hx of migraines V13.8 Active Mari Monroy LINOTYPE MECHANIC-C Personal history of other specified diseases Foot pain, right 729.5 Active Shona Gorman, RMA Pain in limb Unspecified injury of right foot, initial encounter 20 14/08/06 Active Kadeem Wall MD Major depressive disorder, recurrent, mild 296.30 Acti ve Mari Monroy APRN-C Major depressive disorder, r ecurrent episode, unspecified degree OTHER MIXED ANXIETY DISORDERS 300.02 Active 08/07 Mari Monroy [employer]OTYPE MECHANIC-C Generalized anxiety disorder Major depressive disorder, recurrent episode, moderate 296.32 Active Lubna Vizcaino PMHNP-BC Major depressive disorder, recurrent episode, moderate degree Generalized anxiety disorder 300.02 Active Lubna Vizcaino PMHNP-BC Generalized anxiety disorder Elevated Blood Pressure Active Lubna villa PMHNP-BC Elevated blood pressure reading without diagnosis of hypertension Cervical lymphadenopathy, anterior, right 785.6 Activ e Mari Monroy LINOTYPE MECHANIC-C Enlargement of lymph nodes Lymphadenopathy 785.6 Active Mari Monroy LINOTYPE MECHANIC-C Enlargement of lymph nodes ANXIETY DISORDER ICD-300.00 [...] MD Screening exam for breast cancer ICD-V76.10 [place] ctive Romario Alan MD Lymphadenopathy ICD-785.6 Inactive Romario patel MD Medication List Medication Instructions Start Date Stop Date Generic Name NDC Status Provider Patient Instruction CEFUROXIME AXETIL 250 MG ORAL TABLET 1 po BID x 10 days CEFUROXIME AXETIL 88603969452 Active Mari Monroy APRN-C Active MEDROL 4 MG ORAL TABLET THERAPY PACK take as directed METHYLPREDNISOLONE 53591662476 No Longer Active Mari Monroy APRN-C Active METHOCARBAMOL 500 MG ORAL TABLET 0.5-1 tab every 8 luis rs as needed for tension headaches METHOCARBAMOL 22220251709 Active Mari Monroy [employer]OTYPE MECHANIC-C Active ZOFRAN 4 MG ORAL TABLET 1 every 6 hours PRN nausea ( MAY CAUSE CONSTIPATION) use sparingly ONDANSETRON HCL 52200364284 Active Mari Monroy [employer]OTYPE MECHANIC -C Active BUSPIRONE HCL 5 MG ORAL TABLET Take 1 tab PO BID for anxiety 08/29 BUSPIRONE HCL 63132595785 Active Lubna Vizcaino PMHNP-BC Acti ve CYANOCOBALAMIN 1000MCG/ML INJECTION SOLUTION INJECT 1M L SUBCUTANEOUSLY EVERY WEEK FOR 4 DOSES THEN EVERY 2 WEEKS CYANOCOBALAMIN 001 59875444 Active Mari Monroy APRN-C Active WELLBUTRIN XL 150 MG ORAL TABLET EXTENDED RELEASE 24 H OUR 1 po daily for depression/anxiety BUPROPION HCL 44110481138 Active Er judah Monroy APRN-C Active TOPAMAX 25 MG ORAL TABLET 1 po BID for migraine prevention TOPIRAMATE 75331577759 Active Mari Monroy APRN-C Active AMITRIPTYLINE HCL 25 MG ORAL TABLET 1 PO at HS for migraines AMITRIPTYLINE HCL 81097973754 No Longer Active Bakari Paz RN Active IMITREX 6 MG/0.5ML SUBCUTANEOUS SOLUTION with onset of POWELL may repeat in 1 hour if needed, do not exceed 12mg in 1 day S UMATRIPTAN SUCCINATE 44345851600 No Longer Active Bakari Paz RN Active FIORICET 50-300-40 MG ORAL CAPSULE 1-2 tabs po every 6 hours as needed for headaches, max 6 tabs per day [id number] 98777845552 Active Mari Monroy APRN-C Active TIZANIDINE HCL 4 MG ORAL TABLET 1/2-1 tab every 8 hour s as needed for muscle spasms TIZANIDINE HCL 10668180645 Active Mari Monroy APRN-C Active VITAMIN D (ERGOCALCIFEROL) 1.25 MG (18813 UT) ORAL CAPSULE ERGOCALCIFEROL 47934157138 No Longer Active Mari Monroy APRN-C Active LEVOTHYROXINE SODIUM 112MCG ORAL TABLET TAKE ONE TABLE T BY MOUTH ONE TIME DAILY 30 MINUTES BEFORE BREAKFAST LEVOTHYROXINE SODIUM 90790 749155 Active Cyrus Neumann APRN Active VITAMIN D (ERGOCALCIFEROL) 1.25 MG(43224 UT) ORAL CAPS ULE TAKE ONE CAPSULE BY MOUTH EVERY WEEK ERGOCALCIFEROL 98582037765 Active Miriam Monroy APRN-C Active CYANOCOBALAMIN 1000 MCG/ML INJECTION SOLUTION 1ml week IM every 2 weeks x4 doses then back to monthly CYANOCOBALAMIN 97488851286 No Lo nger Active Romario Alan MD Active VYVANSE 50 MG ORAL CAPSULE 1 po daily L ISDEXAMFETAMINE DIMESYLATE 99006952648 No Longer Active Romario Alan MD Activ e DIFLUCAN 100 MG ORAL TABLET 1 tablet by mouth daily re peat in 3 days if no improvement FLUCONAZOLE 26742549496 No Longer Active Mari Monroy LINOTYPE MECHANIC-C Active ALPRAZOLAM 0.5 MG ORAL TABLET 1 tab by mouth 3 times daily PRN 2018 ALPRAZOLAM 21444702620 Active Marijudah Monroy APRN-C Active CIPRO 500 MG ORAL TABLET 1 tab BID CIPROFLOXAC IN HCL 61325089671 No Longer Active Mari Monroy LINOTYPE MECHANIC-C Active AMOXICILLIN 500 MG ORAL TABLET 1 po BID x10 days 12/03 AMOXICILLIN 56753199456 No Longer Active Marijudah Monroy APRN-C Active ZOLOFT 100 MG ORAL TABLET SERTRALINE H CL 80426443340 No Longer Active Ayaan Castellanos MD Active 1 30-0.975-200 MG ORAL CAPSULE 1 qDay 2 MV-MIN-FE FUM-FA-DHA 48488758227 No Longer Active Ayaan Castellanos MD Active ALPRAZOLAM 0.25 MG ORAL TABLET 1 TAB PO Q 6 HRS PRN 08/19 ALPRAZOLAM 36398675437 No Longer Active Kadeem Wall MD Active ALPRAZOLAM 0.25 MG ORAL TABLET 1 TAB PO Q 6 HRS PRN 20 10/08/25 ALPRAZOLAM 0.25 MG ORAL TABLET 163322 ALPRAZOLAM Inactive 1 30-0.975-200 MG ORAL CAPSULE 1 qDay 2 1 30-0.975-200 MG ORAL CAPSULE MV-MIN-FE FUM-FA-DHA I nactive ZOLOFT 100 MG ORAL TABLET ZOLOFT 100 MG ORAL TABLET 265347 SERTRALINE HCL Inactive AMOXICILLIN 500 MG ORAL TABLET 1 po BID x10 days 12/03 AMOXICILLIN 500 MG ORAL TABLET 079479 AMOXICILLIN Inactive CIPRO 500 MG ORAL TABLET 1 tab BID CIP RO 500 MG ORAL TABLET 564956 CIPROFLOXACIN HCL Inactive DIFLUCAN 100 MG ORAL TABLET 1 tablet by mouth daily re peat in 3 days if no improvement DIFLUCAN 100 MG ORAL TABLET 008291 FLUCONAZOLE Inactive VYVANSE 50 MG ORAL CAPSULE 1 po daily V YVANSE 50 MG ORAL CAPSULE LISDEXAMFETAMINE DIMESYLATE Inactive CYANOCOBALAMIN 1000 MCG/ML INJECTION SOLUTION 1ml week IM every 2 weeks x4 doses then back to monthly CYANOCOBALAMIN 1000 MCG/ML INJECTION SOLUTION 881410 CYANOCOBALAMIN Inactive VITAMIN D (ERGOCALCIFEROL) 1.25 MG (36762 UT) ORAL CAPSULE VITAMIN D (ERGOCALCIFEROL) 1.25 MG (39199 UT) ORAL CAPSULE 1 058650 ERGOCALCIFEROL Inactive IMITREX 6 MG/0.5ML SUBCUTANEOUS SOLUTION with onset of POWELL may repeat in 1 hour if needed, do not exceed 12mg in 1 day I MITREX 6 MG/0.5ML SUBCUTANEOUS SOLUTION 585341 SUMATRIPTAN SUCCINATE Inactive AMITRIPTYLINE HCL 25 MG ORAL TABLET 1 PO at HS for migraines AMITRIPTYLINE HCL 25 MG ORAL TABLET 406972 AMITRIPTYLIN E HCL Inactive MEDROL 4 MG ORAL TABLET THERAPY PACK take as directed MEDROL 4 MG ORAL TABLET THERAPY PACK 663215 METHYLPREDNISOLONE Rox ctive Advance Directives Directive Description [...] Fluarix, Agriflu(>= 18 yo)) Fluzone (>3 yrs.) [[id number]] Diagnostic Results Date Name Value Unit Range Description Lab Report: CBC W/DIFF, Comp. Metabolic Panel, Magnesium - Chemistry sodium, serum 141 mmol/L 397-441 4326/05/03 carbon dioxide, venous blood 25.1 mmol/L 21.0-32 [...] W/DIFF, Comp. Metabolic Panel, [place]AD[place] W[place]MICRO, [place] [facility] [place] Chemistry human chorionic gonadotropin , urine, qualitative (urine test) Negative Negative sodium, serum 140 mmol/L 871-447 9648/10/14 carbon dioxide, venous blood 24.7 mmol/L 21.0-32 [...] W/DIFF, Comp. Metabolic Panel, UADIP W/MICRO, [place] [facility] [place] Hematology leukocyte count, blood 14.8 10^3/MM^3 [...] W/DIFF, Comp. Metabolic Panel, UADIP W/MICRO, [place] [facility] [place] Lab Alkaline phosphatase 67 50-136 Lab Report: CBC W/DIFF, Comp. Metabolic Panel, UADIP W/MICRO, [place], [facility] [place] Urinalysis urobilinogen, urine, semiquantitative (dipstick) 0.2 [...] - Chem istry sodium, serum 140 mmol/L 121-418 1246/02/22 carbon dioxide, venous blood 27.1 mmol/L 21.0-32 [...] C - Chemistry sodium, serum 140 mmol/L 719-982 8114/04/12 carbon dioxide, venous blood 27.5 mmol/L 21.0-32 [...] 0.36-3.74 Lab Report: Free Thyroxine (L) - Waist[place] ry thyroxine, serum, free 1.20 ng/dL 0.59-1.17 [...] 0.95 ng/dL 0.59-1.17 sodium, serum 138 mmol/L 255-321 8568/08/19 carbon dioxide, venous blood 24.9 mmol/L 21.0-32 [...] mg/dL Encounters Code Encounter Date Provider Facility CPT-40951 Level 5 Est. Patient 14:22:47 CDT Lubna Huerta PMHNP-BC [facility] CPT-83665 [id number] Vst-Est Level III 16:54:40 CDT Kadeem Wall MD [facility] CPT-80873 34305-Vpz Vst-Est Level IV 06:01:21 CDT Miriam Monroy [facility] CPT-44038 08847-Kyn Vst-Est Level III 16:13:06 CDT Er judah Monroy [facility] CPT-79590 Level 3 New Patient 16:14:48 CDT Ayaan Castellanos MD [facility] CPT-86805 Level 4 Est. Patient 08:48:05 CDT Romario Alan MD [facility] CPT-54949 Level 3 Est. Patient 07:30:03 AOC [employer] STAFF OFFICER Mari Dic sanford [facility] CPT-90414 Level 4 Est. Patient 08:02:04 AOC [employer]PER[employer] STAFF OFFICER Mari Dic sanford [facility] CPT-43713 Level 3 Est. Patient 09:56:14 CDT Kadeem jenkins MD [facility] CPT-05155 Level 3 Est. Patient 11:07:45 CDT Ang HILLIARD [facility] Procedures Code Procedure Name Date Entry Date Standard Desc ription CPT-97758 Venipuncture Draw Fee 10:24:46 CDT CPT-TMV TMV 05:09:41 CDT CPT-88163 Foot, right, comp min 3V - XRAY USE ONLY 16:15:36 CDT CPT-J1885 Toradol 30 mg (Ketorolac) 06:01:21 CDT 2020 CPT-40899 EKG Trac and Interp - XRAY USE ONLY 1 8:04:25 CDT CPT-08242 Chest, 2 views 17:02:15 CDT CPT-J1885 Toradol 30 mg (Ketorolac) 16:44:24 CDT 2020 CPT-94102 Abx/Therapy Injection 16:44:24 CDT CPT-04216 Venipuncture Draw Fee 16:11:55 CDT CPT-L3908 Cockup Splint 16:13:07 CDT CPT-14415 Venipuncture Draw Fee 12:12:02 CDT CPT-03838 Forearm, right, AP and Lat - XRAY USE ONLY 05/26 14:27:36 CDT CPT-18815 Elbow, right, Comp Min 3V - XRAY USE ONLY 05/26 14:27:35 CDT CPT-14791 Venipuncture Draw Fee 11:28:13 CDT CPT-29864 Venipuncture Draw Fee 08:03:55 AOC [employer] STAFF OFFICER CPT-87468 Venipuncture Draw Fee 16:21:43 AOC [employer] STAFF OFFICER CPT-34764 40667 - Immun Admin 1 vac 13:37:32 CDT 2019 CPT-47668 Flulaval (Flu) 10PK Syringe IM 13:37:32 CDT CPT-90538 Venipuncture Draw Fee 10:41:23 CDT CPT-39930 Venipuncture Draw Fee 08:57:35 CDT CPT-J1885 Toradol 30 mg (Ketorolac) 18:38:26 CDT 2019 CPT-J2550 Phenergan 25 mg (Promethazine) 18:38:26 CDT CPT-J1020 Depo Medrol 60 mg (Methyl Prednisolone A cetate) 18:38:26 CDT CPT-J1100 Decadron 6mg (Dexamethasone) 18:38:26 CDT 2 CPT-82091 Abx/Therapy Injection 18:38:25 CDT CPT-73805 Venipuncture Draw Fee 08:18:31 CDT CPT-63251 Venipuncture Draw Fee 09:11:08 CDT CPT-15280 Venipuncture Draw Fee 15:19:08 CDT CPT-78867 IM or SQ Injection 13:11:03 CDT CPT-J1100 Decadron 4mg (Dexamethasone) 13:11:03 CDT 2 CPT-J1030 Depo Medrol 40 mg (Methyl Prednisolone A cetate) 13:11:02 CDT CPT-46153 Venipuncture Draw Fee 10:49:05 CDT CPT-06362 Sono Soft Tissue Head and Neck - XRAY US E ONLY 14:27:21 AOC [employer] STAFF OFFICER CPT-IW6699W (4274F) Influenza immunization administe red or previously received 13:43:59 AOC [employer] STAFF OFFICER CPT-J2550 Phenergan 25 mg (Promethazine) 17:57:23 AOC [employer] STAFF OFFICER CPT-J1885 Toradol 30 mg (Ketorolac) 17:57:23 AOC [employer]PER[employer] STAFF OFFICER 2018 CPT-51180 Prv Med Est Pt 18-39yrs 08:02:04 AOC [employer]PER[employer] STAFF OFFICER 010 CPT-96601 15000 - Immun Admin 1 vac 09:24:27 CDT 2018 CPT-01966 Flulaval Quadrivalent (Flu) 10Pk Syringe IM 2018 09:24:27 CDT CPT-73625 First Vx - Ix admin via ID I M or jet injects without counseling by physician 16:30:31 CDT CPT-50087 Fluzone Quadrivalent Intramuscular Suspe nsion 0.5 ML 16:30:31 CDT CPT-74067 Nexplanon Removal 09:56:14 CDT CPT-OV Office Visit 10:17:55 CDT CPT-84254 TB Tubersol 16:11:35 AOC [employer] STAFF OFFICER CPT-76245 Administration single or combination vac cine inc oral 14:18:51 AOC [employer] STAFF OFFICER CPT-44939 TB Tubersol 14:18:51 AOC [employer] STAFF OFFICER CPT-12894 Influenza split virus > age 3 14:18:51 AOC [employer] STAFF OFFICER CPT-10581 Knee 3V 11:04:40 CDT
--- OUTSIDE RECORDS SUMMARY | 2020-10-19 10:45 | XMS REPORT | Clinical Summary ---
Author Author Admin, Isabela Mancera Organization 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 [...] status migrainosus BMI 29-29.9 Refinement Mari Monroy CONTRACT LOADER-C Body Mass Index 29.0-29.9, adult BMI 26-26.9 Refinement Romario Alan MD Body Mass Index 29.0-29.9, adult BMI 29-29.9 Refinement Mari Monroy CONTRACT LOADER-C Body Mass Index 29.0-29.9, adult BMI 30-30.9 Refinement Mari Monroy CONTRACT LOADER-C Body Mass Index 29.0-29.9, adult BMI 29-29.9 Active Mari Monroy CONTRACT LOADER-C Body Mass Index 29.0-29.9, adult Overweight (BMI 25-29.9) Refinement Mari Monroy CONTRACT LOADER-C Overweight Obesity Class I (BMI 30-34.9) Refinement 06/26 Mari Monroy CONTRACT LOADER-C Overweight Overweight (BMI 25-29.9) Active Mari christina CONTRACT LOADER-C Overweight Enlarged thyroid 240.9 Resolved Romario Alan MD Goiter, unspecified Thyroid nodule 241.0 Resolved Romario Alan MD Nontoxic uninodular goiter Fatigue, chronic 780.79 Active Mari GARCÍA Other malaise and fatigue Multinodular thyroid goiter 241.1 Resolved Romario Alan MD Nontoxic multinodular goiter Vitamin B12 deficiency 266.2 Active Mari GARCÍA Other B-complex deficiencies Contact dermatitis 692.9 Resolved Romario nieves MD Contact dermatitis and other eczema, unspecified cause Complete thyroidectomy V45.89 Active Tita mancera MA Other postsurgical status Family history of breast ca V16.3 Active Mari GARCÍA Family history of malignant neoplasm of breast Screening exam for breast cancer V76.10 Resolved 202 Romario Alan MD Breast screening, unspecified Lymphadenopathy 785.6 Resolved Romario Jorge Enlargement of lymph nodes Hypocalcemia 275.41 Active Mari GARCÍA Hypocalcemia Abdominal pain, right lower quadrant 789.03 Active Romario Alan MD Abdominal pain, right lower quadrant Other half-way (current) drug therapy V58.69 Active Mari GARCÍA Long-term (current) use of other medicat ions Exposure to COVID-19 coronavirus V01.79 Active 202 Betsy Willard LPN Contact with or exposure to other viral diseases Polycystic ovary syndrome Active Raquel Estrada ew LRT Other abnormal blood chemistry 790.6 Active 04/11 Mari GARCÍA Other abnormal blood chemistry Hypocalcemia 275.41 Active Bakari Paz, RN Hypocalcemia Adenocarcinoma, thyroid gland 193 Active Eliane Morales Malignant neoplasm of thyroid gland Pain in right arm 729.5 Active Marijudah Monroy CONTRACT LOADER- C Pain in limb Hyperglycemia 790.29 Active Mari Porfirio CONTRACT LOADER-C Other abnormal glucose Contusion of right forearm, initial encounter 923.10 Active Marijudah Monroy CONTRACT LOADER-C Contusion of forearm Chest pain, acute 786.50 Active Marijudah Monroy CONTRACT LOADER- C Unspecified chest pain Headache, mixed 784.0 Active Mari Porfirio CONTRACT LOADER-C Headache Cervicalgia 723.1 Active Mari Porfirio CONTRACT LOADER-C Cervicalgia Scapulalgia, left 733.90 Active Mari Monroy CONTRACT LOADER- C Disorder of bone and cartilage, unspecified Dyspnea 786.09 Active Mari Monroy CONTRACT LOADER-C Other dyspnea and respiratory abnormality Cervical radiculopathy 723.4 Active Mari Monroy CONTRACT LOADER-C Brachial neuritis or radiculitis NOS Hx of migraines V13.8 Active Mari Monroy APRN-C Personal history of other specified diseases Foot pain, right 729.5 Active Shona Gorman, RMA Pain in limb Unspecified injury of right foot, initial encounter 20 14/08/06 Active Kadeem Wall MD Major depressive disorder, recurrent, mild 296.30 Acti ve Mari Monroy CONTRACT LOADER-C Major depressive disorder, r ecurrent episode, unspecified degree OTHER MIXED ANXIETY DISORDERS 300.02 Active 08/07 Mari Monroy APRN-C Generalized anxiety disorder Major depressive disorder, recurrent episode, moderate 296.32 Active Lubna Vizcaino PMHNP-BC Major depressive disorder, recurrent episode, moderate degree Generalized anxiety disorder 300.02 Active Lubna Vizcaino PMHNP-BC Generalized anxiety disorder Elevated Blood Pressure Active Lubna villa PMHNP-BC Elevated blood pressure reading without diagnosis of hypertension ANXIETY DISORDER ICD-300.00 Inactive Romario Alan MD DEPRESSION ICD-311 Inactive Romario Alan MD DIABETES ICD-V18.0 Inactive Romario Alan MD 202 FH BREAST CANCER ICD-V16.3 Inactive Romario Jorge KNEE PAIN, LEFT ICD-719.46 Inactive Romario Eastman MD KNEE PAIN, LEFT ICD-719.46 Inactive Romario Eastman MD Procreative counseling and advice using natural family plann ing ICD-V26.41 Inactive Romario Alan MD Fourth degree hemorrhoids Inactive Weston Alan MD Fatigue and malaise ICD-780.79 Inactive Allsion Alan MD Other organic insomnia ICD-780.52 Inactive [...] MD Screening exam for breast cancer ICD-V76.10 Rox ctive Romario Alan MD Lymphadenopathy ICD-785.6 Inactive Romario patel MD Medication List Medication Instructions Start Date Stop Date Generic Name NDC Status Provider Patient Instruction ZOFRAN 4 MG ORAL TABLET 1 every 6 hours PRN nausea ( MAY CAUSE CONSTIPATION) use sparingly ONDANSETRON HCL 90369374654 Active Mari Monroy CONTRACT LOADER -C Active BUSPIRONE HCL 5 MG ORAL TABLET Take 1 tab PO BID for anxiety 08/29 BUSPIRONE HCL 16261397567 Active Lubna Vizcaino PMHNP-BC Acti ve CYANOCOBALAMIN 1000MCG/ML INJECTION SOLUTION INJECT 1M L SUBCUTANEOUSLY EVERY WEEK FOR 4 DOSES THEN EVERY 2 WEEKS CYANOCOBALAMIN 001 14693368 Active Mari Monroy APRN-C Active WELLBUTRIN XL 150 MG ORAL TABLET EXTENDED RELEASE 24 H OUR 1 po daily for depression/anxiety BUPROPION HCL 53666228628 Active Er judah Monroy CONTRACT LOADER-C Active TOPAMAX 25 MG ORAL TABLET 1 po BID for migraine prevention TOPIRAMATE 74049858165 Active Mari Monroy APRN-C Active AMITRIPTYLINE HCL 25 MG ORAL TABLET 1 PO at HS for migraines 202 AMITRIPTYLINE HCL 45772776951 No Longer Active Bakari Paz RN Active IMITREX 6 MG/0.5ML SUBCUTANEOUS SOLUTION with onset of POWELL may repeat in 1 hour if needed, do not exceed 12mg in 1 day S UMATRIPTAN SUCCINATE 12222394466 No Longer Active Bakari Paz RN Active FIORICET 50-300-40 MG ORAL CAPSULE 1-2 tabs po every 6 hours as needed for headaches, max 6 tabs per day [id number] 29387031835 Active Mari Monroy CONTRACT LOADER-C Active TIZANIDINE HCL 4 MG ORAL TABLET 1/2-1 tab every 8 hour s as needed for muscle spasms TIZANIDINE HCL 10229329502 Active Mari Monroy CONTRACT LOADER-C Active VITAMIN D (ERGOCALCIFEROL) 1.25 MG (64322 UT) ORAL CAPSULE ERGOCALCIFEROL 21627916781 No Longer Active Mari Monroy CONTRACT LOADER-C Active LEVOTHYROXINE SODIUM 112MCG ORAL TABLET TAKE ONE TABLE T BY MOUTH ONE TIME DAILY 30 MINUTES BEFORE BREAKFAST LEVOTHYROXINE SODIUM 61482 002744 Active Cyrus Nel CONTRACT LOADER Active VITAMIN D (ERGOCALCIFEROL) 1.25 MG(04657 UT) ORAL CAPS ULE TAKE ONE CAPSULE BY MOUTH EVERY WEEK ERGOCALCIFEROL 89643419075 Active Miriam Monroy CONTRACT LOADER-C Active CYANOCOBALAMIN 1000 MCG/ML INJECTION SOLUTION 1ml week IM every 2 weeks x4 doses then back to monthly CYANOCOBALAMIN 07120555067 No Lo nger Active Romario Alan MD Active VYVANSE 50 MG ORAL CAPSULE 1 po daily L ISDEXAMFETAMINE DIMESYLATE 27314736588 No Longer Active Romario Alan MD Activ e DIFLUCAN 100 MG ORAL TABLET 1 tablet by mouth daily re peat in 3 days if no improvement FLUCONAZOLE 79780203237 No Longer Active Mari Monroy CONTRACT LOADER-C Active ALPRAZOLAM 0.5 MG ORAL TABLET 1 tab by mouth 3 times daily PRN 2018 ALPRAZOLAM 82635016867 Active Mari Monroy APRN-C Active CIPRO 500 MG ORAL TABLET 1 tab BID CIPROFLOXAC IN HCL 65628154369 No Longer Active Mari Monroy APRN-C Active AMOXICILLIN 500 MG ORAL TABLET 1 po BID x10 days 12/03 AMOXICILLIN 27919889470 No Longer Active Mari Monroy APRN-C Active ZOLOFT 100 MG ORAL TABLET SERTRALINE H CL 54632312696 No Longer Active Ayaan Castellanos MD Active 1 30-0.975-200 MG ORAL CAPSULE 1 qDay 2 MV-MIN-FE FUM-FA-DHA 70738790382 No Longer Active Ayaan Castellanos MD Active ALPRAZOLAM 0.25 MG ORAL TABLET 1 TAB PO Q 6 HRS PRN 08/19 ALPRAZOLAM 00293773800 No Longer Active Kadeem Wall MD Active ALPRAZOLAM 0.25 MG ORAL TABLET 1 TAB PO Q 6 HRS PRN 20 10/08/25 ALPRAZOLAM 0.25 MG ORAL TABLET 234208 ALPRAZOLAM Inactive 1 30-0.975-200 MG ORAL CAPSULE 1 qDay 2 1 30-0.975-200 MG ORAL CAPSULE MV-MIN-FE FUM-FA-DHA I nactive ZOLOFT 100 MG ORAL TABLET ZOLOFT 100 MG ORAL TABLET 468523 SERTRALINE HCL Inactive AMOXICILLIN 500 MG ORAL TABLET 1 po BID x10 days 12/03 AMOXICILLIN 500 MG ORAL TABLET 426646 AMOXICILLIN Inactive CIPRO 500 MG ORAL TABLET 1 tab BID CIP RO 500 MG ORAL TABLET 085499 CIPROFLOXACIN HCL Inactive DIFLUCAN 100 MG ORAL TABLET 1 tablet by mouth daily re peat in 3 days if no improvement DIFLUCAN 100 MG ORAL TABLET 222233 FLUCONAZOLE Inactive VYVANSE 50 MG ORAL CAPSULE 1 po daily V YVANSE 50 MG ORAL CAPSULE LISDEXAMFETAMINE DIMESYLATE Inactive CYANOCOBALAMIN 1000 MCG/ML INJECTION SOLUTION 1ml week IM every 2 weeks x4 doses then back to monthly CYANOCOBALAMIN 1000 MCG/ML INJECTION SOLUTION 461984 CYANOCOBALAMIN Inactive VITAMIN D (ERGOCALCIFEROL) 1.25 MG (40125 UT) ORAL CAPSULE VITAMIN D (ERGOCALCIFEROL) 1.25 MG (05026 UT) ORAL CAPSULE 1 432699 ERGOCALCIFEROL Inactive IMITREX 6 MG/0.5ML SUBCUTANEOUS SOLUTION with onset of POWELL may repeat in 1 hour if needed, do not exceed 12mg in 1 day I MITREX 6 MG/0.5ML SUBCUTANEOUS SOLUTION 507786 SUMATRIPTAN SUCCINATE Inactive AMITRIPTYLINE HCL 25 MG ORAL TABLET 1 PO at HS for migraines AMITRIPTYLINE HCL 25 MG ORAL TABLET 034595 AMITRIPTYLIN E HCL Inactive Advance Directives Directive Description Start Date PERMISSION [...] Fluarix, Agriflu(>= 18 yo)) Fluzone (>3 yrs.) [[id number]] Diagnostic Results Date Name Value Unit Range Description Lab Report: CBC W/DIFF, Comp. Metabolic Panel, Magnesium - Chemistry sodium, serum 141 mmol/L 790-118 1319/05/03 carbon dioxide, venous blood 25.1 mmol/L 21.0-32 [...] test) Negative Negative sodium, serum 140 mmol/L 703-495 4586/10/14 carbon dioxide, venous blood 24.7 mmol/L 21.0-32 [...] W/DIFF, Comp. Metabolic Panel, UADIP W/MICRO, AUTO, CG - Urinalysis urobilinogen, urine, semiquantitative (dipstick) 0.2 [...] - Chem istry sodium, serum 140 mmol/L 749-440 9670/02/22 carbon dioxide, venous blood 27.1 mmol/L 21.0-32 [...] 56 50-136 Lab Report: Comp. Metabolic Panel, [facility] C - Chemistry sodium, serum 140 mmol/L 341-082 8847/04/12 carbon dioxide, venous blood 27.5 mmol/L 21.0-32 .0 potassium, serum 4.0 mmol/L 3.5-5.2 chloride, serum 104 mmol/L 98-107 blood glucose 98 mg/dL 65-95 urea nitrogen, blood 14 mg/dL 7-18 creatinine, serum 0.80 mg/dL 0.60-1.30 Estimated Glomerular Filtration Rate (calc) 86 (?) mL/min/1.73m2 = OR > 60 mL/min alanine aminotransferase (SGPT), serum 13 U/L 12-78 aspartate aminotransferase (SGOT), serum 20 U/L -43 calcium, serum 8.8 mg/dL 8.5-10.1 bilirubin, serum, total 0.50 mg/dL 0.00-1.00 hemoglobin A1C, blood, as % of total hemoglobin 5.3 % 4.3-6.0 Lab Report: Comp. Metabolic Panel, BA1 C - Lab Alkaline phosphatase 63 50-136 Lab Report: Erythrocyte Sed Rate, Thyroi d Stimulating Hormone (L) - Chemistry TSH 2.11 m[iU]/mL 0.36-3.74 Lab Report: Free Thyroxine (L) - Cellophane Bath Mixer ry thyroxine, serum, free 1.20 ng/dL 0.59-1.17 [...] 0.95 ng/dL 0.59-1.17 sodium, serum 138 mmol/L 786-947 9543/08/19 carbon dioxide, venous blood 24.9 mmol/L 21.0-32 [...] mg/dL Encounters Code Encounter Date Provider Facility CPT-88419 Level 5 Est. Patient 14:22:47 CDT Lubna Huerta HNP-[facility] CPT-08382 [id number] Vst-Est Level III 16:54:40 CDT Kadeem Wall MD [facility] CPT-81877 77720-Iyp Vst-Est Level IV 06:01:21 CDT Miriam Monroy [facility] CPT-38131 [id number] Vst-Est Level III 16:13:06 CDT Dariel Monroy [facility] CPT-27944 Level 3 New Patient 16:14:48 CDT Ayaan Castellanos MD [facility] CPT-08930 Level 4 Est. Patient 08:48:05 CDT Romario Alan MD [facility] CPT-35203 Level 3 Est. Patient 07:30:03 CUSTOMER STRATEGY MANAGER Mari christina CONTRACT LOADER-C [facility] CPT-76099 Level 4 Est. Patient 08:02:04 CUSTOMER STRATEGY MANAGER Mari christina CONTRACT LOADER-C [facility] CPT-23550 Level 3 Est. Patient 09:56:14 CDT Kadeem jenkins MD [facility] CPT-32028 Level 3 Est. Patient 11:07:45 CDT Ang HILLIARD [facility] Procedures Code Procedure Name Date Entry Date Standard Desc ription CPT-TMV TMV 05:09:41 CDT CPT-77201 Foot, right, comp min 3V - XRAY USE ONLY 16:15:36 CDT CPT-J1885 Toradol 30 mg (Ketorolac) 06:01:21 CDT 2020 CPT-96686 EKG Trac and Interp - XRAY USE ONLY 1 8:04:25 CDT CPT-94679 Chest, 2 views 17:02:15 CDT CPT-J1885 Toradol 30 mg (Ketorolac) 16:44:24 CDT 2020 CPT-05473 Abx/Therapy Injection 16:44:24 CDT CPT-83629 Venipuncture Draw Fee 16:11:55 CDT CPT-L3908 Cockup Splint 16:13:07 CDT CPT-60555 Venipuncture Draw Fee 12:12:02 CDT CPT-70802 Forearm, right, AP and Lat - XRAY USE ONLY 05/26 14:27:36 CDT CPT-45794 Elbow, right, Comp Min 3V - XRAY USE ONLY 05/26 14:27:35 CDT CPT-51162 Venipuncture Draw Fee 11:28:13 CDT CPT-92086 Venipuncture Draw Fee 08:03:55 CUSTOMER STRATEGY MANAGER CPT-91314 Venipuncture Draw Fee 16:21:43 CUSTOMER STRATEGY MANAGER CPT-40417 46086 - Immun Admin 1 vac 13:37:32 CDT 2019 CPT-83695 Flulaval (Flu) 10PK Syringe IM 13:37:32 CDT CPT-83394 Venipuncture Draw Fee 10:41:23 CDT CPT-33848 Venipuncture Draw Fee 08:57:35 CDT CPT-J1885 Toradol 30 mg (Ketorolac) 18:38:26 CDT 2019 CPT-J2550 Phenergan 25 mg (Promethazine) 18:38:26 CDT CPT-J1020 Depo Medrol 60 mg (Methyl Prednisolone A cetate) 18:38:26 CDT CPT-J1100 Decadron 6mg (Dexamethasone) 18:38:26 CDT 2 CPT-10181 Abx/Therapy Injection 18:38:25 CDT CPT-62408 Venipuncture Draw Fee 08:18:31 CDT CPT-97364 Venipuncture Draw Fee 09:11:08 CDT CPT-08690 Venipuncture Draw Fee 15:19:08 CDT CPT-15714 IM or SQ Injection 13:11:03 CDT CPT-J1100 Decadron 4mg (Dexamethasone) 13:11:03 CDT 2 CPT-J1030 Depo Medrol 40 mg (Methyl Prednisolone A cetate) 13:11:02 CDT CPT-74320 Venipuncture Draw Fee 10:49:05 CDT CPT-17087 Sono Soft Tissue Head and Neck - XRAY US E ONLY 14:27:21 CUSTOMER STRATEGY MANAGER CPT-ZC8961I (4274F) Influenza immunization administe red or previously received 13:43:59 CUSTOMER STRATEGY MANAGER CPT-J2550 Phenergan 25 mg (Promethazine) 17:57:23 CUSTOMER STRATEGY MANAGER CPT-J1885 Toradol 30 mg (Ketorolac) 17:57:23 CUSTOMER STRATEGY MANAGER 2018 CPT-39080 Prv Med Est Pt 18-39yrs 08:02:04 CUSTOMER STRATEGY MANAGER CPT-62073 64084 - Immun Admin 1 vac 09:24:27 CDT 2018 CPT-04357 Flulaval Quadrivalent (Flu) 10Pk Syringe IM 2018 09:24:27 CDT CPT-43208 First Vx - Ix admin via ID I M or jet injects without counseling by physician 16:30:31 CDT CPT-73516 Fluzone Quadrivalent Intramuscular Suspe nsion 0.5 ML 16:30:31 CDT CPT-62395 Nexplanon Removal 09:56:14 CDT CPT-OV Office Visit 10:17:55 CDT CPT-22319 TB Tubersol 16:11:35 CUSTOMER STRATEGY MANAGER CPT-52698 Administration single or combination vac cine inc oral 14:18:51 CUSTOMER STRATEGY MANAGER CPT-03476 TB Tubersol 14:18:51 CUSTOMER STRATEGY MANAGER CPT-02996 Influenza split virus > age 3 14:18:51 CUSTOMER STRATEGY MANAGER CPT-06030 Knee 3V 11:04:40 CDT
--- OUTSIDE RECORDS SUMMARY | 2020-10-19 10:45 | XMS REPORT | Clinical Summary ---
Author Author Admin, Isabela Mancera Organization [facility] [employer] Address Unknown Phone Unavailable Allergies, Adverse Reactions, Alerts Allergy Name Reaction Description Start Date Severity Status Pr ovider No Known Allergies Lubnamaricruz Vizcaino PMHNP-BC Conditions or Problems Problem Name Problem Code Onset Date Status Entry Date Provider Comment Standard Description Annotate ANXIETY DISORDER 300.00 Resolved Romairo Alan MD Anxiety state, unspecified DEPRESSION 311 [...] Alan MD Fatigue and malaise 780.79 Resolved Roamrio sanchez MD Other malaise and fatigue Generalized anxiety disorder 300.02 Active Mari Monroy [employer] Generalized anxiety disorder 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 [...] status migrainosus BMI 29-29.9 Refinement Mari Monroy [employer] Body Mass Index 29.0-29.9, adult BMI 26-26.9 Refinement Romario Alan MD Body Mass Index 29.0-29.9, adult BMI 29-29.9 Refinement Mari Monroy [employer] Body Mass Index 29.0-29.9, adult BMI 30-30.9 Refinement Mari Monroy [employer] Body Mass Index 29.0-29.9, adult BMI 29-29.9 Active Mari Monroy [employer] Body Mass Index 29.0-29.9, adult Overweight (BMI 25-29.9) Refinement Mari Monroy [employer] Overweight Obesity Class I (BMI 30-34.9) Refinement 06/26 Mari Monroy [employer] Overweight Overweight (BMI 25-29.9) Active Mari christina [employer] Overweight Enlarged thyroid 240.9 Resolved Romario Alan MD Goiter, unspecified Thyroid nodule 241.0 Resolved Romario Alan MD Nontoxic uninodular goiter Fatigue, chronic 780.79 Active Mari GARCÍA Other malaise and fatigue Multinodular thyroid goiter 241.1 Resolved Romairo Alan MD Nontoxic multinodular goiter Vitamin B12 [...] in right arm 729.5 Active Marijudah Monroy [employer] Pain in limb Hyperglycemia 790.29 Active Mari Porfirio [employer] Other abnormal glucose Contusion of right forearm, initial encounter 923.10 Active Marijudah Monroy [employer] Contusion of forearm Chest pain, acute 786.50 Active Marijudah Monroy [employer] Unspecified chest pain Headache, mixed 784.0 Active Mari Porfirio [employer] Headache Cervicalgia 723.1 Active Mari Porfirio [employer] Cervicalgia Scapulalgia, left 733.90 Active Mari Monroy [employer] Disorder of bone and cartilage, unspecified Dyspnea 786.09 Active Mari Monroy [employer] Other dyspnea and respiratory abnormality Cervical radiculopathy 723.4 Active Mari Monroy [employer] Brachial neuritis or radiculitis NOS Hx of migraines V13.8 Active Mari Monroy APRN-C Personal history of other specified diseases Foot pain, right 729.5 Active Shona Gorman, RMA Pain in limb Unspecified injury of right foot, initial encounter 20 14/08/06 Active Kadeem Wall MD Major depressive disorder, recurrent, mild 296.30 Acti ve Mari Monroy [employer] Major depressive disorder, r ecurrent episode, unspecified [...] MAY CAUSE CONSTIPATION) use sparingly ONDANSETRON HCL 83932142566 Active Mari Monroy [employer] Active BUSPIRONE HCL 5 MG ORAL TABLET Take 1 tab PO BID for anxiety 08/29 BUSPIRONE HCL 92111014571 Active Lubna Vizcaino PMHNP-BC Acti ve CYANOCOBALAMIN 1000MCG/ML INJECTION SOLUTION INJECT 1M L SUBCUTANEOUSLY EVERY WEEK FOR 4 DOSES THEN EVERY 2 WEEKS CYANOCOBALAMIN 001 35391159 Active Mari Monroy APRN-C Active WELLBUTRIN XL 150 MG ORAL TABLET EXTENDED RELEASE 24 H OUR 1 po daily for depression/anxiety BUPROPION HCL 71348124627 Active Er judah Monroy [employer] Active TOPAMAX 25 MG ORAL TABLET 1 po BID for migraine prevention TOPIRAMATE 10106923239 Active Mari Monroy APRN-C Active AMITRIPTYLINE HCL 25 MG ORAL TABLET 1 PO at HS for migraines 202 AMITRIPTYLINE HCL 64797880175 No Longer Active Bakari Paz RN Active IMITREX 6 MG/0.5ML SUBCUTANEOUS SOLUTION with onset of POWELL may repeat in 1 hour if needed, do not exceed 12mg in 1 day S UMATRIPTAN SUCCINATE 12822844543 No Longer Active Bakari Paz RN Active FIORICET 50-300-40 MG ORAL CAPSULE 1-2 tabs po every 6 hours as needed for headaches, max 6 tabs per day [id number] 14965203013 Active Mari Monroy [employer] Active TIZANIDINE HCL 4 MG ORAL TABLET 1/2-1 tab every 8 hour s as needed for muscle spasms TIZANIDINE HCL 91767383932 Active Mari Monroy [employer] Active VITAMIN D (ERGOCALCIFEROL) 1.25 MG (59112 UT) ORAL CAPSULE ERGOCALCIFEROL 46929977899 No Longer Active Mari Monroy [employer] Active LEVOTHYROXINE SODIUM 112MCG ORAL TABLET TAKE ONE TABLE T BY MOUTH ONE TIME DAILY 30 MINUTES BEFORE BREAKFAST LEVOTHYROXINE SODIUM 00335 540252 Active Cyrus Nel [employer] Active VITAMIN D (ERGOCALCIFEROL) 1.25 MG(77736 UT) ORAL CAPS ULE TAKE ONE CAPSULE BY MOUTH EVERY WEEK ERGOCALCIFEROL 34298534180 Active Miriam Monroy [employer] Active CYANOCOBALAMIN 1000 MCG/ML INJECTION SOLUTION 1ml week IM every 2 weeks x4 doses then back to monthly CYANOCOBALAMIN 85458915971 No Lo nger Active Romario Alan MD Active VYVANSE 50 MG ORAL CAPSULE 1 po daily L ISDEXAMFETAMINE DIMESYLATE 38162534211 No Longer Active Romario Alan MD Activ e DIFLUCAN 100 MG ORAL TABLET 1 tablet by mouth daily re peat in 3 days if no improvement FLUCONAZOLE 10963317880 No Longer Active Mari Monroy [employer] Active ALPRAZOLAM 0.5 MG ORAL TABLET 1 tab by mouth 3 times daily PRN 2018 ALPRAZOLAM 86695205860 Active Mari Monroy APRN-C Active CIPRO 500 MG ORAL TABLET 1 tab BID CIPROFLOXAC IN HCL 53693092090 No Longer Active Mari Monroy APRN-C Active AMOXICILLIN 500 MG ORAL TABLET 1 po BID x10 days 12/03 AMOXICILLIN 73492166361 No Longer Active Mari Monroy APRN-C Active ZOLOFT 100 MG ORAL TABLET SERTRALINE H CL 12366045970 No Longer Active Ayaan Castellanos MD Active 1 30-0.975-200 MG ORAL CAPSULE 1 qDay 2 MV-MIN-FE FUM-FA-DHA 72117200875 No Longer Active Ayaan Castellanos MD Active ALPRAZOLAM 0.25 MG ORAL TABLET 1 TAB PO Q 6 HRS PRN 08/19 ALPRAZOLAM 49585628508 No Longer Active Kadeem Wall MD Active ALPRAZOLAM 0.25 MG ORAL TABLET 1 TAB PO Q 6 HRS PRN 20 10/08/25 ALPRAZOLAM 0.25 MG ORAL TABLET 458856 ALPRAZOLAM Inactive 1 30-0.975-200 MG ORAL CAPSULE 1 qDay 2 1 30-0.975-200 MG ORAL CAPSULE MV-MIN-FE FUM-FA-DHA I nactive ZOLOFT 100 MG ORAL TABLET ZOLOFT 100 MG ORAL TABLET 818707 SERTRALINE HCL Inactive AMOXICILLIN 500 MG ORAL TABLET 1 po BID x10 days 12/03 AMOXICILLIN 500 MG ORAL TABLET 122515 AMOXICILLIN Inactive CIPRO 500 MG ORAL TABLET 1 tab BID CIP RO 500 MG ORAL TABLET 924780 CIPROFLOXACIN HCL Inactive DIFLUCAN 100 MG ORAL TABLET 1 tablet by mouth daily re peat in 3 days if no improvement DIFLUCAN 100 MG ORAL TABLET 853077 FLUCONAZOLE Inactive VYVANSE 50 MG ORAL CAPSULE 1 po daily V YVANSE 50 MG ORAL CAPSULE LISDEXAMFETAMINE DIMESYLATE Inactive CYANOCOBALAMIN 1000 MCG/ML INJECTION SOLUTION 1ml week IM every 2 weeks x4 doses then back to monthly CYANOCOBALAMIN 1000 MCG/ML INJECTION SOLUTION 251565 CYANOCOBALAMIN Inactive VITAMIN D (ERGOCALCIFEROL) 1.25 MG (16685 UT) ORAL CAPSULE VITAMIN D (ERGOCALCIFEROL) 1.25 MG (09162 UT) ORAL CAPSULE 1 163736 ERGOCALCIFEROL Inactive IMITREX 6 MG/0.5ML SUBCUTANEOUS SOLUTION with onset of POWELL may repeat in 1 hour if needed, do not exceed 12mg in 1 day I MITREX 6 MG/0.5ML SUBCUTANEOUS SOLUTION 520565 SUMATRIPTAN SUCCINATE Inactive AMITRIPTYLINE HCL 25 MG ORAL TABLET 1 PO at HS for migraines AMITRIPTYLINE HCL 25 MG ORAL TABLET 223832 AMITRIPTYLIN E HCL Inactive Advance Directives Directive [...] Fluarix, Agriflu(>= 18 yo)) Fluzone (>3 yrs.) [[id number]] Diagnostic Results Date Name Value Unit Range Description Lab Report: CBC W/DIFF, Comp. Metabolic Panel, Magnesium - Chemistry sodium, serum 141 mmol/L 024-429 7640/05/03 carbon dioxide, venous blood 25.1 mmol/L 21.0-32 [...] test) Negative Negative sodium, serum 140 mmol/L 067-365 2022/10/14 carbon dioxide, venous blood 24.7 mmol/L 21.0-32 [...] - Chem istry sodium, serum 140 mmol/L 143-895 4293/02/22 carbon dioxide, venous blood 27.1 mmol/L 21.0-32 [...] 56 50-136 Lab Report: Comp. Metabolic Panel, [facility] [place] C - Chemistry sodium, serum 140 mmol/L 178-414 0028/04/12 carbon dioxide, venous blood 27.5 mmol/L 21.0-32 [...] 0.36-3.74 Lab Report: Free Thyroxine (L) - Embedded Nurse ry thyroxine, serum, free 1.20 ng/dL 0.59-1.17 [...] 0.95 ng/dL 0.59-1.17 sodium, serum 138 mmol/L 726-338 8630/08/19 carbon dioxide, venous blood 24.9 mmol/L 21.0-32 [...] mg/dL Encounters Code Encounter Date Provider Facility CPT-54815 Level 5 Est. Patient 14:22:47 CDT Lubna Huerta HNP-[facility] CPT-12042 [id number] Vst-Est Level III 16:54:40 CDT Kadeem Wall MD [facility] CPT-06806 [id number] Vst-Est Level IV 06:01:21 CDT Miriam Monroy [facility] CPT-18753 [id number] Vst-Est Level III 16:13:06 CDT Dariel Monroy [facility] CPT-15832 Level 3 New Patient 16:14:48 CDT Ayaan Castellanos MD [facility] CPT-47996 Level 4 Est. Patient 08:48:05 CDT Romario Alan MD [facility] CPT-85572 Level 3 Est. Patient 07:30:03 SURGERY TEACHER Mari christina [employer] [facility] CPT-36200 Level 4 Est. Patient 08:02:04 SURGERY TEACHER Mari christina [employer] [facility] CPT-41003 Level 3 Est. Patient 09:56:14 CDT Kadeem jenkins MD [facility] CPT-65568 Level 3 Est. Patient 11:07:45 CDT Ang HILLIARD [facility] Procedures Code Procedure Name Date Entry Date Standard Desc ription CPT-TMV TMV 05:09:41 CDT CPT-59714 Foot, right, comp min 3V - XRAY USE ONLY 16:15:36 CDT CPT-J1885 Toradol 30 mg (Ketorolac) 06:01:21 CDT 2020 CPT-16092 EKG Trac and Interp - XRAY USE ONLY 1 8:04:25 CDT CPT-90110 Chest, 2 views 17:02:15 CDT CPT-J1885 Toradol 30 mg (Ketorolac) 16:44:24 CDT 2020 CPT-55949 Abx/Therapy Injection 16:44:24 CDT CPT-38825 Venipuncture Draw Fee 16:11:55 CDT CPT-L3908 Cockup Splint 16:13:07 CDT CPT-79651 Venipuncture Draw Fee 12:12:02 CDT CPT-57675 Forearm, right, AP and Lat - XRAY USE ONLY 05/26 14:27:36 CDT CPT-43002 Elbow, right, Comp Min 3V - XRAY USE ONLY 05/26 14:27:35 CDT CPT-12252 Venipuncture Draw Fee 11:28:13 CDT CPT-91532 Venipuncture Draw Fee 08:03:55 SURGERY TEACHER CPT-47762 Venipuncture Draw Fee 16:21:43 SURGERY TEACHER CPT-65600 85081 - Immun Admin 1 vac 13:37:32 CDT 2019 CPT-37513 Flulaval (Flu) 10PK Syringe IM 13:37:32 CDT CPT-33105 Venipuncture Draw Fee 10:41:23 CDT CPT-79429 Venipuncture Draw Fee 08:57:35 CDT CPT-J1885 Toradol 30 mg (Ketorolac) 18:38:26 CDT 2019 CPT-J2550 Phenergan 25 mg (Promethazine) 18:38:26 CDT CPT-J1020 Depo Medrol 60 mg (Methyl Prednisolone A cetate) 18:38:26 CDT CPT-J1100 Decadron 6mg (Dexamethasone) 18:38:26 CDT 2 CPT-41633 Abx/Therapy Injection 18:38:25 CDT CPT-47861 Venipuncture Draw Fee 08:18:31 CDT CPT-06377 Venipuncture Draw Fee 09:11:08 CDT CPT-09061 Venipuncture Draw Fee 15:19:08 CDT CPT-22964 IM or SQ Injection 13:11:03 CDT CPT-J1100 Decadron 4mg (Dexamethasone) 13:11:03 CDT 2 CPT-J1030 Depo Medrol 40 mg (Methyl Prednisolone A cetate) 13:11:02 CDT CPT-19699 Venipuncture Draw Fee 10:49:05 CDT CPT-01073 Sono Soft Tissue Head and Neck - XRAY US E ONLY 14:27:21 SURGERY TEACHER CPT-SC4940Q (4274F) Influenza immunization administe red or previously received 13:43:59 SURGERY TEACHER CPT-J2550 Phenergan 25 mg (Promethazine) 17:57:23 SURGERY TEACHER CPT-J1885 Toradol 30 mg (Ketorolac) 17:57:23 SURGERY TEACHER 2018 CPT-46863 Prv Med Est Pt 18-39yrs 08:02:04 SURGERY TEACHER CPT-93453 29992 - Immun Admin 1 vac 09:24:27 CDT 2018 CPT-12184 Flulaval Quadrivalent (Flu) 10Pk Syringe IM 2018 09:24:27 CDT CPT-13112 First Vx - Ix admin via ID I M or jet injects without counseling by physician 16:30:31 CDT CPT-95621 Fluzone Quadrivalent Intramuscular Suspe nsion 0.5 ML 16:30:31 CDT CPT-05930 Nexplanon Removal 09:56:14 CDT CPT-OV Office Visit 10:17:55 CDT CPT-19405 TB Tubersol 16:11:35 SURGERY TEACHER CPT-83389 Administration single or combination vac cine inc oral 14:18:51 SURGERY TEACHER CPT-66151 TB Tubersol 14:18:51 SURGERY TEACHER CPT-42706 Influenza split virus > age 3 14:18:51 SURGERY TEACHER CPT-48892 Knee 3V 11:04:40 CDT
--- OUTSIDE RECORDS SUMMARY | 2020-10-19 10:45 | XMS REPORT | Clinical Summary ---
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 [...] intractable migraine 346.10 Activ e Mari Monroy TUBE SKIVER-C Migraine without aura, witho ut mention of intractable migraine, without mention of status migrainosus BMI 29-29.9 Refinement Mari Monroy TUBE SKIVER-C Body Mass Index 29.0-29.9, adult BMI 26-26.9 Refinement Romario Alan MD Body Mass Index 29.0-29.9, adult BMI 29-29.9 Refinement Mari Porfirio TUBE SKIVER-C Body Mass Index 29.0-29.9, adult BMI 30-30.9 Refinement Mari Porfirio TUBE SKIVER-C Body Mass Index 29.0-29.9, adult BMI 29-29.9 Refinement Mari Monroy TUBE SKIVER-C Body Mass Index 29.0-29.9, adult BMI 30-30.9 Active Mari Porfirio TUBE SKIVER-C Body Mass Index 29.0-29.9, adult Overweight (BMI 25-29.9) Refinement Mari Porfirio TUBE SKIVER-C Overweight Obesity Class I (BMI 30-34.9) Refinement 06/26 Mari Monroy TUBE SKIVER-C Overweight Overweight (BMI 25-29.9) Refinement Mari Monroy TUBE SKIVER-C Overweight Obesity Class I (BMI 30-34.9) Active 5 Mari Monroy APRN-C Overweight Enlarged thyroid 240.9 Resolved Romario Alan MD Goiter, unspecified Thyroid nodule 241.0 Resolved oRmario Alan MD Nontoxic uninodular goiter Fatigue, chronic [...] MD Abdominal pain, right lower quadrant Other intermediate (current) drug therapy V58.69 Active Mari Monroy APRN-C Long-term (current) use of other medicat ions Exposure to COVID-19 coronavirus V01.79 Active 202 Betsy Willard LPN Contact with or exposure to other viral diseases Polycystic ovary syndrome Active Raquel Estrada ew LRT Other abnormal blood chemistry 790.6 Active 04/11 Mari Porfirio TUBE SKIVER-C Other abnormal blood chemistry Hypocalcemia 275.41 Active Bakari Paz, FARIDEH Hypocalcemia Adenocarcinoma, thyroid gland 193 Active Eliane Zarcowell Malignant neoplasm of thyroid gland Pain in right arm 729.5 Active Marijudah Monroy TUBE SKIVER- C Pain in limb Hyperglycemia 790.29 Active Marijudah Monroy TUBE SKIVER-C Other abnormal glucose Contusion of right forearm, initial encounter 923.10 Active Mari Monroy TUBE SKIVER-C Contusion of forearm Chest pain, acute 786.50 Active Mari Monroy APRN- C Unspecified chest pain Headache, mixed 784.0 Active Mari Monroy TUBE SKIVER-C Headache Cervicalgia 723.1 Active Marijudah Monroy APRN-C Cervicalgia Scapulalgia, left 733.90 Active Mari Mornoy APRN- C Disorder of bone and cartilage, unspecified Dyspnea 786.09 Active Mari Monroy APRN-C Other dyspnea and respiratory abnormality Cervical radiculopathy 723.4 Active Mari Monroy APRN-C Brachial neuritis or radiculitis NOS Hx of migraines V13.8 Active Mari Monroy TUBE SKIVER-C Personal history of other specified diseases Foot pain, right 729.5 Active Shona Gorman, RMA Pain in limb Unspecified injury of right foot, initial encounter 20 14/08/06 Active Kadeem Wall MD Major depressive disorder, recurrent, mild 296.30 Acti ve Mari Monroy APRN-C Major depressive disorder, r ecurrent episode, unspecified degree OTHER MIXED ANXIETY DISORDERS 300.02 Active 08/07 Mari Monroy TUBE SKIVER-C Generalized anxiety disorder Major depressive disorder, recurrent episode, moderate 296.32 Active Lubna Vizcaino PMHNP-BC Major depressive disorder, recurrent episode, moderate degree Generalized anxiety disorder 300.02 Active Lubna Vizcaino PMHNP-BC Generalized anxiety disorder Elevated Blood Pressure Active Lubna villa PMHNP-BC Elevated blood pressure reading without diagnosis of hypertension Cervical lymphadenopathy, anterior, right 785.6 Activ e Mari Monroy TUBE SKIVER-C Enlargement of lymph nodes Lymphadenopathy 785.6 Active Mari Monroy TUBE SKIVER-C Enlargement of lymph nodes ANXIETY DISORDER ICD-300.00 [...] MD Screening exam for breast cancer ICD-V76.10 [place] ctive Romario Alan MD Lymphadenopathy ICD-785.6 Inactive Romario paetl MD Medication List Medication Instructions Start Date Stop Date Generic Name NDC Status Provider Patient Instruction CEFUROXIME AXETIL 250 MG ORAL TABLET 1 po BID x 10 days CEFUROXIME AXETIL 31359051465 Active Mari Monroy APRN-C Active MEDROL 4 MG ORAL TABLET THERAPY PACK take as directed METHYLPREDNISOLONE 48037746010 No Longer Active Mari Monroy APRN-C Active METHOCARBAMOL 500 MG ORAL TABLET 0.5-1 tab every 8 luis rs as needed for tension headaches METHOCARBAMOL 65845967589 Active Mari Monroy TUBE SKIVER-C Active ZOFRAN 4 MG ORAL TABLET 1 every 6 hours PRN nausea ( MAY CAUSE CONSTIPATION) use sparingly ONDANSETRON HCL 61554629530 Active Mari Monroy TUBE SKIVER -C Active BUSPIRONE HCL 5 MG ORAL TABLET Take 1 tab PO BID for anxiety 08/29 BUSPIRONE HCL 10110380736 Active Lubna Vizcaino PMHNP-BC Acti ve CYANOCOBALAMIN 1000MCG/ML INJECTION SOLUTION INJECT 1M L SUBCUTANEOUSLY EVERY WEEK FOR 4 DOSES THEN EVERY 2 WEEKS CYANOCOBALAMIN 001 81471115 Active Mari Monroy APRN-C Active WELLBUTRIN XL 150 MG ORAL TABLET EXTENDED RELEASE 24 H OUR 1 po daily for depression/anxiety BUPROPION HCL 62386974802 Active Er judah Monroy APRN-C Active TOPAMAX 25 MG ORAL TABLET 1 po BID for migraine prevention TOPIRAMATE 59843547604 Active Mari Monroy APRN-C Active AMITRIPTYLINE HCL 25 MG ORAL TABLET 1 PO at HS for migraines AMITRIPTYLINE HCL 96267252985 No Longer Active Bakari Paz RN Active IMITREX 6 MG/0.5ML SUBCUTANEOUS SOLUTION with onset of POWELL may repeat in 1 hour if needed, do not exceed 12mg in 1 day S UMATRIPTAN SUCCINATE 39268147203 No Longer Active Bakari Paz RN Active FIORICET 50-300-40 MG ORAL CAPSULE 1-2 tabs po every 6 hours as needed for headaches, max 6 tabs per day [id number] 50992381336 Active Mari Monroy APRN-C Active TIZANIDINE HCL 4 MG ORAL TABLET 1/2-1 tab every 8 hour s as needed for muscle spasms TIZANIDINE HCL 36458721088 Active Mari Monroy APRN-C Active VITAMIN D (ERGOCALCIFEROL) 1.25 MG (06294 UT) ORAL CAPSULE ERGOCALCIFEROL 93076826724 No Longer Active Mari Monroy APRN-C Active LEVOTHYROXINE SODIUM 112MCG ORAL TABLET TAKE ONE TABLE T BY MOUTH ONE TIME DAILY 30 MINUTES BEFORE BREAKFAST LEVOTHYROXINE SODIUM 84364 852042 Active Cyrus Neumann APRN Active VITAMIN D (ERGOCALCIFEROL) 1.25 MG(64812 UT) ORAL CAPS ULE TAKE ONE CAPSULE BY MOUTH EVERY WEEK ERGOCALCIFEROL 91907105857 Active Miriam Monroy APRN-C Active CYANOCOBALAMIN 1000 MCG/ML INJECTION SOLUTION 1ml week IM every 2 weeks x4 doses then back to monthly CYANOCOBALAMIN 17790423380 No Lo nger Active Romario Alan MD Active VYVANSE 50 MG ORAL CAPSULE 1 po daily L ISDEXAMFETAMINE DIMESYLATE 78945769934 No Longer Active Romario Alan MD Activ e DIFLUCAN 100 MG ORAL TABLET 1 tablet by mouth daily re peat in 3 days if no improvement FLUCONAZOLE 01980176559 No Longer Active Mari Monroy TUBE SKIVER-C Active ALPRAZOLAM 0.5 MG ORAL TABLET 1 tab by mouth 3 times daily PRN 2018 ALPRAZOLAM 22804624915 Active Marijudah Monroy APRN-C Active CIPRO 500 MG ORAL TABLET 1 tab BID CIPROFLOXAC IN HCL 02102254509 No Longer Active Mari Monroy TUBE SKIVER-C Active AMOXICILLIN 500 MG ORAL TABLET 1 po BID x10 days 12/03 AMOXICILLIN 33922478257 No Longer Active Marijudah Monroy APRN-C Active ZOLOFT 100 MG ORAL TABLET SERTRALINE H CL 66683230297 No Longer Active Ayaan Castellanos MD Active 1 30-0.975-200 MG ORAL CAPSULE 1 qDay 2 MV-MIN-FE FUM-FA-DHA 91260679605 No Longer Active Ayaan Castellanos MD Active ALPRAZOLAM 0.25 MG ORAL TABLET 1 TAB PO Q 6 HRS PRN 08/19 ALPRAZOLAM 34024700665 No Longer Active Kadeem Wall MD Active ALPRAZOLAM 0.25 MG ORAL TABLET 1 TAB PO Q 6 HRS PRN 20 10/08/25 ALPRAZOLAM 0.25 MG ORAL TABLET 451457 ALPRAZOLAM Inactive 1 30-0.975-200 MG ORAL CAPSULE 1 qDay 2 1 30-0.975-200 MG ORAL CAPSULE MV-MIN-FE FUM-FA-DHA I nactive ZOLOFT 100 MG ORAL TABLET ZOLOFT 100 MG ORAL TABLET 744533 SERTRALINE HCL Inactive AMOXICILLIN 500 MG ORAL TABLET 1 po BID x10 days 12/03 AMOXICILLIN 500 MG ORAL TABLET 971144 AMOXICILLIN Inactive CIPRO 500 MG ORAL TABLET 1 tab BID CIP RO 500 MG ORAL TABLET 229866 CIPROFLOXACIN HCL Inactive DIFLUCAN 100 MG ORAL TABLET 1 tablet by mouth daily re peat in 3 days if no improvement DIFLUCAN 100 MG ORAL TABLET 847230 FLUCONAZOLE Inactive VYVANSE 50 MG ORAL CAPSULE 1 po daily V YVANSE 50 MG ORAL CAPSULE LISDEXAMFETAMINE DIMESYLATE Inactive CYANOCOBALAMIN 1000 MCG/ML INJECTION SOLUTION 1ml week IM every 2 weeks x4 doses then back to monthly CYANOCOBALAMIN 1000 MCG/ML INJECTION SOLUTION 515819 CYANOCOBALAMIN Inactive VITAMIN D (ERGOCALCIFEROL) 1.25 MG (06316 UT) ORAL CAPSULE VITAMIN D (ERGOCALCIFEROL) 1.25 MG (16838 UT) ORAL CAPSULE 1 105664 ERGOCALCIFEROL Inactive IMITREX 6 MG/0.5ML SUBCUTANEOUS SOLUTION with onset of POWELL may repeat in 1 hour if needed, do not exceed 12mg in 1 day I MITREX 6 MG/0.5ML SUBCUTANEOUS SOLUTION 826347 SUMATRIPTAN SUCCINATE Inactive AMITRIPTYLINE HCL 25 MG ORAL TABLET 1 PO at HS for migraines AMITRIPTYLINE HCL 25 MG ORAL TABLET 104986 AMITRIPTYLIN E HCL Inactive MEDROL 4 MG ORAL TABLET THERAPY PACK take as directed MEDROL 4 MG ORAL TABLET THERAPY PACK 344446 METHYLPREDNISOLONE Rox ctive Advance Directives Directive Description [...] Fluarix, Agriflu(>= 18 yo)) Fluzone (>3 yrs.) [[id number]] TB-PPD (tuberculin purified protein derivative), intra dermal administration Tubersol Diagnostic Results Date Name Value Unit Range Description Lab Report: CBC W/DIFF, Comp. Metabolic Panel, Magnesium - Chemistry sodium, serum 141 mmol/L 069-244 4562/05/03 carbon dioxide, venous blood 25.1 mmol/L 21.0-32 [...] W/DIFF, Comp. Metabolic Panel, UADIP W/MICRO, AUTO, [facility] [place] Chemistry human chorionic gonadotropin , urine, qualitative (urine test) Negative Negative sodium, serum 140 mmol/L 134-662 1395/10/14 carbon dioxide, venous blood 24.7 mmol/L 21.0-32 [...] W/DIFF, Comp. Metabolic Panel, UADIP W/MICRO, AUTO, [facility] [place] - Hematology leukocyte count, blood 14.8 10^3/MM^3 [...] W/DIFF, Comp. Metabolic Panel, UADIP W/MICRO, AUTO, [facility] [place] - Lab Alkaline phosphatase 67 50-136 Lab Report: CBC W/DIFF, Comp. Metabolic Panel, UADIP W/MICRO, AUTO, [facility] [place] - Urinalysis urobilinogen, urine, semiquantitative (dipstick) 0.2 [...] - Chem istry sodium, serum 140 mmol/L 819-633 4345/02/22 carbon dioxide, venous blood 27.1 mmol/L 21.0-32 [...] C - Chemistry sodium, serum 140 mmol/L 118-698 5410/04/12 carbon dioxide, venous blood 27.5 mmol/L 21.0-32 [...] 0.36-3.74 Lab Report: Free Thyroxine (L) - [employer] ry thyroxine, serum, free 1.20 ng/dL 0.59-1.17 [...] 0.95 ng/dL 0.59-1.17 sodium, serum 138 mmol/L 187-571 0908/08/19 carbon dioxide, venous blood 24.9 mmol/L 21.0-32 [...] mg/dL Encounters Code Encounter Date Provider Facility CPT-19085 Level 5 Est. Patient 14:22:47 CDT Lubna Huerta PMHNP-BC [facility] CPT-50541 [id number] Vst-Est Level III 16:54:40 CDT Kadeem Wall MD [facility] CPT-17732 76492-Ooh Vst-Est Level IV 06:01:21 CDT Miriam Monroy [facility] CPT-51806 93519-Npu Vst-Est Level III 16:13:06 CDT Er judah Porfirio [facility] CPT-16103 Level 3 New Patient 16:14:48 CDT Ayaan Castellanos MD [facility] CPT-83831 Level 4 Est. Patient 08:48:05 CDT Romario Alan MD [facility] CPT-12403 Level 3 Est. Patient 07:30:03 MANAGER OF INFORMATION Mari Dic sanford [facility] CPT-62867 Level 4 Est. Patient 08:02:04 MANAGER OF INFORMATION Mari Dic sanford [facility] CPT-65353 Level 3 Est. Patient 09:56:14 CDT Kadeem jenkins MD [facility] CPT-50489 Level 3 Est. Patient 11:07:45 CDT Ang HILLIARD [facility] Procedures Code Procedure Name Date Entry Date Standard Desc ription CPT-96765 Sono Soft Tissue Head and Neck - XRAY US E ONLY 10:50:20 CDT CPT-52271 Venipuncture Draw Fee 10:24:46 CDT CPT-TMV TMV 05:09:41 CDT CPT-96313 Foot, right, comp min 3V - XRAY USE ONLY 16:15:36 CDT CPT-J1885 Toradol 30 mg (Ketorolac) 06:01:21 CDT 2020 CPT-40993 EKG Trac and Interp - XRAY USE ONLY 1 8:04:25 CDT CPT-51498 Chest, 2 views 17:02:15 CDT CPT-J1885 Toradol 30 mg (Ketorolac) 16:44:24 CDT 2020 CPT-76778 Abx/Therapy Injection 16:44:24 CDT CPT-03913 Venipuncture Draw Fee 16:11:55 CDT CPT-L3908 Cockup Splint 16:13:07 CDT CPT-10762 Venipuncture Draw Fee 12:12:02 CDT CPT-52781 Forearm, right, AP and Lat - XRAY USE ONLY 05/26 14:27:36 CDT CPT-16134 Elbow, right, Comp Min 3V - XRAY USE ONLY 05/26 14:27:35 CDT CPT-44499 Venipuncture Draw Fee 11:28:13 CDT CPT-17977 Venipuncture Draw Fee 08:03:55 MANAGER OF INFORMATION CPT-82727 Venipuncture Draw Fee 16:21:43 MANAGER OF INFORMATION CPT-68883 92521 - Immun Admin 1 vac 13:37:32 CDT 2019 CPT-75436 Flulaval (Flu) 10PK Syringe IM 13:37:32 CDT CPT-11005 Venipuncture Draw Fee 10:41:23 CDT CPT-00314 Venipuncture Draw Fee 08:57:35 CDT CPT-J1885 Toradol 30 mg (Ketorolac) 18:38:26 CDT 2019 CPT-J2550 Phenergan 25 mg (Promethazine) 18:38:26 CDT CPT-J1020 Depo Medrol 60 mg (Methyl Prednisolone A cetate) 18:38:26 CDT CPT-J1100 Decadron 6mg (Dexamethasone) 18:38:26 CDT 2 CPT-96200 Abx/Therapy Injection 18:38:25 CDT CPT-63853 Venipuncture Draw Fee 08:18:31 CDT CPT-05167 Venipuncture Draw Fee 09:11:08 CDT CPT-02458 Venipuncture Draw Fee 15:19:08 CDT CPT-78623 IM or SQ Injection 13:11:03 CDT CPT-J1100 Decadron 4mg (Dexamethasone) 13:11:03 CDT 2 CPT-J1030 Depo Medrol 40 mg (Methyl Prednisolone A cetate) 13:11:02 CDT CPT-60856 Venipuncture Draw Fee 10:49:05 CDT CPT-99038 Sono Soft Tissue Head and Neck - XRAY US E ONLY 14:27:21 MANAGER OF INFORMATION CPT-WJ2984G (4274F) Influenza immunization administe red or previously received 13:43:59 MANAGER OF INFORMATION CPT-J2550 Phenergan 25 mg (Promethazine) 17:57:23 MANAGER OF INFORMATION CPT-J1885 Toradol 30 mg (Ketorolac) 17:57:23 MANAGER OF INFORMATION 2018 CPT-79531 Prv Med Est Pt 18-39yrs 08:02:04 MANAGER OF INFORMATION 010 CPT-28711 87636 - Immun Admin 1 vac 09:24:27 CDT 2018 CPT-48767 Flulaval Quadrivalent (Flu) 10Pk Syringe IM 2018 09:24:27 CDT CPT-64623 First Vx - Ix admin via ID I M or jet injects without counseling by physician 16:30:31 CDT CPT-38655 Fluzone Quadrivalent Intramuscular Suspe nsion 0.5 ML 16:30:31 CDT CPT-16436 Nexplanon Removal 09:56:14 CDT CPT-OV Office Visit 10:17:55 CDT CPT-61787 TB Tubersol 16:11:35 MANAGER OF INFORMATION CPT-77836 Administration single or combination vac cine inc oral 14:18:51 MANAGER OF INFORMATION CPT-73993 TB Tubersol 14:18:51 MANAGER OF INFORMATION CPT-28652 Influenza split virus > age 3 14:18:51 MANAGER OF INFORMATION CPT-25009 Knee 3V 11:04:40 CDT
--- OUTSIDE RECORDS SUMMARY | 2020-10-19 10:45 | XMS REPORT | Clinical Summary ---
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 [...] migrainosus BMI 29-29.9 Refinement Mari Monroy [employer] JOURNEYMAN ELECTRICIAN-C Body Mass Index 29.0-29.9, adult BMI 26-26.9 Refinement Romario Alan MD Body Mass Index 29.0-29.9, adult BMI 29-29.9 Refinement Mari Monroy [employer]ERCIAL JOURNEYMAN ELECTRICIAN-C Body Mass Index 29.0-29.9, adult BMI 30-30.9 Refinement Mari Monroy [employer]ERCIAL JOURNEYMAN ELECTRICIAN-C Body Mass Index 29.0-29.9, adult BMI 29-29.9 Active Mari Monroy COMMERCIAL JOURNEYMAN ELECTRICIAN-C Body Mass Index 29.0-29.9, adult Overweight (BMI 25-29.9) Refinement Mari Monroy [employer]ERCIAL JOURNEYMAN ELECTRICIAN-C Overweight Obesity Class I (BMI 30-34.9) Refinement 06/26 Mari Monroy COMMERCIAL JOURNEYMAN ELECTRICIAN-C Overweight Overweight (BMI 25-29.9) Active Mari christina [employer] JOURNEYMAN ELECTRICIAN-C Overweight Enlarged thyroid 240.9 Resolved Romario Alan [...] MD Abdominal pain, right lower quadrant Other assisted (current) drug therapy V58.69 Active Mari GARCÍA [...] in right arm 729.5 Active Marijudah Monroy [employer]CIAL JOURNEYMAN ELECTRICIAN- C Pain in limb Hyperglycemia 790.29 Active Mari Porfirio [employer] JOURNEYMAN ELECTRICIAN-C Other abnormal glucose Contusion of right forearm, initial encounter 923.10 Active Marijudah Monroy [employer]ERCIAL JOURNEYMAN ELECTRICIAN-C Contusion of forearm Chest pain, acute 786.50 Active Marijudah Monroy COMMERCIAL JOURNEYMAN ELECTRICIAN- C Unspecified chest pain Headache, mixed 784.0 Active Mari Porfirio [employer]CIAL JOURNEYMAN ELECTRICIAN-C Headache Cervicalgia 723.1 Active Mari Porfirio [employer]ERCIAL JOURNEYMAN ELECTRICIAN-C Cervicalgia Scapulalgia, left 733.90 Active Mari Monroy COMMERCIAL JOURNEYMAN ELECTRICIAN- C Disorder of bone and cartilage, unspecified Dyspnea 786.09 Active Mari Monroy COMMERCIAL JOURNEYMAN ELECTRICIAN-C Other dyspnea and respiratory abnormality Cervical radiculopathy 723.4 Active Mari Monroy [employer]ERCIAL JOURNEYMAN ELECTRICIAN-C Brachial neuritis or radiculitis NOS Hx of migraines V13.8 Active Mari Monroy APRN-C Personal history of other specified diseases Foot pain, right 729.5 Active Shona Gorman, RMA Pain in limb Unspecified injury of right foot, initial encounter 20 14/08/06 Active Kadeem Wall MD Major depressive disorder, recurrent, mild 296.30 Acti ve Mari Monroy [employer] JOUR[employer] ELECTRICIAN-C Major depressive disorder, r ecurrent episode, unspecified [...] Romario Alan MD Contact dermatitis ICD-692.9 Inactive Romairo Alan MD Screening exam for breast cancer ICD-V76.10 Rox ctive Romario Alan MD Lymphadenopathy ICD-785.6 Inactive Romario patel MD Medication List Medication Instructions Start Date Stop Date Generic Name NDC Status Provider Patient Instruction MEDROL 4 MG ORAL TABLET THERAPY PACK take as directed METHYLPREDNISOLONE 63272457263 Active Mari Monroy [employer] JOURNEY[employer] E[employer]RICIAN-C Acti ve METHOCARBAMOL 500 MG ORAL TABLET 0.5-1 tab every 8 luis rs as needed for tension headaches METHOCARBAMOL 16566500963 Active Mari Monroy [employer]ERCIAL JOURNEYMAN ELECTRICIAN-C Active ZOFRAN 4 MG ORAL TABLET 1 every 6 hours PRN nausea ( MAY CAUSE CONSTIPATION) use sparingly ONDANSETRON HCL 79021089978 Active Mari Monroy [employer]CIAL JOURNEYMAN ELECTRICIAN -C Active BUSPIRONE HCL 5 MG ORAL TABLET Take 1 tab PO BID for anxiety 08/29 BUSPIRONE HCL 31318621853 Active Lubna Carrillo PMHNP-BC Acti ve CYANOCOBALAMIN 1000MCG/ML INJECTION SOLUTION INJECT 1M L SUBCUTANEOUSLY EVERY WEEK FOR 4 DOSES THEN EVERY 2 WEEKS CYANOCOBALAMIN 001 42781289 Active Mari Monroy [employer]ERCIAL JOURNEYMAN ELECTRICIAN-C Active WELLBUTRIN XL 150 MG ORAL TABLET EXTENDED RELEASE 24 H OUR 1 po daily for depression/anxiety BUPROPION HCL 52950794026 Active Er judah Monroy [employer] JOURNEYMAN ELECTRICIAN-C Active TOPAMAX 25 MG ORAL TABLET 1 po BID for migraine prevention TOPIRAMATE 07128293063 Active Mari Monroy [employer] JOURNEYMAN ELECTRICIAN-C Active AMITRIPTYLINE HCL 25 MG ORAL TABLET 1 PO at HS for migraines 202 AMITRIPTYLINE HCL 11443652965 No Longer Active Bakari Paz RN Active IMITREX 6 MG/0.5ML SUBCUTANEOUS SOLUTION with onset of POWELL may repeat in 1 hour if needed, do not exceed 12mg in 1 day S UMATRIPTAN SUCCINATE 09282169809 No Longer Active Bakari Paz RN Active FIORICET 50-300-40 MG ORAL CAPSULE 1-2 tabs po every 6 hours as needed for headaches, max 6 tabs per day [id number] 08578447545 Active Mari Monroy [employer] JOURNEYMAN ELECTRICIAN-C Active TIZANIDINE HCL 4 MG ORAL TABLET 1/2-1 tab every 8 hour s as needed for muscle spasms TIZANIDINE HCL 88607391165 Active Mari Monroy APRN-C Active VITAMIN D (ERGOCALCIFEROL) 1.25 MG (97915 UT) ORAL CAPSULE ERGOCALCIFEROL 04660192775 No Longer Active Mari Monroy [employer] JOURNEYMAN ELECTRICIAN-C Active LEVOTHYROXINE SODIUM 112MCG ORAL TABLET TAKE ONE TABLE T BY MOUTH ONE TIME DAILY 30 MINUTES BEFORE BREAKFAST LEVOTHYROXINE SODIUM 77054 954907 Active Cyrus Neumann APRN Active VITAMIN D (ERGOCALCIFEROL) 1.25 MG(59558 UT) ORAL CAPS ULE TAKE ONE CAPSULE BY MOUTH EVERY WEEK ERGOCALCIFEROL 50815666778 Active Miriam Monroy [employer]ER[employer] JOURNEYMAN ELECTRICIAN-C Active CYANOCOBALAMIN 1000 MCG/ML INJECTION SOLUTION 1ml week IM every 2 weeks x4 doses then back to monthly CYANOCOBALAMIN 55204529414 No Lo nger Active Romario Alan MD Active VYVANSE 50 MG ORAL CAPSULE 1 po daily L ISDEXAMFETAMINE DIMESYLATE 33017046684 No Longer Active Romario Alan MD Activ e DIFLUCAN 100 MG ORAL TABLET 1 tablet by mouth daily re peat in 3 days if no improvement FLUCONAZOLE 62254797167 No Longer Active Mari Monroy APRN-C Active ALPRAZOLAM 0.5 MG ORAL TABLET 1 tab by mouth 3 times daily PRN 2018 ALPRAZOLAM 67277247496 Active Mari Monroy APRN-C Active CIPRO 500 MG ORAL TABLET 1 tab BID CIPROFLOXAC IN HCL 51650852129 No Longer Active Mari GARCÍA Active AMOXICILLIN 500 MG ORAL TABLET 1 po BID x10 days 12/03 AMOXICILLIN 73297058360 No Longer Active Mari GOMEZC Active ZOLOFT 100 MG ORAL TABLET SERTRALINE H CL 01699332863 No Longer Active Ayaan Castellanos MD Active 1 30-0.975-200 MG ORAL CAPSULE 1 qDay 2 MV-MIN-FE FUM-FA-DHA 26587222361 No Longer Active Ayaan Castellanos MD Active ALPRAZOLAM 0.25 MG ORAL TABLET 1 TAB PO Q 6 HRS PRN 08/19 ALPRAZOLAM 92739334651 No Longer Active Kadeem Wall MD Active ALPRAZOLAM 0.25 MG ORAL TABLET 1 TAB PO Q 6 HRS PRN 20 10/08/25 ALPRAZOLAM 0.25 MG ORAL TABLET 915204 ALPRAZOLAM Inactive 1 30-0.975-200 MG ORAL CAPSULE 1 qDay 2 1 30-0.975-200 MG ORAL CAPSULE MV-MIN-FE FUM-FA-DHA I nactive ZOLOFT 100 MG ORAL TABLET ZOLOFT 100 MG ORAL TABLET 279534 SERTRALINE HCL Inactive AMOXICILLIN 500 MG ORAL TABLET 1 po BID x10 days 12/03 AMOXICILLIN 500 MG ORAL TABLET 542592 AMOXICILLIN Inactive CIPRO 500 MG ORAL TABLET 1 tab BID CIP RO 500 MG ORAL TABLET 884429 CIPROFLOXACIN HCL Inactive DIFLUCAN 100 MG ORAL TABLET 1 tablet by mouth daily re peat in 3 days if no improvement DIFLUCAN 100 MG ORAL TABLET 612091 FLUCONAZOLE Inactive VYVANSE 50 MG ORAL CAPSULE 1 po daily V YVANSE 50 MG ORAL CAPSULE LISDEXAMFETAMINE DIMESYLATE Inactive CYANOCOBALAMIN 1000 MCG/ML INJECTION SOLUTION 1ml week IM every 2 weeks x4 doses then back to monthly CYANOCOBALAMIN 1000 MCG/ML INJECTION SOLUTION 965640 CYANOCOBALAMIN Inactive VITAMIN D (ERGOCALCIFEROL) 1.25 MG (31572 UT) ORAL CAPSULE VITAMIN D (ERGOCALCIFEROL) 1.25 MG (14070 UT) ORAL CAPSULE 1 380383 ERGOCALCIFEROL Inactive IMITREX 6 MG/0.5ML SUBCUTANEOUS SOLUTION with onset of POWELL may repeat in 1 hour if needed, do not exceed 12mg in 1 day I MITREX 6 MG/0.5ML SUBCUTANEOUS SOLUTION 591425 SUMATRIPTAN SUCCINATE Inactive AMITRIPTYLINE HCL 25 MG ORAL TABLET 1 PO at HS for migraines AMITRIPTYLINE HCL 25 MG ORAL TABLET 497269 AMITRIPTYLIN E HCL Inactive Advance Directives Directive [...] Fluarix, Agriflu(>= 18 yo)) Fluzone (>3 yrs.) [[id number]] Diagnostic Results Date Name Value Unit Range Description Lab Report: CBC W/DIFF, Comp. Metabolic Panel, Magnesium - Chemistry sodium, serum 141 mmol/L 388-770 9379/05/03 carbon dioxide, venous blood 25.1 mmol/L 21.0-32 [...] W/DIFF, Comp. Metabolic Panel, UADIP W/MICRO, AUTO, [facility] [place] - Chemistry human chorionic gonadotropin , urine, qualitative (urine test) Negative Negative sodium, serum 140 mmol/L 690-853 6697/10/14 carbon dioxide, venous blood 24.7 mmol/L 21.0-32 [...] W/DIFF, Comp. Metabolic Panel, UADIP W/MICRO, AUTO, [facility] [place] - Hematology leukocyte count, blood 14.8 10^3/MM^3 [...] - Chem istry sodium, serum 140 mmol/L 976-716 5604/02/22 carbon dioxide, venous blood 27.1 mmol/L 21.0-32 .0 potassium, serum 4.5 mmol/L 3.5-5.2 chloride, serum 105 mmol/L 98-107 blood glucose 94 mg/dL 65-95 urea nitrogen, blood 11 mg/dL 7-18 creatinine, serum 0.77 mg/dL 0.60-1.30 Estimated Glomerular Filtration Rate (calc) 90 (?) mL/min/1.73m2 = OR > 60 mL/min alanine aminotransferase (SGPT), serum 11 U/L - aspartate aminotransferase (SGOT), serum 20 U/L 19-43 calcium, serum 8.4 mg/dL 8.5-10.1 bilirubin, serum, total 0.40 mg/dL 0.00-1.00 Lab Report: Comp. Metabolic Panel - Lab Alkaline phosphatase 56 50-136 Lab Report: Comp. Metabolic Panel, BA1 C - Chemistry sodium, serum 140 mmol/L 868-060 2064/04/12 carbon dioxide, venous blood 27.5 mmol/L 21.0-32 .0 potassium, serum 4.0 mmol/L 3.5-5.2 chloride, serum 104 mmol/L 98-107 blood glucose 98 mg/dL 65-95 urea nitrogen, blood 14 mg/dL 7-18 creatinine, serum 0.80 mg/dL 0.60-1.30 Estimated Glomerular Filtration Rate (calc) 86 (?) mL/min/1.73m2 = OR > 60 mL/min alanine aminotransferase (SGPT), serum 13 U/L aspartate aminotransferase (SGOT), serum 20 U/L -43 [...] 0.36-3.74 Lab Report: Free Thyroxine (L) - Spiritual Counselor ry thyroxine, serum, free 1.20 ng/dL 0.59-1.17 [...] 0.95 ng/dL 0.59-1.17 sodium, serum 138 mmol/L 334-762 4309/08/19 carbon dioxide, venous blood 24.9 mmol/L 21.0-32 [...] free 1.44 ng/dL 0.59-1.17 Office Visit: diana warren 302 - Basic LDL target level 160 mg/dL Office Visit: diana warren 302 - Chemistr y HDL cholesterol, serum, target level 40 mg/dL cholesterol, target level 200 mg/dL triglyceride, target level 150 mg/dL Encounters Code Encounter Date Provider Facility CPT-88631 Level 5 Est. Patient 14:22:47 CDT Lubna Huerta [facility] CPT-54678 [id number] Vst-Est Level III 16:54:40 CDT Kadeem Wall MD [facility] CPT-29011 [id number] Vst-Est Level IV 06:01:21 CDT Miriam Monroy [employer]ERCIAL JOURNEYMAN ELECTRICIAN-C [facility] CPT-22145 [id number] Vst-Est Level III 16:13:06 CDT Dariel Monroy COMMERCIAL JOURNEYMAN ELECTRICIAN-C [facility] CPT-44278 Level 3 New Patient 16:14:48 CDT Ayaan Castellanos MD [facility] CPT-71834 Level 4 Est. Patient 08:48:05 CDT Romario Alan MD [facility] CPT-50966 Level 3 Est. Patient 07:30:03 CONSTRUCTION JOB COST ESTIMATOR Mari christina APRN-C [facility] CPT-30945 Level 4 Est. Patient 08:02:04 CONSTRUCTION JOB COST ESTIMATOR Mari Nate christina COMMERCIAL JOURNEYMAN ELECTRICIAN-C [facility] CPT-58677 Level 3 Est. Patient 09:56:14 CDT Kadeem jenkins MD [facility] CPT-67895 Level 3 Est. Patient 11:07:45 CDT Ang HILLIARD [facility] Procedures Code Procedure Name Date Entry Date Standard Desc ription CPT-TMV TMV 05:09:41 CDT CPT-85062 Foot, right, comp min 3V - XRAY USE ONLY 16:15:36 CDT CPT-J1885 Toradol 30 mg (Ketorolac) 06:01:21 CDT 2020 CPT-06170 EKG Trac and Interp - XRAY USE ONLY 1 8:04:25 CDT CPT-07536 Chest, 2 views 17:02:15 CDT CPT-J1885 Toradol 30 mg (Ketorolac) 16:44:24 CDT 2020 CPT-77766 Abx/Therapy Injection 16:44:24 CDT CPT-09633 Venipuncture Draw Fee 16:11:55 CDT CPT-L3908 Cockup Splint 16:13:07 CDT CPT-29690 Venipuncture Draw Fee 12:12:02 CDT CPT-12754 Forearm, right, AP and Lat - XRAY USE ONLY 05/26 14:27:36 CDT CPT-04691 Elbow, right, Comp Min 3V - XRAY USE ONLY 05/26 14:27:35 CDT CPT-23876 Venipuncture Draw Fee 11:28:13 CDT CPT-68604 Venipuncture Draw Fee 08:03:55 CONSTRUCTION JOB COST ESTIMATOR CPT-82098 Venipuncture Draw Fee 16:21:43 CONSTRUCTION JOB COST ESTIMATOR CPT-52890 86753 - Immun Admin 1 vac 13:37:32 CDT 2019 CPT-72884 Flulaval (Flu) 10PK Syringe IM 13:37:32 CDT CPT-60784 Venipuncture Draw Fee 10:41:23 CDT CPT-32935 Venipuncture Draw Fee 08:57:35 CDT CPT-J1885 Toradol 30 mg (Ketorolac) 18:38:26 CDT 2019 CPT-J2550 Phenergan 25 mg (Promethazine) 18:38:26 CDT CPT-J1020 Depo Medrol 60 mg (Methyl Prednisolone A cetate) 18:38:26 CDT CPT-J1100 Decadron 6mg (Dexamethasone) 18:38:26 CDT 2 CPT-51264 Abx/Therapy Injection 18:38:25 CDT CPT-88144 Venipuncture Draw Fee 08:18:31 CDT CPT-90346 Venipuncture Draw Fee 09:11:08 CDT CPT-55314 Venipuncture Draw Fee 15:19:08 CDT CPT-74633 IM or SQ Injection 13:11:03 CDT CPT-J1100 Decadron 4mg (Dexamethasone) 13:11:03 CDT 2 CPT-J1030 Depo Medrol 40 mg (Methyl Prednisolone A cetate) 13:11:02 CDT CPT-50287 Venipuncture Draw Fee 10:49:05 CDT CPT-31162 Sono Soft Tissue Head and Neck - XRAY US E ONLY 14:27:21 CONSTRUCTION JOB COST ESTIMATOR CPT-MW5820B (4274F) Influenza immunization administe red or previously received 13:43:59 CONSTRUCTION JOB COST ESTIMATOR CPT-J2550 Phenergan 25 mg (Promethazine) 17:57:23 CONSTRUCTION JOB COST ESTIMATOR CPT-J1885 Toradol 30 mg (Ketorolac) 17:57:23 CONSTRUCTION JOB COST ESTIMATOR 2018 CPT-83947 Prv Med Est Pt 18-39yrs 08:02:04 CONSTRUCTION JOB COST ESTIMATOR CPT-80598 61013 - Immun Admin 1 vac 09:24:27 CDT 2018 CPT-95823 Flulaval Quadrivalent (Flu) 10Pk Syringe IM 2018 09:24:27 CDT CPT-92223 First Vx - Ix admin via ID I M or jet injects without counseling by physician 16:30:31 CDT CPT-20600 Fluzone Quadrivalent Intramuscular Suspe nsion 0.5 ML 16:30:31 CDT CPT-69783 Nexplanon Removal 09:56:14 CDT CPT-OV Office Visit 10:17:55 CDT CPT-09680 TB Tubersol 16:11:35 CONSTRUCTION JOB COST ESTIMATOR CPT-11752 Administration single or combination vac cine inc oral 14:18:51 CONSTRUCTION JOB COST ESTIMATOR CPT-74743 TB Tubersol 14:18:51 CONSTRUCTION JOB COST ESTIMATOR CPT-89448 Influenza split virus > age 3 14:18:51 CONSTRUCTION JOB COST ESTIMATOR CPT-02576 Knee 3V 11:04:40 CDT
--- OUTSIDE RECORDS SUMMARY | 2020-10-19 10:45 | XMS REPORT | Clinical Summary ---
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 [...] status migrainosus BMI 29-29.9 Refinement Mari Monroy PRODUCT TESTER-C Body Mass Index 29.0-29.9, adult BMI 26-26.9 Refinement Romario Alan MD Body Mass Index 29.0-29.9, adult BMI 29-29.9 Refinement Mari Monroy PRODUCT TESTER-C Body Mass Index 29.0-29.9, adult BMI 30-30.9 Refinement Mari Monroy PRODUCT TESTER-C Body Mass Index 29.0-29.9, adult BMI 29-29.9 Active Mari Monroy PRODUCT TESTER-C Body Mass Index 29.0-29.9, adult Overweight (BMI 25-29.9) Refinement Mari Monroy PRODUCT TESTER-C Overweight Obesity Class I (BMI 30-34.9) Refinement 06/26 Mari Monroy PRODUCT TESTER-C Overweight Overweight (BMI 25-29.9) Active Mari christina PRODUCT TESTER-C Overweight Enlarged thyroid 240.9 Resolved Romario Alan [...] history of breast ca V16.3 Active Mari GOMEZC Family history of malignant neoplasm of breast Screening exam for breast cancer V76.10 Resolved 202 Romario Alan MD Breast screening, unspecified Lymphadenopathy 785.6 Resolved Romario Andrade D Enlargement of lymph nodes Hypocalcemia 275.41 Active Mari GARCÍA Hypocalcemia Abdominal pain, right lower quadrant 789.03 Active Romario Alan MD Abdominal pain, right lower quadrant Other retirement (current) drug therapy V58.69 Active Mari GOMEZC Long-term (current) use of other medicat ions [...] in right arm 729.5 Active Marijudah Monroy PRODUCT TESTER- C Pain in limb Hyperglycemia 790.29 Active Mari Porfirio PRODUCT TESTER-C Other abnormal glucose Contusion of right forearm, initial encounter 923.10 Active Marijudah Monroy PRODUCT TESTER-C Contusion of forearm Chest pain, acute 786.50 Active Mari Porfirio PRODUCT TESTER- C Unspecified chest pain Headache, mixed 784.0 Active Mari Porfirio PRODUCT TESTER-C Headache Cervicalgia 723.1 Active Mari Porfirio PRODUCT TESTER-C Cervicalgia Scapulalgia, left 733.90 Active Mari Monroy PRODUCT TESTER- C Disorder of bone and cartilage, unspecified Dyspnea 786.09 Active Mari Monroy PRODUCT TESTER-C Other dyspnea and respiratory abnormality Cervical radiculopathy 723.4 Active Marijudah Monroy PRODUCT TESTER-C Brachial neuritis or radiculitis NOS Hx of migraines V13.8 Active Mari Monroy PRODUCT TESTER-C Personal history of other specified diseases Foot pain, right 729.5 Active Shona Gorman, RMA Pain in limb Unspecified injury of right foot, initial encounter 20 14/08/06 Active Kadeem Wall MD Major depressive disorder, recurrent, mild 296.30 Acti ve Mari Monroy PRODUCT TESTER-C Major depressive disorder, r ecurrent episode, unspecified [...] MD Screening exam for breast cancer ICD-V76.10 [place] ctive Romario Alan MD Lymphadenopathy ICD-785.6 Inactive Romario patel MD Medication List Medication Instructions Start Date Stop Date Generic Name NDC Status Provider Patient Instruction ZOFRAN 4 MG ORAL TABLET 1 every 6 hours PRN nausea ( MAY CAUSE CONSTIPATION) use sparingly ONDANSETRON HCL 84004878636 Active Mari Monroy PRODUCT TESTER -C Active BUSPIRONE HCL 5 MG ORAL TABLET Take 1 tab PO BID for anxiety 08/29 BUSPIRONE HCL 79046193305 Active Lubna Vizcaino PMHNP-BC Acti ve CYANOCOBALAMIN 1000MCG/ML INJECTION SOLUTION INJECT 1M L SUBCUTANEOUSLY EVERY WEEK FOR 4 DOSES THEN EVERY 2 WEEKS CYANOCOBALAMIN 001 21242040 Active Mari Monroy PRODUCT TESTER-C Active WELLBUTRIN XL 150 MG ORAL TABLET EXTENDED RELEASE 24 H OUR 1 po daily for depression/anxiety BUPROPION HCL 13279383458 Active Er judah Monroy PRODUCT TESTER-C Active TOPAMAX 25 MG ORAL TABLET 1 po BID for migraine prevention TOPIRAMATE 28652531707 Active Mari Monroy APRN-C Active AMITRIPTYLINE HCL 25 MG ORAL TABLET 1 PO at HS for migraines AMITRIPTYLINE HCL 14482141404 No Longer Active Bakari Paz RN Active IMITREX 6 MG/0.5ML SUBCUTANEOUS SOLUTION with onset of POWELL may repeat in 1 hour if needed, do not exceed 12mg in 1 day S UMATRIPTAN SUCCINATE 41970589802 No Longer Active Bakari Paz RN Active FIORICET 50-300-40 MG ORAL CAPSULE 1-2 tabs po every 6 hours as needed for headaches, max 6 tabs per day [id number] 41265170202 Active Mari Monroy PRODUCT TESTER-C Active TIZANIDINE HCL 4 MG ORAL TABLET 1/2-1 tab every 8 hour s as needed for muscle spasms TIZANIDINE HCL 49210185214 Active Mari Monroy PRODUCT TESTER-C Active VITAMIN D (ERGOCALCIFEROL) 1.25 MG (36965 UT) ORAL CAPSULE ERGOCALCIFEROL 57755300305 No Longer Active Mari Monroy PRODUCT TESTER-C Active LEVOTHYROXINE SODIUM 112MCG ORAL TABLET TAKE ONE TABLE T BY MOUTH ONE TIME DAILY 30 MINUTES BEFORE BREAKFAST LEVOTHYROXINE SODIUM 25803 117276 Active Cyrus Christiansonheather ELIZONDO Active VITAMIN D (ERGOCALCIFEROL) 1.25 MG(81495 UT) ORAL CAPS ULE TAKE ONE CAPSULE BY MOUTH EVERY WEEK ERGOCALCIFEROL 55992971580 Active Miriam Monroy PRODUCT TESTER-C Active CYANOCOBALAMIN 1000 MCG/ML INJECTION SOLUTION 1ml week IM every 2 weeks x4 doses then back to monthly CYANOCOBALAMIN 99052316304 No Lo nger Active Romario Alan MD Active VYVANSE 50 MG ORAL CAPSULE 1 po daily L ISDEXAMFETAMINE DIMESYLATE 39928969536 No Longer Active Romario Alan MD Activ e DIFLUCAN 100 MG ORAL TABLET 1 tablet by mouth daily re peat in 3 days if no improvement FLUCONAZOLE 98278295402 No Longer Active Mari Monroy PRODUCT TESTER-C Active ALPRAZOLAM 0.5 MG ORAL TABLET 1 tab by mouth 3 times daily PRN 2018 ALPRAZOLAM 22710960888 Active Mari Monroy APRN-C Active CIPRO 500 MG ORAL TABLET 1 tab BID CIPROFLOXAC IN HCL 84658685374 No Longer Active Mari Monroy PRODUCT TESTER-C Active AMOXICILLIN 500 MG ORAL TABLET 1 po BID x10 days 12/03 AMOXICILLIN 06973985154 No Longer Active Mrai Porfirio PRODUCT TESTER-C Active ZOLOFT 100 MG ORAL TABLET SERTRALINE H CL 07335975034 No Longer Active Ayaan Castellanos MD Active 1 30-0.975-200 MG ORAL CAPSULE 1 qDay 2 MV-MIN-FE FUM-FA-DHA 67720548789 No Longer Active Ayaan Castellanos MD Active ALPRAZOLAM 0.25 MG ORAL TABLET 1 TAB PO Q 6 HRS PRN 08/19 ALPRAZOLAM 23244596693 No Longer Active Kadeem Wall MD Active ALPRAZOLAM 0.25 MG ORAL TABLET 1 TAB PO Q 6 HRS PRN 20 10/08/25 ALPRAZOLAM 0.25 MG ORAL TABLET 586480 ALPRAZOLAM Inactive 1 30-0.975-200 MG ORAL CAPSULE 1 qDay 2 1 30-0.975-200 MG ORAL CAPSULE MV-MIN-FE FUM-FA-DHA I nactive ZOLOFT 100 MG ORAL TABLET ZOLOFT 100 MG ORAL TABLET 207832 SERTRALINE HCL Inactive AMOXICILLIN 500 MG ORAL TABLET 1 po BID x10 days 12/03 AMOXICILLIN 500 MG ORAL TABLET 761983 AMOXICILLIN Inactive CIPRO 500 MG ORAL TABLET 1 tab BID CIP RO 500 MG ORAL TABLET 575864 CIPROFLOXACIN HCL Inactive DIFLUCAN 100 MG ORAL TABLET 1 tablet by mouth daily re peat in 3 days if no improvement DIFLUCAN 100 MG ORAL TABLET 184156 FLUCONAZOLE Inactive VYVANSE 50 MG ORAL CAPSULE 1 po daily V YVANSE 50 MG ORAL CAPSULE LISDEXAMFETAMINE DIMESYLATE Inactive CYANOCOBALAMIN 1000 MCG/ML INJECTION SOLUTION 1ml week IM every 2 weeks x4 doses then back to monthly CYANOCOBALAMIN 1000 MCG/ML INJECTION SOLUTION 879492 CYANOCOBALAMIN Inactive VITAMIN D (ERGOCALCIFEROL) 1.25 MG (82986 UT) ORAL CAPSULE VITAMIN D (ERGOCALCIFEROL) 1.25 MG (19279 UT) ORAL CAPSULE 1 361774 ERGOCALCIFEROL Inactive IMITREX 6 MG/0.5ML SUBCUTANEOUS SOLUTION with onset of POWELL may repeat in 1 hour if needed, do not exceed 12mg in 1 day I MITREX 6 MG/0.5ML SUBCUTANEOUS SOLUTION 151536 SUMATRIPTAN SUCCINATE Inactive AMITRIPTYLINE HCL 25 MG ORAL TABLET 1 PO at HS for migraines 202 AMITRIPTYLINE HCL 25 MG ORAL TABLET 688834 AMITRIPTYLIN E HCL Inactive Advance Directives Directive [...] Fluarix, Agriflu(>= 18 yo)) Fluzone (>3 yrs.) [TTX024] TB-PPD (tuberculin purified protein derivative), intra dermal administration Tubersol Diagnostic Results Date Name Value Unit Range Description Lab Report: CBC W/DIFF, Comp. Metabolic Panel, Magnesium - Chemistry sodium, serum 141 mmol/L 206-415 5800/05/03 carbon dioxide, venous blood 25.1 mmol/L 21.0-32 [...] test) Negative Negative sodium, serum 140 mmol/L 556-574 8241/10/14 carbon dioxide, venous blood 24.7 mmol/L 21.0-32 [...] Comp. Metabolic [place], [place]/MI[place] [facility] [place]ysis urobilinogen, urine, semiquantitative (dipstick) 0.2 [...] - Chem istry sodium, serum 140 mmol/L 283-241 9757/02/22 carbon dioxide, venous blood 27.1 mmol/L 21.0-32 [...] 56 50-136 Lab Report: Comp. Metabolic Panel, [facility] C - Chemistry sodium, serum 140 mmol/L 653-888 0914/04/12 carbon dioxide, venous blood 27.5 mmol/L 21.0-32 [...] 0.36-3.74 Lab Report: Free Thyroxine (L) - Partner Management Consultant ry thyroxine, serum, free 1.20 ng/dL [...] 0.95 ng/dL 0.59-1.17 sodium, serum 138 mmol/L 602-328 3498/08/19 carbon dioxide, venous blood 24.9 mmol/L 21.0-32 [...] mg/dL Encounters Code Encounter Date Provider Facility CPT-20484 Level 5 Est. Patient 14:22:47 CDT Lubna Huerta [facility] CPT-47276 48273-Qgm Vst-Est Level III 16:54:40 CDT Kadeem Wall MD [facility] CPT-37067 06638-Esl Vst-Est Level IV 06:01:21 CDT Miriam Monroy [facility] [place] CPT-25616 95010-Sse Vst-Est Level III 16:13:06 CDT aDriel Monroy [facility] [place] CPT-61295 Level 3 New Patient 16:14:48 CDT Ayaan Castellanos MD [facility] CPT-66332 Level 4 Est. Patient 08:48:05 CDT Romario Alan MD [facility] CPT-92674 Level 3 Est. Patient 07:30:03 [employer] PL[employer] OPERATOR Mari christina [facility] [place] CPT-49508 Level 4 Est. Patient 08:02:04 [employer] OPER[employer] Mari christina PRODUCT TESTER-C [facility] CPT-92228 Level 3 Est. Patient 09:56:14 CDT Kadeem jenkins MD [facility] CPT-18962 Level 3 Est. Patient 11:07:45 CDT Ang HILLIARD [facility] Procedures Code Procedure Name Date Entry Date Standard Desc ription CPT-TMV TMV 05:09:41 CDT CPT-84316 Foot, right, comp min 3V - XRAY USE ONLY 16:15:36 CDT CPT-J1885 Toradol 30 mg (Ketorolac) 06:01:21 CDT 2020 CPT-27221 EKG Trac and Interp - XRAY USE ONLY 1 8:04:25 CDT CPT-67585 Chest, 2 views 17:02:15 CDT CPT-J1885 Toradol 30 mg (Ketorolac) 16:44:24 CDT 2020 CPT-78298 Abx/Therapy Injection 16:44:24 CDT CPT-45560 Venipuncture Draw Fee 16:11:55 CDT CPT-L3908 Cockup Splint 16:13:07 CDT CPT-82666 Venipuncture Draw Fee 12:12:02 CDT CPT-37512 Forearm, right, AP and Lat - XRAY USE ONLY 05/26 14:27:36 CDT CPT-55387 Elbow, right, Comp Min 3V - XRAY USE ONLY 05/26 14:27:35 CDT CPT-66010 Venipuncture Draw Fee 11:28:13 CDT CPT-46540 Venipuncture Draw Fee 08:03:55 [employer] O[employer] CPT-55977 Venipuncture Draw Fee 16:21:43 [employer] OPERATOR CPT-11300 98609 - Immun Admin 1 vac 13:37:32 CDT 2019 CPT-97098 Flulaval (Flu) 10PK Syringe IM 13:37:32 CDT CPT-96683 Venipuncture Draw Fee 10:41:23 CDT CPT-19708 Venipuncture Draw Fee 08:57:35 CDT CPT-J1885 Toradol 30 mg (Ketorolac) 18:38:26 CDT 2019 CPT-J2550 Phenergan 25 mg (Promethazine) 18:38:26 CDT CPT-J1020 Depo Medrol 60 mg (Methyl Prednisolone A cetate) 18:38:26 CDT CPT-J1100 Decadron 6mg (Dexamethasone) 18:38:26 CDT 2 CPT-20309 Abx/Therapy Injection 18:38:25 CDT CPT-23350 Venipuncture Draw Fee 08:18:31 CDT CPT-00662 Venipuncture Draw Fee 09:11:08 CDT CPT-06198 Venipuncture Draw Fee 15:19:08 CDT CPT-63224 IM or SQ Injection 13:11:03 CDT CPT-J1100 Decadron 4mg (Dexamethasone) 13:11:03 CDT 2 CPT-J1030 Depo Medrol 40 mg (Methyl Prednisolone A cetate) 13:11:02 CDT CPT-32637 Venipuncture Draw Fee 10:49:05 CDT CPT-04585 Sono Soft Tissue Head and Neck - XRAY US E ONLY 14:27:21 [employer] OPER[employer] CPT-AZ3691H (4274F) Influenza immunization administe red or previously received 13:43:59 [employer] PL[employer] OPERATOR CPT-J2550 Phenergan 25 mg (Promethazine) 17:57:23 [employer]IME PLANT OPERATOR CPT-J1885 Toradol 30 mg (Ketorolac) 17:57:23 SLIME PLANT OPERATOR 2018 CPT-75430 Prv Med Est Pt 18-39yrs 08:02:04 [employer] PLANT OPERATOR CPT-74380 12302 - Immun Admin 1 vac 09:24:27 CDT 2018 CPT-87926 Flulaval Quadrivalent (Flu) 10Pk Syringe IM 2018 09:24:27 CDT CPT-22466 First Vx - Ix admin via ID I M or jet injects without counseling by physician 16:30:31 CDT CPT-60619 Fluzone Quadrivalent Intramuscular Suspe nsion 0.5 ML 16:30:31 CDT CPT-34414 Nexplanon Removal 09:56:14 CDT CPT-OV Office Visit 10:17:55 CDT CPT-24893 TB Tubersol 16:11:35 [employer] OPER[employer] CPT-72066 Administration single or combination vac cine inc oral 14:18:51 [employer] OPERATOR CPT-58531 TB Tubersol 14:18:51 [employer] PLANT OPERATOR CPT-26097 Influenza split virus > age 3 14:18:51 [employer] PL[employer] OPERATOR CPT-60638 Knee 3V 11:04:40 CDT
--- OUTSIDE RECORDS SUMMARY | 2020-10-19 10:46 | XMS REPORT | Clinical Summary ---
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 [...] status migrainosus BMI 29-29.9 Refinement Mari Monroy RESIDENT CARE ASSOCIATE-C Body Mass Index 29.0-29.9, adult BMI 26-26.9 Refinement Romario Alan MD Body Mass Index 29.0-29.9, adult BMI 29-29.9 Refinement Mari Monroy RESIDENT CARE ASSOCIATE-C Body Mass Index 29.0-29.9, adult BMI 30-30.9 Refinement Mari Monroy RESIDENT CARE ASSOCIATE-C Body Mass Index 29.0-29.9, adult BMI 29-29.9 Active Mari Monroy RESIDENT CARE ASSOCIATE-C Body Mass Index 29.0-29.9, adult Overweight (BMI 25-29.9) Refinement Mari Monroy RESIDENT CARE ASSOCIATE-C Overweight Obesity Class I (BMI 30-34.9) Refinement 06/26 Mari Monroy RESIDENT CARE ASSOCIATE-C Overweight Overweight (BMI 25-29.9) Active Mrai christina RESIDENT CARE ASSOCIATE-C Overweight Enlarged thyroid 240.9 Resolved Romario Alan [...] MD Abdominal pain, right lower quadrant Other fpc (current) drug therapy V58.69 Active Mari GOMEZC [...] in right arm 729.5 Active Marijudah Monroy RESIDENT CARE ASSOCIATE- C Pain in limb Hyperglycemia 790.29 Active Mari Porfirio RESIDENT CARE ASSOCIATE-C Other abnormal glucose Contusion of right forearm, initial encounter 923.10 Active Marijudah Monroy RESIDENT CARE ASSOCIATE-C Contusion of forearm Chest pain, acute 786.50 Active Mari Porfirio RESIDENT CARE ASSOCIATE- C Unspecified chest pain Headache, mixed 784.0 Active Mari Porfirio RESIDENT CARE ASSOCIATE-C Headache Cervicalgia 723.1 Active Mari Porfirio RESIDENT CARE ASSOCIATE-C Cervicalgia Scapulalgia, left 733.90 Active Mari Monroy RESIDENT CARE ASSOCIATE- C Disorder of bone and cartilage, unspecified Dyspnea 786.09 Active Mari Monroy RESIDENT CARE ASSOCIATE-C Other dyspnea and respiratory abnormality Cervical radiculopathy 723.4 Active Marijudah Monroy RESIDENT CARE ASSOCIATE-C Brachial neuritis or radiculitis NOS Hx of migraines V13.8 Active Mari Monroy RESIDENT CARE ASSOCIATE-C Personal history of other specified diseases Foot pain, right 729.5 Active Shona Gorman, RMA Pain in limb Unspecified injury of right foot, initial encounter 20 14/08/06 Active Kadeem Wall MD Major depressive disorder, recurrent, mild 296.30 Acti ve Mari Monroy RESIDENT CARE ASSOCIATE-C Major depressive disorder, r ecurrent episode, unspecified [...] MD Screening exam for breast cancer ICD-V76.10 [place] [facility]ive Romario Alan MD Lymphadenopathy ICD-785.6 Inactive Romario patel MD Medication List Medication Instructions Start Date Stop Date Generic Name NDC Status Provider Patient Instruction BUSPIRONE HCL 5 MG ORAL TABLET Take 1 tab PO BID for anxiety 08/29 BUSPIRONE HCL 86792852814 Active Lubna Vizcaino PMHNP-BC Acti ve CYANOCOBALAMIN 1000MCG/ML INJECTION SOLUTION INJECT 1M L SUBCUTANEOUSLY EVERY WEEK FOR 4 DOSES THEN EVERY 2 WEEKS CYANOCOBALAMIN 001 75765236 Active Mari Monory APRN-C Active WELLBUTRIN XL 150 MG ORAL TABLET EXTENDED RELEASE 24 H OUR 1 po daily for depression/anxiety BUPROPION HCL 51152775202 Active Dariel Monroy APRN-C Active TOPAMAX 25 MG ORAL TABLET 1 po BID for migraine prevention TOPIRAMATE 66140321374 Active Mari Monroy APRN-C Active AMITRIPTYLINE HCL 25 MG ORAL TABLET 1 PO at HS for migraines 202 AMITRIPTYLINE HCL 68560006502 No Longer Active Bakari Paz RN Active IMITREX 6 MG/0.5ML SUBCUTANEOUS SOLUTION with onset of POWELL may repeat in 1 hour if needed, do not exceed 12mg in 1 day S UMATRIPTAN SUCCINATE 30713467951 No Longer Active Bakari Paz RN Active FIORICET 50-300-40 MG ORAL CAPSULE 1-2 tabs po every 6 hours as needed for headaches, max 6 tabs per day [id number] 77270060160 Active Mari Monroy APRN-Khushboo Active TIZANIDINE HCL 4 MG ORAL TABLET 1/2-1 tab every 8 hour s as needed for muscle spasms TIZANIDINE HCL 01145422208 Active Mari Monroy RESIDENT CARE ASSOCIATE-C Active VITAMIN D (ERGOCALCIFEROL) 1.25 MG (03161 UT) ORAL CAPSULE ERGOCALCIFEROL 60410491305 No Longer Active Marijudah Monroy RESIDENT CARE ASSOCIATE-C Active LEVOTHYROXINE SODIUM 112MCG ORAL TABLET TAKE ONE TABLE T BY MOUTH ONE TIME DAILY 30 MINUTES BEFORE BREAKFAST LEVOTHYROXINE SODIUM 45957 524012 Active Cyrus Nel RESIDENT CARE ASSOCIATE Active VITAMIN D (ERGOCALCIFEROL) 1.25 MG(52098 UT) ORAL CAPS ULE TAKE ONE CAPSULE BY MOUTH EVERY WEEK ERGOCALCIFEROL 80473131954 Active Miriam Monroy RESIDENT CARE ASSOCIATE-C Active CYANOCOBALAMIN 1000 MCG/ML INJECTION SOLUTION 1ml week IM every 2 weeks x4 doses then back to monthly CYANOCOBALAMIN 79701388311 No Lo nger Active Romario Alan MD Active VYVANSE 50 MG ORAL CAPSULE 1 po daily L ISDEXAMFETAMINE DIMESYLATE 20947961549 No Longer Active Romario Alan MD Activ e DIFLUCAN 100 MG ORAL TABLET 1 tablet by mouth daily re peat in 3 days if no improvement FLUCONAZOLE 72927376793 No Longer Active Mari Monroy APRN-C Active ALPRAZOLAM 0.5 MG ORAL TABLET 1 tab by mouth 3 times daily PRN 2018 ALPRAZOLAM 99936109476 Active Mari Monroy APRN-C Active CIPRO 500 MG ORAL TABLET 1 tab BID CIPROFLOXAC IN HCL 11968344937 No Longer Active Mari Monroy APRN-C Active AMOXICILLIN 500 MG ORAL TABLET 1 po BID x10 days 12/03 AMOXICILLIN 31357513718 No Longer Active Mari Monroy APRN-C Active ZOLOFT 100 MG ORAL TABLET SERTRALINE H CL 19305191698 No Longer Active Ayaan Castellanos MD Active 1 30-0.975-200 MG ORAL CAPSULE 1 qDay 2 MV-MIN-FE FUM-FA-DHA 82504985934 No Longer Active Ayaan Castellanos MD Active ALPRAZOLAM 0.25 MG ORAL TABLET 1 TAB PO Q 6 HRS PRN 08/19 ALPRAZOLAM 53978414181 No Longer Active Kadeem Wall MD Active ALPRAZOLAM 0.25 MG ORAL TABLET 1 TAB PO Q 6 HRS PRN 20 10/08/25 ALPRAZOLAM 0.25 MG ORAL TABLET 059165 ALPRAZOLAM Inactive 1 30-0.975-200 MG ORAL CAPSULE 1 qDay 2 018 1 30-0.975-200 MG ORAL CAPSULE MV-MIN-FE FUM-FA-DHA I nactive ZOLOFT 100 MG ORAL TABLET ZOLOFT 100 MG ORAL TABLET 989618 SERTRALINE HCL Inactive AMOXICILLIN 500 MG ORAL TABLET 1 po BID x10 days 12/03 AMOXICILLIN 500 MG ORAL TABLET 982814 AMOXICILLIN Inactive CIPRO 500 MG ORAL TABLET 1 tab BID CIP RO 500 MG ORAL TABLET 827562 CIPROFLOXACIN HCL Inactive DIFLUCAN 100 MG ORAL TABLET 1 tablet by mouth daily re peat in 3 days if no improvement DIFLUCAN 100 MG ORAL TABLET 239329 FLUCONAZOLE Inactive VYVANSE 50 MG ORAL CAPSULE 1 po daily V YVANSE 50 MG ORAL CAPSULE LISDEXAMFETAMINE DIMESYLATE Inactive CYANOCOBALAMIN 1000 MCG/ML INJECTION SOLUTION 1ml week IM every 2 weeks x4 doses then back to monthly CYANOCOBALAMIN 1000 MCG/ML INJECTION SOLUTION 342627 CYANOCOBALAMIN Inactive VITAMIN D (ERGOCALCIFEROL) 1.25 MG (47199 UT) ORAL CAPSULE VITAMIN D (ERGOCALCIFEROL) 1.25 MG (16688 UT) ORAL CAPSULE 1 719035 ERGOCALCIFEROL Inactive IMITREX 6 MG/0.5ML SUBCUTANEOUS SOLUTION with onset of POWELL may repeat in 1 hour if needed, do not exceed 12mg in 1 day I MITREX 6 MG/0.5ML SUBCUTANEOUS SOLUTION 667315 SUMATRIPTAN SUCCINATE Inactive AMITRIPTYLINE HCL 25 MG ORAL TABLET 1 PO at HS for migraines AMITRIPTYLINE HCL 25 MG ORAL TABLET 255168 AMITRIPTYLIN E HCL Inactive Advance Directives Directive [...] Fluarix, Agriflu(>= 18 yo)) Fluzone (>3 yrs.) [[id number]] TB-PPD (tuberculin purified protein derivative), intra dermal administration Tubersol Diagnostic Results Date Name Value Unit Range Description Lab Report: CBC W/DIFF, Comp. Metabolic Panel, Magnesium - Chemistry sodium, serum 141 mmol/L 970-069 9208/05/03 carbon dioxide, venous blood 25.1 mmol/L 21.0-32 [...] test) Negative Negative sodium, serum 140 mmol/L 473-215 1367/10/14 carbon dioxide, venous blood 24.7 mmol/L 21.0-32 [...] W/DIFF, Comp. Metabolic Panel, UADIP W/MICRO, [facility] - Urinalysis urobilinogen, urine, semiquantitative (dipstick) 0.2 [...] - Chem istry sodium, serum 140 mmol/L 143-656 7232/02/22 carbon dioxide, venous blood 27.1 mmol/L 21.0-32 [...] C - Chemistry sodium, serum 140 mmol/L 984-673 5418/04/12 carbon dioxide, venous blood 27.5 mmol/L 21.0-32 [...] 0.36-3.74 Lab Report: Free Thyroxine (L) - Fight Manager ry thyroxine, serum, free 1.20 ng/dL 0.59-1.17 [...] 0.95 ng/dL 0.59-1.17 sodium, serum 138 mmol/L 993-745 5039/08/19 carbon dioxide, venous blood 24.9 mmol/L 21.0-32 [...] mg/dL Encounters Code Encounter Date Provider Facility CPT-68514 Level 5 Est. Patient 14:22:47 CDT Lubna Huerta PMHNP[facility] CPT-25788 [id number] Vst-Est Level III 16:54:40 CDT Kadeem Wall MD [facility] CPT-22373 43290-Lul Vst-Est Level IV 06:01:21 CDT Miriam Monroy [facility] CPT-45823 68522-Aha Vst-Est Level III 16:13:06 CDT Er judah Monroy [facility] CPT-22021 Level 3 New Patient 16:14:48 CDT Ayaan Castellanos MD [facility] CPT-53103 Level 4 Est. Patient 08:48:05 CDT Romario Alan MD [facility] CPT-42537 Level 3 Est. Patient 07:30:03 LAST CLEANER Mari christina RESIDENT CARE ASSOCIATE-C [facility] CPT-24299 Level 4 Est. Patient 08:02:04 LAST CLEANER Mari christina RESIDENT CARE ASSOCIATE-C [facility] CPT-88575 Level 3 Est. Patient 09:56:14 CDT Kadeem jenkins MD [facility] CPT-62010 Level 3 Est. Patient 11:07:45 CDT Ang HILLIARD [facility] -[facility] Procedures Code Procedure Name Date Entry Date Standard Desc ription CPT-TMV TMV 05:09:41 CDT CPT-72089 Foot, right, comp min 3V - XRAY USE ONLY 16:15:36 CDT CPT-J1885 Toradol 30 mg (Ketorolac) 06:01:21 CDT 2020 CPT-62390 EKG Trac and Interp - XRAY USE ONLY 1 8:04:25 CDT CPT-96119 Chest, 2 views 17:02:15 CDT CPT-J1885 Toradol 30 mg (Ketorolac) 16:44:24 CDT 2020 CPT-88050 Abx/Therapy Injection 16:44:24 CDT CPT-15836 Venipuncture Draw Fee 16:11:55 CDT CPT-L3908 Cockup Splint 16:13:07 CDT CPT-25201 Venipuncture Draw Fee 12:12:02 CDT CPT-93667 Forearm, right, AP and Lat - XRAY USE ONLY 05/26 14:27:36 CDT CPT-44440 Elbow, right, Comp Min 3V - XRAY USE ONLY 05/26 14:27:35 CDT CPT-42143 Venipuncture Draw Fee 11:28:13 CDT CPT-26160 Venipuncture Draw Fee 08:03:55 LAST CLEANER CPT-44353 Venipuncture Draw Fee 16:21:43 LAST CLEANER CPT-08275 70032 - Immun Admin 1 vac 13:37:32 CDT 2019 CPT-81754 Flulaval (Flu) 10PK Syringe IM 13:37:32 CDT CPT-23419 Venipuncture Draw Fee 10:41:23 CDT CPT-26279 Venipuncture Draw Fee 08:57:35 CDT CPT-J1885 Toradol 30 mg (Ketorolac) 18:38:26 CDT 2019 CPT-J2550 Phenergan 25 mg (Promethazine) 18:38:26 CDT CPT-J1020 Depo Medrol 60 mg (Methyl Prednisolone A cetate) 18:38:26 CDT CPT-J1100 Decadron 6mg (Dexamethasone) 18:38:26 CDT 2 CPT-28006 Abx/Therapy Injection 18:38:25 CDT CPT-29875 Venipuncture Draw Fee 08:18:31 CDT CPT-15551 Venipuncture Draw Fee 09:11:08 CDT CPT-80336 Venipuncture Draw Fee 15:19:08 CDT CPT-65999 IM or SQ Injection 13:11:03 CDT CPT-J1100 Decadron 4mg (Dexamethasone) 13:11:03 CDT 2 CPT-J1030 Depo Medrol 40 mg (Methyl Prednisolone A cetate) 13:11:02 CDT CPT-14509 Venipuncture Draw Fee 10:49:05 CDT CPT-11522 Sono Soft Tissue Head and Neck - XRAY US E ONLY 14:27:21 LAST CLEANER CPT-LI8918T (4274F) Influenza immunization administe red or previously received 13:43:59 LAST CLEANER CPT-J2550 Phenergan 25 mg (Promethazine) 17:57:23 LAST CLEANER CPT-J1885 Toradol 30 mg (Ketorolac) 17:57:23 LAST CLEANER 2018 CPT-84918 Prv Med Est Pt 18-39yrs 08:02:04 LAST CLEANER CPT-06261 24715 - Immun Admin 1 vac 09:24:27 CDT 2018 CPT-38822 Flulaval Quadrivalent (Flu) 10Pk Syringe IM 2018 09:24:27 CDT CPT-51554 First Vx - Ix admin via ID I M or jet injects without counseling by physician 16:30:31 CDT CPT-73382 Fluzone Quadrivalent Intramuscular Suspe nsion 0.5 ML 16:30:31 CDT CPT-88271 Nexplanon Removal 09:56:14 CDT CPT-OV Office Visit 10:17:55 CDT CPT-01783 TB Tubersol 16:11:35 LAST CLEANER CPT-04041 Administration single or combination vac cine inc oral 14:18:51 LAST CLEANER CPT-99436 TB Tubersol 14:18:51 LAST CLEANER CPT-50429 Influenza split virus > age 3 14:18:51 LAST CLEANER CPT-88772 Knee 3V 11:04:40 CDT
--- OUTSIDE RECORDS SUMMARY | 2020-10-19 10:46 | XMS REPORT | Clinical Summary ---
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 [...] status migrainosus BMI 29-29.9 Refinement Mari Monroy STUDENT FINANCE ADVISOR-C Body Mass Index 29.0-29.9, adult BMI 26-26.9 Refinement Romario Alan MD Body Mass Index 29.0-29.9, adult BMI 29-29.9 Refinement Mari Monroy STUDENT FINANCE ADVISOR-C Body Mass Index 29.0-29.9, adult BMI 30-30.9 Refinement Mari Monroy STUDENT FINANCE ADVISOR-C Body Mass Index 29.0-29.9, adult BMI 29-29.9 Active Mari Monroy STUDENT FINANCE ADVISOR-C Body Mass Index 29.0-29.9, adult Overweight (BMI 25-29.9) Refinement Mari Monroy STUDENT FINANCE ADVISOR-C Overweight Obesity Class I (BMI 30-34.9) Refinement 06/26 Mari Monroy STUDENT FINANCE ADVISOR-C Overweight Overweight (BMI 25-29.9) Active Mari christina STUDENT FINANCE ADVISOR-C Overweight Enlarged thyroid 240.9 Resolved Romario Alan [...] MD Abdominal pain, right lower quadrant Other jail (current) drug therapy V58.69 Active Mari GARCÍA [...] in right arm 729.5 Active Marijudah Monroy STUDENT FINANCE ADVISOR- C Pain in limb Hyperglycemia 790.29 Active Mari Porfirio STUDENT FINANCE ADVISOR-C Other abnormal glucose Contusion of right forearm, initial encounter 923.10 Active Marijudah Monroy STUDENT FINANCE ADVISOR-C Contusion of forearm Chest pain, acute 786.50 Active Marijudah Monroy STUDENT FINANCE ADVISOR- C Unspecified chest pain Headache, mixed 784.0 Active Mari Porfirio STUDENT FINANCE ADVISOR-C Headache Cervicalgia 723.1 Active Mari Porfirio STUDENT FINANCE ADVISOR-C Cervicalgia Scapulalgia, left 733.90 Active Mari Monroy STUDENT FINANCE ADVISOR- C Disorder of bone and cartilage, unspecified Dyspnea 786.09 Active Mari Monroy STUDENT FINANCE ADVISOR-C Other dyspnea and respiratory abnormality Cervical radiculopathy 723.4 Active Mari Monroy STUDENT FINANCE ADVISOR-C Brachial neuritis or radiculitis NOS Hx of migraines V13.8 Active Mari Monroy APRN-C Personal history of other specified diseases Foot pain, right 729.5 Active Shona Gorman, RMA Pain in limb Unspecified injury of right foot, initial encounter 20 14/08/06 Active Kadeem Wall MD Major depressive disorder, recurrent, mild 296.30 Acti ve Mari Monroy STUDENT FINANCE ADVISOR-C Major depressive disorder, r ecurrent episode, unspecified [...] MD Therapeutic drug monitoring ICD-V58.83 Inactive Romario Aaln MD Diet problems ICD-V69.1 Inactive Romario nieves [...] PO BID for anxiety 08/29 BUSPIRONE HCL 58855377114 Active Lubna Vizcaino PMHNP-BC Acti ve CYANOCOBALAMIN 1000MCG/ML INJECTION SOLUTION INJECT 1M L SUBCUTANEOUSLY EVERY WEEK FOR 4 DOSES THEN EVERY 2 WEEKS CYANOCOBALAMIN 001 94981344 Active Mari Monroy APRN-C Active WELLBUTRIN XL 150 MG ORAL TABLET EXTENDED RELEASE 24 H OUR 1 po daily for depression/anxiety BUPROPION HCL 03677352026 Active Dariel Monroy APRN-C Active TOPAMAX 25 MG ORAL TABLET 1 po BID for migraine prevention TOPIRAMATE 74224897273 Active Mari Monroy APRN-C Active AMITRIPTYLINE HCL 25 MG ORAL TABLET 1 PO at HS for migraines 202 AMITRIPTYLINE HCL 02381859901 No Longer Active Bakari Paz RN Active IMITREX 6 MG/0.5ML SUBCUTANEOUS SOLUTION with onset of POWELL may repeat in 1 hour if needed, do not exceed 12mg in 1 day S UMATRIPTAN SUCCINATE 41694717840 No Longer Active Bakari Paz RN Active FIORICET 50-300-40 MG ORAL CAPSULE 1-2 tabs po every 6 hours as needed for headaches, max 6 tabs per day [id number] 53075128294 Active Mari Monroy APRN-Khushboo Active TIZANIDINE HCL 4 MG ORAL TABLET 1/2-1 tab every 8 hour s as needed for muscle spasms TIZANIDINE HCL 20611294456 Active Mari Monroy STUDENT FINANCE ADVISOR-C Active VITAMIN D (ERGOCALCIFEROL) 1.25 MG (04624 UT) ORAL CAPSULE ERGOCALCIFEROL 99182076940 No Longer Active Marijudah Monroy STUDENT FINANCE ADVISOR-C Active LEVOTHYROXINE SODIUM 112MCG ORAL TABLET TAKE ONE TABLE T BY MOUTH ONE TIME DAILY 30 MINUTES BEFORE BREAKFAST LEVOTHYROXINE SODIUM 37896 357021 Active Cyrus Nel STUDENT FINANCE ADVISOR Active VITAMIN D (ERGOCALCIFEROL) 1.25 MG(25283 UT) ORAL CAPS ULE TAKE ONE CAPSULE BY MOUTH EVERY WEEK ERGOCALCIFEROL 24462265229 Active Miriam Monroy STUDENT FINANCE ADVISOR-C Active CYANOCOBALAMIN 1000 MCG/ML INJECTION SOLUTION 1ml week IM every 2 weeks x4 doses then back to monthly CYANOCOBALAMIN 93333394941 No Lo nger Active Romario Alan MD Active VYVANSE 50 MG ORAL CAPSULE 1 po daily L ISDEXAMFETAMINE DIMESYLATE 92199006714 No Longer Active Romario Alan MD Activ e DIFLUCAN 100 MG ORAL TABLET 1 tablet by mouth daily re peat in 3 days if no improvement FLUCONAZOLE 14005877465 No Longer Active Mari Monroy APRN-C Active ALPRAZOLAM 0.5 MG ORAL TABLET 1 tab by mouth 3 times daily PRN 2018 ALPRAZOLAM 29579893789 Active Mari Monroy APRN-C Active CIPRO 500 MG ORAL TABLET 1 tab BID CIPROFLOXAC IN HCL 04021385363 No Longer Active Mari Monroy APRN-C Active AMOXICILLIN 500 MG ORAL TABLET 1 po BID x10 days 12/03 AMOXICILLIN 91626445864 No Longer Active Marijudah Monroy STUDENT FINANCE ADVISOR-C Active ZOLOFT 100 MG ORAL TABLET SERTRALINE H CL 68565557482 No Longer Active Ayaan Castellanos MD Active 1 30-0.975-200 MG ORAL CAPSULE 1 qDay 2 MV-MIN-FE FUM-FA-DHA 00731810147 No Longer Active Ayaan Castellanos MD Active ALPRAZOLAM 0.25 MG ORAL TABLET 1 TAB PO Q 6 HRS PRN 08/19 ALPRAZOLAM 46895592670 No Longer Active Kadeem Wall MD Active ALPRAZOLAM 0.25 MG ORAL TABLET 1 TAB PO Q 6 HRS PRN 20 10/08/25 ALPRAZOLAM 0.25 MG ORAL TABLET 351470 ALPRAZOLAM Inactive 1 30-0.975-200 MG ORAL CAPSULE 1 qDay 2 1 30-0.975-200 MG ORAL CAPSULE MV-MIN-FE FUM-FA-DHA I nactive ZOLOFT 100 MG ORAL TABLET ZOLOFT 100 MG ORAL TABLET 750909 SERTRALINE HCL Inactive AMOXICILLIN 500 MG ORAL TABLET 1 po BID x10 days 12/03 AMOXICILLIN 500 MG ORAL TABLET 318682 AMOXICILLIN Inactive CIPRO 500 MG ORAL TABLET 1 tab BID CIP RO 500 MG ORAL TABLET 006944 CIPROFLOXACIN HCL Inactive DIFLUCAN 100 MG ORAL TABLET 1 tablet by mouth daily re peat in 3 days if no improvement DIFLUCAN 100 MG ORAL TABLET 888609 FLUCONAZOLE Inactive VYVANSE 50 MG ORAL CAPSULE 1 po daily V YVANSE 50 MG ORAL CAPSULE LISDEXAMFETAMINE DIMESYLATE Inactive CYANOCOBALAMIN 1000 MCG/ML INJECTION SOLUTION 1ml week IM every 2 weeks x4 doses then back to monthly CYANOCOBALAMIN 1000 MCG/ML INJECTION SOLUTION 226142 CYANOCOBALAMIN Inactive VITAMIN D (ERGOCALCIFEROL) 1.25 MG (81039 UT) ORAL CAPSULE VITAMIN D (ERGOCALCIFEROL) 1.25 MG (19621 UT) ORAL CAPSULE 1 261508 ERGOCALCIFEROL Inactive IMITREX 6 MG/0.5ML SUBCUTANEOUS SOLUTION with onset of POWELL may repeat in 1 hour if needed, do not exceed 12mg in 1 day I MITREX 6 MG/0.5ML SUBCUTANEOUS SOLUTION 214102 SUMATRIPTAN SUCCINATE Inactive AMITRIPTYLINE HCL 25 MG ORAL TABLET 1 PO at HS for migraines AMITRIPTYLINE HCL 25 MG ORAL TABLET 036982 AMITRIPTYLIN E HCL Inactive Advance Directives Directive [...] Fluarix, Agriflu(>= 18 yo)) Fluzone (>3 yrs.) [SCG008] TB-PPD (tuberculin purified protein derivative), intra dermal administration Tubersol Diagnostic Results Date Name Value Unit Range Description Lab Report: CBC W/DIFF, Comp. Metabolic Panel, Magnesium - Chemistry sodium, serum 141 mmol/L 406-362 6139/05/03 carbon dioxide, venous blood 25.1 mmol/L 21.0-32 [...] test) Negative Negative sodium, serum 140 mmol/L 647-675 1257/10/14 carbon dioxide, venous blood 24.7 mmol/L 21.0-32 [...] W/DIFF, Comp. Metabolic Panel, UADIP W/MICRO, AUTO, [facility] - Urinalysis urobilinogen, urine, semiquantitative (dipstick) [...] - Chem istry sodium, serum 140 mmol/L [phone]/02/22 carbon dioxide, venous blood 27.1 mmol/L 21.0-32 [...] C - Chemistry sodium, serum 140 mmol/L 746-847 4150/04/12 carbon dioxide, venous blood 27.5 mmol/L 21.0-32 [...] 0.36-3.74 Lab Report: Free Thyroxine (L) - Head Gauge Unit Operator ry thyroxine, serum, free 1.20 ng/dL 0.59-1.17 thyroxine, serum, free 1.37 ng/dL 0.59-1.17 Lab Report: Free Thyroxine (L), Isbaela simon Vitamin B12 - Chemistry thyroxine, serum, [...] 0.95 ng/dL 0.59-1.17 sodium, serum 138 mmol/L 124-987 8130/08/19 carbon dioxide, venous blood 24.9 mmol/L 21.0-32 .0 potassium, serum 3.8 mmol/L 3.5-5.2 chloride, serum 102 mmol/L 98-107 blood glucose 95 mg/dL 65-95 urea nitrogen, blood 13 mg/dL 7-18 creatinine, serum 0.76 mg/dL 0.60-1.30 Estimated Glomerular Filtration Rate (calc) 92 (?) mL/min/1.73m2 = OR > 60 mL/min alanine aminotransferase (SGPT), serum 8 U/L 12-78 aspartate aminotransferase (SGOT), serum 18 U/L -43 calcium, serum 7.9 mg/dL 8.5-10.1 bilirubin, serum, [...] mg/dL Encounters Code Encounter Date Provider Facility CPT-09094 Level 5 Est. Patient 14:22:47 CDT Lubna Huerta [facility] CPT-37496 [id number] Vst-Est Level III 16:54:40 CDT Kadeem Wall MD [facility] CPT-17995 53125-Mbo Vst-Est Level IV 06:01:21 CDT Miriam Monroy [facility] CPT-49406 [id number]-Zfo Vst-Est Level III 16:13:06 CDT Er judah Monroy [facility] CPT-45200 Level 3 New Patient 16:14:48 CDT Ayaan Castellanos MD [facility] CPT-55276 Level 4 Est. Patient 08:48:05 CDT Romario Alan MD [facility] CPT-85487 Level 3 Est. Patient 07:30:03 NUCLEAR CONTROL ROOM OPERATOR Mari christina STUDENT FINANCE ADVISOR-C [facility] CPT-21985 Level 4 Est. Patient 08:02:04 NUCLEAR CONTROL ROOM OPERATOR Mari christina STUDENT FINANCE ADVISOR-C [facility] CPT-14680 Level 3 Est. Patient 09:56:14 CDT Kadeem jenkins MD [facility] CPT-34364 Level 3 Est. Patient 11:07:45 CDT Ang HILLIARD [facility] -[facility] Procedures Code Procedure Name Date Entry Date Standard Desc ription CPT-TMV TMV 05:09:41 CDT CPT-33374 Foot, right, comp min 3V - XRAY USE ONLY 16:15:36 CDT CPT-J1885 Toradol 30 mg (Ketorolac) 06:01:21 CDT 2020 CPT-48658 EKG Trac and Interp - XRAY USE ONLY 1 8:04:25 CDT CPT-63272 Chest, 2 views 17:02:15 CDT CPT-J1885 Toradol 30 mg (Ketorolac) 16:44:24 CDT 2020 CPT-72532 Abx/Therapy Injection 16:44:24 CDT CPT-06738 Venipuncture Draw Fee 16:11:55 CDT CPT-L3908 Cockup Splint 16:13:07 CDT CPT-79558 Venipuncture Draw Fee 12:12:02 CDT CPT-93550 Forearm, right, AP and Lat - XRAY USE ONLY 05/26 14:27:36 CDT CPT-47268 Elbow, right, Comp Min 3V - XRAY USE ONLY 05/26 14:27:35 CDT CPT-09569 Venipuncture Draw Fee 11:28:13 CDT CPT-28772 Venipuncture Draw Fee 08:03:55 NUCLEAR CONTROL ROOM OPERATOR CPT-22672 Venipuncture Draw Fee 16:21:43 NUCLEAR CONTROL ROOM OPERATOR CPT-62008 05947 - Immun Admin 1 vac 13:37:32 CDT 2019 CPT-27997 Flulaval (Flu) 10PK Syringe IM 13:37:32 CDT CPT-92057 Venipuncture Draw Fee 10:41:23 CDT CPT-43375 Venipuncture Draw Fee 08:57:35 CDT CPT-J1885 Toradol 30 mg (Ketorolac) 18:38:26 CDT 2019 CPT-J2550 Phenergan 25 mg (Promethazine) 18:38:26 CDT CPT-J1020 Depo Medrol 60 mg (Methyl Prednisolone A cetate) 18:38:26 CDT CPT-J1100 Decadron 6mg (Dexamethasone) 18:38:26 CDT 2 CPT-04444 Abx/Therapy Injection 18:38:25 CDT CPT-79848 Venipuncture Draw Fee 08:18:31 CDT CPT-76533 Venipuncture Draw Fee 09:11:08 CDT CPT-99355 Venipuncture Draw Fee 15:19:08 CDT CPT-40724 IM or SQ Injection 13:11:03 CDT CPT-J1100 Decadron 4mg (Dexamethasone) 13:11:03 CDT 2 CPT-J1030 Depo Medrol 40 mg (Methyl Prednisolone A cetate) 13:11:02 CDT CPT-99525 Venipuncture Draw Fee 10:49:05 CDT CPT-36891 Sono Soft Tissue Head and Neck - XRAY US E ONLY 14:27:21 NUCLEAR CONTROL ROOM OPERATOR CPT-BD1390O (4274F) Influenza immunization administe red or previously received 13:43:59 NUCLEAR CONTROL ROOM OPERATOR CPT-J2550 Phenergan 25 mg (Promethazine) 17:57:23 NUCLEAR CONTROL ROOM OPERATOR CPT-J1885 Toradol 30 mg (Ketorolac) 17:57:23 NUCLEAR CONTROL ROOM OPERATOR 2018 CPT-59118 Prv Med Est Pt 18-39yrs 08:02:04 NUCLEAR CONTROL ROOM OPERATOR CPT-47216 52406 - Immun Admin 1 vac 09:24:27 CDT 2018 CPT-02793 Flulaval Quadrivalent (Flu) 10Pk Syringe IM 2018 09:24:27 CDT CPT-11696 First Vx - Ix admin via ID I M or jet injects without counseling by physician 16:30:31 CDT CPT-74221 Fluzone Quadrivalent Intramuscular Suspe nsion 0.5 ML 16:30:31 CDT CPT-22599 Nexplanon Removal 09:56:14 CDT CPT-OV Office Visit 10:17:55 CDT CPT-47986 TB Tubersol 16:11:35 NUCLEAR CONTROL ROOM OPERATOR CPT-22707 Administration single or combination vac cine inc oral 14:18:51 NUCLEAR CONTROL ROOM OPERATOR CPT-30770 TB Tubersol 14:18:51 NUCLEAR CONTROL ROOM OPERATOR CPT-61947 Influenza split virus > age 3 14:18:51 NUCLEAR CONTROL ROOM OPERATOR CPT-93416 Knee 3V 11:04:40 CDT
--- OUTSIDE RECORDS SUMMARY | 2020-10-19 10:46 | XMS REPORT | Clinical Summary ---
Author Author Admin, Tino Mancera Organization [facility] Address Unknown Phone Unavailable Allergies, Adverse Reactions, [...] Generalized anxiety disorder 300.02 Active Mari Monroy [employer] Generalized anxiety disorder Other organic insomnia [...] status migrainosus BMI 29-29.9 Refinement Mari Monroy [employer] Body Mass Index 29.0-29.9, adult BMI 26-26.9 Refinement Romario Alan MD Body Mass Index 29.0-29.9, adult BMI 29-29.9 Refinement Mari Monroy [employer] Body Mass Index 29.0-29.9, adult BMI 30-30.9 Refinement Mari Monroy [employer] Body Mass Index 29.0-29.9, adult BMI 29-29.9 Active Mari Monroy [employer] Body Mass Index 29.0-29.9, adult Overweight (BMI 25-29.9) Refinement Mari Monroy [employer] Overweight Obesity Class I (BMI 30-34.9) Refinement 06/26 Mari Monroy [employer] Overweight Overweight (BMI 25-29.9) Active Mari christina [employer] Overweight Enlarged thyroid 240.9 Resolved Romario Alan MD Goiter, unspecified Thyroid nodule 241.0 Resolved Romario Alan MD Nontoxic uninodular goiter Fatigue, chronic 780.79 Active Mari GOMEZC Other malaise and fatigue Multinodular thyroid goiter 241.1 Resolved Romario Alan MD Nontoxic multinodular goiter Vitamin B12 deficiency 266.2 Active Mair Monroy APRN-C Other B-complex deficiencies Contact dermatitis [...] fdc (current) drug therapy V58.69 Active Mari GOMEZC [...] in right arm 729.5 Active Marijudah Monroy [employer] Pain in limb Hyperglycemia 790.29 Active Mari Porfirio [employer] Other abnormal glucose Contusion of right forearm, initial encounter 923.10 Active Marijudah Monroy [employer] Contusion of forearm Chest pain, acute 786.50 Active Mari Porfirio [employer]- C Unspecified chest pain Headache, mixed 784.0 Active Mari Porfirio [employer] Headache Cervicalgia 723.1 Active Mari Porfirio [employer] Cervicalgia Scapulalgia, left 733.90 Active Mari Monroy [employer]- C Disorder of bone and cartilage, unspecified Dyspnea 786.09 Active Mari Monroy [employer] Other dyspnea and respiratory abnormality Cervical radiculopathy 723.4 Active Marijudah Monroy [employer] Brachial neuritis or radiculitis NOS Hx of migraines V13.8 Active Mari Monroy [employer] Personal history of other specified diseases Foot pain, right 729.5 Active Shona Gorman, RMA Pain in limb Unspecified injury of right foot, initial encounter 20 14/08/06 Active Kadeem Wall MD Major depressive disorder, recurrent, mild 296.30 Acti ve Mari Monroy [employer] Major depressive disorder, r ecurrent episode, unspecified [...] blood pressure reading without diagnosis of hypertension DEPRESSION ICD-311 Inactive Romario Alan MD DIABETES [...] Thyroid nodule ICD-241.0 Inactive Romario sanchez MD ANXIETY DISORDER ICD-300.00 Inactive Romario Alan MD Multinodular thyroid goiter ICD-241.1 Inactive Romario Alan MD Contact dermatitis ICD-692.9 Inactive Romario Alan MD Screening exam for breast cancer ICD-V76.10 [place] [address] Romario Alan MD Lymphadenopathy ICD-785.6 Inactive Romario patel MD Medication List Medication Instructions Start Date Stop Date Generic Name NDC Status Provider Patient Instruction BUSPIRONE HCL 5 MG ORAL TABLET Take 1 tab PO BID for anxiety 08/29 BUSPIRONE HCL 76939511568 Active Lubna Vizcaino PMHNP-BC Acti ve CYANOCOBALAMIN 1000MCG/ML INJECTION SOLUTION INJECT 1M L SUBCUTANEOUSLY EVERY WEEK FOR 4 DOSES THEN EVERY 2 WEEKS CYANOCOBALAMIN 001 88817661 Active Mari Monroy APRN-C Active WELLBUTRIN XL 150 MG ORAL TABLET EXTENDED RELEASE 24 H OUR 1 po daily for depression/anxiety BUPROPION HCL 95944703263 Active Dariel Monroy APRN-C Active TOPAMAX 25 MG ORAL TABLET 1 po BID for migraine prevention TOPIRAMATE 01152989682 Active Mari Monroy APRN-C Active AMITRIPTYLINE HCL 25 MG ORAL TABLET 1 PO at HS for migraines 202 AMITRIPTYLINE HCL 33533303913 No Longer Active Bakari Paz RN Active IMITREX 6 MG/0.5ML SUBCUTANEOUS SOLUTION with onset of POWELL may repeat in 1 hour if needed, do not exceed 12mg in 1 day S UMATRIPTAN SUCCINATE 33600419436 No Longer Active Bakari Paz RN Active FIORICET 50-300-40 MG ORAL CAPSULE 1-2 tabs po every 6 hours as needed for headaches, max 6 tabs per day [id number] 34385275111 Active Mari Monroy APRN-Khushboo Active TIZANIDINE HCL 4 MG ORAL TABLET 1/2-1 tab every 8 hour s as needed for muscle spasms TIZANIDINE HCL 42466005713 Active Mari Monroy [employer] Active VITAMIN D (ERGOCALCIFEROL) 1.25 MG (06582 UT) ORAL CAPSULE ERGOCALCIFEROL 59121309054 No Longer Active Marijudah Monroy [employer] Active LEVOTHYROXINE SODIUM 112MCG ORAL TABLET TAKE ONE TABLE T BY MOUTH ONE TIME DAILY 30 MINUTES BEFORE BREAKFAST LEVOTHYROXINE SODIUM 58361 165458 Active Cyrus Nel [employer] Active VITAMIN D (ERGOCALCIFEROL) 1.25 MG(63633 UT) ORAL CAPS ULE TAKE ONE CAPSULE BY MOUTH EVERY WEEK ERGOCALCIFEROL 80949658720 Active Miriam Monroy [employer] Active CYANOCOBALAMIN 1000 MCG/ML INJECTION SOLUTION 1ml week IM every 2 weeks x4 doses then back to monthly CYANOCOBALAMIN 27633441490 No Lo nger Active Romario Alan MD Active VYVANSE 50 MG ORAL CAPSULE 1 po daily L ISDEXAMFETAMINE DIMESYLATE 43122934474 No Longer Active Romario Alan MD Activ e DIFLUCAN 100 MG ORAL TABLET 1 tablet by mouth daily re peat in 3 days if no improvement FLUCONAZOLE 14330668015 No Longer Active Mari Monroy APRN-C Active ALPRAZOLAM 0.5 MG ORAL TABLET 1 tab by mouth 3 times daily PRN 2018 ALPRAZOLAM 60932851838 Active Mari Monroy APRN-C Active CIPRO 500 MG ORAL TABLET 1 tab BID CIPROFLOXAC IN HCL 27355092974 No Longer Active Mari Monroy APRN-C Active AMOXICILLIN 500 MG ORAL TABLET 1 po BID x10 days 12/03 AMOXICILLIN 86172673296 No Longer Active Mari Monroy APRN-C Active ZOLOFT 100 MG ORAL TABLET SERTRALINE H CL 26259291560 No Longer Active Ayaan Castellanos MD Active 1 30-0.975-200 MG ORAL CAPSULE 1 qDay 2 MV-MIN-FE FUM-FA-DHA 16635406670 No Longer Active Ayaan Castellanos MD Active ALPRAZOLAM 0.25 MG ORAL TABLET 1 TAB PO Q 6 HRS PRN 08/19 ALPRAZOLAM 32231593762 No Longer Active Kadeem Wall MD Active ALPRAZOLAM 0.25 MG ORAL TABLET 1 TAB PO Q 6 HRS PRN 20 10/08/25 ALPRAZOLAM 0.25 MG ORAL TABLET 911072 ALPRAZOLAM Inactive 1 30-0.975-200 MG ORAL CAPSULE 1 qDay 2 018 1 30-0.975-200 MG ORAL CAPSULE MV-MIN-FE FUM-FA-DHA I nactive ZOLOFT 100 MG ORAL TABLET ZOLOFT 100 MG ORAL TABLET 231889 SERTRALINE HCL Inactive AMOXICILLIN 500 MG ORAL TABLET 1 po BID x10 days 12/03 AMOXICILLIN 500 MG ORAL TABLET 623147 AMOXICILLIN Inactive CIPRO 500 MG ORAL TABLET 1 tab BID CIP RO 500 MG ORAL TABLET 371709 CIPROFLOXACIN HCL Inactive DIFLUCAN 100 MG ORAL TABLET 1 tablet by mouth daily re peat in 3 days if no improvement DIFLUCAN 100 MG ORAL TABLET 013767 FLUCONAZOLE Inactive VYVANSE 50 MG ORAL CAPSULE 1 po daily V YVANSE 50 MG ORAL CAPSULE LISDEXAMFETAMINE DIMESYLATE Inactive CYANOCOBALAMIN 1000 MCG/ML INJECTION SOLUTION 1ml week IM every 2 weeks x4 doses then back to monthly CYANOCOBALAMIN 1000 MCG/ML INJECTION SOLUTION 464740 CYANOCOBALAMIN Inactive VITAMIN D (ERGOCALCIFEROL) 1.25 MG (10637 UT) ORAL CAPSULE VITAMIN D (ERGOCALCIFEROL) 1.25 MG (89153 UT) ORAL CAPSULE 1 486514 ERGOCALCIFEROL Inactive IMITREX 6 MG/0.5ML SUBCUTANEOUS SOLUTION with onset of POWELL may repeat in 1 hour if needed, do not exceed 12mg in 1 day I MITREX 6 MG/0.5ML SUBCUTANEOUS SOLUTION 912521 SUMATRIPTAN SUCCINATE Inactive AMITRIPTYLINE HCL 25 MG ORAL TABLET 1 PO at HS for migraines AMITRIPTYLINE HCL 25 MG ORAL TABLET 959355 AMITRIPTYLIN E HCL Inactive Advance Directives Directive [...] Fluarix, Agriflu(>= 18 yo)) Fluzone (>3 yrs.) [[id number]] Diagnostic Results Date Name Value Unit Range Description Lab Report: CBC W/DIFF, Comp. Metabolic Panel, Magnesium - Chemistry sodium, serum 141 mmol/L 519-208 5454/05/03 carbon dioxide, venous blood 25.1 mmol/L 21.0-32 [...] test) Negative Negative sodium, serum 140 mmol/L 082-558 6986/10/14 carbon dioxide, venous blood 24.7 mmol/L 21.0-32 [...] W/DIFF, Comp. Metabolic Panel, UADIP W/MICRO, AUT[facility], [facility] - Urinalysis urobilinogen, urine, semiquantitative (dipstick) [...] - Chem istry sodium, serum 140 mmol/L 963-547 2565/02/22 carbon dioxide, venous blood 27.1 mmol/L 21.0-32 [...] C - Chemistry sodium, serum 140 mmol/L 300-879 6517/04/12 carbon dioxide, venous blood 27.5 mmol/L 21.0-32 [...] 0.36-3.74 Lab Report: Free Thyroxine (L) - [place] thyroxine, serum, free 1.20 ng/dL 0.59-1.17 [...] 0.95 ng/dL 0.59-1.17 sodium, serum 138 mmol/L 863-963 1661/08/19 carbon dioxide, venous blood 24.9 mmol/L 21.0-32 [...] mg/dL Encounters Code Encounter Date Provider Facility CPT-16609 Level 5 Est. Patient 14:22:47 CDT Lubna Huerta PMHNP-[facility] CPT-21874 60717-Fqj Vst-Est Level III 16:54:40 CDT Kadeem Wall MD [facility] CPT-86062 27542-Uam Vst-Est Level IV 06:01:21 CDT Miriam Monroy [facility] CPT-82023 44164-Aiu Vst-Est Level III 16:13:06 CDT Er judah Monroy [facility] CPT-38926 Level 3 New Patient 16:14:48 CDT Ayaan Castellanos MD [facility] CPT-94806 Level 4 Est. Patient 08:48:05 CDT Romario Alan MD [facility] CPT-05848 Level 3 Est. 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 Patient 08:02:04 [employer]TLE [employer] DRIVER Mari christina [employer] [facility] CPT-80566 Level 3 Est. Patient 09:56:14 CDT Kadeem jenkins MD [facility] CPT-13628 Level 3 Est. Patient 11:07:45 CDT Ang HILLIARD [facility] Procedures Code Procedure Name Date Entry Date Standard Desc ription CPT-TMV TMV 05:09:41 CDT CPT-51822 Foot, right, comp min 3V - XRAY USE ONLY 16:15:36 CDT CPT-J1885 Toradol 30 mg (Ketorolac) 06:01:21 CDT 2020 CPT-95906 EKG Trac and Interp - XRAY USE ONLY 1 8:04:25 CDT CPT-11588 Chest, 2 views 17:02:15 CDT CPT-J1885 Toradol 30 mg (Ketorolac) 16:44:24 CDT 2020 CPT-60006 Abx/Therapy Injection 16:44:24 CDT CPT-65844 Venipuncture Draw Fee 16:11:55 CDT CPT-L3908 Cockup Splint 16:13:07 CDT CPT-96604 Venipuncture Draw Fee 12:12:02 CDT CPT-46338 Forearm, right, AP and Lat - XRAY USE ONLY 05/26 14:27:36 CDT CPT-78328 Elbow, right, Comp Min 3V - XRAY USE ONLY 05/26 14:27:35 CDT CPT-23604 Venipuncture Draw Fee 11:28:13 CDT CPT-96177 Venipuncture Draw Fee 08:03:55 [employer]TLE [employer] DRIVER CPT-03100 Venipuncture Draw Fee 16:21:43 [employer]TLE [employer] DRIVER CPT-64010 93619 - Immun Admin 1 vac 13:37:32 CDT 2019 CPT-08659 Flulaval (Flu) 10PK Syringe IM 13:37:32 CDT CPT-28530 Venipuncture Draw Fee 10:41:23 CDT CPT-35429 Venipuncture Draw Fee 08:57:35 CDT CPT-J1885 Toradol 30 mg (Ketorolac) 18:38:26 CDT 2019 CPT-J2550 Phenergan 25 mg (Promethazine) 18:38:26 CDT CPT-J1020 Depo Medrol 60 mg (Methyl Prednisolone A cetate) 18:38:26 CDT CPT-J1100 Decadron 6mg (Dexamethasone) 18:38:26 CDT 2 CPT-39523 Abx/Therapy Injection 18:38:25 CDT CPT-10204 Venipuncture Draw Fee 08:18:31 CDT CPT-61905 Venipuncture Draw Fee 09:11:08 CDT CPT-65041 Venipuncture Draw Fee 15:19:08 CDT CPT-20814 IM or SQ Injection 13:11:03 CDT CPT-J1100 Decadron 4mg (Dexamethasone) 13:11:03 CDT 2 CPT-J1030 Depo Medrol 40 mg (Methyl Prednisolone A cetate) 13:11:02 CDT CPT-61105 Venipuncture Draw Fee 10:49:05 CDT CPT-98576 Sono Soft Tissue Head and Neck - XRAY US E ONLY 14:27:21 SHUTTLE [employer] DRIVER CPT-MW7586L (4274F) Influenza immunization administe red or previously received 13:43:59 [employer]UTTLE [employer] DRIVER CPT-J2550 Phenergan 25 mg (Promethazine) 17:57:23 SHUTTLE [employer] DRIVER CPT-J1885 Toradol 30 mg (Ketorolac) 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 CPT-58081 Prv Med Est Pt 18-39yrs 08:02:04 [employer]UTTLE [employer] DRIVER CPT-24386 87301 - Immun Admin 1 vac 09:24:27 CDT 2018 CPT-53062 Flulaval Quadrivalent (Flu) 10Pk Syringe IM 2018 09:24:27 CDT CPT-03581 First Vx - Ix admin via ID I M or jet injects without counseling by physician 16:30:31 CDT CPT-44032 Fluzone Quadrivalent Intramuscular Suspe nsion 0.5 ML 16:30:31 CDT CPT-65530 Nexplanon Removal 09:56:14 CDT CPT-OV Office Visit 10:17:55 CDT CPT-12541 TB Tubersol 16:11:35 [employer]TLE [employer]IVER CPT-09576 Administration single or combination vac cine inc oral 14:18:51 SHUTTLE [employer] DRIVER CPT-35750 TB Tubersol 14:18:51 SHUTTLE [employer] DRIVER CPT-51249 Influenza split virus > age 3 14:18:51 SHUTTLE [employer] DRIVER CPT-02314 Knee 3V 11:04:40 CDT
--- OUTSIDE RECORDS SUMMARY | 2020-10-19 10:46 | XMS REPORT | Clinical Summary ---
Author Author Admin, Isabela Mancera Organization [facility] Address Unknown Phone Unavailable Allergies, Adverse Reactions, [...] Generalized anxiety disorder 300.02 Active Mari Monroy DAIRY HAND-C Generalized anxiety disorder 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 [...] status migrainosus BMI 29-29.9 Refinement Mari Monroy DAIRY HAND-C Body Mass Index 29.0-29.9, adult BMI 26-26.9 Refinement Romario Alan MD Body Mass Index 29.0-29.9, adult BMI 29-29.9 Refinement Mari Monroy DAIRY HAND-C Body Mass Index 29.0-29.9, adult BMI 30-30.9 Refinement Mari Monroy DAIRY HAND-C Body Mass Index 29.0-29.9, adult BMI 29-29.9 Active Mari Monroy DAIRY HAND-C Body Mass Index 29.0-29.9, adult Overweight (BMI 25-29.9) Refinement Mari Monroy DAIRY HAND-C Overweight Obesity Class I (BMI 30-34.9) Refinement 06/26 Mari Monroy DAIRY HAND-C Overweight Overweight (BMI 25-29.9) Active Mari christina DAIRY HAND-C Overweight Enlarged thyroid 240.9 Resolved Romario Alan [...] MD Abdominal pain, right lower quadrant Other residential (current) drug therapy V58.69 Active Mari GARCÍA [...] in right arm 729.5 Active Marijudah Monroy DAIRY HAND- C Pain in limb Hyperglycemia 790.29 Active Mari Porfirio DAIRY HAND-C Other abnormal glucose Contusion of right forearm, initial encounter 923.10 Active Marijudah Monroy DAIRY HAND-C Contusion of forearm Chest pain, acute 786.50 Active Marijudah Monroy DAIRY HAND- C Unspecified chest pain Headache, mixed 784.0 Active Mari Porfirio DAIRY HAND-C Headache Cervicalgia 723.1 Active Mari Porfirio DAIRY HAND-C Cervicalgia Scapulalgia, left 733.90 Active Mari Monroy DAIRY HAND- C Disorder of bone and cartilage, unspecified Dyspnea 786.09 Active Mari Monroy DAIRY HAND-C Other dyspnea and respiratory abnormality Cervical radiculopathy 723.4 Active Mari Monroy DAIRY HAND-C Brachial neuritis or radiculitis NOS Hx of migraines V13.8 Active Mari Monroy APRN-C Personal history of other specified diseases Foot pain, right 729.5 Active Shona Gorman, RMA Pain in limb Unspecified injury of right foot, initial encounter 20 14/08/06 Active Kadeem Wall MD Major depressive disorder, recurrent, mild 296.30 Acti ve Mari Monroy DAIRY HAND-C Major depressive disorder, r ecurrent episode, unspecified [...] hypertension DEPRESSION ICD-311 Inactive Romario Alan MD FH [...] MAY CAUSE CONSTIPATION) use sparingly ONDANSETRON HCL 16672853581 Active Mari Monroy DAIRY HAND -C Active BUSPIRONE HCL 5 MG ORAL TABLET Take 1 tab PO BID for anxiety 08/29 BUSPIRONE HCL 74297215748 Active Lubna Vizcaino PMHNP-BC Acti ve CYANOCOBALAMIN 1000MCG/ML INJECTION SOLUTION INJECT 1M L SUBCUTANEOUSLY EVERY WEEK FOR 4 DOSES THEN EVERY 2 WEEKS CYANOCOBALAMIN 001 66575428 Active Mari Monroy APRN-C Active WELLBUTRIN XL 150 MG ORAL TABLET EXTENDED RELEASE 24 H OUR 1 po daily for depression/anxiety BUPROPION HCL 34302224408 Active Er judah Monroy DAIRY HAND-C Active TOPAMAX 25 MG ORAL TABLET 1 po BID for migraine prevention TOPIRAMATE 63147775838 Active Mari Monroy APRN-C Active AMITRIPTYLINE HCL 25 MG ORAL TABLET 1 PO at HS for migraines 202 AMITRIPTYLINE HCL 97443661625 No Longer Active Bakari Paz RN Active IMITREX 6 MG/0.5ML SUBCUTANEOUS SOLUTION with onset of POWELL may repeat in 1 hour if needed, do not exceed 12mg in 1 day S UMATRIPTAN SUCCINATE 88037310952 No Longer Active Bakari Paz RN Active FIORICET 50-300-40 MG ORAL CAPSULE 1-2 tabs po every 6 hours as needed for headaches, max 6 tabs per day [id number]-[id number] 77255621619 Active Mari Monroy DAIRY HAND-C Active TIZANIDINE HCL 4 MG ORAL TABLET 1/2-1 tab every 8 hour s as needed for muscle spasms TIZANIDINE HCL 37966888492 Active Mari Monroy DAIRY HAND-C Active VITAMIN D (ERGOCALCIFEROL) 1.25 MG (87321 UT) ORAL CAPSULE ERGOCALCIFEROL 47123239070 No Longer Active Mari Monroy DAIRY HAND-C Active LEVOTHYROXINE SODIUM 112MCG ORAL TABLET TAKE ONE TABLE T BY MOUTH ONE TIME DAILY 30 MINUTES BEFORE BREAKFAST LEVOTHYROXINE SODIUM 32151 770357 Active Cyrus Nel DAIRY HAND Active VITAMIN D (ERGOCALCIFEROL) 1.25 MG(65851 UT) ORAL CAPS ULE TAKE ONE CAPSULE BY MOUTH EVERY WEEK ERGOCALCIFEROL 81437579072 Active Miriam Monroy DAIRY HAND-C Active CYANOCOBALAMIN 1000 MCG/ML INJECTION SOLUTION 1ml week IM every 2 weeks x4 doses then back to monthly CYANOCOBALAMIN 16379412671 No Lo nger Active Romario Alan MD Active VYVANSE 50 MG ORAL CAPSULE 1 po daily L ISDEXAMFETAMINE DIMESYLATE 89257320747 No Longer Active Romario Alan MD Activ e DIFLUCAN 100 MG ORAL TABLET 1 tablet by mouth daily re peat in 3 days if no improvement FLUCONAZOLE 98788057803 No Longer Active Mari Monroy DAIRY HAND-C Active ALPRAZOLAM 0.5 MG ORAL TABLET 1 tab by mouth 3 times daily PRN 2018 ALPRAZOLAM 87859975474 Active Mari Monroy APRN-C Active CIPRO 500 MG ORAL TABLET 1 tab BID CIPROFLOXAC IN HCL 51244712253 No Longer Active Mari Monroy APRN-C Active AMOXICILLIN 500 MG ORAL TABLET 1 po BID x10 days 12/03 AMOXICILLIN 54273889957 No Longer Active Mari Monroy APRN-C Active ZOLOFT 100 MG ORAL TABLET SERTRALINE H CL 29730451190 No Longer Active Ayaan Castellanos MD Active 1 30-0.975-200 MG ORAL CAPSULE 1 qDay 2 MV-MIN-FE FUM-FA-DHA 73784395209 No Longer Active Ayaan Castellanos MD Active ALPRAZOLAM 0.25 MG ORAL TABLET 1 TAB PO Q 6 HRS PRN 08/19 ALPRAZOLAM 01147504030 No Longer Active Kadeem Wall MD Active ALPRAZOLAM 0.25 MG ORAL TABLET 1 TAB PO Q 6 HRS PRN 20 10/08/25 ALPRAZOLAM 0.25 MG ORAL TABLET 910655 ALPRAZOLAM Inactive 1 30-0.975-200 MG ORAL CAPSULE 1 qDay 2 1 30-0.975-200 MG ORAL CAPSULE MV-MIN-FE FUM-FA-DHA I nactive ZOLOFT 100 MG ORAL TABLET ZOLOFT 100 MG ORAL TABLET 019468 SERTRALINE HCL Inactive AMOXICILLIN 500 MG ORAL TABLET 1 po BID x10 days 12/03 AMOXICILLIN 500 MG ORAL TABLET 527507 AMOXICILLIN Inactive CIPRO 500 MG ORAL TABLET 1 tab BID CIP RO 500 MG ORAL TABLET 869598 CIPROFLOXACIN HCL Inactive DIFLUCAN 100 MG ORAL TABLET 1 tablet by mouth daily re peat in 3 days if no improvement DIFLUCAN 100 MG ORAL TABLET 464161 FLUCONAZOLE Inactive VYVANSE 50 MG ORAL CAPSULE 1 po daily V YVANSE 50 MG ORAL CAPSULE LISDEXAMFETAMINE DIMESYLATE Inactive CYANOCOBALAMIN 1000 MCG/ML INJECTION SOLUTION 1ml week IM every 2 weeks x4 doses then back to monthly CYANOCOBALAMIN 1000 MCG/ML INJECTION SOLUTION 809222 CYANOCOBALAMIN Inactive VITAMIN D (ERGOCALCIFEROL) 1.25 MG (02108 UT) ORAL CAPSULE VITAMIN D (ERGOCALCIFEROL) 1.25 MG (88993 UT) ORAL CAPSULE 1 277330 ERGOCALCIFEROL Inactive IMITREX 6 MG/0.5ML SUBCUTANEOUS SOLUTION with onset of POWELL may repeat in 1 hour if needed, do not exceed 12mg in 1 day I MITREX 6 MG/0.5ML SUBCUTANEOUS SOLUTION 076775 SUMATRIPTAN SUCCINATE Inactive AMITRIPTYLINE HCL 25 MG ORAL TABLET 1 PO at HS for migraines AMITRIPTYLINE HCL 25 MG ORAL TABLET 129277 AMITRIPTYLIN E HCL Inactive Advance Directives Directive [...] Fluarix, Agriflu(>= 18 yo)) Fluzone (>3 yrs.) [[id number]] TB-PPD (tuberculin purified protein derivative), intra dermal administration Tubersol Diagnostic Results Date Name Value Unit Range Description Lab Report: CBC W/DIFF, Comp. Metabolic Panel, Magnesium - Chemistry sodium, serum 141 mmol/L 497-228 5744/05/03 carbon dioxide, venous blood 25.1 mmol/L 21.0-32 [...] test) Negative Negative sodium, serum 140 mmol/L 984-541 1615/10/14 carbon dioxide, venous blood 24.7 mmol/L 21.0-32 [...] - Chem istry sodium, serum 140 mmol/L 876-738 1563/02/22 carbon dioxide, venous blood 27.1 mmol/L 21.0-32 [...] 56 50-136 Lab Report: Comp. Metabolic Panel, [facility] C - Chemistry sodium, serum 140 mmol/L 667-966 9528/04/12 carbon dioxide, venous blood 27.5 mmol/L 21.0-32 [...] 0.36-3.74 Lab Report: Free Thyroxine (L) - Plastic Boat Buffer ry thyroxine, serum, free 1.20 ng/dL 0.59-1.17 [...] 0.95 ng/dL 0.59-1.17 sodium, serum 138 mmol/L 424-975 6105/08/19 carbon dioxide, venous blood 24.9 mmol/L 21.0-32 [...] mg/dL Encounters Code Encounter Date Provider Facility CPT-58765 Level 5 Est. Patient 14:22:47 CDT Lubna Huerta HNP-[facility] CPT-47937 [id number] Vst-Est Level III 16:54:40 CDT Kadeem Wall MD [facility] CPT-45541 77104-Lqv Vst-Est Level IV 06:01:21 CDT Miriam Monroy [facility] CPT-94869 20952-Vwn Vst-Est Level III 16:13:06 CDT Dariel Monroy [facility] CPT-16408 Level 3 New Patient 16:14:48 CDT Ayaan Castellanos MD [facility] CPT-58533 Level 4 Est. Patient 08:48:05 CDT Romario Alan MD [facility] CPT-31156 Level 3 Est. Patient 07:30:03 LAMINATOR HAND Mari christina DAIRY HAND-C [facility] CPT-19803 Level 4 Est. Patient 08:02:04 LAMINATOR HAND Mari christina DAIRY HAND-C [facility] CPT-81503 Level 3 Est. Patient 09:56:14 CDT Kadeem jenkins MD [facility] CPT-20072 Level 3 Est. Patient 11:07:45 CDT Ang HILLIARD [facility] -[facility] Procedures Code Procedure Name Date Entry Date Standard Desc ription CPT-TMV TMV 05:09:41 CDT CPT-24182 Foot, right, comp min 3V - XRAY USE ONLY 16:15:36 CDT CPT-J1885 Toradol 30 mg (Ketorolac) 06:01:21 CDT 2020 CPT-96156 EKG Trac and Interp - XRAY USE ONLY 1 8:04:25 CDT CPT-90929 Chest, 2 views 17:02:15 CDT CPT-J1885 Toradol 30 mg (Ketorolac) 16:44:24 CDT 2020 CPT-25307 Abx/Therapy Injection 16:44:24 CDT CPT-25480 Venipuncture Draw Fee 16:11:55 CDT CPT-L3908 Cockup Splint 16:13:07 CDT CPT-61423 Venipuncture Draw Fee 12:12:02 CDT CPT-57344 Forearm, right, AP and Lat - XRAY USE ONLY 05/26 14:27:36 CDT CPT-41259 Elbow, right, Comp Min 3V - XRAY USE ONLY 05/26 14:27:35 CDT CPT-64947 Venipuncture Draw Fee 11:28:13 CDT CPT-19923 Venipuncture Draw Fee 08:03:55 LAMINATOR HAND CPT-95143 Venipuncture Draw Fee 16:21:43 LAMINATOR HAND CPT-14796 87760 - Immun Admin 1 vac 13:37:32 CDT 2019 CPT-37621 Flulaval (Flu) 10PK Syringe IM 13:37:32 CDT CPT-04073 Venipuncture Draw Fee 10:41:23 CDT CPT-11743 Venipuncture Draw Fee 08:57:35 CDT CPT-J1885 Toradol 30 mg (Ketorolac) 18:38:26 CDT 2019 CPT-J2550 Phenergan 25 mg (Promethazine) 18:38:26 CDT CPT-J1020 Depo Medrol 60 mg (Methyl Prednisolone A cetate) 18:38:26 CDT CPT-J1100 Decadron 6mg (Dexamethasone) 18:38:26 CDT 2 CPT-09341 Abx/Therapy Injection 18:38:25 CDT CPT-47385 Venipuncture Draw Fee 08:18:31 CDT CPT-49728 Venipuncture Draw Fee 09:11:08 CDT CPT-03569 Venipuncture Draw Fee 15:19:08 CDT CPT-80724 IM or SQ Injection 13:11:03 CDT CPT-J1100 Decadron 4mg (Dexamethasone) 13:11:03 CDT 2 CPT-J1030 Depo Medrol 40 mg (Methyl Prednisolone A cetate) 13:11:02 CDT CPT-87356 Venipuncture Draw Fee 10:49:05 CDT CPT-29657 Sono Soft Tissue Head and Neck - XRAY US E ONLY 14:27:21 LAMINATOR HAND CPT-RB3301J (4274F) Influenza immunization administe red or previously received 13:43:59 LAMINATOR HAND CPT-J2550 Phenergan 25 mg (Promethazine) 17:57:23 LAMINATOR HAND CPT-J1885 Toradol 30 mg (Ketorolac) 17:57:23 LAMINATOR HAND 2018 CPT-34251 Prv Med Est Pt 18-39yrs 08:02:04 LAMINATOR HAND CPT-79217 09787 - Immun Admin 1 vac 09:24:27 CDT 2018 CPT-02213 Flulaval Quadrivalent (Flu) 10Pk Syringe IM 2018 09:24:27 CDT CPT-84787 First Vx - Ix admin via ID I M or jet injects without counseling by physician 16:30:31 CDT CPT-26731 Fluzone Quadrivalent Intramuscular Suspe nsion 0.5 ML 16:30:31 CDT CPT-86765 Nexplanon Removal 09:56:14 CDT CPT-OV Office Visit 10:17:55 CDT CPT-33589 TB Tubersol 16:11:35 LAMINATOR HAND CPT-37120 Administration single or combination vac cine inc oral 14:18:51 LAMINATOR HAND CPT-92742 TB Tubersol 14:18:51 LAMINATOR HAND CPT-82514 Influenza split virus > age 3 14:18:51 LAMINATOR HAND CPT-54733 Knee 3V 11:04:40 CDT
--- OUTSIDE RECORDS SUMMARY | 2020-10-19 10:46 | XMS REPORT | Clinical Summary ---
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 [...] status migrainosus BMI 29-29.9 Refinement Mari Monroy MAIL OPENER-C Body Mass Index 29.0-29.9, adult BMI 26-26.9 Refinement Romario Alan MD Body Mass Index 29.0-29.9, adult BMI 29-29.9 Refinement Mari Monroy MAIL OPENER-C Body Mass Index 29.0-29.9, adult BMI 30-30.9 Refinement Mari Monroy MAIL OPENER-C Body Mass Index 29.0-29.9, adult BMI 29-29.9 Active Mari Monroy MAIL OPENER-C Body Mass Index 29.0-29.9, adult Overweight (BMI 25-29.9) Refinement Mari Monroy MAIL OPENER-C Overweight Obesity Class I (BMI 30-34.9) Refinement 06/26 Mari Monroy MAIL OPENER-C Overweight Overweight (BMI 25-29.9) Active Mari christina MAIL OPENER-C Overweight Enlarged thyroid 240.9 Resolved Romario Alan [...] half-way (current) drug therapy V58.69 Active Mari GOMEZC [...] in right arm 729.5 Active Marijudah Monroy MAIL OPENER- C Pain in limb Hyperglycemia 790.29 Active Mari Porfirio MAIL OPENER-C Other abnormal glucose Contusion of right forearm, initial encounter 923.10 Active Marijudah Monroy MAIL OPENER-C Contusion of forearm Chest pain, acute 786.50 Active Mari Porfirio MAIL OPENER- C Unspecified chest pain Headache, mixed 784.0 Active Mari Porfirio MAIL OPENER-C Headache Cervicalgia 723.1 Active Mari Porfirio MAIL OPENER-C Cervicalgia Scapulalgia, left 733.90 Active Mari Monroy MAIL OPENER- C Disorder of bone and cartilage, unspecified Dyspnea 786.09 Active Mari Monroy MAIL OPENER-C Other dyspnea and respiratory abnormality Cervical radiculopathy 723.4 Active Marijudah Monroy MAIL OPENER-C Brachial neuritis or radiculitis NOS Hx of migraines V13.8 Active Mari Monroy MAIL OPENER-C Personal history of other specified diseases Foot pain, right 729.5 Active Shona Gorman, RMA Pain in limb Unspecified injury of right foot, initial encounter 20 14/08/06 Active Kadeem Wall MD Major depressive disorder, recurrent, mild 296.30 Acti ve Mari Monroy MAIL OPENER-C Major depressive disorder, r ecurrent episode, unspecified [...] MD Screening exam for breast cancer ICD-V76.10 [place] ctive Romario Alan MD Lymphadenopathy ICD-785.6 Inactive Romario patel MD Medication List Medication Instructions Start Date Stop Date Generic Name NDC Status Provider Patient Instruction BUSPIRONE HCL 5 MG ORAL TABLET Take 1 tab PO BID for anxiety 08/29 BUSPIRONE HCL 82017785401 Active Lubna Vizcaino PMHNP-BC Acti ve CYANOCOBALAMIN 1000MCG/ML INJECTION SOLUTION INJECT 1M L SUBCUTANEOUSLY EVERY WEEK FOR 4 DOSES THEN EVERY 2 WEEKS CYANOCOBALAMIN 001 14407661 Active Mari Monroy APRN-C Active WELLBUTRIN XL 150 MG ORAL TABLET EXTENDED RELEASE 24 H OUR 1 po daily for depression/anxiety BUPROPION HCL 36445016464 Active Dariel Monroy APRN-C Active TOPAMAX 25 MG ORAL TABLET 1 po BID for migraine prevention TOPIRAMATE 91875949064 Active Mari Monroy APRN-C Active AMITRIPTYLINE HCL 25 MG ORAL TABLET 1 PO at HS for migraines 202 AMITRIPTYLINE HCL 88550115228 No Longer Active Bakari Paz RN Active IMITREX 6 MG/0.5ML SUBCUTANEOUS SOLUTION with onset of POWELL may repeat in 1 hour if needed, do not exceed 12mg in 1 day S UMATRIPTAN SUCCINATE 48979322073 No Longer Active Bakari Paz RN Active FIORICET 50-300-40 MG ORAL CAPSULE 1-2 tabs po every 6 hours as needed for headaches, max 6 tabs per day [id number] 45156140324 Active Mari Monroy APRN-Khushboo Active TIZANIDINE HCL 4 MG ORAL TABLET 1/2-1 tab every 8 hour s as needed for muscle spasms TIZANIDINE HCL 08227665741 Active Mari Monroy MAIL OPENER-C Active VITAMIN D (ERGOCALCIFEROL) 1.25 MG (84462 UT) ORAL CAPSULE ERGOCALCIFEROL 89115876949 No Longer Active Marijudah Monroy MAIL OPENER-C Active LEVOTHYROXINE SODIUM 112MCG ORAL TABLET TAKE ONE TABLE T BY MOUTH ONE TIME DAILY 30 MINUTES BEFORE BREAKFAST LEVOTHYROXINE SODIUM 45325 871077 Active Cyrus Nel MAIL OPENER Active VITAMIN D (ERGOCALCIFEROL) 1.25 MG(87188 UT) ORAL CAPS ULE TAKE ONE CAPSULE BY MOUTH EVERY WEEK ERGOCALCIFEROL 46111118247 Active Miriam Monroy MAIL OPENER-C Active CYANOCOBALAMIN 1000 MCG/ML INJECTION SOLUTION 1ml week IM every 2 weeks x4 doses then back to monthly CYANOCOBALAMIN 41679060252 No Lo nger Active Romario Alan MD Active VYVANSE 50 MG ORAL CAPSULE 1 po daily L ISDEXAMFETAMINE DIMESYLATE 85541151346 No Longer Active Romario Alan MD Activ e DIFLUCAN 100 MG ORAL TABLET 1 tablet by mouth daily re peat in 3 days if no improvement FLUCONAZOLE 05107774665 No Longer Active Mari Monroy APRN-C Active ALPRAZOLAM 0.5 MG ORAL TABLET 1 tab by mouth 3 times daily PRN 2018 ALPRAZOLAM 93854485126 Active Mari Monroy APRN-C Active CIPRO 500 MG ORAL TABLET 1 tab BID CIPROFLOXAC IN HCL 95823698274 No Longer Active Mari Monroy APRN-C Active AMOXICILLIN 500 MG ORAL TABLET 1 po BID x10 days 12/03 AMOXICILLIN 95328661839 No Longer Active Mari Monroy APRN-C Active ZOLOFT 100 MG ORAL TABLET SERTRALINE H CL 03128073369 No Longer Active Ayaan Castellanos MD Active 1 30-0.975-200 MG ORAL CAPSULE 1 qDay 2 MV-MIN-FE FUM-FA-DHA 03474600581 No Longer Active Ayaan Castellanos MD Active ALPRAZOLAM 0.25 MG ORAL TABLET 1 TAB PO Q 6 HRS PRN 08/19 ALPRAZOLAM 25341922170 No Longer Active Kadeem Wall MD Active ALPRAZOLAM 0.25 MG ORAL TABLET 1 TAB PO Q 6 HRS PRN 20 10/08/25 ALPRAZOLAM 0.25 MG ORAL TABLET 673137 ALPRAZOLAM Inactive 1 30-0.975-200 MG ORAL CAPSULE 1 qDay 2 018 1 30-0.975-200 MG ORAL CAPSULE MV-MIN-FE FUM-FA-DHA I nactive ZOLOFT 100 MG ORAL TABLET ZOLOFT 100 MG ORAL TABLET 421810 SERTRALINE HCL Inactive AMOXICILLIN 500 MG ORAL TABLET 1 po BID x10 days 12/03 AMOXICILLIN 500 MG ORAL TABLET 215740 AMOXICILLIN Inactive CIPRO 500 MG ORAL TABLET 1 tab BID CIP RO 500 MG ORAL TABLET 812581 CIPROFLOXACIN HCL Inactive DIFLUCAN 100 MG ORAL TABLET 1 tablet by mouth daily re peat in 3 days if no improvement DIFLUCAN 100 MG ORAL TABLET 978929 FLUCONAZOLE Inactive VYVANSE 50 MG ORAL CAPSULE 1 po daily V YVANSE 50 MG ORAL CAPSULE LISDEXAMFETAMINE DIMESYLATE Inactive CYANOCOBALAMIN 1000 MCG/ML INJECTION SOLUTION 1ml week IM every 2 weeks x4 doses then back to monthly CYANOCOBALAMIN 1000 MCG/ML INJECTION SOLUTION 622514 CYANOCOBALAMIN Inactive VITAMIN D (ERGOCALCIFEROL) 1.25 MG (31349 UT) ORAL CAPSULE VITAMIN D (ERGOCALCIFEROL) 1.25 MG (03261 UT) ORAL CAPSULE 1 092895 ERGOCALCIFEROL Inactive IMITREX 6 MG/0.5ML SUBCUTANEOUS SOLUTION with onset of POWELL may repeat in 1 hour if needed, do not exceed 12mg in 1 day I MITREX 6 MG/0.5ML SUBCUTANEOUS SOLUTION 753954 SUMATRIPTAN SUCCINATE Inactive AMITRIPTYLINE HCL 25 MG ORAL TABLET 1 PO at HS for migraines AMITRIPTYLINE HCL 25 MG ORAL TABLET 692592 AMITRIPTYLIN E HCL Inactive Advance Directives Directive [...] Fluarix, Agriflu(>= 18 yo)) Fluzone (>3 yrs.) [[id number]] TB-PPD (tuberculin purified protein derivative), intra dermal administration Tubersol Diagnostic Results Date Name Value Unit Range Description Lab Report: CBC W/DIFF, Comp. Metabolic Panel, Magnesium - Chemistry sodium, serum 141 mmol/L 601-777 6458/05/03 carbon dioxide, venous blood 25.1 mmol/L 21.0-32 [...] test) Negative Negative sodium, serum 140 mmol/L 134-466 0238/10/14 carbon dioxide, venous blood 24.7 mmol/L 21.0-32 [...] W/DIFF, Comp. Metabolic Panel, UADIP W/MICRO, [facility], [facility] - Urinalysis urobilinogen, urine, semiquantitative (dipstick) [...] - Chem istry sodium, serum 140 mmol/L 718-136 9643/02/22 carbon dioxide, venous blood 27.1 mmol/L 21.0-32 [...] C - Chemistry sodium, serum 140 mmol/L 676-128 4165/04/12 carbon dioxide, venous blood 27.5 mmol/L 21.0-32 [...] 0.36-3.74 Lab Report: Free Thyroxine (L) - Eviscerator ry thyroxine, serum, free 1.20 ng/dL 0.59-1.17 [...] 0.95 ng/dL 0.59-1.17 sodium, serum 138 mmol/L 118-107 4677/08/19 carbon dioxide, venous blood 24.9 mmol/L 21.0-32 [...] mg/dL Encounters Code Encounter Date Provider Facility CPT-26417 Level 5 Est. Patient 14:22:47 CDT Lubna Huerta [facility] CPT-35269 02021-Upp Vst-Est Level III 16:54:40 CDT Kadeem Wall MD [facility] CPT-86661 87115-Jll Vst-Est Level IV 06:01:21 CDT Miriam Monroy [facility] CPT-64502 45685-Fsu Vst-Est Level III 16:13:06 CDT Er judah Monroy [facility] CPT-49032 Level 3 New Patient 16:14:48 CDT Ayaan Castellanos MD [facility] CPT-57539 Level 4 Est. Patient 08:48:05 CDT Romario Alan MD [facility] CPT-29216 Level 3 Est. Patient 07:30:03 MANAGER PET Mari christina MAIL OPENER-C [facility] CPT-66238 Level 4 Est. Patient 08:02:04 MANAGER PET Mari christina MAIL OPENER-C [facility] CPT-93797 Level 3 Est. Patient 09:56:14 CDT Kadeem jenkins MD [facility] CPT-55411 Level 3 Est. Patient 11:07:45 CDT Ang HILLIARD [facility] -[facility] Procedures Code Procedure Name Date Entry Date Standard Desc ription CPT-TMV TMV 05:09:41 CDT CPT-73134 Foot, right, comp min 3V - XRAY USE ONLY 16:15:36 CDT CPT-J1885 Toradol 30 mg (Ketorolac) 06:01:21 CDT 2020 CPT-36649 EKG Trac and Interp - XRAY USE ONLY 1 8:04:25 CDT CPT-38189 Chest, 2 views 17:02:15 CDT CPT-J1885 Toradol 30 mg (Ketorolac) 16:44:24 CDT 2020 CPT-75498 Abx/Therapy Injection 16:44:24 CDT CPT-64290 Venipuncture Draw Fee 16:11:55 CDT CPT-L3908 Cockup Splint 16:13:07 CDT CPT-97197 Venipuncture Draw Fee 12:12:02 CDT CPT-89701 Forearm, right, AP and Lat - XRAY USE ONLY 05/26 14:27:36 CDT CPT-57787 Elbow, right, Comp Min 3V - XRAY USE ONLY 05/26 14:27:35 CDT CPT-51323 Venipuncture Draw Fee 11:28:13 CDT CPT-74317 Venipuncture Draw Fee 08:03:55 MANAGER PET CPT-34901 Venipuncture Draw Fee 16:21:43 MANAGER PET CPT-52039 07055 - Immun Admin 1 vac 13:37:32 CDT 2019 CPT-00474 Flulaval (Flu) 10PK Syringe IM 13:37:32 CDT CPT-27376 Venipuncture Draw Fee 10:41:23 CDT CPT-79212 Venipuncture Draw Fee 08:57:35 CDT CPT-J1885 Toradol 30 mg (Ketorolac) 18:38:26 CDT 2019 CPT-J2550 Phenergan 25 mg (Promethazine) 18:38:26 CDT CPT-J1020 Depo Medrol 60 mg (Methyl Prednisolone A cetate) 18:38:26 CDT CPT-J1100 Decadron 6mg (Dexamethasone) 18:38:26 CDT 2 CPT-91053 Abx/Therapy Injection 18:38:25 CDT CPT-09074 Venipuncture Draw Fee 08:18:31 CDT CPT-62405 Venipuncture Draw Fee 09:11:08 CDT CPT-78263 Venipuncture Draw Fee 15:19:08 CDT CPT-30007 IM or SQ Injection 13:11:03 CDT CPT-J1100 Decadron 4mg (Dexamethasone) 13:11:03 CDT 2 CPT-J1030 Depo Medrol 40 mg (Methyl Prednisolone A cetate) 13:11:02 CDT CPT-00301 Venipuncture Draw Fee 10:49:05 CDT CPT-61683 Sono Soft Tissue Head and Neck - XRAY US E ONLY 14:27:21 MANAGER PET CPT-YI9669Z (4274F) Influenza immunization administe red or previously received 13:43:59 MANAGER PET CPT-J2550 Phenergan 25 mg (Promethazine) 17:57:23 MANAGER PET CPT-J1885 Toradol 30 mg (Ketorolac) 17:57:23 MANAGER PET 2018 CPT-59724 Prv Med Est Pt 18-39yrs 08:02:04 MANAGER PET CPT-30617 02924 - Immun Admin 1 vac 09:24:27 CDT 2018 CPT-06257 Flulaval Quadrivalent (Flu) 10Pk Syringe IM 2018 09:24:27 CDT CPT-35375 First Vx - Ix admin via ID I M or jet injects without counseling by physician 16:30:31 CDT CPT-24810 Fluzone Quadrivalent Intramuscular Suspe nsion 0.5 ML 16:30:31 CDT CPT-44191 Nexplanon Removal 09:56:14 CDT CPT-OV Office Visit 10:17:55 CDT CPT-33750 TB Tubersol 16:11:35 MANAGER PET CPT-10565 Administration single or combination vac cine inc oral 14:18:51 MANAGER PET CPT-69694 TB Tubersol 14:18:51 MANAGER PET CPT-43046 Influenza split virus > age 3 14:18:51 MANAGER PET CPT-25882 Knee 3V 11:04:40 CDT
--- OUTSIDE RECORDS SUMMARY | 2020-10-19 10:47 | XMS REPORT | Clinical Summary ---
Author Author Admin, Isabela Mancera Organization [facility] [place] Address Unknown Phone Unavailable Allergies, Adverse Reactions, Alerts Allergy Name Reaction Description Start Date Severity Status Pr ovider No Known Allergies Lubna Raida Conditions or Problems Problem Name Problem Code [...] Generalized anxiety disorder 300.02 Active Mari Monroy TRANSMISSION DESIGN ENGINEER-C Generalized anxiety disorder 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 Resolved Allison Alan MD Insomnia, unspecified Therapeutic drug monitoring V58.83 Resolved Romario Alan MD Encounter for therapeutic drug monitorin g Diet problems V69.1 Resolved Romario Alan MD Inappropriate diet and eating habits Wellness examination, routine medical V70.0 Active Mari Monroy TRANSMISSION DESIGN ENGINEER-C Routine general medical examination at a health care facility Medication refill V68.1 Resolved Romario Alan MD Issue of repeat prescriptions Migraine, common w/o intractable migraine 346.10 Activ e Mari Monroy TRANSMISSION DESIGN ENGINEER-C Migraine without aura, witho ut mention of intractable migraine, without mention of status migrainosus BMI 29-29.9 Refinement Mari Monroy TRANSMISSION DESIGN ENGINEER-C Body Mass Index 29.0-29.9, adult BMI 26-26.9 Refinement Romario Alan MD Body Mass Index 29.0-29.9, adult BMI 29-29.9 Refinement Mari Monroy TRANSMISSION DESIGN ENGINEER-C Body Mass Index 29.0-29.9, adult BMI 30-30.9 Refinement Mari Monroy TRANSMISSION DESIGN ENGINEER-C Body Mass Index 29.0-29.9, adult BMI 29-29.9 Active Mari Monroy TRANSMISSION DESIGN ENGINEER-C Body Mass Index 29.0-29.9, adult Overweight (BMI 25-29.9) Refinement Mari Porfirio TRANSMISSION DESIGN ENGINEER-C Overweight Obesity Class I (BMI 30-34.9) Refinement 06/26 Mari Monroy TRANSMISSION DESIGN ENGINEER-C Overweight Overweight (BMI 25-29.9) Active Mari christina TRANSMISSION DESIGN ENGINEER-C Overweight Enlarged thyroid 240.9 Resolved Romario Alan [...] abnormal blood chemistry 790.6 Active 04/11 Mari Monroy APRN-C Other abnormal blood chemistry Hypocalcemia 275.41 Active Bakari Paz LPN Hypocalcemia Adenocarcinoma, thyroid gland 193 Active Eliane Morales Malignant neoplasm of thyroid gland Pain in right arm 729.5 Active Marijudah Monroy TRANSMISSION DESIGN ENGINEER- C Pain in limb Hyperglycemia 790.29 Active Mari Porfirio TRANSMISSION DESIGN ENGINEER-C Other abnormal glucose Contusion of right forearm, initial encounter 923.10 Active Marijudah Monroy TRANSMISSION DESIGN ENGINEER-C Contusion of forearm Chest pain, acute 786.50 Active Marijudah Monroy TRANSMISSION DESIGN ENGINEER- C Unspecified chest pain Headache, mixed 784.0 Active Mari Porfirio TRANSMISSION DESIGN ENGINEER-C Headache Cervicalgia 723.1 Active Mari Porfirio TRANSMISSION DESIGN ENGINEER-C Cervicalgia Scapulalgia, left 733.90 Active Marijudah Monroy TRANSMISSION DESIGN ENGINEER- C Disorder of bone and cartilage, unspecified Dyspnea 786.09 Active Mari Monroy TRANSMISSION DESIGN ENGINEER-C Other dyspnea and respiratory abnormality Cervical radiculopathy 723.4 Active Marijudah Monroy TRANSMISSION DESIGN ENGINEER-C Brachial neuritis or radiculitis NOS Hx of migraines V13.8 Active Mari Monroy APRN-C Personal history of other specified diseases Foot pain, right 729.5 Active Shona Gorman, RMA Pain in limb Unspecified injury of right foot, initial encounter 20 14/08/06 Active Kadeem Wall MD Major depressive disorder, recurrent, mild 296.30 Acti ve Mari Monroy TRANSMISSION DESIGN ENGINEER-C Major depressive disorder, r ecurrent episode, unspecified degree OTHER MIXED ANXIETY DISORDERS 300.02 Active 08/07 Mari Monroy APRN-C Generalized anxiety disorder ANXIETY DISORDER ICD-300.00 Inactive Romario Alan MD DEPRESSION ICD-311 Inactive Romario Alan MD FH DIABETES ICD-V18.0 Inactive Romario Alan MD 202 FH BREAST CANCER ICD-V16.3 Inactive Romario Jorge KNEE PAIN, LEFT ICD-719.46 Inactive Romairo Eastman MD KNEE PAIN, LEFT ICD-719.46 Inactive [...] Instructions Start Date Stop Date Generic Name ND Status Provider Patient Instruction CYANOCOBALAMIN 1000MCG/ML INJECTION SOLUTION INJECT 1M L SUBCUTANEOUSLY EVERY WEEK FOR 4 DOSES THEN EVERY 2 WEEKS CYANOCOBALAMIN 001 [id number] Active Mari Monroy APRN-C Active WELLBUTRIN XL 150 MG ORAL TABLET EXTENDED RELEASE 24 H OUR 1 po daily for depression/anxiety BUPROPION HCL 08171426578 Active Er judah Monroy APRN-C Active TOPAMAX 25 MG ORAL TABLET 1 po BID for migraine prevention TOPIRAMATE 01327739952 Active Mari Monroy APRN-C Active AMITRIPTYLINE HCL 25 MG ORAL TABLET 1 PO at HS for migraines AMITRIPTYLINE HCL 75713225635 No Longer Active Bakari Paz LPN Active IMITREX 6 MG/0.5ML SUBCUTANEOUS SOLUTION with onset of POWELL may repeat in 1 hour if needed, do not exceed 12mg in 1 day S UMATRIPTAN SUCCINATE 16365359705 No Longer Active Bakari Paz LPN Activ e FIORICET 50-300-40 MG ORAL CAPSULE 1-2 tabs po every 6 hours as needed for headaches, max 6 tabs per day [id number]-ARWA-OIGOVIFM 41710943346 Active Mari Monroy APRN-C Active TIZANIDINE HCL 4 MG ORAL TABLET 1/2-1 tab every 8 hour s as needed for muscle spasms TIZANIDINE HCL 58487049432 Active Mari Monroy APRN-C Active VITAMIN D (ERGOCALCIFEROL) 1.25 MG (41234 UT) ORAL CAPSULE ERGOCALCIFEROL 42937112826 No Longer Active Mari Monroy APRN-C Active LEVOTHYROXINE SODIUM 112MCG ORAL TABLET TAKE ONE TABLE T BY MOUTH ONE TIME DAILY 30 MINUTES BEFORE BREAKFAST LEVOTHYROXINE SODIUM 55116 514761 Active Cyrus Neumann APRN Active VITAMIN D (ERGOCALCIFEROL) 1.25 MG(65499 UT) ORAL CAPS ULE TAKE ONE CAPSULE BY MOUTH EVERY WEEK ERGOCALCIFEROL 66850747328 Active Miriamflorencio grande Porfirio HOLGUINN-C Active CYANOCOBALAMIN 1000 MCG/ML INJECTION SOLUTION 1ml week IM every 2 weeks x4 doses then back to monthly CYANOCOBALAMIN 53992389606 No Lo nger Active Romario Alan MD Active VYVANSE 50 MG ORAL CAPSULE 1 po daily L ISDEXAMFETAMINE DIMESYLATE 25419959041 No Longer Active Romario Alan MD Activ e DIFLUCAN 100 MG ORAL TABLET 1 tablet by mouth daily re peat in 3 days if no improvement FLUCONAZOLE 89183541465 No Longer Active Mari Monroy APRN-C Active ALPRAZOLAM 0.5 MG ORAL TABLET 1 tab by mouth 3 times daily PRN 2018 ALPRAZOLAM 17868479462 Active Mari Monroy APRN-C Active CIPRO 500 MG ORAL TABLET 1 tab BID CIPROFLOXAC IN HCL 18466642227 No Longer Active Mari Monroy APRN-C Active AMOXICILLIN 500 MG ORAL TABLET 1 po BID x10 days 12/03 AMOXICILLIN 83007278055 No Longer Active Mari Monroy APRN-C Active ZOLOFT 100 MG ORAL TABLET SERTRALINE H CL 83671538720 No Longer Active Ayaan Castellanos MD Active 1 30-0.975-200 MG ORAL CAPSULE 1 qDay 2 MV-MIN-FE FUM-FA-DHA 62454183607 No Longer Active Ayaan Castellanos MD Active ALPRAZOLAM 0.25 MG ORAL TABLET 1 TAB PO Q 6 HRS PRN 08/19 ALPRAZOLAM 00362576069 No Longer Active Kadeem Wall MD Active ALPRAZOLAM 0.25 MG ORAL TABLET 1 TAB PO Q 6 HRS PRN 20 10/08/25 ALPRAZOLAM 0.25 MG ORAL TABLET 552306 ALPRAZOLAM Inactive 1 30-0.975-200 MG ORAL CAPSULE 1 qDay 2 1 30-0.975-200 MG ORAL CAPSULE MV-MIN-FE FUM-FA-DHA I nactive ZOLOFT 100 MG ORAL TABLET ZOLOFT 100 MG ORAL TABLET 240536 SERTRALINE HCL Inactive AMOXICILLIN 500 MG ORAL TABLET 1 po BID x10 days 12/03 AMOXICILLIN 500 MG ORAL TABLET 054566 AMOXICILLIN Inactive CIPRO 500 MG ORAL TABLET 1 tab BID CIP RO 500 MG ORAL TABLET 773098 CIPROFLOXACIN HCL Inactive DIFLUCAN 100 MG ORAL TABLET 1 tablet by mouth daily re peat in 3 days if no improvement DIFLUCAN 100 MG ORAL TABLET 099070 FLUCONAZOLE Inactive VYVANSE 50 MG ORAL CAPSULE 1 po daily V YVANSE 50 MG ORAL CAPSULE LISDEXAMFETAMINE DIMESYLATE Inactive CYANOCOBALAMIN 1000 MCG/ML INJECTION SOLUTION 1ml week IM every 2 weeks x4 doses then back to monthly CYANOCOBALAMIN 1000 MCG/ML INJECTION SOLUTION 766341 CYANOCOBALAMIN Inactive VITAMIN D (ERGOCALCIFEROL) 1.25 MG (36970 UT) ORAL CAPSULE VITAMIN D (ERGOCALCIFEROL) 1.25 MG (36731 UT) ORAL CAPSULE 1 751661 ERGOCALCIFEROL Inactive IMITREX 6 MG/0.5ML SUBCUTANEOUS SOLUTION with onset of POWELL may repeat in 1 hour if needed, do not exceed 12mg in 1 day I MITREX 6 MG/0.5ML SUBCUTANEOUS SOLUTION 413866 SUMATRIPTAN SUCCINATE Inactive AMITRIPTYLINE HCL 25 MG ORAL TABLET 1 PO at HS for migraines 202 AMITRIPTYLINE HCL 25 MG ORAL TABLET 057273 AMITRIPTYLIN E HCL Inactive Advance Directives Directive [...] Fluarix, Agriflu(>= 18 yo)) Fluzone (>3 yrs.) [[id number]] Influenza, seasonal, inject able TB-PPD (tuberculin purified protein derivative), intra dermal administration Tubersol Vital Signs Date Name Value Unit Range Description blood pressure, diastolic, repeated by physician 83 [...] Magnesium - Chemistry sodium, serum 141 mmol/L 168-833 4417/05/03 carbon dioxide, venous blood 25.1 mmol/L 21.0-32 [...] test) Negative Negative sodium, serum 140 mmol/L 051-910 8603/10/14 carbon dioxide, venous blood 24.7 mmol/L 21.0-32 [...] - Chem istry sodium, serum 140 mmol/L 893-341 4885/02/22 carbon dioxide, venous blood 27.1 mmol/L 21.0-32 .0 potassium, serum 4.5 mmol/L 3.5-5.2 chloride, serum 105 mmol/L 98-107 blood glucose 94 mg/dL 65-95 urea nitrogen, blood 11 mg/dL 7-18 creatinine, serum 0.77 mg/dL 0.60-1.30 Estimated Glomerular Filtration Rate (calc) 90 (?) mL/min/1.73m2 = OR > 60 mL/min alanine aminotransferase (SGPT), serum 11 U/L - aspartate aminotransferase (SGOT), serum 20 U/L - calcium, serum 8.4 mg/dL 8.5-10.1 bilirubin, serum, total 0.40 mg/dL 0.00-1.00 Lab Report: Comp. Metabolic Panel - Lab Alkaline phosphatase 56 50-136 Lab Report: Comp. Metabolic Panel, [facility] C - Chemistry sodium, serum 140 mmol/L 714-156 6461/04/12 carbon dioxide, venous blood 27.5 mmol/L 21.0-32 .0 potassium, serum 4.0 mmol/L 3.5-5.2 chloride, serum 104 mmol/L 98-107 blood glucose 98 mg/dL 65-95 urea nitrogen, blood 14 mg/dL 7-18 creatinine, serum 0.80 mg/dL 0.60-1.30 Estimated Glomerular Filtration Rate (calc) 86 (?) mL/min/1.73m2 = OR > 60 mL/min alanine aminotransferase (SGPT), serum 13 U/L aspartate aminotransferase (SGOT), serum 20 U/L - calcium, serum 8.8 mg/dL 8.5-10.1 bilirubin, serum, total 0.50 mg/dL 0.00-1.00 hemoglobin A1C, blood, as % of total hemoglobin 5.3 % 4.3-6.0 Lab Report: Comp. Metabolic Panel, [facility] C - Lab Alkaline phosphatase 63 50-136 Lab Report: Erythrocyte Sed Rate, Thyroi d Stimulating Hormone (L) - Chemistry TSH 2.11 m[iU]/mL 0.36-3.74 Lab Report: Free Thyroxine (L) - Report Developer ry thyroxine, serum, free 1.20 ng/dL 0.59-1.17 thyroxine, serum, free 1.37 ng/dL 0.59-1.17 Lab Report: Free Thyroxine (L), Isabela mckoythi Vitamin B12 - Chemistry thyroxine, serum, free [...] 0.95 ng/dL 0.59-1.17 sodium, serum 138 mmol/L 368-619 0481/08/19 carbon dioxide, venous blood 24.9 mmol/L 21.0-32 [...] mg/dL Encounters Code Encounter Date Provider Facility CPT-07415 [id number] Vst-Est Level III 16:54:40 CDT Kadeem Wall MD [facility] CPT-99224 [id number] Vst-Est Level IV 06:01:21 CDT Miriam Monroy [facility] CPT-82786 [id number] Vst-Est Level III 16:13:06 CDT Er judah Monroy [facility] CPT-83803 Level 3 New Patient 16:14:48 CDT Ayaan Castellanos MD [facility] CPT-05814 Level 4 Est. Patient 08:48:05 CDT Romario Alan MD [facility] CPT-48692 Level 3 Est. Patient 07:30:03 STOCK ROLLER Mari christina TRANSMISSION DESIGN ENGINEER-C [facility] CPT-89097 Level 4 Est. Patient 08:02:04 STOCK ROLLER Mari christina TRANSMISSION DESIGN ENGINEER-C [facility] CPT-47611 Level 3 Est. Patient 09:56:14 CDT Kadeem jenkins MD [facility] CPT-33360 Level 3 Est. Patient 11:07:45 CDT Ang vasquez [facility] Procedures Code Procedure Name Date Entry Date Standard Desc ription CPT-TMV TMV 05:09:41 CDT CPT-39470 Foot, right, comp min 3V - XRAY USE ONLY 16:15:36 CDT CPT-J1885 Toradol 30 mg (Ketorolac) 06:01:21 CDT 2020 CPT-95302 EKG Trac and Interp - XRAY USE ONLY 1 8:04:25 CDT CPT-39229 Chest, 2 views 17:02:15 CDT CPT-J1885 Toradol 30 mg (Ketorolac) 16:44:24 CDT 2020 CPT-69177 Abx/Therapy Injection 16:44:24 CDT CPT-51902 Venipuncture Draw Fee 16:11:55 CDT CPT-L3908 Cockup Splint 16:13:07 CDT CPT-42963 Venipuncture Draw Fee 12:12:02 CDT CPT-93667 Forearm, right, AP and Lat - XRAY USE ONLY 05/26 14:27:36 CDT CPT-44797 Elbow, right, Comp Min 3V - XRAY USE ONLY 05/26 14:27:35 CDT CPT-84841 Venipuncture Draw Fee 11:28:13 CDT CPT-28722 Venipuncture Draw Fee 08:03:55 STOCK ROLLER CPT-63978 Venipuncture Draw Fee 16:21:43 STOCK ROLLER CPT-08279 06598 - Immun Admin 1 vac 13:37:32 CDT 2019 CPT-85239 Flulaval (Flu) 10PK Syringe IM 13:37:32 CDT CPT-83164 Venipuncture Draw Fee 10:41:23 CDT CPT-04197 Venipuncture Draw Fee 08:57:35 CDT CPT-J1885 Toradol 30 mg (Ketorolac) 18:38:26 CDT 2019 CPT-J2550 Phenergan 25 mg (Promethazine) 18:38:26 CDT CPT-J1020 Depo Medrol 60 mg (Methyl Prednisolone A cetate) 18:38:26 CDT CPT-J1100 Decadron 6mg (Dexamethasone) 18:38:26 CDT 2 CPT-06745 Abx/Therapy Injection 18:38:25 CDT CPT-77003 Venipuncture Draw Fee 08:18:31 CDT CPT-42758 Venipuncture Draw Fee 09:11:08 CDT CPT-75657 Venipuncture Draw Fee 15:19:08 CDT CPT-64506 IM or SQ Injection 13:11:03 CDT CPT-J1100 Decadron 4mg (Dexamethasone) 13:11:03 CDT 2 CPT-J1030 Depo Medrol 40 mg (Methyl Prednisolone A cetate) 13:11:02 CDT CPT-28455 Venipuncture Draw Fee 10:49:05 CDT CPT-35914 Sono Soft Tissue Head and Neck - XRAY US E ONLY 14:27:21 STOCK ROLLER CPT-OB9828T (4274F) Influenza immunization administe red or previously received 13:43:59 STOCK ROLLER CPT-J2550 Phenergan 25 mg (Promethazine) 17:57:23 STOCK ROLLER CPT-J1885 Toradol 30 mg (Ketorolac) 17:57:23 STOCK ROLLER 2018 CPT-17261 Prv Med Est Pt 18-39yrs 08:02:04 STOCK ROLLER CPT-06932 55459 - Immun Admin 1 vac 09:24:27 CDT 2018 CPT-67074 Flulaval Quadrivalent (Flu) 10Pk Syringe IM 2018 09:24:27 CDT CPT-17834 First Vx - Ix admin via ID I M or jet injects without counseling by physician 16:30:31 CDT CPT-61626 Fluzone Quadrivalent Intramuscular Suspe nsion 0.5 ML 16:30:31 CDT CPT-12290 Nexplanon Removal 09:56:14 CDT CPT-OV Office Visit 10:17:55 CDT CPT-60387 TB Tubersol 16:11:35 STOCK ROLLER CPT-93596 Administration single or combination vac cine inc oral 14:18:51 STOCK ROLLER CPT-02782 TB Tubersol 14:18:51 STOCK ROLLER CPT-88123 Influenza split virus > age 3 14:18:51 STOCK ROLLER CPT-48411 Knee 3V 11:04:40 CDT
--- OUTSIDE RECORDS SUMMARY | 2020-10-19 10:47 | XMS REPORT | Clinical Summary ---
Author Author Admin, Tino Mancera Organization 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 [...] status migrainosus BMI 29-29.9 Refinement Mari Monroy [employer] CH[employer]-C Body Mass Index 29.0-29.9, adult BMI 26-26.9 Refinement Romario Alan MD Body Mass Index 29.0-29.9, adult BMI 29-29.9 Refinement Mari Monroy [employer]C Body Mass Index 29.0-29.9, adult BMI 30-30.9 Refinement Mari Monroy [employer] CH[employer]-C Body Mass Index 29.0-29.9, adult BMI 29-29.9 Active Mari Monroy [employer] CH[employer]C Body Mass Index 29.0-29.9, adult Overweight (BMI 25-29.9) Refinement Mari Monroy [employer]C Overweight Obesity Class I (BMI 30-34.9) Refinement 06/26 Mari Monroy [employer]C Overweight Overweight (BMI 25-29.9) Active Mari christina [employer]-C Overweight Enlarged thyroid 240.9 Resolved Romario Alan [...] of lymph nodes Hypocalcemia 275.41 Active Mari GOMEZC Hypocalcemia Abdominal pain, right lower quadrant 789.03 Active Romario Alan MD Abdominal pain, right lower quadrant 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 Mari Monroy [...] in right arm 729.5 Active Marijudah Monroy [employer] CH[employer]PER- C Pain in limb Hyperglycemia 790.29 Active Mari Porfirio AIR CH[employer]-C Other abnormal glucose Contusion of right forearm, initial encounter 923.10 Active Marijudah Monroy [employer] CH[employer]C Contusion of forearm Chest pain, acute 786.50 Active Mari Porfirio [employer] CH[employer]PER- C Unspecified chest pain Headache, mixed 784.0 Active Mari Porfirio [employer] CH[employer]C Headache Cervicalgia 723.1 Active Mari Porfirio [employer] CH[employer]C Cervicalgia Scapulalgia, left 733.90 Active Marijudah Monroy AIR CHIPPER- C Disorder of bone and cartilage, unspecified Dyspnea 786.09 Active Mari Monroy [employer] CHIP[employer]-C Other dyspnea and respiratory abnormality Cervical radiculopathy 723.4 Active Marijudah Monroy [employer] CHIPPER-C Brachial neuritis or radiculitis NOS Hx of migraines V13.8 Active Mari Monroy APRN-C Personal history of other specified diseases Foot pain, right 729.5 Active Shona Gorman, RMA Pain in limb Unspecified injury of right foot, initial encounter 20 14/08/06 Active Kadeem Wall MD Major depressive disorder, recurrent, mild 296.30 Acti ve Marijudah Monroy [employer] CH[employer]-C Major depressive disorder, r ecurrent episode, unspecified degree OTHER MIXED ANXIETY DISORDERS 300.02 Active 08/07 Mari Monroy APRN-C Generalized anxiety disorder DEPRESSION ICD-311 Inactive Romario Alan MD DIABETES ICD-V18.0 Inactive Romario Alan MD 202 BREAST CANCER ICD-V16.3 Inactive Romario Jorge KNEE [...] MD Screening exam for breast cancer ICD-V76.10 [place] ctive Romario Alan MD Lymphadenopathy ICD-785.6 Inactive Romario patel MD Medication List Medication Instructions Start Date Stop Date Generic Name NDC Status Provider Patient Instruction WELLBUTRIN XL 150 MG ORAL TABLET EXTENDED RELEASE 24 H OUR 1 po daily for depression/anxiety BUPROPION HCL 05069998022 Active Dariel Monroy APRN-C Active TOPAMAX 25 MG ORAL TABLET 1 po BID for migraine prevention TOPIRAMATE 66321861106 Active Mari Monroy APRN-C Active AMITRIPTYLINE HCL 25 MG ORAL TABLET 1 PO at HS for migraines AMITRIPTYLINE HCL 21226055590 No Longer Active Bakari Paz LPN Active IMITREX 6 MG/0.5ML SUBCUTANEOUS SOLUTION with onset of POWELL may repeat in 1 hour if needed, do not exceed 12mg in 1 day S UMATRIPTAN SUCCINATE 89123775645 No Longer Active Bakari Paz LPN Activ e FIORICET 50-300-40 MG ORAL CAPSULE 1-2 tabs po every 6 hours as needed for headaches, max 6 tabs per day [id number] 15133353687 Active Mari Monroy APRN-C Active TIZANIDINE HCL 4 MG ORAL TABLET 1/2-1 tab every 8 hour s as needed for muscle spasms TIZANIDINE HCL 98019250926 Active Mari Monroy APRN-C Active VITAMIN D (ERGOCALCIFEROL) 1.25 MG (30394 UT) ORAL CAPSULE ERGOCALCIFEROL 82805769940 No Longer Active Mari Monroy APRN-C Active LEVOTHYROXINE SODIUM 112MCG ORAL TABLET TAKE ONE TABLE T BY MOUTH ONE TIME DAILY 30 MINUTES BEFORE BREAKFAST LEVOTHYROXINE SODIUM 95812 614064 Active Cyrus Neumann APRN Active CYANOCOBALAMIN 1000MCG/ML INJECTION SOLUTION INJECT 1M L INTRAMUSCULARLY EVERY WEEK FOR 4 DOSES THEN EVERY 2 WEEKS CYANOCOBALAMIN 001 89094734 Active Mari Monroy [employer]C Active VITAMIN D (ERGOCALCIFEROL) 1.25 MG(50957 UT) ORAL CAPS ULE TAKE ONE CAPSULE BY MOUTH EVERY WEEK ERGOCALCIFEROL 23872729761 Active Miriamflorencio grande Porfirio [employer] CH[employer]PER-C Active CYANOCOBALAMIN 1000 MCG/ML INJECTION SOLUTION 1ml week IM every 2 weeks x4 doses then back to monthly CYANOCOBALAMIN 31831465877 No Lo nger Active Romario Alan MD Active VYVANSE 50 MG ORAL CAPSULE 1 po daily L ISDEXAMFETAMINE DIMESYLATE 28231064125 No Longer Active Romario Alan MD Activ e DIFLUCAN 100 MG ORAL TABLET 1 tablet by mouth daily re peat in 3 days if no improvement FLUCONAZOLE 99532815441 No Longer Active Mari Monroy APRN-C Active ALPRAZOLAM 0.5 MG ORAL TABLET 1 tab by mouth 3 times daily PRN 2018 ALPRAZOLAM 30434440593 Active Mari Monroy APRN-C Active CIPRO 500 MG ORAL TABLET 1 tab BID CIPROFLOXAC IN HCL 08344116200 No Longer Active Mari Monroy APRN-C Active AMOXICILLIN 500 MG ORAL TABLET 1 po BID x10 days 12/03 AMOXICILLIN 88267591394 No Longer Active Marijudah Monroy APRN-C Active ZOLOFT 100 MG ORAL TABLET SERTRALINE H CL 37443238006 No Longer Active Ayaan Castellanos MD Active 1 30-0.975-200 MG ORAL CAPSULE 1 qDay 2 MV-MIN-FE FUM-FA-DHA 88960779929 No Longer Active Ayaan Castellanos MD Active ALPRAZOLAM 0.25 MG ORAL TABLET 1 TAB PO Q 6 HRS PRN 08/19 ALPRAZOLAM 01377486273 No Longer Active Kadeem Wall MD Active ALPRAZOLAM 0.25 MG ORAL TABLET 1 TAB PO Q 6 HRS PRN 20 10/08/25 ALPRAZOLAM 0.25 MG ORAL TABLET 450559 ALPRAZOLAM Inactive 1 30-0.975-200 MG ORAL CAPSULE 1 qDay 2 1 30-0.975-200 MG ORAL CAPSULE MV-MIN-FE FUM-FA-DHA I nactive ZOLOFT 100 MG ORAL TABLET ZOLOFT 100 MG ORAL TABLET 407085 SERTRALINE HCL Inactive AMOXICILLIN 500 MG ORAL TABLET 1 po BID x10 days 12/03 AMOXICILLIN 500 MG ORAL TABLET 040034 AMOXICILLIN Inactive CIPRO 500 MG ORAL TABLET 1 tab BID CIP RO 500 MG ORAL TABLET 766274 CIPROFLOXACIN HCL Inactive DIFLUCAN 100 MG ORAL TABLET 1 tablet by mouth daily re peat in 3 days if no improvement DIFLUCAN 100 MG ORAL TABLET 566924 FLUCONAZOLE Inactive VYVANSE 50 MG ORAL CAPSULE 1 po daily V YVANSE 50 MG ORAL CAPSULE LISDEXAMFETAMINE DIMESYLATE Inactive CYANOCOBALAMIN 1000 MCG/ML INJECTION SOLUTION 1ml week IM every 2 weeks x4 doses then back to monthly CYANOCOBALAMIN 1000 MCG/ML INJECTION SOLUTION 006537 CYANOCOBALAMIN Inactive VITAMIN D (ERGOCALCIFEROL) 1.25 MG (10319 UT) ORAL CAPSULE VITAMIN D (ERGOCALCIFEROL) 1.25 MG (74366 UT) ORAL CAPSULE 1 584049 ERGOCALCIFEROL Inactive IMITREX 6 MG/0.5ML SUBCUTANEOUS SOLUTION with onset of POWELL may repeat in 1 hour if needed, do not exceed 12mg in 1 day I MITREX 6 MG/0.5ML SUBCUTANEOUS SOLUTION 605059 SUMATRIPTAN SUCCINATE Inactive AMITRIPTYLINE HCL 25 MG ORAL TABLET 1 PO at HS for migraines 202 AMITRIPTYLINE HCL 25 MG ORAL TABLET 024610 AMITRIPTYLIN E HCL Inactive Advance Directives Directive [...] Fluarix, Agriflu(>= 18 yo)) Fluzone (>3 yrs.) [[id number]] Influenza, seasonal, inject able Vital Signs Date Name Value Unit Range Description blood pressure, diastolic, repeated by physician 83 BP martin blood pressure, diastolic 83 mm[Hg] BP maritn blood pressure, systolic, repeated by physician 124 [...] Magnesium - Chemistry sodium, serum 141 mmol/L 377-712 2759/05/03 carbon dioxide, venous blood 25.1 mmol/L 21.0-32 [...] Metabolic Panel, UADIP W/MICRO, AUTO, CG - Chemistry human chorionic gonadotropin , urine, qualitative (urine test) Negative Negative sodium, serum 140 mmol/L 629-638 8706/10/14 carbon dioxide, venous blood 24.7 mmol/L 21.0-32 [...] - Chem istry sodium, serum 140 mmol/L 296-057 1932/02/22 carbon dioxide, venous blood 27.1 mmol/L 21.0-32 .0 potassium, serum 4.5 mmol/L 3.5-5.2 chloride, serum 105 mmol/L 98-107 blood glucose 94 mg/dL 65-95 urea nitrogen, blood 11 mg/dL 7-18 creatinine, serum 0.77 mg/dL 0.60-1.30 Estimated Glomerular Filtration Rate (calc) 90 (?) mL/min/1.73m2 = OR > 60 mL/min alanine aminotransferase (SGPT), serum 11 U/L - aspartate aminotransferase (SGOT), serum 20 U/L -43 calcium, serum 8.4 mg/dL 8.5-10.1 bilirubin, serum, total 0.40 mg/dL 0.00-1.00 Lab Report: Comp. Metabolic Panel - Lab Alkaline phosphatase 56 50-136 Lab Report: Comp. Metabolic Panel, [facility] C - Chemistry sodium, serum 140 mmol/L 855-315 8039/04/12 carbon dioxide, venous blood 27.5 mmol/L 21.0-32 [...] 0.36-3.74 Lab Report: Free Thyroxine (L) - Deckhand Maintenance ry thyroxine, serum, free 1.20 ng/dL 0.59-1.17 thyroxine, serum, free 1.37 ng/dL 0.59-1.17 Lab Report: Free Thyroxine (L), Tino Khushboo simon Vitamin B12 - Chemistry thyroxine, serum, [...] 0.95 ng/dL 0.59-1.17 sodium, serum 138 mmol/L 878-517 1834/08/19 carbon dioxide, venous blood 24.9 mmol/L 21.0-32 [...] mg/dL Encounters Code Encounter Date Provider Facility CPT-54761 [id number] Vst-Est Level III 16:54:40 CDT Kadeem Wall MD [facility] CPT-56511 [id number] Vst-Est Level IV 06:01:21 CDT Miriam Monroy [facility] CPT-07537 [id number] Vst-Est Level III 16:13:06 CDT Dariel Monroy [facility] CPT-35900 Level 3 New Patient 16:14:48 CDT Ayaan Castellanos MD [facility] CPT-94245 Level 4 Est. Patient 08:48:05 CDT Romario Alan MD [facility] CPT-47300 Level 3 Est. Patient 07:30:03 VITAMIN MANAGER Mari christina [employer] CH[employer]-C [facility] CPT-44611 Level 4 Est. Patient 08:02:04 VITAMIN MANAGER Mari christina [employer]C [facility] CPT-73026 Level 3 Est. Patient 09:56:14 CDT Kadeem jenkins MD [facility] CPT-93066 Level 3 Est. Patient 11:07:[address] [facility] Procedures Code Procedure Name Date Entry Date Standard Desc ription CPT-TMV TMV 05:09:41 CDT CPT-74383 Foot, right, comp min 3V - XRAY USE ONLY 16:15:36 CDT CPT-J1885 Toradol 30 mg (Ketorolac) 06:01:21 CDT 2020 CPT-03928 EKG Trac and Interp - XRAY USE ONLY 1 8:04:25 CDT CPT-43521 Chest, 2 views 17:02:15 CDT CPT-J1885 Toradol 30 mg (Ketorolac) 16:44:24 CDT 2020 CPT-45683 Abx/Therapy Injection 16:44:24 CDT CPT-62103 Venipuncture Draw Fee 16:11:55 CDT CPT-L3908 Cockup Splint 16:13:07 CDT CPT-61192 Venipuncture Draw Fee 12:12:02 CDT CPT-55533 Forearm, right, AP and Lat - XRAY USE ONLY 05/26 14:27:36 CDT CPT-28779 Elbow, right, Comp Min 3V - XRAY USE ONLY 05/26 14:27:35 CDT CPT-35651 Venipuncture Draw Fee 11:28:13 CDT CPT-29412 Venipuncture Draw Fee 08:03:55 VITAMIN MANAGER CPT-47379 Venipuncture Draw Fee 16:21:43 VITAMIN MANAGER CPT-62861 75422 - Immun Admin 1 vac 13:37:32 CDT 2019 CPT-77425 Flulaval (Flu) 10PK Syringe IM 13:37:32 CDT CPT-65359 Venipuncture Draw Fee 10:41:23 CDT CPT-29545 Venipuncture Draw Fee 08:57:35 CDT CPT-J1885 Toradol 30 mg (Ketorolac) 18:38:26 CDT 2019 CPT-J2550 Phenergan 25 mg (Promethazine) 18:38:26 CDT CPT-J1020 Depo Medrol 60 mg (Methyl Prednisolone A cetate) 18:38:26 CDT CPT-J1100 Decadron 6mg (Dexamethasone) 18:38:26 CDT 2 CPT-90135 Abx/Therapy Injection 18:38:25 CDT CPT-23200 Venipuncture Draw Fee 08:18:31 CDT CPT-02008 Venipuncture Draw Fee 09:11:08 CDT CPT-69683 Venipuncture Draw Fee 15:19:08 CDT CPT-52192 IM or SQ Injection 13:11:03 CDT CPT-J1100 Decadron 4mg (Dexamethasone) 13:11:03 CDT 2 CPT-J1030 Depo Medrol 40 mg (Methyl Prednisolone A cetate) 13:11:02 CDT CPT-06672 Venipuncture Draw Fee 10:49:05 CDT CPT-59137 Sono Soft Tissue Head and Neck - XRAY US E ONLY 14:27:21 VITAMIN MANAGER CPT-MF1572W (4274F) Influenza immunization administe red or previously received 13:43:59 VITAMIN MANAGER CPT-J2550 Phenergan 25 mg (Promethazine) 17:57:23 VITAMIN MANAGER CPT-J1885 Toradol 30 mg (Ketorolac) 17:57:23 VITAMIN MANAGER 2018 CPT-66279 Prv Med Est Pt 18-39yrs 08:02:04 VITAMIN MANAGER CPT-08164 64988 - Immun Admin 1 vac 09:24:27 CDT 2018 CPT-37978 Flulaval Quadrivalent (Flu) 10Pk Syringe IM 2018 09:24:27 CDT CPT-54564 First Vx - Ix admin via ID I M or jet injects without counseling by physician 16:30:31 CDT CPT-16038 Fluzone Quadrivalent Intramuscular Suspe nsion 0.5 ML 16:30:31 CDT CPT-01680 Nexplanon Removal 09:56:14 CDT CPT-OV Office Visit 10:17:55 CDT CPT-40725 TB Tubersol 16:11:35 VITAMIN MANAGER CPT-22636 Administration single or combination vac cine inc oral 14:18:51 VITAMIN MANAGER CPT-21065 TB Tubersol 14:18:51 VITAMIN MANAGER CPT-39953 Influenza split virus > age 3 14:18:51 VITAMIN MANAGER CPT-61514 Knee 3V 11:04:40 CDT
--- NOTE | 2020-10-19 11:46 | Diagnostic Imaging Report ---
Indication: Patient with history of papillary thyroid carcinoma, status post thyroidectomy. Patient had palpable lump in the right neck. Patient currently states that the palpable lump has resolved. Patient presents for ultrasound-guided fine-needle aspiration of the enlarged right neck lymph node. Sonographic interrogation of the right neck was performed. No lymphadenopathy is identified on today's study. There are 2 small lymph nodes in the right neck, largest 10 mm x 4 mm x 9 mm. 2nd lymph node measures 7 mm x 3 mm x 5 mm. No pathologically enlarged lymph nodes are seen. IMPRESSION: Normal sized lymph nodes in the right neck. Therefore, fine-needle aspiration and biopsy was not performed. Continued clinical follow-up is recommended. Dictated by: Dictated on workstation # [id number]
== END ==
LOC: RAD 11:00
PROVIDERS: ATTEND Otolaryngology Otolaryngology/Facial Plastic Surgery
DX: R22.1 Localized swelling, mass and lump, neck (principal); Z53.8 Procedure and treatment not carried out for other reasons; Z85.850 Personal history of malignant neoplasm of thyroid; Z90.89 Acquired absence of other organs
CPT/HCPCS: 76536